=== PATIENT | female | born 1940 | race Caucasian/White ===

== ENCOUNTER 2017-04-11 14:57 | Inpatient (IN) ==
--- NOTE | 2017-04-11 15:38 | EKG Report ---
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
[2017-04-11 16:02] LABS: Basophils % 0.3 % (0.0-0.8); Eosinophils # 0.2 10*3/uL (0.0-0.87); Eosinophils % 2.3 % (0.00-10.9); Hematocrit 33.7 VOL% (35.7-47.0); Hemoglobin 11.2 GM/DL (12.0-16.0); Immature Granulocytes % 0.7 %; Immature Granulocytes Absolute 0.05 #; Lymphocytes # 1.8 10*3/uL (1.4-4.0); Lymphocytes % 25.4 % (21.3-54.2); Mean Corpuscular HGB Conc 33.2 GM/DL (32-36); Mean Corpuscular Hemoglobin 29 PG (27-34); Mean Corpuscular Volume 87.8 FL (87-102); Mean Platelet Volume 10.1 FL (9.6-12.0); Monocytes # 0.7 10*3/uL (0.11-0.8); Neutrophils # 4.3 10*3/uL (1.4-7.4); Neutrophils % 61.3 % (38.7-73.9); Platelet Count 264 T/CUMM (130-400); Red Blood Count 3.84 MC/CUMM (3.8-5.5); Red Cell Distribution Width 15.7 % (9.3-17.3)
[2017-04-11 16:09] LABS: Apearance,Urine CLEAR (Clear); Bilirubin,Urine Negative (Negative); Blood, Urine Negative (Negative); Glucose,Urine (UA) Negative (Negative); Ketones,Urine Negative (Negative); Mucus,Urine Occasional /LPF (Occasional); Nitrite,Urine Negative (Negative); Protein,Urine 100 MG/DL; RBC,Urine 2 /HPF (0-4); Squamous Epithelial Cell,Urine Occasional /HPF (0-10); Urine Color Yellow (Yellow); Urine Urobilinogen < 2.0 EU/DL (0.2-1.0); WBC,Urine 5 /HPF (0-6)
[2017-04-11 16:28] LABS: Alanine Aminotransferase 19 U/L (13-56); Albumin 3.3 G/DL (3.4-5.0); Alkaline Phosphatase 60 U/L (45-117); Aspartate Amino Transferase 24 U/L (0-37); Bilirubin,Total < 0.39 MG/DL (0.2-1.0); Blood Urea Nitrogen 31 MG/DL (7-18); Calcium 8.6 MG/DL (8.5-10.1); Glucose 74 MG/DL (74-106); Magnesium 2.1 MG/DL (1.8-2.4); Potassium 3.8 MMOL/L (3.5-5.1); Sodium 143 MMOL/L (136-145); Total Protein 6.7 G/DL (6.4-8.3)
[2017-04-11 16:36] LABS: Troponin I Only < 0.015 NG/ML (0.00-0.045)
[2017-04-11 17:01] LABS: ABG Base Excess -12.3 MMOL/L (-2.5-2.5); ABG HCO3 14.9 MMOL/L (20-26); ABG Oxygen Saturation 96.8 % (95-100); ABG PH 7.267 (7.35-7.45); ABG PO2 94.7 MM HG (80-95); ABG TCO2 12.5 MMOL/L (23-27)
--- NOTE | 2017-04-11 17:03 | XRay Report ---
Portable chest Date: 04/11/2017 Clinical history: CHF Comparison: 03/14/2017 Technique: Portable AP sitting chest Findings: The heart remains minimally enlarged with calcification in the wall of the thoracic aorta. Chronic scarring in the lungs with minimally progressive diffuse parenchymal findings at the lung bases. Prior anterior cervical fusion with degenerative changes. Impression: Minimally progressive atelectasis/edema at the lung bases. Otherwise the chest is stable in appearance. PROCEDURE INTERPRETED AT [facility] DEPARTMENT OF RADIOLOGY Final Report Signed by: Dr. Luisa Abebe
--- NOTE | 2017-04-11 17:12 | Emergency Department Note ---
Niki Donis Rolonda, am scribing for, and in the presence of, Heladio Jacob MD 16:42. Nidia Donis Charles R, MD, personally performed the services described in this documentation, ascribed by Taylor Prince in my presence, and it is both accurate and complete 712 . Arrival - Arrival Chief Complaint: Non-Specific Stated Complaint: sent by Dr. Feliz's office/high K/needs EKG ED Nursing Triage Note: pt ambulatory to triage with c/o having elevated potassium. pt went to the doctor yesterday and had lab work done and was called back today telling her that her potassium was 7.0. Mode of Arrival: Ambulatory Limitations: No Limitations Source: Patient, Old Records Reviewed, RN Notes Reviewed Time Seen by Provider: 04/11/17 16:15 - History of Present Illness HPI Narrative: Pt is a 76 y/o female who presents to the ED for further evaluation of elevated potassium with an onset of x1 day. Pt has a PMHx of CHF, Kidney infection, and Kidney stones. She states that she was hospitalized for heart cath 03/16/2017-. Pt states that she went to the doctor yesterday in which lab work was done resulting in low potassium. Pt states that she "has no energy". Pt confirms associated sxs of blurred vision and vertigo but denies chest pain and SOB. No other complaint/pain in ED. Onset (ago): day(s) Consistency: constant Severity: mild Severity scale (1-10): 3 Allergies/Adverse Reactions: Allergies Allergy/AdvReac Type Severity Reaction Status Date / Time methotrexate Allergy ANAPHYLAXIS Verified 04/11/17 15:04 Penicillins Allergy UNRESPONSIV Verified 04/11/17 15:04 E Home Medications: Home Medications Medication Instructions Recorded Confirmed Type Diltiazem HCl [Cardizem LA] 360 mg PO DAILY 03/12/17 03/12/17 History Estradiol [Estradiol Tab] 1 mg PO DAILY 03/12/17 03/12/17 History Exenatide Microspheres [Bydureon 2 mg SQ ONCE 03/12/17 03/12/17 History Pen] Omeprazole 40 mg PO DAILY 03/12/17 03/12/17 History Rosuvastatin Calcium 20 mg PO DAILY 03/12/17 03/12/17 History Sitagliptin Phos/Metformin HCl 1 tablet PO DAILY 03/12/17 03/12/17 History [Janumet 50-1,000 mg Tablet] Aspirin EC Tab 81 mg PO DAILY tablet 03/16/17 Rx Ciprofloxacin Tab [Cipro Tab] 500 mg PO BID #6 tablet 03/16/17 Rx Metoprolol Succinate Xl [Toprol Xl] 100 mg PO DAILY #30 03/16/17 Rx Review of System - Review of System 12 point system: reviewed and no additional remarkable complaints except as stated - Review of System Constitutional: Present: weakness. Absent: chills, fever Eyes: Present: vision change. Absent: discharge Head/Ears/Nose/Throat: Absent: earache Respiratory: Absent: cough Cardiovascular: Absent: chest pain Gastrointestinal: Absent: abdominal pain, nausea, vomiting Genitourinary female: Absent: dysuria Musculoskeletal: Absent: arm pain, back pain Skin: Absent: rash Neurological: Present: vertigo. Absent: headache Psychiatric: Absent: anxiety Endocrine: Absent: cold intolerance Hematological/Lymphatic: Absent: easy bleeding Allergic/Immunologic: Absent: facial swelling Medical,Surgical,& Family Hx - Medical History Cardio: History of: CAD, Hypertension No history of: Aneurysm, Cardiac Dysrhythmia, PVD Neurology: No history of: Seizures Endocrine: History of: Diabetes Mellitus (NIDDM) Respiratory: No history of: Obstructive Sleep Apnea, Pneumonia Gastrointestinal: History of: GI Problems (IVS) Other: No history of: Anaphylaxis, Cancer - Family History Family History: Reports;: Family Cancer, Family Heart Disease, Family Hypertension - Social History Smoking Status: Never smoker Frequency of Alcohol Use: None Type of Drug Use: None Exam Vital Signs: Vital Signs Temperature 98.9 F 04/11/17 15:20 Pulse Rate 66 04/11/17 15:20 Respiratory Rate 18 04/11/17 15:20 Blood Pressure 210/73 04/11/17 15:20 O2 Sat by Pulse Oximetry 99 04/11/17 15:00 - General General appearance: alert, in no apparent distress - Head Head exam: Present: atraumatic, normocephalic - Eye Eye exam: Present: PERRL, EOMI - ENT ENT exam: Present: mucous membranes dry. Absent: mucous membranes moist - Neck Neck exam: Present: full ROM. Absent: tenderness - Chest Chest inspection: Present: symmetric chest wall rise. Absent: tenderness - Respiratory Respiratory exam: Present: normal lung sounds bilaterally. Absent: wheezes - Cardiovascular Cardiovascular exam: Present: regular rate, normal rhythm, normal heart sounds. Absent: bradycardia - Abdominal Exam Abdominal exam: Present: soft, normal bowel sounds. Absent: tenderness - Extremities Exam Extremities exam: Present: full ROM. Absent: tenderness - Back Exam Back exam: Present: full ROM. Absent: tenderness - Neurological Exam Neurological exam: Present: alert, oriented X3, CN II-XII intact - Psychiatric Psychiatric exam: Present: normal affect, normal mood - Skin Skin exam: Present: warm, dry, intact, normal color. Absent: rash Course - Consultations Consultation #1: Hospitalist will admit patient Time: 17:26 Results - Labs CBC & BMP: 04/11/17 15:52 04/11/17 15:52 Lab Results: I have reviewed the patients labs Labs: Laboratory Tests 04/11/17 15:52 Total Creatine Kinase 42 CK-MB (CK-2) 2.0 Troponin I < 0.015 - Diagnostic Findings Procedure: Chest x-ray: report reviewed by me (Minimally progressive atelectasis /edema at the lung bases. Otherwise the chest is stable in appearence.) Disposition Clinical Impression: Diabetes, UTI (urinary tract infection), Fatigue, Metabolic acidosis, Generalized weakness, Renal insufficiency, Transient confusion Case discussed with: patient, patient's family Disposition: Still a Patient Condition: Stable Time of Disposition: 17:26
[2017-04-11] MEDS ORDERED: LEVOFLOXACIN INJ 250 MG in PREMIX 1 EACH IV STA (17:24)
--- NOTE | 2017-04-11 17:57 | Hospitalist History & Physical ---
Assessment and Plan (1) Metabolic acidosis Status: Acute Assessment and plan: Consult nephrology for eval. Urine potassium, sodium, and chloride. BMP in am. ABG in am. Current Visit: Yes (2) Generalized weakness Status: Acute Current Visit: Yes (3) Renal insufficiency Status: Acute Assessment and plan: Consult nephrology for eval in am. Creatinine 2.2 Bun 31. Current Visit: Yes (4) UTI (urinary tract infection) Status: Acute Assessment and plan: Treat with Levaquin IV. Current Visit: Yes (5) Diabetes Status: Chronic Assessment and plan: Accuchecks achs. SSI. Hgb A1c in am. Current Visit: Yes (6) CAD (coronary artery disease) Status: Chronic Current Visit: No Qualifiers: Coronary Disease-Associated Artery/Lesion type: [place] artery [place] vs. transplanted heart: [place] heart (7) CHF (congestive heart failure) Status: Chronic Current Visit: No History of Present Illness Chief complaint: abnormal lab and weakness History of present illness: Ms. Haddad is a 76 year old white female with a history of hypertension, CAD CHF , diabetes, and hernia repair that presented to the ED for further evaluation of abnormal lab values. Pt. was seen by Dr. Feliz in clinic yesterday as a follow up to recent hospitalization. Pt. was hospitalized for recurrent CHF. Labs were drawn at that appointment and pt was alerted today that she needed to report to the ED for evaluation. She was told she had a potassium of 7. Pt. also reports "feeling drained" and being consistently short of breath. Pt. denies any other complaints in the ED at this time. On evaluation, pt was noted to have a bicarb of 14, bun/creatinine 31/2.20 ph of 7.267,CO2 of 30, O2 94.7, HCO3 14.9, base excess -12.3. Pt. will be admitted to the hospitalist program for further eval and treatment. Pt's case has been discussed with Dr. Sheth. Home Medications Medication Instructions Recorded Confirmed Type Diltiazem HCl [Cardizem LA] 360 mg PO QAM 03/12/17 04/11/17 History Estradiol [Estradiol Tab] 1 mg PO QAM 03/12/17 04/11/17 History Exenatide Microspheres [Bydureon 2 mg SUBCUT SA 03/12/17 04/11/17 History Pen] Rosuvastatin Calcium 20 mg PO QAM 03/12/17 04/11/17 History Sitagliptin Phos/Metformin HCl 1 tablet PO BID 03/12/17 04/11/17 History [Janumet 50-1,000 mg Tablet] Escitalopram [Lexapro] 10 mg PO QAM 04/11/17 04/11/17 History Fenofibrate [Tricor] 145 mg PO QAM 04/11/17 04/11/17 History Metoprolol Succinate Xl [Toprol Xl] 50 mg PO QAM 04/11/17 04/11/17 History Olmesartan/Hydrochlorothiazide 1 tablet PO QAM 04/11/17 04/11/17 History [Benicar Hct 40-25 mg Tablet] Pantoprazole Sodium 40 mg PO QAM 04/11/17 04/11/17 History Allergies Allergy/AdvReac Type Severity Reaction Status Date / Time methotrexate Allergy ANAPHYLAXIS Verified 04/11/17 15:04 Penicillins Allergy UNRESPONSIV Verified 04/11/17 15:04 E Medical,Surgical,& Family Hx - Medical History Cardio: History of: CAD, Hypertension No history of: Aneurysm, Cardiac Dysrhythmia, PVD Neurology: No history of: Seizures Endocrine: History of: Diabetes Mellitus (NIDDM) Respiratory: No history of: Obstructive Sleep Apnea, Pneumonia Gastrointestinal: History of: GI Problems (IVS) Other: No history of: Anaphylaxis, Cancer - Family History Family History: Reports;: Family Cancer, Family Heart Disease, Family Hypertension - Social History Smoking Status: Never smoker Frequency of Alcohol Use: None Type of Drug Use: None Marital Status: Lives With:: Spouse Functional capacity: independent ambulation - Constitutional Constitutional: Present: weakness. Absent: chills, fever(s) - EENT Eyes: Present: requires corrective lense Ears: Present: decreased hearing - Cardiovascular Cardiovascular: Present: dyspnea on exertion. Absent: chest pain at rest, edema - Respiratory Respiratory: Absent: cough - Gastrointestinal Gastrointestinal: Present: diarrhea. Absent: abdominal pain, nausea, vomiting - Genitourinary Genitourinary: Absent: difficulty urinating - Neurological Neurological: Absent: confusion, dizziness - Hematologic/Lymphatic Hematologic/Lymphatic: Absent: easy bleeding Exam - Constitutional Vitals: Period Temp Pulse Resp BP Sys/Santoro Pulse Ox Last 24 Hr 98.9 F-98.9 F 66-66 18-18 210-210/73-73 99 General appearance: normal weight, no acute distress - Head Head exam: Present: normal inspection, normocephalic - Eye Eye exam: Present: EOMI. Absent: scleral icterus Pupils: Present: ANGELA - Respiratory Respiratory exam: Present: clear to auscultation bilaterally. Absent: wheezes - Cardiovascular Cardiovascular exam: Present: regular rate and rhythm - GI/Abdominal GI/Abdominal exam: Present: normal bowel sounds, soft. Absent: tenderness - Extremities Exam Extremities exam: Present: normal capillary refill, full ROM. Absent: edema - Neurological Exam Neurological exam: Present: alert, oriented X3 - Psychiatric Psychiatric exam: Present: normal affect, normal mood - Skin Skin exam: Present: normal color, warm, dry Results - Labs CBC & BMP: 04/11/17 15:52 04/11/17 15:52 Lab Results: I have reviewed the past 24 hour labs
[2017-04-11] MEDS ORDERED: ONDANSETRON 4 MG/2 ML VIAL IV PRN (20:21)
[2017-04-11] MEDS ORDERED: GLUCAGON 1 MG VIAL IM PRN (20:21)
[2017-04-11] MEDS ORDERED: DEXTROSE 50% 25 GM/50 ML SYRINGE IV PRN (20:21)
[2017-04-11] MEDS ORDERED: ACETAMINOPHEN 325 MG TABLET PO PRN (20:21)
[2017-04-11] MEDS ORDERED: SODIUM BICARB INJ 50 MEQ in SODIUM CHLORIDE 0.45% 1,000 ML IV SCH (21:00)
[2017-04-11] MEDS: INSULIN REGULAR 100 UNIT/ML SUBCUT SCH (21:19)
[2017-04-11] MEDS ORDERED: SODIUM CHLORIDE 0.45% IV SCH (22:00)
[2017-04-11] MEDS ORDERED: SODIUM ACETATE 50 MEQ in SODIUM CHLORIDE 0.45% 975 ML IV SCH (22:00)
[2017-04-11] MEDS ORDERED: SODIUM ACETATE IV SCH (22:00)
[2017-04-12 03:46] LABS: ABG Base Excess -10.9 MMOL/L (-2.5-2.5); ABG HCO3 15.8 MMOL/L (20-26); ABG Oxygen Saturation 97.4 % (95-100); ABG PCO2 31.8 MM HG (35-48); ABG PH 7.279 (7.35-7.45); ABG TCO2 13.7 MMOL/L (23-27)
[2017-04-12 07:30] LABS: Basophils % 0.3 % (0.0-0.8); Eosinophils # 0.2 10*3/uL (0.0-0.87); Eosinophils % 3.4 % (0.00-10.9); Hematocrit 33.1 VOL% (35.7-47.0); Hemoglobin 10.9 GM/DL (12.0-16.0); Immature Granulocytes % 0.4 %; Immature Granulocytes Absolute 0.03 #; Lymphocytes # 2.2 10*3/uL (1.4-4.0); Mean Corpuscular HGB Conc 32.9 GM/DL (32-36); Mean Corpuscular Hemoglobin 29 PG (27-34); Mean Corpuscular Volume 86.9 FL (87-102); Mean Platelet Volume 12.1 FL (9.6-12.0); Monocytes # 0.7 10*3/uL (0.11-0.8); Monocytes % 9.6 % (1.7-12.7); Neutrophils # 3.9 10*3/uL (1.4-7.4); Neutrophils % 55.3 % (38.7-73.9); Platelet Count 205 T/CUMM (130-400); Red Blood Count 3.81 MC/CUMM (3.8-5.5); Red Cell Distribution Width 15.6 % (9.3-17.3); White Blood Count 7.1 T/CUMM (4-12)
[2017-04-12 07:56] LABS: Hypochromasia 1+; Ovalocytes Slight; Platelet Estimate Adequate
[2017-04-12] MEDS: INSULIN REGULAR 100 UNIT/ML SUBCUT SCH ×4 (08:00→21:52)
[2017-04-12 08:07] LABS: Magnesium 2.1 MG/DL (1.8-2.4); Osmolality,Calculated 288.1 MOS/KG (273-304); Potassium 3.8 MMOL/L (3.5-5.1); Risk Ratio 3.3; Thyroid Stimulating Hormone 1.61 uIU/ml (0.358-3.74)
[2017-04-12] MEDS ORDERED: PANTOPRAZOLE 40 MG TABLET PO SCH (09:00)
[2017-04-12] MEDS ORDERED: hydroCHLOROthiazide 25 MG TABLET PO SCH (09:00)
[2017-04-12] MEDS ORDERED: OLMESARTAN 20 MG TABLET PO SCH (09:00)
[2017-04-12] MEDS ORDERED: LEVOFLOXACIN INJ 250 MG in PREMIX 1 EACH IV SCH ×2 (09:00→19:00)
[2017-04-12] MEDS: PANTOPRAZOLE 40 MG TABLET PO SCH (09:54)
[2017-04-12] MEDS: ESTRADIOL 1 MG TABLET PO SCH (09:54)
[2017-04-12] MEDS: ESCITALOPRAM 10 MG TABLET PO SCH (09:54)
[2017-04-12] MEDS: FENOFIBRATE 145 MG TABLET PO SCH (09:54)
[2017-04-12] MEDS: ROSUVASTATIN 20 MG TABLET PO SCH (09:55)
[2017-04-12] MEDS: METOPROLOL SUCCINATE XL 50 MG TABLET PO SCH (09:55)
[2017-04-12] MEDS: DILTIAZEM CD 180 MG CAPSULE PO SCH (09:55)
--- NOTE | 2017-04-12 10:16 | Hospitalist Progress Note ---
<Arelis Garcia - Last Filed: 04/12/17 10:11> Assessment and Plan (1) Metabolic acidosis Status: Acute Assessment and plan: Consult nephrology for eval. Urine potassium, sodium, and chloride. BMP in am. ABG in am. 04/12 Awaiting nephrology consult. Bicarb improved. Will continue to monitor. Continue daily labs. Current Visit: Yes (2) Generalized weakness Status: Acute Current Visit: Yes (3) Renal insufficiency Status: Acute Assessment and plan: Consult nephrology for eval in am. Creatinine 2.2 Bun 31. 04/12 Creatinine 1.9 Bun 29. Continue daily labs. Current Visit: Yes (4) UTI (urinary tract infection) Status: Acute Assessment and plan: Treat with Levaquin IV. Current Visit: Yes (5) Diabetes Status: Chronic Assessment and plan: Accuchecks achs. SSI. Hgb A1c in am. Current Visit: Yes (6) CAD (coronary artery disease) Status: Chronic Current Visit: No Qualifiers: Coronary Disease-Associated Artery/Lesion type: [place] artery [place] vs. transplanted heart: [place] heart (7) CHF (congestive heart failure) Status: Chronic Current Visit: No Hospitalist: Subjective Interval history: Pt. seen and examined. Pt. states she is doing better this morning. Pt. does complain of some flank pain but no other issues at this time. Pt's bicarb improved to 16 today- fluids currently infusing. Nephrology has been consulted; still awaiting their recommendations. We will continue to monitor patient. Exam - Constitutional Vitals: Period Temp Pulse Resp BP Sys/Santoro Pulse Ox Last 24 Hr 97.0 F-98.9 F 58-66 16-20 140-210/65-79 96-100 General appearance: normal weight, no acute distress - Head Head exam: Present: normal inspection, normocephalic - Eye Eye exam: Present: EOMI. Absent: scleral icterus Pupils: Present: ANGELA. Absent: fixed - Respiratory Respiratory exam: Present: clear to auscultation bilaterally. Absent: wheezes - Cardiovascular Cardiovascular exam: Present: regular rate and rhythm - GI/Abdominal GI/Abdominal exam: Present: normal bowel sounds, soft. Absent: tenderness - Extremities Exam Extremities exam: Present: normal capillary refill, full ROM. Absent: edema - Neurological Exam Neurological exam: Present: alert, oriented X3 - Psychiatric Psychiatric exam: Present: normal affect, normal mood - Skin Skin exam: Present: normal color, warm, dry Results - Labs CBC & BMP: 04/12/17 05:52 04/12/17 05:52 Lab Results: I have reviewed the past 24 hour labs <Nae Burnett - Last Filed: 04/12/17 15:55> Hospitalist: Subjective Interval history: Patient seen and examined independently of STROKE COORDINATOR Garcia, agree with assessment and plan as documented. Patient reports nausea and diarrhea after eating for almost three years. She has been worked up for this several times at more than one place. Nephrology assisting. Exam - Constitutional Vitals: Period Temp Pulse Resp BP Sys/Santoro Pulse Ox Last 24 Hr 97.0 F-97.5 F 58-63 16-20 140-157/64-79 96-100 Results - Labs CBC & BMP: 04/12/17 05:52 04/12/17 05:52
--- NOTE | 2017-04-12 13:07 | Physician Query Form ---
CLICK EDIT DOCUMENT TO SELECT QUERY ANSWER --> OK --> SIGN Catina Gibbons RN [employer] W) [phone] (f) [phone] [email or web address] PROVIDERS: Make your selection(s) from the choices in EACH section by typing an "x" and enter comments in the comment section. Please use your independent medical judgment in providing your response. This request does not imply that any particular answer is desired or expected. CLINICAL INDICATORS: (Providers should not edit this section) Based on documentation of "Acute Renal Insufficiency" Creatinine form 2.20 to 1.90. GFR from 21 to 25. Treated with 1/2 NS infusion. Clarify which of the following most accurately represents the patient's renal status: ( ) Acute kidney injury (non-traumatic) ( ) Acute renal failure ( ) Acute renal failure with underlying Chronic Kidney Disease (CKD) - please provide stage below ( ) Acute renal failure with pathological renal lesion ( ) Acute renal failure with necrosis ( ) tubular ( ) medullary ( ) cortical ( ) CKD - please provide stage below ( ) End Stage Renal Disease ( ) Acute interstitial nephritis ( ) Hepatorenal syndrome ( ) Other, please specify: ( ) Clinically unable to determine Chronic Kidney Disease Stages Source: National Kidney Disease Foundation ( ) Stage I (eGFR > or = 90) ( ) Stage II (eGFR 60 - 89) ( ) Stage III (eGFR 30 - 59) ( ) Stage IV (eGFR 15 - 29) ( ) Stage V (eGFR < 15 or dialysis) COMMENTS: PLEASE ALSO DOCUMENT RESPONSE IN PROGRESS NOTES AND/OR DISCHARGE SUMMARY Use of terms such as suspected, likely, or probable (associated with a specific diagnosis that is being evaluated, monitored, or treated as if it exists) are acceptable and can be restated in the discharge summary if not ruled out. MTDD
--- NOTE | 2017-04-12 13:31 | Nephrology Consult Note ---
History of Present Illness Chief complaint: ARF, met acidosis History of present illness: Ms. Haddad is a 76 year old female admitted with mild acute renal failure and a normal anion gap metabolic acidosis. Her creatinine was 2.2 on admission and on March 16 was 1.4. Creatinine today after IV hydration is 1.9 and her serum bicarb is risen from 14 on admission to 16 today. She underwent cardiac catheterization last month when she presented with weakness was found to have patent coronary arteries with a patent stent previously placed in the coronary artery. Left ventricular ejection fraction was normal. She had some mild acute renal failure during that admission with a creatinine that giovanna to approximately 2.4 but at the time of discharge creatinine was down to 1.4. Her history is significant in that she has 10-12 bowel movements per day and has had for approximately 3 years she said this began after she had had what sounds like surgery for a hiatal hernia or paraesophageal hernia. She relates the diarrhea mostly to occurring after she eats anything. She estimates that on the day of admission she had had 10-12 bowel movements. She has not been taking olmesartan since her last admission when she was taken off of it. On exam she is in no distress she is talkative but informative. Neck without jugular venous distention heart without rub or gallop lungs clear the abdomen soft nontender extremities without edema. Chest x-ray is unremarkable Impression mild acute renal failure I think likely due to volume depletion #2 normal anion gap metabolic acidosis due to chronic diarrhea Plan I would continue IV hydration and sodium acetate administration for her metabolic acidosis. We will also add oral sodium bicarbonate which she can take at home. I think she should come off of an ARB or KULWINDER inhibitor due to her tendency to dehydration. She does describe symptoms compatible with orthostatic hypotension. We will also stop her diuretic for now since she admits to drinking a lot in order to keep up with her fluid losses with her diarrhea. Home Medications Medication Instructions Recorded Confirmed Type Diltiazem HCl [Cardizem LA] 360 mg PO QAM 03/12/17 04/11/17 History Estradiol [Estradiol Tab] 1 mg PO QAM 03/12/17 04/11/17 History Exenatide Microspheres [Bydureon 2 mg SUBCUT SA 03/12/17 04/11/17 History Pen] Rosuvastatin Calcium 20 mg PO QAM 03/12/17 04/11/17 History Sitagliptin Phos/Metformin HCl 1 tablet PO BID 03/12/17 04/11/17 History [Janumet 50-1,000 mg Tablet] Escitalopram [Lexapro] 10 mg PO QAM 04/11/17 04/11/17 History Fenofibrate [Tricor] 145 mg PO QAM 04/11/17 04/11/17 History Metoprolol Succinate Xl [Toprol Xl] 50 mg PO QAM 04/11/17 04/11/17 History Olmesartan/Hydrochlorothiazide 1 tablet PO QAM 04/11/17 04/11/17 History [Benicar Hct 40-25 mg Tablet] Pantoprazole Sodium 40 mg PO QAM 04/11/17 04/11/17 History Allergies Allergy/AdvReac Type Severity Reaction Status Date / Time methotrexate Allergy ANAPHYLAXIS Verified 04/11/17 15:04 Penicillins Allergy UNRESPONSIV Verified 04/11/17 15:04 E Medical,Surgical,& Family Hx - Medical History Cardio: History of: CAD, Hypertension No history of: Aneurysm, Cardiac Dysrhythmia, PVD Neurology: History of: Migraine No history of: Seizures Endocrine: History of: Diabetes Mellitus (NIDDM) Respiratory: No history of: Obstructive Sleep Apnea, Pneumonia Genitourinary: History of: Kidney Stones Gastrointestinal: History of: GI Problems (IVS) Hematology: History of: Anemia Other: No history of: Anaphylaxis, Cancer - Surgical History Reproductive Surgeries: Surgical HX of;: Hysterectomy - Family History Family History: Reports;: Family Cancer, Family Heart Disease, Family Hypertension - Social History Smoking Status: Never smoker Frequency of Alcohol Use: None Type of Drug Use: None Review of Systems 12 point system: reviewed and no additional remarkable complaints except as stated Exam - Vital Signs Vital signs: Period Temp Pulse Resp BP Sys/Santoro Pulse Ox Last 24 Hr 97.0 F-98.9 F 58-66 16-20 140-210/64-79 96-100 - General Appearance General appearance: well-developed, well-nourished, appears started age EENT: ATNC Neck: no JVD, no thyromegaly, no carotid bruit, supple Respiratory: no kyphosis, no scoliosis Cardiology: no murmurs, no rub, no gallops, no edema, regular rate, regular rhythm, normal S1, normal S2 Gastrointestinal: normoactive bowel sounds Integumentary: no rash, warm and dry Neurologic: no focal deficit, no asterixis, alert and oriented x3, reflexes 2+ and symmetric, gait normal, strength 5/5 Musculoskeletal: no deformities, no erythema, no cyanosis, no clubbing Psychiatric: mood/affect appropriate, cooperative Results - Labs CBC & BMP: 04/12/17 05:52 04/12/17 05:52 Assessment and Plan - Time spent with patient Time spent with patient: Greater than 30 minutes (1) Metabolic acidosis Status: Acute Assessment and plan: Likely due to diarrhea Current Visit: Yes (2) Renal insufficiency Status: Acute Assessment and plan: Likely related to volume depletion. Shouldn't be any residual from last month's heart cath Current Visit: Yes (3) Diabetes Status: Chronic Current Visit: Yes Specialty Discharge - Follow Up or Referrals - Speciality Discharge Instructions Nephrology Instructions: Continue iv with na acetate. We'll begin oral bicarb and stop Olmesartin/HCTZ
[2017-04-12] MEDS: SODIUM BICARBONATE 650 MG TABLET PO SCH ×2 (15:44→20:29)
[2017-04-13 06:49] LABS: Basophils % 0.4 % (0.0-0.8); Eosinophils # 0.3 10*3/uL (0.0-0.87); Eosinophils % 3.9 % (0.00-10.9); Hematocrit 30.5 VOL% (35.7-47.0); Hemoglobin 10.2 GM/DL (12.0-16.0); Immature Granulocytes % 0.7 %; Immature Granulocytes Absolute 0.05 #; Lymphocytes # 1.8 10*3/uL (1.4-4.0); Lymphocytes % 23.4 % (21.3-54.2); Mean Corpuscular HGB Conc 33.4 GM/DL (32-36); Mean Corpuscular Hemoglobin 29 PG (27-34); Mean Corpuscular Volume 86.4 FL (87-102); Mean Platelet Volume 10.5 FL (9.6-12.0); Monocytes # 0.8 10*3/uL (0.11-0.8); Monocytes % 10.5 % (1.7-12.7); Neutrophils # 4.7 10*3/uL (1.4-7.4); Neutrophils % 61.1 % (38.7-73.9); Platelet Count 255 T/CUMM (130-400); Red Blood Count 3.53 MC/CUMM (3.8-5.5); Red Cell Distribution Width 15.5 % (9.3-17.3); White Blood Count 7.6 T/CUMM (4-12)
[2017-04-13 07:25] LABS: Calcium 9.2 MG/DL (8.5-10.1); Osmolality,Calculated 292.8 MOS/KG (273-304)
[2017-04-13] MEDS ORDERED: sitaGLIPtin 25 MG TABLET PO SCH (09:00)
--- NOTE | 2017-04-13 09:06 | Nephrology Progress Note ---
Nephrology - PN: Subj Interval history: Ms. Haddad is seen in follow-up of her metabolic acidosis and azotemia. She is better with a stable creatinine of 1.9 and a corrected acidosis with bicarb of 21. Urine electrolytes with a high urine chloride suggests an at further evidence that her normal anion gap metabolic acidosis is due to her diarrhea. Her chest is clear she is in no distress and feels some better. I think it is fine for her to go home and I do think sodium bicarb at home is reasonable and with her obvious tendency toward volume depletion due to diarrhea I would avoid KULWINDER, ARB, and diuretic therapy. She will continue follow-up with Dr. Feliz Exam (PN)-Nephrology - Vital Signs Vital signs: Period Temp Pulse Resp BP Sys/Santoro Pulse Ox Last 24 Hr 97.2 F-98.5 F 51-63 16-20 124-155/51-79 92-97 - Lab 04/13/17 06:20 04/13/17 06:20 Most recent lab results ABG pH 7.279 (7.35-7.45) L 04/12/17 03:39 ABG pCO2 31.8 MM HG (35-48) L 04/12/17 03:39 ABG pO2 101.0 MM HG (80-95) H 04/12/17 03:39 ABG HCO3 15.8 MMOL/L (20-26) L 04/12/17 03:39 ABG O2 Saturation 97.4 % (95-100) 04/12/17 03:39 Calcium 9.2 MG/DL (8.5-10.1) 04/13/17 06:20 Magnesium 2.1 MG/DL (1.8-2.4) 04/12/17 05:52 Assessment and Plan (1) Metabolic acidosis Status: Acute Assessment and plan: Likely due to diarrhea Current Visit: Yes (2) Renal insufficiency Status: Acute Assessment and plan: Likely related to volume depletion. Shouldn't be any residual from last month's heart cath Current Visit: Yes (3) Diabetes Status: Chronic Current Visit: Yes
[2017-04-13] MEDS: ESCITALOPRAM 10 MG TABLET PO SCH (09:20)
[2017-04-13] MEDS: ROSUVASTATIN 20 MG TABLET PO SCH (09:20)
[2017-04-13] MEDS: FENOFIBRATE 145 MG TABLET PO SCH (09:20)
[2017-04-13] MEDS: ESTRADIOL 1 MG TABLET PO SCH (09:20)
[2017-04-13] MEDS: DILTIAZEM CD 180 MG CAPSULE PO SCH (09:21)
[2017-04-13] MEDS: PANTOPRAZOLE 40 MG TABLET PO SCH (09:22)
[2017-04-13] MEDS: INSULIN REGULAR 100 UNIT/ML SUBCUT SCH ×2 (09:24→18:15)
[2017-04-13] MEDS: METOPROLOL SUCCINATE XL 50 MG TABLET PO SCH (09:31)
--- NOTE | 2017-04-13 13:38 | Discharge Summary ---
Hospital Course - Hospital Course Hospital Course: Ms. Haddad is a 76 year old white female with a history of hypertension, CAD CHF , diabetes, and hernia repair that presented to the ED for further evaluation of abnormal lab values. Patient was seen by Dr. Feliz in clinic the day previously as a follow up to recent hospitalization. Labs were drawn at that appointment and patient was alerted that she needed to report to the ED for evaluation. She was told she had a potassium of 7. Pt. also reports "feeling drained" and being consistently short of breath. On evaluation, pt was noted to have a bicarb of 14, bun/creatinine 31/2.20 with a normal potassium. She was admitted to the hospitalist service for mild acute renal failure and normal anion gap metabolic acidosis. Nephrology was consulted. She was gently hydrated with IV fluids and started on oral sodium bicarbonate. It was felt that this was due to her history of chronic diarrhea. Her bicarbonate levels have improved. She has now reached maximal benefit of inpatient stay and will be discharged to home. - Time spent with patient Time with patient DS: Greater than 30 minutes (40) Diagnosis - Discharge Diagnosis (1) Generalized weakness Status: Resolved (2) Renal insufficiency Status: Chronic (3) Metabolic acidosis Status: Resolved Discharge Plan - Discharge Data Disposition: Disch To Home/Self Care Condition at Discharge: Stable Discharge Diet: advance to your usual diet Activity: increase activity as tolerated Hygiene: no restrictions Weight Bearing at Discharge: weight bear as tolerated Driving: no restrictions Contact your physician if you experience:: fever over 101 - Discharge Medications New Sodium Bicarb Tab 1,300 mg PO BID #120 tablet Continue Exenatide Microspheres [Bydureon Pen] 2 mg SUBCUT SA Rosuvastatin Calcium 20 mg PO QAM Estradiol [Estradiol Tab] 1 mg PO QAM Sitagliptin Phos/Metformin HCl [Janumet 50-1,000 mg Tablet] 1 tablet PO BID Fenofibrate [Tricor] 145 mg PO QAM Pantoprazole Sodium 40 mg PO QAM Diltiazem HCl [Cardizem LA] 360 mg PO QAM Escitalopram [Lexapro] 10 mg PO QAM Metoprolol Succinate Xl [Toprol Xl] 50 mg PO QAM Discontinued Olmesartan/Hydrochlorothiazide [Benicar Hct 40-25 mg Tablet] 1 tablet PO QAM - Follow Up or Referral - Forms/Instructions Exam - Constitutional Vitals: Period Temp Pulse Resp BP Sys/Santoro Pulse Ox Last 24 Hr 97.2 F-98.5 F 51-90 16-20 124-151/51-82 92-97 General appearance: normal weight - Head Head exam: Present: normocephalic, atraumatic - Eye Eye exam: Present: EOMI Pupils: Present: ANGELA - ENT ENT exam: Present: normal exam - Neck Neck exam: Present: normal inspection - Respiratory Respiratory exam: Present: clear to auscultation bilaterally. Absent: rhonchi, wheezes - Cardiovascular Cardiovascular exam: Present: regular rate and rhythm - GI/Abdominal GI/Abdominal exam: Present: normal bowel sounds, soft. Absent: tenderness, rebound - Extremities Exam Extremities exam: Present: normal inspection - Back Exam Back exam: Present: normal inspection - Neurological Exam Neurological exam: Present: alert, oriented X3 - Psychiatric Psychiatric exam: Present: normal affect, normal mood - Skin Skin exam: Present: warm, intact Discharge Results Procedures and tests throughout hospitalization: Pending Orders 04/11/17 17:39 Blood Culture Stat Labs on day of discharge: Labs from last 24 hours 04/13/17 04/13/17 04/13/17 12:38 07:53 06:20 WBC RBC Hgb Hct MCV MCH MCHC RDW Plt Count MPV Neut % (Auto) Lymph % (Auto) [place] % (Auto) Eos % (Auto) Baso % (Auto) Neut # (Auto) Lymph # (Auto) [place] # (Auto) Eos # (Auto) Baso # (Auto) Immature Gran % Nucleated RBC % Immature Gran # Nucleated RBCs # Immature Plt Fraction Sodium 144 Potassium 4.0 Chloride 114 H Carbon Dioxide 21 Anion Gap 13.0 BUN 30 H Creatinine 1.90 H GFR Calculation 25 BUN/Creatinine Ratio 15.00 Glucose 119 H POC Glucose 212 H 164 H Calculated Osmolality 292.8 Calcium 9.2 04/13/17 04/12/17 04/12/17 06:20 21:25 16:33 WBC 7.6 RBC 3.53 L Hgb 10.2 L Hct 30.5 L MCV 86.4 L MCH 29 MCHC 33.4 RDW 15.5 Plt Count 255 D MPV 10.5 Neut % (Auto) 61.1 Lymph % (Auto) 23.4 [place] % (Auto) 10.5 Eos % (Auto) 3.9 Baso % (Auto) 0.4 Neut # (Auto) 4.7 Lymph # (Auto) 1.8 [place] # (Auto) 0.8 Eos # (Auto) 0.3 Baso # (Auto) 0.0 Immature Gran % 0.7 Nucleated RBC % 0.0 Immature Gran # 0.05 Nucleated RBCs # 0.00 Immature Plt Fraction 0.0 Sodium Potassium Chloride Carbon Dioxide Anion Gap BUN Creatinine GFR Calculation BUN/Creatinine Ratio Glucose POC Glucose 246 H 243 H Calculated Osmolality Calcium Preliminary micro results at discharge 04/11/17 17:39 Blood Culture - Preliminary Blood No growth at 1 day 04/11/17 17:39 Blood Culture - Preliminary Blood No growth at 1 day DS: Provider Date of admission: 04/11/17 17:30 Primary care physician: . No PCP Attending physician on admission: Sammy Sheth MD Consults: 04/11/17 18:58 Consult to Dietitian [CONS] Routine Reason for Dietitian: Other 04/11/17 20:21 Consult to Physician [CONS] Routine Comment: Non-anion gap metabolic acidosis Consulting Provider: Rex Nassar Consult to Specialist Group: Nephrology When should Consulting Provider be notified: In am Discharging clinician: Nae Burnett MD
[2017-04-13 16:03] VITALS: BP 128/62
[2017-04-13] MEDS ORDERED: SODIUM BICARBONATE 650 MG TABLET PO SCH (21:00)
== END 2017-04-13 15:50 | disposition home or self-care (01) | DRG 683 ==
LOC: N.ED 14:57 → N.EDINP 17:30 → SUATTDRO 17:30 → N.2E 18:34
PROVIDERS: ADMIT Internal Medicine; ATTEND Internal Medicine

== ENCOUNTER 2017-11-01 15:54 | Inpatient (IN) ==
[2017-11-01] MEDS ORDERED: PANTOPRAZOLE 40 MG VIAL IV STA (16:18)
[2017-11-01] MEDS ORDERED: ASPIRIN 325 MG TABLET PO STA (16:18)
[2017-11-01] MEDS ORDERED: ONDANSETRON 4 MG/2 ML VIAL IV STA (16:18)
[2017-11-01] MEDS ORDERED: ONDANSETRON 4 MG/2 ML VIAL ONE (16:27)
[2017-11-01] MEDS ORDERED: ASPIRIN 325 MG TABLET ONE (16:27)
[2017-11-01] MEDS ORDERED: PANTOPRAZOLE 40 MG VIAL IV ONE (16:27)
[2017-11-01 16:35] LABS: Basophils % 0.3 % (0.0-0.8); Eosinophils # 0.2 10*3/uL (0.0-0.87); Eosinophils % 2.1 % (0.00-10.9); Hematocrit 25.4 VOL% (35.7-47.0); Hemoglobin 7.9 GM/DL (12.0-16.0); Immature Granulocytes % 1.2 %; Immature Granulocytes Absolute 0.13 #; Lymphocytes # 1.8 10*3/uL (1.4-4.0); Lymphocytes % 16.8 % (21.3-54.2); Mean Corpuscular HGB Conc 31.1 GM/DL (32-36); Mean Corpuscular Hemoglobin 30 PG (27-34); Mean Corpuscular Volume 97.7 FL (87-102); Mean Platelet Volume 10.7 FL (9.6-12.0); Monocytes # 0.7 10*3/uL (0.11-0.8); Monocytes % 6.6 % (1.7-12.7); Neutrophils # 7.8 10*3/uL (1.4-7.4); Platelet Count 316 T/CUMM (130-400); Red Cell Distribution Width 14.8 % (9.3-17.3); White Blood Count 10.7 T/CUMM (4-12)
[2017-11-01 16:46] LABS: PT Patient Result 10.8 SECS; Partial Thromboplastin Time 24.2 SECS (0-40)
[2017-11-01 16:55] LABS: Alanine Aminotransferase 17 U/L (13-56); Albumin 2.8 G/DL (3.4-5.0); Alkaline Phosphatase 72 U/L (45-117); Aspartate Amino Transferase 21 U/L (0-37); Bilirubin,Total < 0.39 MG/DL (0.2-1.0); Blood Urea Nitrogen 32 MG/DL (7-18); Calcium 7.8 MG/DL (8.5-10.1); Glucose 397 MG/DL (74-106); Osmolality,Calculated 298.7 MOS/KG (273-304); Potassium 4.3 MMOL/L (3.5-5.1); Sodium 138 MMOL/L (136-145); Total Protein 5.6 G/DL (6.4-8.3)
[2017-11-01] MEDS ORDERED: SODIUM CHLORIDE 0.9% 1,000 ML IV STA (17:06)
[2017-11-01 17:14] LABS: Troponin I Only 0.031 NG/ML (0.00-0.045)
[2017-11-01] MEDS ORDERED: ATROPINE 1 MG/10 ML SYRINGE IV STA (18:38)
[2017-11-01] MEDS ORDERED: DEXTROSE 50% 25 GM/50 ML VIAL IV PRN (18:39)
[2017-11-01] MEDS ORDERED: GLUCAGON 1 MG VIAL IM PRN (18:39)
[2017-11-01] MEDS ORDERED: ONDANSETRON 4 MG/2 ML VIAL IV PRN (18:39)
[2017-11-01] MEDS ORDERED: SODIUM CHLORIDE 0.9% 1,000 ML IV PRN (18:41)
[2017-11-01] MEDS ORDERED: FUROSEMIDE 20 MG/2 ML VIAL IV ONE (18:42)
[2017-11-01] MEDS ORDERED: ATROPINE 0.4 MG/1 ML VIAL ONE (18:44)
[2017-11-01] MEDS ORDERED: ALPRAZolam 0.5 MG TABLET PO PRN (18:46)
[2017-11-01] MEDS ORDERED: SODIUM CHLORIDE 0.9% 1,000 ML IV SCH (19:00)
[2017-11-01] MEDS ORDERED: CYANOCOBALAMIN 1000 MCG/1 ML VIAL IM ONE (19:08)
[2017-11-01] MEDS ORDERED: ATROPINE 1 MG/10 ML SYRINGE IV PRN (19:30)
[2017-11-01 19:31] LABS: Troponin I Only 0.029 NG/ML (0.00-0.045)
[2017-11-01] MEDS: INSULIN REGULAR 100 UNIT/ML SUBCUT SCH (23:36)
[2017-11-02] MEDS ORDERED: FUROSEMIDE 40 MG/4 ML VIAL ONE (03:26)
[2017-11-02 05:09] LABS: Basophils % 0.3 % (0.0-0.8); Eosinophils # 0.1 10*3/uL (0.0-0.87); Eosinophils % 0.7 % (0.00-10.9); Hematocrit 31.1 VOL% (35.7-47.0); Immature Granulocytes Absolute 0.09 #; Lymphocytes # 1.7 10*3/uL (1.4-4.0); Lymphocytes % 19.7 % (21.3-54.2); Mean Corpuscular HGB Conc 31.5 GM/DL (32-36); Mean Corpuscular Hemoglobin 30 PG (27-34); Mean Platelet Volume 10.8 FL (9.6-12.0); Monocytes # 0.6 10*3/uL (0.11-0.8); Monocytes % 7.3 % (1.7-12.7); Neutrophils # 6.3 10*3/uL (1.4-7.4); Platelet Count 316 T/CUMM (130-400); Red Blood Count 3.31 MC/CUMM (3.8-5.5); Red Cell Distribution Width 14.6 % (9.3-17.3); White Blood Count 8.8 T/CUMM (4-12)
[2017-11-02 05:14] LABS: Hemoglobin 9.8 GM/DL (12.0-16.0)
[2017-11-02] MEDS: INSULIN REGULAR 100 UNIT/ML SUBCUT SCH ×3 (05:37→18:32)
[2017-11-02 05:51] LABS: Bilirubin,Total 0.6 MG/DL (0.2-1.0); Calcium 8.1 MG/DL (8.5-10.1)
[2017-11-02 05:52] LABS: Osmolality,Calculated 289.1 MOS/KG (273-304); Potassium 4.5 MMOL/L (3.5-5.1)
[2017-11-02] MEDS ORDERED: ACETAMINOPHEN 325 MG TABLET PO PRN (07:34)
[2017-11-02] MEDS: MORPHINE 2 MG/1 ML SYRINGE IV PRN ×2 (07:47→12:25)
[2017-11-02] MEDS ORDERED: amLODIPine 5 MG TABLET PO SCH (09:00)
[2017-11-02] MEDS ORDERED: CYANOCOBALAMIN 1000 MCG/1 ML VIAL IM ONE (09:00)
[2017-11-02] MEDS ORDERED: GLUCAGON 1 MG VIAL IM PRN (09:15)
[2017-11-02] MEDS ORDERED: DEXTROSE 50% 25 GM/50 ML VIAL IV PRN (09:15)
[2017-11-02] MEDS: INSULIN LISPRO 100 UNIT/ML SUBCUT SCH ×3 (12:38→21:29)
[2017-11-02] MEDS: hydrALAZINE 25 MG TABLET PO SCH ×3 (13:15→21:27)
[2017-11-02] MEDS: CYANOCOBALAMIN 500 MCG TABLET PO SCH (14:09)
[2017-11-02] MEDS: FUROSEMIDE 20 MG TABLET PO SCH (18:49)
[2017-11-02] MEDS: SODIUM BICARBONATE 650 MG TABLET PO SCH (21:27)
[2017-11-03] MEDS: INSULIN REGULAR 100 UNIT/ML SUBCUT SCH ×3 (02:01→12:11)
[2017-11-03 02:51] LABS: Basophils % 0.3 % (0.0-0.8); Eosinophils # 0.2 10*3/uL (0.0-0.87); Eosinophils % 2.6 % (0.00-10.9); Hematocrit 29.6 VOL% (35.7-47.0); Hemoglobin 9.7 GM/DL (12.0-16.0); Immature Granulocytes % 0.7 %; Immature Granulocytes Absolute 0.05 #; Lymphocytes # 1.4 10*3/uL (1.4-4.0); Lymphocytes % 18.9 % (21.3-54.2); Mean Corpuscular HGB Conc 32.8 GM/DL (32-36); Mean Corpuscular Hemoglobin 30 PG (27-34); Mean Corpuscular Volume 92.2 FL (87-102); Mean Platelet Volume 10.4 FL (9.6-12.0); Monocytes # 0.5 10*3/uL (0.11-0.8); Neutrophils # 5.1 10*3/uL (1.4-7.4); Neutrophils % 70.5 % (38.7-73.9); Platelet Count 315 T/CUMM (130-400); Red Blood Count 3.21 MC/CUMM (3.8-5.5); Red Cell Distribution Width 14.5 % (9.3-17.3); White Blood Count 7.2 T/CUMM (4-12)
[2017-11-03 04:27] LABS: Calcium 8.6 MG/DL (8.5-10.1); Osmolality,Calculated 285.5 MOS/KG (273-304); Potassium 3.4 MMOL/L (3.5-5.1)
[2017-11-03] MEDS ORDERED: POTASSIUM CHLORIDE 20 MEQ TABLET PO ONE (07:46)
[2017-11-03] MEDS ORDERED: POTASSIUM CHLORIDE RIDER 10 MEQ in PREMIX 1 EACH IV SCH (08:00)
[2017-11-03] MEDS: FUROSEMIDE 20 MG TABLET PO SCH (09:00)
[2017-11-03] MEDS: CYANOCOBALAMIN 500 MCG TABLET PO SCH (09:00)
[2017-11-03] MEDS: hydrALAZINE 25 MG TABLET PO SCH ×2 (09:01→14:46)
[2017-11-03] MEDS: INSULIN LISPRO 100 UNIT/ML SUBCUT SCH ×2 (09:02→12:10)
[2017-11-03] MEDS: SODIUM BICARBONATE 650 MG TABLET PO SCH (09:02)
[2017-11-03] MEDS: POTASSIUM CHLORIDE RIDER 10 MEQ in PREMIX 1 EACH IV SCH ×4 (10:18→13:59)
[2017-11-03 11:41] VITALS: BP 143/67
== END 2017-11-03 15:21 | disposition home or self-care (01) | DRG 286 ==
LOC: N.ED 15:54 → SUPCPDRO 18:36 → N.EDINP 18:47 → N.ICU 18:55 → N.TELEN 11-02 14:50 → N.ICU 11-02 14:51 → N.TELEN 11-02 15:28
PROVIDERS: ADMIT Internal Medicine; ATTEND Internal Medicine

== ENCOUNTER 2019-02-13 20:41 | Inpatient (IN) ==
[2019-02-13] MEDS ORDERED: FUROSEMIDE 100 MG/10 ML VIAL IV STA (21:18)
[2019-02-13] MEDS ORDERED: ALBUTEROL/IPRATROPIUM 3 ML NEB RESP TX STA (21:18)
[2019-02-13] MEDS ORDERED: methylPREDNISolone SOD SUC 125 MG/2 ML VIAL IV STA (21:18)
[2019-02-13] MEDS ORDERED: ONDANSETRON 4 MG/2 ML VIAL IV STA (21:18)
[2019-02-13 22:07] LABS: Basophils % 0.4 % (0.0-0.8); Eosinophils # 0.2 10*3/uL (0.0-0.87); Eosinophils % 2.5 % (0.00-10.9); Hematocrit 23.2 VOL% (35.7-47.0); Immature Granulocytes % 0.4 %; Immature Granulocytes Absolute 0.03 #; Lymphocytes # 1.5 10*3/uL (1.4-4.0); Lymphocytes % 19.4 % (21.3-54.2); Mean Corpuscular HGB Conc 30.2 GM/DL (32-36); Mean Corpuscular Volume 92.8 FL (87-102); Mean Platelet Volume 10.1 FL (9.6-12.0); Monocytes % 7.4 % (1.7-12.7); Neutrophils % 69.9 % (38.7-73.9); Platelet Count 247 T/CUMM (130-400); Red Cell Distribution Width 13.9 % (9.3-17.3); White Blood Count 7.5 T/CUMM (4-12)
[2019-02-13 22:24] LABS: INR 0.9; PT Patient Result 9.8 SECS; Partial Thromboplastin Time 25.9 SECS (0-40)
[2019-02-13 22:46] LABS: Albumin 3.1 G/DL (3.4-5.0); Bilirubin,Total 0.4 MG/DL (0.2-1.0); Calcium 8.4 MG/DL (8.5-10.1); Osmolality,Calculated 296.3 MOS/KG (273-304); Total Protein 6.3 G/DL (6.4-8.3)
[2019-02-14] MEDS ORDERED: DOCUSATE SODIUM 100 MG CAPSULE PO PRN (02:05)
[2019-02-14] MEDS ORDERED: GLUCAGON 1 MG VIAL IM PRN (02:05)
[2019-02-14] MEDS ORDERED: FUROSEMIDE 20 MG/2 ML VIAL IV PRN (02:05)
[2019-02-14] MEDS ORDERED: DEXTROSE 50% 25 GM/50 ML VIAL IV PRN (02:05)
[2019-02-14] MEDS ORDERED: ONDANSETRON 4 MG/2 ML VIAL IV PRN (02:05)
[2019-02-14] MEDS ORDERED: SODIUM CHLORIDE 0.9% 1,000 ML IV PRN (02:05)
[2019-02-14] MEDS: INSULIN LISPRO 100 UNIT/ML SUBCUT SCH ×4 (03:20→22:04)
[2019-02-14] MEDS ORDERED: hydrALAZINE 20 MG/1 ML VIAL IV ONE (03:52)
[2019-02-14 04:56] LABS: Apearance,Urine CLEAR (Clear); Bacteria,Urine Many /HPF (Few); Bilirubin,Urine Negative (Negative); Blood, Urine Negative (Negative); Glucose,Urine (UA) Negative (Negative); Ketones,Urine Negative (Negative); Mucus,Urine Occasional /LPF (Occasional); Nitrite,Urine Negative (Negative); Protein,Urine 100 MG/DL; RBC,Urine 1 /HPF (0-4); Squamous Epithelial Cell,Urine Occasional /HPF (0-10); Urine Color Straw (Yellow); Urine Specific Gravity 1.006 (1.001-1.035); Urine Urobilinogen < 2.0 EU/DL (0.2-1.0); WBC,Urine 5 /HPF (0-6)
[2019-02-14] MEDS ORDERED: DEXTROSE 10% 250 ML IV PRN (06:47)
[2019-02-14 08:31] LABS: Basophils % 0.1 % (0.0-0.8); Hematocrit 26.7 VOL% (35.7-47.0); Hemoglobin 8.3 GM/DL (12.0-16.0); Immature Granulocytes % 0.8 %; Immature Granulocytes Absolute 0.06 #; Lymphocytes # 0.6 10*3/uL (1.4-4.0); Lymphocytes % 7.9 % (21.3-54.2); Mean Corpuscular HGB Conc 31.1 GM/DL (32-36); Mean Corpuscular Volume 91.4 FL (87-102); Mean Platelet Volume 10.1 FL (9.6-12.0); Monocytes % 1.2 % (1.7-12.7); Platelet Count 267 T/CUMM (130-400); Red Blood Count 2.92 MC/CUMM (3.8-5.5); Red Cell Distribution Width 13.8 % (9.3-17.3); White Blood Count 7.8 T/CUMM (4-12)
[2019-02-14] MEDS: ACETAMINOPHEN 325 MG TABLET PO PRN ×3 (08:49→23:00)
[2019-02-14 08:53] LABS: % Iron Saturation 10.2 % (18-50); Calcium 9.1 MG/DL (8.5-10.1); Ferritin 21.9 ng/ml (8-252); Osmolality,Calculated 297.4 MOS/KG (273-304)
[2019-02-14 08:58] LABS: Hemoglobin A1 (Alkaline) 97.9 % (96.5-98.5); Hemoglobin A2 (Alkaline) 2.1 % (1.5-3.5)
[2019-02-14 09:22] LABS: Folate 23.9 NG/ML (5.4-24.0); Vitamin B12 356 PG/ML (211-911)
[2019-02-14 09:34] LABS: Sedimentation Rate-Westergren 100 MM/HR (0-30)
[2019-02-14] MEDS ORDERED: TRULICITY SUBCUT SCH (11:00)
[2019-02-14] MEDS: ESCITALOPRAM 10 MG TABLET PO SCH (12:32)
[2019-02-14] MEDS: PANTOPRAZOLE 40 MG TABLET PO SCH (12:33)
[2019-02-14] MEDS: hydrALAZINE 25 MG TABLET PO SCH ×2 (15:41→20:47)
[2019-02-14] MEDS: SODIUM BICARB INJ 100 MEQ in DEXTROSE 5% NACL 0.22% 1,000 ML IV SCH (15:41)
[2019-02-14] MEDS: diphenhydrAMINE CAP 25 MG CAPSULE PO PRN (15:51)
[2019-02-14] MEDS: ROSUVASTATIN 20 MG TABLET PO SCH (16:44)
[2019-02-14 19:42] LABS: Hematocrit 25.3 VOL% (35.7-47.0)
[2019-02-15 04:58] LABS: Basophils % 0.4 % (0.0-0.8); Eosinophils # 0.1 10*3/uL (0.0-0.87); Eosinophils % 1.3 % (0.00-10.9); Hematocrit 25.6 VOL% (35.7-47.0); Hemoglobin 8.1 GM/DL (12.0-16.0); Immature Granulocytes % 0.6 %; Immature Granulocytes Absolute 0.05 #; Lymphocytes # 1.9 10*3/uL (1.4-4.0); Lymphocytes % 22.2 % (21.3-54.2); Mean Corpuscular HGB Conc 31.6 GM/DL (32-36); Mean Corpuscular Volume 91.1 FL (87-102); Mean Platelet Volume 10.8 FL (9.6-12.0); Monocytes % 7.1 % (1.7-12.7); Neutrophils % 68.4 % (38.7-73.9); Platelet Count 219 T/CUMM (130-400); Red Blood Count 2.81 MC/CUMM (3.8-5.5); White Blood Count 8.4 T/CUMM (4-12)
[2019-02-15] MEDS: SODIUM BICARB INJ 100 MEQ in DEXTROSE 5% NACL 0.22% 1,000 ML IV SCH ×2 (05:00→20:46)
[2019-02-15 05:20] LABS: Calcium 8.2 MG/DL (8.5-10.1); Osmolality,Calculated 300.3 MOS/KG (273-304)
[2019-02-15] MEDS: INSULIN LISPRO 100 UNIT/ML SUBCUT SCH ×4 (08:40→23:49)
[2019-02-15] MEDS: hydrALAZINE 25 MG TABLET PO SCH ×3 (09:38→20:47)
[2019-02-15] MEDS: CHOLECALCIFEROL 1,000 UNIT TABLET PO SCH (09:38)
[2019-02-15] MEDS: ESCITALOPRAM 10 MG TABLET PO SCH (09:39)
[2019-02-15] MEDS: ROSUVASTATIN 20 MG TABLET PO SCH (09:39)
[2019-02-15] MEDS: PANTOPRAZOLE 40 MG TABLET PO SCH (09:39)
[2019-02-15] MEDS: diphenhydrAMINE CAP 25 MG CAPSULE PO PRN (10:48)
[2019-02-15] MEDS: LEVOFLOXACIN INJ 250 MG in PREMIX 1 EACH IV SCH (10:48)
[2019-02-15 10:54] LABS: % Iron Saturation 9.2 % (18-50); Ferritin 23.7 ng/ml (8-252)
[2019-02-15] MEDS: ACETAMINOPHEN 325 MG TABLET PO PRN ×2 (13:33→21:14)
[2019-02-15] MEDS: IRON SUCROSE 200 MG in SODIUM CHLORIDE 0.9% 100 ML IV SCH (15:08)
[2019-02-16 05:08] LABS: Basophils % 0.3 % (0.0-0.8); Eosinophils # 0.3 10*3/uL (0.0-0.87); Eosinophils % 4.2 % (0.00-10.9); Hematocrit 26.6 VOL% (35.7-47.0); Hemoglobin 8.4 GM/DL (12.0-16.0); Immature Granulocytes % 0.6 %; Immature Granulocytes Absolute 0.04 #; Lymphocytes # 0.7 10*3/uL (1.4-4.0); Lymphocytes % 11.4 % (21.3-54.2); Mean Corpuscular HGB Conc 31.6 GM/DL (32-36); Mean Corpuscular Volume 91.1 FL (87-102); Mean Platelet Volume 10.6 FL (9.6-12.0); Neutrophils % 76.5 % (38.7-73.9); Platelet Count 223 T/CUMM (130-400); Red Blood Count 2.92 MC/CUMM (3.8-5.5); Red Cell Distribution Width 13.9 % (9.3-17.3); White Blood Count 6.4 T/CUMM (4-12)
[2019-02-16 05:25] LABS: Calcium 8.4 MG/DL (8.5-10.1); Osmolality,Calculated 296.3 MOS/KG (273-304)
[2019-02-16 05:29] LABS: Albumin 2.8 G/DL (3.4-5.0); Bilirubin,Direct 0.13 MG/DL (0.0-0.20); Bilirubin,Indirect 0.6 MG/DL (0.0-1.0); Bilirubin,Total 0.7 MG/DL (0.2-1.0); Total Protein 5.7 G/DL (6.4-8.3)
[2019-02-16] MEDS: ESCITALOPRAM 10 MG TABLET PO SCH (09:00)
[2019-02-16] MEDS: diphenhydrAMINE CAP 25 MG CAPSULE PO PRN ×2 (09:00→22:37)
[2019-02-16] MEDS: CHOLECALCIFEROL 1,000 UNIT TABLET PO SCH (09:00)
[2019-02-16] MEDS: PANTOPRAZOLE 40 MG TABLET PO SCH (09:01)
[2019-02-16] MEDS: hydrALAZINE 25 MG TABLET PO SCH ×4 (09:01→20:33)
[2019-02-16] MEDS: IRON SUCROSE 200 MG in SODIUM CHLORIDE 0.9% 100 ML IV SCH (09:04)
[2019-02-16] MEDS: INSULIN LISPRO 100 UNIT/ML SUBCUT SCH ×4 (09:04→20:44)
[2019-02-16] MEDS: ROSUVASTATIN 20 MG TABLET PO SCH (09:07)
[2019-02-16] MEDS: SODIUM BICARB INJ 100 MEQ in DEXTROSE 5% NACL 0.22% 1,000 ML IV SCH (12:51)
[2019-02-16] MEDS: ACETAMINOPHEN 325 MG TABLET PO PRN (16:03)
[2019-02-17] MEDS: SODIUM BICARB INJ 100 MEQ in DEXTROSE 5% NACL 0.22% 1,000 ML IV SCH (02:53)
[2019-02-17 05:06] LABS: Basophils % 0.4 % (0.0-0.8); Eosinophils # 0.3 10*3/uL (0.0-0.87); Hematocrit 27.9 VOL% (35.7-47.0); Hemoglobin 8.6 GM/DL (12.0-16.0); Immature Granulocytes % 0.6 %; Immature Granulocytes Absolute 0.03 #; Lymphocytes # 1.3 10*3/uL (1.4-4.0); Lymphocytes % 26.9 % (21.3-54.2); Mean Corpuscular HGB Conc 30.8 GM/DL (32-36); Mean Corpuscular Volume 92.7 FL (87-102); Mean Platelet Volume 9.9 FL (9.6-12.0); Monocytes % 12.6 % (1.7-12.7); Neutrophils % 54.5 % (38.7-73.9); Platelet Count 214 T/CUMM (130-400); Red Blood Count 3.01 MC/CUMM (3.8-5.5); Red Cell Distribution Width 13.9 % (9.3-17.3)
[2019-02-17 05:29] LABS: Calcium 8.5 MG/DL (8.5-10.1); Osmolality,Calculated 292.1 MOS/KG (273-304)
[2019-02-17] MEDS: INSULIN LISPRO 100 UNIT/ML SUBCUT SCH ×2 (07:37→12:07)
[2019-02-17] MEDS: PANTOPRAZOLE 40 MG TABLET PO SCH (08:02)
[2019-02-17] MEDS: ESCITALOPRAM 10 MG TABLET PO SCH (08:02)
[2019-02-17] MEDS: hydrALAZINE 25 MG TABLET PO SCH (08:02)
[2019-02-17] MEDS: IRON SUCROSE 200 MG in SODIUM CHLORIDE 0.9% 100 ML IV SCH (08:02)
[2019-02-17] MEDS: CHOLECALCIFEROL 1,000 UNIT TABLET PO SCH (08:02)
[2019-02-17] MEDS: ROSUVASTATIN 20 MG TABLET PO SCH (08:02)
[2019-02-17 08:41] VITALS: BP 199/81
[2019-02-17] MEDS: LEVOFLOXACIN INJ 250 MG in PREMIX 1 EACH IV SCH (10:20)
[2019-02-17] MEDS: diphenhydrAMINE CAP 25 MG CAPSULE PO PRN (10:24)
== END 2019-02-17 12:16 | disposition home health service (06) | DRG 291 ==
LOC: N.ED 20:41 → N.EDINP 20:41 → N.2E 02-14 01:10
PROVIDERS: ADMIT Internal Medicine; ATTEND Internal Medicine

== ENCOUNTER 2021-04-20 18:35 | Inpatient (IN) ==
[2021-04-20] MEDS ORDERED: ONDANSETRON 4 MG/2 ML VIAL IV STA (19:27)
[2021-04-20] MEDS ORDERED: HYDROmorphone 2 MG/1 ML VIAL IV STA ×2 (19:27→20:16)
[2021-04-20] MEDS ORDERED: SODIUM CHLORIDE 0.9% 500 ML IV STA (19:27)
[2021-04-20 20:01] LABS: Basophils % 0.3 % (0.0-0.8); Eosinophils # 0.2 10*3/uL (0.0-0.87); Eosinophils % 1.7 % (0.00-10.9); Hematocrit 26.4 VOL% (35.7-47.0); Hemoglobin 8.3 GM/DL (12.0-16.0); Immature Granulocytes % 0.9 %; Immature Granulocytes Absolute 0.08 #; Lymphocytes # 0.7 10*3/uL (1.4-4.0); Lymphocytes % 8.3 % (21.3-54.2); Mean Corpuscular HGB Conc 31.4 GM/DL (32-36); Mean Corpuscular Volume 102.3 FL (87-102); Mean Platelet Volume 9.6 FL (9.6-12.0); Monocytes % 7.6 % (1.7-12.7); Neutrophils % 81.2 % (38.7-73.9); Platelet Count 292 T/CUMM (130-400); Red Blood Count 2.58 MC/CUMM (3.8-5.5); Red Cell Distribution Width 14.3 % (9.3-17.3); White Blood Count 8.8 T/CUMM (4-12)
[2021-04-20 20:15] LABS: Alanine Aminotransferase 12 U/L (13-56); Albumin 2.8 G/DL (3.4-5.0); Alkaline Phosphatase 141 U/L (45-117); Amylase 46 U/L (25-115); Aspartate Amino Transferase 11 U/L (0-37); Bilirubin,Total < 0.39 MG/DL (0.20-1.00); Blood Urea Nitrogen 50 MG/DL (7-18); Calcium 7.6 MG/DL (8.5-10.1); Carbon Dioxide 12 MMOL/L (21-32); Estimated Glom Filtration Rate 8 ML/MIN; Glucose 243 MG/DL (74-106); Osmolality,Calculated 299.4 MOS/KG (273-304); Potassium 3.8 MMOL/L (3.5-5.1); Sodium 140 MMOL/L (136-145); Total Protein 5.9 G/DL (6.4-8.2)
[2021-04-20] MEDS ORDERED: PROMETHAZINE 25 MG/1 ML VIAL IM STA (20:16)
[2021-04-20] MEDS ORDERED: LEVOFLOXACIN INJ 250 MG/50 ML PREMIX IV STA (21:10)
[2021-04-20] MEDS ORDERED: hydrALAZINE 20 MG/1 ML VIAL ONE (21:47)
[2021-04-20] MEDS ORDERED: hydrALAZINE 20 MG/1 ML VIAL IV STA (21:57)
[2021-04-20] MEDS ORDERED: LABETALOL 100 MG/20 ML VIAL IV ONE (22:57)
[2021-04-20] MEDS ORDERED: LABETALOL 20 MG/4 ML SYRINGE IV STA (23:03)
[2021-04-20 23:23] LABS: Bacteria,Urine Many /HPF (Few); Bilirubin,Urine Negative (Negative); Blood, Urine Small mg/dL (Negative); Glucose,Urine (UA) 50 mg/dL (Negative); Ketones,Urine Negative (Negative); Nitrite,Urine Positive (Negative); Protein,Urine >=500 MG/DL; Squamous Epithelial Cell,Urine Occasional /HPF (0-10); Urine Appearance CLOUDY (Clear); Urine Color Yellow (Yellow); Urine Specific Gravity 1.009 (1.001-1.035); Urine Urobilinogen < 2.0 EU/DL (0.2-1.0)
[2021-04-20] MEDS ORDERED: DEXTROSE 50% 25 GM/50 ML VIAL IV PRN (23:38)
[2021-04-20] MEDS ORDERED: DOCUSATE SODIUM 100 MG CAPSULE PO PRN (23:38)
[2021-04-20] MEDS ORDERED: GLUCAGON 1 MG VIAL IM PRN (23:38)
[2021-04-20] MEDS ORDERED: SODIUM CHLORIDE 0.9% 1,000 ML IV SCH (23:45)
[2021-04-20] MEDS ORDERED: LEVOFLOXACIN INJ 500 MG/100 ML PREMIX IV ONE (23:50)
[2021-04-21] MEDS: SODIUM BICARBONATE 650 MG TABLET PO SCH ×3 (00:26→20:10)
[2021-04-21] MEDS ORDERED: LEVOFLOXACIN INJ 750 MG/150 ML PREMIX IV ONE (00:30)
[2021-04-21] MEDS ORDERED: LEVOFLOXACIN INJ 500 MG/100 ML PREMIX IV ONE (00:30)
[2021-04-21] MEDS: SODIUM BICARB INJ 100 MEQ in STERILE WATER INJ 900 ML IV SCH (01:38)
[2021-04-21 05:24] LABS: Basophils % 0.1 % (0.0-0.8); Hematocrit 24.5 VOL% (35.7-47.0); Hemoglobin 8.1 GM/DL (12.0-16.0); Immature Granulocytes % 1.1 %; Immature Granulocytes Absolute 0.14 #; Lymphocytes # 0.4 10*3/uL (1.4-4.0); Lymphocytes % 2.7 % (21.3-54.2); Mean Corpuscular HGB Conc 33.1 GM/DL (32-36); Mean Corpuscular Volume 101.2 FL (87-102); Mean Platelet Volume 9.5 FL (9.6-12.0); Monocytes % 7.3 % (1.7-12.7); Neutrophils % 88.8 % (38.7-73.9); Platelet Count 254 T/CUMM (130-400); Red Blood Count 2.42 MC/CUMM (3.8-5.5); Red Cell Distribution Width 14.3 % (9.3-17.3); White Blood Count 12.9 T/CUMM (4-12)
[2021-04-21 05:52] LABS: Calcium 7.9 MG/DL (8.5-10.1); Osmolality,Calculated 295.4 MOS/KG (273-304); Potassium 3.7 MMOL/L (3.5-5.1)
[2021-04-21 06:06] LABS: Band Neutrophils 4 % (0-10); Platelet Estimate Adequate; Segmented Neutrophils 89 % (50-85); Total Cells Counted 100
[2021-04-21 06:07] LABS: Hypochromasia 1+; Microcytosis 1+
[2021-04-21] MEDS ORDERED: GENTAMICIN INJ 80 MG/50 ML PREMIX IV ONE (06:21)
[2021-04-21] MEDS: HYDROmorphone 2 MG/1 ML VIAL IV PRN ×2 (06:31→11:49)
[2021-04-21] MEDS: INSULIN LISPRO 100 UNIT/ML SUBCUT SCH ×4 (08:13→20:14)
[2021-04-21] MEDS ORDERED: SODIUM CHLORIDE 0.9% 250 ML IV SCH (08:30)
[2021-04-21] MEDS ORDERED: LIDOCAINE 2% 5 ML VIAL ONE (08:37)
[2021-04-21] MEDS ORDERED: propofoL 200 MG/20 ML VIAL IV ONE (08:37)
[2021-04-21] MEDS ORDERED: CHOLECALCIFEROL 1,000 UNIT TABLET PO SCH (09:00)
[2021-04-21] MEDS ORDERED: ETOMIDATE 40 MG/20 ML VIAL IV ONE (09:24)
[2021-04-21] MEDS: PANTOPRAZOLE 40 MG TABLET PO SCH (11:43)
[2021-04-21] MEDS: ERGOCALCIFEROL 50,000 UNIT CAPSULE PO SCH (11:43)
[2021-04-21] MEDS: ESCITALOPRAM 10 MG TABLET PO SCH (11:43)
[2021-04-21 13:17] LABS: Bacteria,Urine Occasional /HPF (Few); Bilirubin,Urine Negative (Negative); Blood, Urine Small mg/dL (Negative); Glucose,Urine (UA) 50 mg/dL (Negative); Ketones,Urine Negative (Negative); Nitrite,Urine Negative (Negative); Protein,Urine >=500 MG/DL; RBC,Urine 5 /HPF (0-4); Urine Appearance CLOUDY (Clear); Urine Color Yellow (Yellow); Urine Specific Gravity 1.011 (1.001-1.035); Urine Urobilinogen < 2.0 EU/DL (0.2-1.0)
[2021-04-21] MEDS ORDERED: diphenhydrAMINE CAP 25 MG CAPSULE PO ONE (13:30)
[2021-04-21] MEDS ORDERED: diphenhydrAMINE 50 MG/1 ML VIAL IV ONE (15:18)
[2021-04-21] MEDS: MORPHINE 2 MG/1 ML SYRINGE IV PRN ×2 (18:44→22:42)
[2021-04-21] MEDS: ACETAMINOPHEN 325 MG TABLET PO PRN (20:10)
[2021-04-22] MEDS: SODIUM BICARB INJ 100 MEQ in STERILE WATER INJ 900 ML IV SCH (01:02)
[2021-04-22] MEDS: MORPHINE 2 MG/1 ML SYRINGE IV PRN ×3 (05:17→22:01)
[2021-04-22 06:24] LABS: Basophils % 0.2 % (0.0-0.8); Eosinophils # 0.1 10*3/uL (0.0-0.87); Eosinophils % 0.7 % (0.00-10.9); Hematocrit 24.1 VOL% (35.7-47.0); Hemoglobin 7.7 GM/DL (12.0-16.0); Immature Granulocytes % 0.8 %; Lymphocytes # 0.9 10*3/uL (1.4-4.0); Lymphocytes % 7.2 % (21.3-54.2); Mean Corpuscular Volume 101.3 FL (87-102); Mean Platelet Volume 9.6 FL (9.6-12.0); Neutrophils % 85.1 % (38.7-73.9); Platelet Count 242 T/CUMM (130-400); Red Blood Count 2.38 MC/CUMM (3.8-5.5); Red Cell Distribution Width 14.2 % (9.3-17.3); White Blood Count 12.4 T/CUMM (4-12)
[2021-04-22 06:46] LABS: Eosinophils 1 % (0-10); Lymphocytes 5 % (20-55); Platelet Estimate Adequate; Segmented Neutrophils 90 % (50-85); Total Cells Counted 100
[2021-04-22 06:47] LABS: Hypochromasia 1+; Microcytosis 1+
[2021-04-22 06:51] LABS: Calcium 8.1 MG/DL (8.5-10.1); Osmolality,Calculated 290.7 MOS/KG (273-304); Potassium 4.1 MMOL/L (3.5-5.1)
[2021-04-22] MEDS: INSULIN LISPRO 100 UNIT/ML SUBCUT SCH ×4 (09:09→20:07)
[2021-04-22] MEDS: ESCITALOPRAM 10 MG TABLET PO SCH (09:10)
[2021-04-22] MEDS: PANTOPRAZOLE 40 MG TABLET PO SCH (09:10)
[2021-04-22] MEDS: SODIUM BICARBONATE 650 MG TABLET PO SCH ×2 (09:10→20:14)
[2021-04-22] MEDS: ACETAMINOPHEN 325 MG TABLET PO PRN ×2 (09:10→20:14)
[2021-04-22] MEDS ORDERED: AZTREONAM 2,000 MG in SODIUM CHLORIDE 0.9% 100 ML IV SCH (11:00)
[2021-04-22] MEDS ORDERED: SODIUM CHLORIDE 0.9% 1,000 ML IV SCH (11:30)
[2021-04-22 11:31] LABS: % Iron Saturation 8.4 % (18-50); Ferritin 277.9 ng/mL (8-252)
[2021-04-22 11:47] LABS: Folate 10.16 NG/ML (5.38-24.0)
[2021-04-22] MEDS: ONDANSETRON 4 MG/2 ML VIAL IV PRN ×2 (12:30→22:01)
[2021-04-22] MEDS ORDERED: FERRIC GLUCONATE COMPLEX 125 MG in SODIUM CHLORIDE 0.9% 100 ML IV ONE (15:00)
[2021-04-22] MEDS ORDERED: FUROSEMIDE 40 MG/4 ML VIAL IV ONE (17:47)
[2021-04-23] MEDS ORDERED: LEVOFLOXACIN INJ 500 MG/100 ML PREMIX IV SCH (00:30)
[2021-04-23] MEDS: MORPHINE 2 MG/1 ML SYRINGE IV PRN ×2 (03:35→23:26)
[2021-04-23] MEDS: ONDANSETRON 4 MG/2 ML VIAL IV PRN ×2 (03:36→23:26)
[2021-04-23 05:28] LABS: Basophils % 0.2 % (0.0-0.8); Eosinophils # 0.1 10*3/uL (0.0-0.87); Eosinophils % 0.9 % (0.00-10.9); Hematocrit 24.8 VOL% (35.7-47.0); Hemoglobin 8.1 GM/DL (12.0-16.0); Immature Granulocytes % 0.9 %; Immature Granulocytes Absolute 0.13 #; Lymphocytes # 1.1 10*3/uL (1.4-4.0); Lymphocytes % 7.5 % (21.3-54.2); Mean Corpuscular HGB Conc 32.7 GM/DL (32-36); Mean Platelet Volume 9.7 FL (9.6-12.0); Monocytes % 5.5 % (1.7-12.7); Platelet Count 263 T/CUMM (130-400); Red Blood Count 2.48 MC/CUMM (3.8-5.5); Red Cell Distribution Width 13.5 % (9.3-17.3); White Blood Count 14.9 T/CUMM (4-12)
[2021-04-23 05:44] LABS: Calcium 8.4 MG/DL (8.5-10.1); Osmolality,Calculated 289.8 MOS/KG (273-304)
[2021-04-23 06:51] LABS: Band Neutrophils 1 % (0-10); Eosinophils 1 % (0-10); Hypochromasia Slight; Lymphocytes 9 % (20-55); Platelet Estimate Normal; Segmented Neutrophils 85 % (50-85); Total Cells Counted 100
[2021-04-23] MEDS: INSULIN LISPRO 100 UNIT/ML SUBCUT SCH ×4 (08:53→21:08)
[2021-04-23] MEDS: SODIUM BICARBONATE 650 MG TABLET PO SCH ×2 (08:57→21:06)
[2021-04-23] MEDS: PANTOPRAZOLE 40 MG TABLET PO SCH (08:57)
[2021-04-23] MEDS: ESCITALOPRAM 10 MG TABLET PO SCH (08:57)
[2021-04-23] MEDS: LEVOFLOXACIN INJ 500 MG/100 ML PREMIX IV SCH (08:58)
[2021-04-23] MEDS: FERRIC GLUCONATE COMPLEX 125 MG in SODIUM CHLORIDE 0.9% 100 ML IV SCH (10:00)
[2021-04-23] MEDS: ACETAMINOPHEN 325 MG TABLET PO PRN (23:56)
[2021-04-23] MEDS: diphenhydrAMINE CAP 25 MG CAPSULE PO PRN (23:57)
[2021-04-24 05:19] LABS: Basophils % 0.2 % (0.0-0.8); Eosinophils # 0.2 10*3/uL (0.0-0.87); Eosinophils % 1.6 % (0.00-10.9); Hematocrit 24.5 VOL% (35.7-47.0); Hemoglobin 7.6 GM/DL (12.0-16.0); Immature Granulocytes Absolute 0.11 #; Lymphocytes # 1.1 10*3/uL (1.4-4.0); Lymphocytes % 10.6 % (21.3-54.2); Mean Corpuscular Volume 102.1 FL (87-102); Mean Platelet Volume 9.7 FL (9.6-12.0); Monocytes % 6.7 % (1.7-12.7); Neutrophils % 79.9 % (38.7-73.9); Platelet Count 264 T/CUMM (130-400); Red Cell Distribution Width 13.3 % (9.3-17.3); White Blood Count 10.7 T/CUMM (4-12)
[2021-04-24 05:35] LABS: Calcium 7.9 MG/DL (8.5-10.1); Potassium 3.6 MMOL/L (3.5-5.1)
[2021-04-24] MEDS: diphenhydrAMINE CAP 25 MG CAPSULE PO PRN ×3 (06:26→20:15)
[2021-04-24] MEDS: ONDANSETRON 4 MG/2 ML VIAL IV PRN (06:27)
[2021-04-24 07:05] LABS: Anisocytosis 2+; Band Neutrophils 10 % (0-10); Eosinophils 4 % (0-10); Lymphocytes 8 % (20-55); Macrocytosis 1+; Myelocytes 1 %; Platelet Estimate Normal; Segmented Neutrophils 67 % (50-85); Total Cells Counted 100
[2021-04-24] MEDS: INSULIN LISPRO 100 UNIT/ML SUBCUT SCH ×4 (09:09→20:17)
[2021-04-24] MEDS: SODIUM BICARBONATE 650 MG TABLET PO SCH ×2 (09:10→20:15)
[2021-04-24] MEDS: ESCITALOPRAM 10 MG TABLET PO SCH (09:11)
[2021-04-24] MEDS: PANTOPRAZOLE 40 MG TABLET PO SCH (09:11)
[2021-04-24] MEDS: FERRIC GLUCONATE COMPLEX 125 MG in SODIUM CHLORIDE 0.9% 100 ML IV SCH (09:11)
[2021-04-24] MEDS: POLYETHYLENE GLYCOL POWDER 17 GM PACK PO SCH (13:32)
[2021-04-24] MEDS: DOCUSATE SODIUM 100 MG CAPSULE PO SCH (20:15)
[2021-04-24 20:41] LABS: Creatinine Clearance Urine 9.29 ML/MIN (70-115)
[2021-04-25 06:38] LABS: Osmolality,Calculated 291.8 MOS/KG (273-304); Potassium 3.8 MMOL/L (3.5-5.1)
[2021-04-25] MEDS ORDERED: MAGNESIUM HYDROXIDE SUSP 30 ML UDCUP PO PRN (08:21)
[2021-04-25] MEDS: POLYETHYLENE GLYCOL POWDER 17 GM PACK PO SCH (08:35)
[2021-04-25] MEDS: ESCITALOPRAM 10 MG TABLET PO SCH (08:36)
[2021-04-25] MEDS: FERRIC GLUCONATE COMPLEX 125 MG in SODIUM CHLORIDE 0.9% 100 ML IV SCH (08:36)
[2021-04-25] MEDS: SODIUM BICARBONATE 650 MG TABLET PO SCH ×2 (08:36→21:05)
[2021-04-25] MEDS: PANTOPRAZOLE 40 MG TABLET PO SCH (08:36)
[2021-04-25] MEDS: DOCUSATE SODIUM 100 MG CAPSULE PO SCH ×2 (08:37→21:05)
[2021-04-25] MEDS ORDERED: LACTULOSE 20 GM/30 ML UDCUP PO ONE (09:00)
[2021-04-25] MEDS: INSULIN LISPRO 100 UNIT/ML SUBCUT SCH ×5 (09:13→23:43)
[2021-04-25] MEDS: MORPHINE 2 MG/1 ML SYRINGE IV PRN ×2 (09:46→22:24)
[2021-04-25] MEDS: LEVOFLOXACIN INJ 500 MG/100 ML PREMIX IV SCH (09:46)
[2021-04-26 06:21] LABS: Basophils % 0.2 % (0.0-0.8); Eosinophils # 0.3 10*3/uL (0.0-0.87); Eosinophils % 3.5 % (0.00-10.9); Hematocrit 23.8 VOL% (35.7-47.0); Hemoglobin 7.5 GM/DL (12.0-16.0); Immature Granulocytes % 3.8 %; Immature Granulocytes Absolute 0.32 #; Lymphocytes # 1.1 10*3/uL (1.4-4.0); Lymphocytes % 12.9 % (21.3-54.2); Mean Corpuscular HGB Conc 31.5 GM/DL (32-36); Mean Corpuscular Volume 100.8 FL (87-102); Mean Platelet Volume 9.5 FL (9.6-12.0); Neutrophils % 71.6 % (38.7-73.9); Platelet Count 266 T/CUMM (130-400); Red Blood Count 2.36 MC/CUMM (3.8-5.5); Red Cell Distribution Width 13.3 % (9.3-17.3); White Blood Count 8.5 T/CUMM (4-12)
[2021-04-26 06:43] LABS: Calcium 7.8 MG/DL (8.5-10.1); Osmolality,Calculated 292.7 MOS/KG (273-304); Potassium 3.7 MMOL/L (3.5-5.1)
[2021-04-26 06:45] LABS: Eosinophils 3 % (0-10); Hypochromasia 1+; Lymphocytes 10 % (20-55); Microcytosis 1+; Platelet Estimate Adequate; Segmented Neutrophils 76 % (50-85); Total Cells Counted 100
[2021-04-26] MEDS: INSULIN LISPRO 100 UNIT/ML SUBCUT SCH ×4 (07:51→21:39)
[2021-04-26] MEDS: ESCITALOPRAM 10 MG TABLET PO SCH (08:39)
[2021-04-26] MEDS: POLYETHYLENE GLYCOL POWDER 17 GM PACK PO SCH (08:39)
[2021-04-26] MEDS: PANTOPRAZOLE 40 MG TABLET PO SCH (08:39)
[2021-04-26] MEDS: SODIUM BICARBONATE 650 MG TABLET PO SCH ×2 (08:39→21:39)
[2021-04-26] MEDS: DOCUSATE SODIUM 100 MG CAPSULE PO SCH ×2 (08:39→21:39)
[2021-04-26] MEDS ORDERED: NON-FORMULARY MEDICATION (Dulaglutide [Trulicity] 1.5 MG) SUBCUT SCH (09:00)
[2021-04-26] MEDS: FERRIC GLUCONATE COMPLEX 125 MG in SODIUM CHLORIDE 0.9% 100 ML IV SCH (10:11)
[2021-04-26] MEDS: MORPHINE 2 MG/1 ML SYRINGE IV PRN (21:37)
[2021-04-27 06:00] LABS: Basophils % 0.3 % (0.0-0.8); Eosinophils # 0.2 10*3/uL (0.0-0.87); Eosinophils % 1.9 % (0.00-10.9); Hematocrit 24.8 VOL% (35.7-47.0); Hemoglobin 7.8 GM/DL (12.0-16.0); Immature Granulocytes Absolute 0.38 #; Lymphocytes # 1.3 10*3/uL (1.4-4.0); Mean Corpuscular HGB Conc 31.5 GM/DL (32-36); Mean Corpuscular Volume 101.6 FL (87-102); Mean Platelet Volume 9.6 FL (9.6-12.0); Monocytes % 5.8 % (1.7-12.7); Platelet Count 281 T/CUMM (130-400); Red Blood Count 2.44 MC/CUMM (3.8-5.5); Red Cell Distribution Width 13.2 % (9.3-17.3); White Blood Count 12.5 T/CUMM (4-12)
[2021-04-27 06:24] LABS: Calcium 8.5 MG/DL (8.5-10.1); Potassium 4.8 MMOL/L (3.5-5.1)
[2021-04-27] MEDS: INSULIN LISPRO 100 UNIT/ML SUBCUT SCH ×4 (07:43→21:00)
[2021-04-27] MEDS: POLYETHYLENE GLYCOL POWDER 17 GM PACK PO SCH (08:11)
[2021-04-27] MEDS: DOCUSATE SODIUM 100 MG CAPSULE PO SCH ×2 (08:12→20:59)
[2021-04-27] MEDS: PANTOPRAZOLE 40 MG TABLET PO SCH (08:12)
[2021-04-27] MEDS: ESCITALOPRAM 10 MG TABLET PO SCH (08:12)
[2021-04-27] MEDS: SODIUM BICARBONATE 650 MG TABLET PO SCH ×2 (08:12→20:59)
[2021-04-27] MEDS: LEVOFLOXACIN 500 MG TABLET PO SCH (08:15)
[2021-04-27] MEDS ORDERED: CHOLECALCIFEROL 1,000 UNIT TABLET PO SCH (09:00)
[2021-04-27] MEDS: FERRIC GLUCONATE COMPLEX 125 MG in SODIUM CHLORIDE 0.9% 100 ML IV SCH (09:48)
[2021-04-28 06:31] LABS: Basophils % 0.3 % (0.0-0.8); Eosinophils # 0.2 10*3/uL (0.0-0.87); Eosinophils % 1.6 % (0.00-10.9); Hematocrit 25.5 VOL% (35.7-47.0); Hemoglobin 7.9 GM/DL (12.0-16.0); Immature Granulocytes Absolute 0.57 #; Lymphocytes # 1.3 10*3/uL (1.4-4.0); Lymphocytes % 8.9 % (21.3-54.2); Mean Corpuscular Volume 101.2 FL (87-102); Mean Platelet Volume 9.4 FL (9.6-12.0); Monocytes % 4.9 % (1.7-12.7); Neutrophils % 80.3 % (38.7-73.9); Platelet Count 298 T/CUMM (130-400); Red Blood Count 2.52 MC/CUMM (3.8-5.5); Red Cell Distribution Width 13.1 % (9.3-17.3); White Blood Count 14.4 T/CUMM (4-12)
[2021-04-28 06:56] LABS: Band Neutrophils 3 % (0-10); Eosinophils 2 % (0-10); Lymphocytes 11 % (20-55); Metamyelocytes 1 %; Platelet Estimate Normal; Segmented Neutrophils 80 % (50-85); Total Cells Counted 100
[2021-04-28 06:57] LABS: Anisocytosis 2+; Macrocytosis 1+
[2021-04-28 07:05] LABS: Calcium 8.4 MG/DL (8.5-10.1); Osmolality,Calculated 293.4 MOS/KG (273-304); Potassium 3.9 MMOL/L (3.5-5.1)
[2021-04-28] MEDS: INSULIN LISPRO 100 UNIT/ML SUBCUT SCH ×4 (07:05→20:17)
[2021-04-28] MEDS: POLYETHYLENE GLYCOL POWDER 17 GM PACK PO SCH (08:49)
[2021-04-28] MEDS: SODIUM BICARBONATE 650 MG TABLET PO SCH ×2 (08:49→20:17)
[2021-04-28] MEDS: ESCITALOPRAM 10 MG TABLET PO SCH (08:49)
[2021-04-28] MEDS: DOCUSATE SODIUM 100 MG CAPSULE PO SCH ×2 (08:49→20:17)
[2021-04-28] MEDS: PANTOPRAZOLE 40 MG TABLET PO SCH (08:49)
[2021-04-28] MEDS: ERGOCALCIFEROL 50,000 UNIT CAPSULE PO SCH (08:49)
[2021-04-28] MEDS ORDERED: DIAZEPAM 5 MG TABLET PO ONE (09:15)
[2021-04-28] MEDS: FERRIC GLUCONATE COMPLEX 125 MG in SODIUM CHLORIDE 0.9% 100 ML IV SCH (11:08)
[2021-04-28] MEDS: ISOSORBIDE MONONITRATE 30 MG TABLET PO SCH (14:23)
[2021-04-28] MEDS ORDERED: ZALEPLON 5 MG CAPSULE PO ONE (22:15)
[2021-04-29 05:17] LABS: Basophils # 0.1 10*3/uL (0.0-0.2); Basophils % 0.5 % (0.0-0.8); Eosinophils # 0.5 10*3/uL (0.0-0.87); Eosinophils % 3.1 % (0.00-10.9); Hematocrit 28.5 VOL% (35.7-47.0); Immature Granulocytes % 4.5 %; Immature Granulocytes Absolute 0.65 #; Lymphocytes # 2.3 10*3/uL (1.4-4.0); Lymphocytes % 16.2 % (21.3-54.2); Mean Corpuscular HGB Conc 31.6 GM/DL (32-36); Mean Corpuscular Volume 101.4 FL (87-102); Mean Platelet Volume 9.2 FL (9.6-12.0); Monocytes % 5.1 % (1.7-12.7); Neutrophils % 70.6 % (38.7-73.9); Platelet Count 410 T/CUMM (130-400); Red Blood Count 2.81 MC/CUMM (3.8-5.5); Red Cell Distribution Width 13.3 % (9.3-17.3); White Blood Count 14.3 T/CUMM (4-12)
[2021-04-29 05:43] LABS: Band Neutrophils 1 % (0-10); Eosinophils 3 % (0-10); Hypochromasia 1+; Lymphocytes 15 % (20-55); Microcytosis 1+; Ovalocytes Slight; Platelet Estimate Adequate; Segmented Neutrophils 77 % (50-85); Total Cells Counted 100
[2021-04-29 05:50] LABS: Calcium 8.6 MG/DL (8.5-10.1); Osmolality,Calculated 292.5 MOS/KG (273-304)
[2021-04-29] MEDS: INSULIN LISPRO 100 UNIT/ML SUBCUT SCH ×4 (08:23→20:56)
[2021-04-29] MEDS: DOCUSATE SODIUM 100 MG CAPSULE PO SCH ×2 (08:24→20:59)
[2021-04-29] MEDS: SODIUM BICARBONATE 650 MG TABLET PO SCH ×2 (08:24→20:59)
[2021-04-29] MEDS: LEVOFLOXACIN 500 MG TABLET PO SCH (08:24)
[2021-04-29] MEDS: ISOSORBIDE MONONITRATE 30 MG TABLET PO SCH (08:25)
[2021-04-29] MEDS: FERRIC GLUCONATE COMPLEX 125 MG in SODIUM CHLORIDE 0.9% 100 ML IV SCH (08:25)
[2021-04-29] MEDS: POLYETHYLENE GLYCOL POWDER 17 GM PACK PO SCH (08:25)
[2021-04-29] MEDS: PANTOPRAZOLE 40 MG TABLET PO SCH (08:25)
[2021-04-29] MEDS: ESCITALOPRAM 10 MG TABLET PO SCH (08:25)
[2021-04-29] MEDS ORDERED: LIDOCAINE 2% 5 ML VIAL ONE (11:10)
[2021-04-29] MEDS ORDERED: ONDANSETRON 4 MG/2 ML VIAL ONE (11:10)
[2021-04-29] MEDS ORDERED: propofoL 200 MG/20 ML VIAL IV ONE (11:10)
[2021-04-29] MEDS ORDERED: fentaNYL 100 MCG/2 ML VIAL ONE (11:10)
[2021-04-29] MEDS ORDERED: SEVOFLURANE 1 UNIT/15 MINUTE INH ONE ×4 (11:10→12:33)
[2021-04-29] MEDS ORDERED: LACTATED RINGERS 1,000 ML IV SCH (11:30)
[2021-04-29] MEDS ORDERED: ONDANSETRON 4 MG/2 ML VIAL IV PRN (12:55)
[2021-04-29] MEDS ORDERED: HYDROmorphone 2 MG/1 ML VIAL ONE (12:56)
[2021-04-29] MEDS: HYDROmorphone 2 MG/1 ML VIAL IV PRN ×2 (12:59→13:04)
[2021-04-29] MEDS ORDERED: LORazepam 2 MG/1 ML VIAL IV ONE (13:12)
[2021-04-29] MEDS ORDERED: LORazepam 2 MG/1 ML VIAL ONE (13:14)
[2021-04-29] MEDS ORDERED: MAGNESIUM SULF RIDER 2 GM/50 ML PREMIX IV PRN (14:15)
[2021-04-29] MEDS ORDERED: MAGNESIUM SULF RIDER 4 GM/100 ML PREMIX IV PRN (14:15)
[2021-04-30 05:32] LABS: Basophils % 0.3 % (0.0-0.8); Eosinophils # 0.1 10*3/uL (0.0-0.87); Eosinophils % 0.9 % (0.00-10.9); Hematocrit 23.6 VOL% (35.7-47.0); Hemoglobin 7.2 GM/DL (12.0-16.0); Immature Granulocytes Absolute 0.39 #; Lymphocytes # 1.2 10*3/uL (1.4-4.0); Lymphocytes % 8.8 % (21.3-54.2); Mean Corpuscular HGB Conc 30.5 GM/DL (32-36); Mean Corpuscular Volume 102.2 FL (87-102); Mean Platelet Volume 9.4 FL (9.6-12.0); Monocytes % 5.4 % (1.7-12.7); Neutrophils % 81.6 % (38.7-73.9); Platelet Count 317 T/CUMM (130-400); Red Blood Count 2.31 MC/CUMM (3.8-5.5); Red Cell Distribution Width 13.4 % (9.3-17.3); White Blood Count 13.1 T/CUMM (4-12)
[2021-04-30 05:48] LABS: Calcium 8.1 MG/DL (8.5-10.1); Osmolality,Calculated 285.8 MOS/KG (273-304)
[2021-04-30 05:59] LABS: Band Neutrophils 1 % (0-10); Lymphocytes 7 % (20-55); Segmented Neutrophils 89 % (50-85); Total Cells Counted 100
[2021-04-30 06:00] LABS: Hypochromasia 1+; Platelet Estimate Normal
[2021-04-30] MEDS: INSULIN LISPRO 100 UNIT/ML SUBCUT SCH ×4 (09:40→22:30)
[2021-04-30] MEDS: DOCUSATE SODIUM 100 MG CAPSULE PO SCH ×2 (10:27→20:36)
[2021-04-30] MEDS: PANTOPRAZOLE 40 MG TABLET PO SCH (10:27)
[2021-04-30] MEDS: ISOSORBIDE MONONITRATE 30 MG TABLET PO SCH (10:27)
[2021-04-30] MEDS: SODIUM BICARBONATE 650 MG TABLET PO SCH ×2 (10:27→20:36)
[2021-04-30] MEDS: ESCITALOPRAM 10 MG TABLET PO SCH (10:27)
[2021-04-30] MEDS: POLYETHYLENE GLYCOL POWDER 17 GM PACK PO SCH (10:28)
[2021-04-30] MEDS: FERRIC GLUCONATE COMPLEX 125 MG in SODIUM CHLORIDE 0.9% 100 ML IV SCH (10:28)
[2021-04-30] MEDS ORDERED: SODIUM CHLORIDE 0.9% 500 ML IV SCH (14:30)
[2021-04-30] MEDS: MORPHINE 2 MG/1 ML SYRINGE IV PRN ×2 (14:52→20:37)
[2021-04-30] MEDS: diphenhydrAMINE CAP 25 MG CAPSULE PO PRN (18:30)
[2021-04-30] MEDS: ACETAMINOPHEN 325 MG TABLET PO PRN (18:33)
[2021-05-01] MEDS: MORPHINE 2 MG/1 ML SYRINGE IV PRN ×2 (00:33→15:46)
[2021-05-01 05:38] LABS: Basophils % 0.3 % (0.0-0.8); Eosinophils # 0.3 10*3/uL (0.0-0.87); Eosinophils % 3.2 % (0.00-10.9); Hematocrit 22.5 VOL% (35.7-47.0); Hemoglobin 7.1 GM/DL (12.0-16.0); Immature Granulocytes % 4.7 %; Immature Granulocytes Absolute 0.46 #; Lymphocytes # 1.2 10*3/uL (1.4-4.0); Mean Corpuscular HGB Conc 31.6 GM/DL (32-36); Mean Corpuscular Volume 104.2 FL (87-102); Mean Platelet Volume 9.3 FL (9.6-12.0); Neutrophils % 72.8 % (38.7-73.9); Platelet Count 291 T/CUMM (130-400); Red Blood Count 2.16 MC/CUMM (3.8-5.5); Red Cell Distribution Width 13.2 % (9.3-17.3); White Blood Count 9.8 T/CUMM (4-12)
[2021-05-01 06:10] LABS: Calcium 8.1 MG/DL (8.5-10.1); Osmolality,Calculated 291.4 MOS/KG (273-304); Potassium 3.6 MMOL/L (3.5-5.1)
[2021-05-01] MEDS: INSULIN LISPRO 100 UNIT/ML SUBCUT SCH ×4 (08:16→22:51)
[2021-05-01] MEDS: DOCUSATE SODIUM 100 MG CAPSULE PO SCH ×2 (09:49→21:37)
[2021-05-01] MEDS: SODIUM BICARBONATE 650 MG TABLET PO SCH ×2 (09:50→21:37)
[2021-05-01] MEDS: ESCITALOPRAM 10 MG TABLET PO SCH (09:50)
[2021-05-01] MEDS: PANTOPRAZOLE 40 MG TABLET PO SCH (09:50)
[2021-05-01] MEDS: ISOSORBIDE MONONITRATE 30 MG TABLET PO SCH (09:50)
[2021-05-01] MEDS: LEVOFLOXACIN 500 MG TABLET PO SCH (09:50)
[2021-05-01] MEDS: FERRIC GLUCONATE COMPLEX 125 MG in SODIUM CHLORIDE 0.9% 100 ML IV SCH (09:50)
[2021-05-01] MEDS: POLYETHYLENE GLYCOL POWDER 17 GM PACK PO SCH (10:04)
[2021-05-01] MEDS ORDERED: SODIUM CHLORIDE 0.9% 1,000 ML IV PRN ×3 (13:05→13:12)
[2021-05-01] MEDS ORDERED: FUROSEMIDE 20 MG/2 ML VIAL IV ONE (13:13)
[2021-05-01 16:27] LABS: Bilirubin,Urine Negative (Negative); Blood, Urine Large mg/dL (Negative); Glucose,Urine (UA) 50 mg/dL (Negative); Ketones,Urine Negative (Negative); Nitrite,Urine Negative (Negative); Protein,Urine 100 MG/DL; RBC,Urine 3288 /HPF (0-4); Urine Appearance Slightly Hazy (Clear); Urine Color Red (Yellow); Urine Specific Gravity 1.011 (1.001-1.035); Urine Urobilinogen < 2.0 EU/DL (0.2-1.0)
[2021-05-01 16:44] LABS: Protein/Creatinine Ratio,Urine 7.8 RATIO
[2021-05-01 20:00] LABS: Hematocrit 31.4 VOL% (35.7-47.0)
[2021-05-01 20:02] LABS: Hemoglobin 9.7 GM/DL (12.0-16.0)
[2021-05-01] MEDS: diphenhydrAMINE CAP 25 MG CAPSULE PO PRN (21:41)
[2021-05-02] MEDS: MORPHINE 2 MG/1 ML SYRINGE IV PRN (03:41)
[2021-05-02 04:13] LABS: Basophils # 0.1 10*3/uL (0.0-0.2); Basophils % 0.5 % (0.0-0.8); Eosinophils # 0.3 10*3/uL (0.0-0.87); Eosinophils % 2.5 % (0.00-10.9); Hematocrit 28.8 VOL% (35.7-47.0); Hemoglobin 9.1 GM/DL (12.0-16.0); Immature Granulocytes % 4.4 %; Immature Granulocytes Absolute 0.54 #; Lymphocytes # 1.3 10*3/uL (1.4-4.0); Lymphocytes % 10.6 % (21.3-54.2); Mean Corpuscular HGB Conc 31.6 GM/DL (32-36); Mean Corpuscular Volume 100.3 FL (87-102); Mean Platelet Volume 9.2 FL (9.6-12.0); Monocytes % 6.7 % (1.7-12.7); Neutrophils % 75.3 % (38.7-73.9); Platelet Count 295 T/CUMM (130-400); Red Blood Count 2.87 MC/CUMM (3.8-5.5); Red Cell Distribution Width 16.2 % (9.3-17.3); White Blood Count 12.2 T/CUMM (4-12)
[2021-05-02 04:40] LABS: Band Neutrophils 1 % (0-10); Eosinophils 3 % (0-10); Hypochromasia 1+; Lymphocytes 9 % (20-55); Microcytosis 1+; Ovalocytes Slight; Platelet Estimate Normal; Segmented Neutrophils 77 % (50-85); Total Cells Counted 100
[2021-05-02 04:43] LABS: Calcium 7.8 MG/DL (8.5-10.1); Osmolality,Calculated 290.5 MOS/KG (273-304)
[2021-05-02 07:47] VITALS: BP 163/53
[2021-05-02] MEDS: INSULIN LISPRO 100 UNIT/ML SUBCUT SCH ×3 (10:07→15:48)
[2021-05-02] MEDS: FERRIC GLUCONATE COMPLEX 125 MG in SODIUM CHLORIDE 0.9% 100 ML IV SCH (10:12)
[2021-05-02] MEDS: POLYETHYLENE GLYCOL POWDER 17 GM PACK PO SCH (10:13)
[2021-05-02] MEDS: ISOSORBIDE MONONITRATE 30 MG TABLET PO SCH (10:14)
[2021-05-02] MEDS: PANTOPRAZOLE 40 MG TABLET PO SCH (10:14)
[2021-05-02] MEDS: DOCUSATE SODIUM 100 MG CAPSULE PO SCH (10:14)
[2021-05-02] MEDS: SODIUM BICARBONATE 650 MG TABLET PO SCH (10:14)
[2021-05-02] MEDS: ESCITALOPRAM 10 MG TABLET PO SCH (10:15)
[2021-05-04 23:26] LABS: Stone Analysis Interpretation SEE COMMENTS; Stone Source Kidney
== END 2021-05-02 15:55 | disposition home health service (06) | DRG 660 ==
LOC: N.EDINP 18:35 → N.ED 18:35 → SUATTDRO 21:51 → OBSVTOIN 21:51 → N.5E 23:42
PROVIDERS: ADMIT Internal Medicine; ATTEND Internal Medicine

== ENCOUNTER 2021-06-28 07:40 | Inpatient (IN) ==
[2021-06-28] MEDS ORDERED: FUROSEMIDE 100 MG/10 ML VIAL IV STA (08:28)
[2021-06-28] MEDS ORDERED: NITROGLYCERIN 2% OINT 1 INCH/GM PACK TOP STA (08:28)
[2021-06-28] MEDS ORDERED: MORPHINE 10 MG/1 ML VIAL IV STA (08:29)
[2021-06-28] MEDS ORDERED: ONDANSETRON 4 MG/2 ML VIAL IV STA (08:29)
[2021-06-28 08:43] LABS: Basophils % 0.3 % (0.0-0.8); Eosinophils # 0.1 10*3/uL (0.0-0.87); Eosinophils % 0.9 % (0.00-10.9); Hematocrit 28.3 VOL% (35.7-47.0); Hemoglobin 8.9 GM/DL (12.0-16.0); Immature Granulocytes % 0.4 %; Immature Granulocytes Absolute 0.04 #; Lymphocytes # 0.9 10*3/uL (1.4-4.0); Lymphocytes % 10.3 % (21.3-54.2); Mean Corpuscular HGB Conc 31.4 GM/DL (32-36); Mean Corpuscular Volume 100.4 FL (87-102); Mean Platelet Volume 10.3 FL (9.6-12.0); Monocytes % 6.1 % (1.7-12.7); Platelet Count 197 T/CUMM (130-400); Red Blood Count 2.82 MC/CUMM (3.8-5.5); Red Cell Distribution Width 14.4 % (9.3-17.3)
[2021-06-28] MEDS ORDERED: MORPHINE 2 MG/1 ML SYRINGE ONE ×2 (08:46→08:53)
[2021-06-28 09:07] LABS: Alanine Aminotransferase 12 U/L (13-56); Albumin 2.8 G/DL (3.4-5.0); Alkaline Phosphatase 108 U/L (45-117); Aspartate Amino Transferase 19 U/L (0-37); Bilirubin,Total < 0.39 MG/DL (0.20-1.00); Blood Urea Nitrogen 53 MG/DL (7-18); Calcium 6.4 MG/DL (8.5-10.1); Carbon Dioxide 31 MMOL/L (21-32); Estimated Glom Filtration Rate 9 ML/MIN; Glucose 140 MG/DL (74-106); Osmolality,Calculated 290.7 MOS/KG (273-304); Potassium 3.2 MMOL/L (3.5-5.1); Sodium 138 MMOL/L (136-145); Total Protein 5.8 G/DL (6.4-8.2)
[2021-06-28] MEDS ORDERED: CALCIUM GLUCONATE 2,000 MG in SODIUM CHLORIDE 0.9% 100 ML IV ONE (10:31)
[2021-06-28] MEDS ORDERED: GLUCAGON 1 MG VIAL IM PRN ×2 (10:32)
[2021-06-28] MEDS ORDERED: DEXTROSE 50% 25 GM/50 ML VIAL IV PRN ×2 (10:32)
[2021-06-28] MEDS ORDERED: POTASSIUM CHLORIDE 20 MEQ TABLET PO ONE (10:53)
[2021-06-28 11:32] LABS: Risk Ratio 3.19; Thyroid Stimulating Hormone 2.98 uIU/ml (0.358-3.74); VLDL Cholesterol 29.8 MG/DL
[2021-06-28] MEDS: HEPARIN 5,000 UNIT/1 ML VIAL SUBCUT SCH ×2 (11:47→21:50)
[2021-06-28] MEDS ORDERED: MAGNESIUM SULF RIDER 4 GM/100 ML PREMIX IV PRN (12:25)
[2021-06-28] MEDS ORDERED: MAGNESIUM SULF RIDER 2 GM/50 ML PREMIX IV PRN (12:25)
[2021-06-28] MEDS: INSULIN LISPRO 100 UNIT/ML SUBCUT SCH ×3 (13:21→21:58)
[2021-06-28] MEDS ORDERED: FUROSEMIDE 40 MG/4 ML VIAL IV STA (13:23)
[2021-06-28] MEDS: hydrALAZINE 25 MG TABLET PO SCH ×2 (21:33→21:52)
[2021-06-28] MEDS: DOCUSATE SODIUM 100 MG CAPSULE PO SCH (21:52)
[2021-06-28] MEDS: POTASSIUM CHLORIDE 20 MEQ TABLET PO SCH (21:52)
[2021-06-28] MEDS: FUROSEMIDE 40 MG/4 ML VIAL IV SCH (21:58)
[2021-06-29] MEDS: diphenhydrAMINE CAP 25 MG CAPSULE PO PRN (04:45)
[2021-06-29 06:28] LABS: Basophils % 0.3 % (0.0-0.8); Eosinophils # 0.1 10*3/uL (0.0-0.87); Eosinophils % 1.2 % (0.00-10.9); Hematocrit 22.8 VOL% (35.7-47.0); Immature Granulocytes % 0.4 %; Immature Granulocytes Absolute 0.03 #; Lymphocytes # 1.1 10*3/uL (1.4-4.0); Lymphocytes % 16.1 % (21.3-54.2); Mean Corpuscular HGB Conc 30.7 GM/DL (32-36); Mean Corpuscular Volume 101.3 FL (87-102); Mean Platelet Volume 10.4 FL (9.6-12.0); Monocytes % 9.3 % (1.7-12.7); Neutrophils % 72.7 % (38.7-73.9); Platelet Count 204 T/CUMM (130-400); Red Blood Count 2.25 MC/CUMM (3.8-5.5); Red Cell Distribution Width 13.7 % (9.3-17.3); White Blood Count 6.8 T/CUMM (4-12)
[2021-06-29 06:55] LABS: Calcium 7.6 MG/DL (8.5-10.1); Potassium 4.5 MMOL/L (3.5-5.1)
[2021-06-29 08:50] LABS: Folate 8.54 NG/ML (5.38-24.0)
[2021-06-29] MEDS: ASPIRIN CHEW 81 MG TABLET PO SCH (09:07)
[2021-06-29] MEDS: DOCUSATE SODIUM 100 MG CAPSULE PO SCH ×2 (09:07→21:48)
[2021-06-29] MEDS: CHOLECALCIFEROL 1,000 UNIT TABLET PO SCH (09:10)
[2021-06-29] MEDS: ESCITALOPRAM 10 MG TABLET PO SCH (09:10)
[2021-06-29] MEDS: POTASSIUM CHLORIDE 20 MEQ TABLET PO SCH ×2 (09:10→21:48)
[2021-06-29] MEDS: hydrALAZINE 25 MG TABLET PO SCH ×3 (09:11→21:48)
[2021-06-29] MEDS: PANTOPRAZOLE 40 MG TABLET PO SCH (09:11)
[2021-06-29] MEDS: FUROSEMIDE 40 MG/4 ML VIAL IV SCH ×2 (09:11→16:07)
[2021-06-29 09:26] LABS: Basophils % 0.4 % (0.0-0.8); Eosinophils # 0.1 10*3/uL (0.0-0.87); Eosinophils % 1.6 % (0.00-10.9); Hematocrit 23.1 VOL% (35.7-47.0); Immature Granulocytes % 0.4 %; Immature Granulocytes Absolute 0.03 #; Lymphocytes # 1.3 10*3/uL (1.4-4.0); Lymphocytes % 17.9 % (21.3-54.2); Mean Corpuscular HGB Conc 30.3 GM/DL (32-36); Mean Corpuscular Volume 101.8 FL (87-102); Monocytes % 7.9 % (1.7-12.7); Neutrophils % 71.8 % (38.7-73.9); Platelet Count 213 T/CUMM (130-400); Red Blood Count 2.27 MC/CUMM (3.8-5.5); Red Cell Distribution Width 13.8 % (9.3-17.3)
[2021-06-29] MEDS: INSULIN LISPRO 100 UNIT/ML SUBCUT SCH ×4 (09:26→21:49)
[2021-06-29] MEDS ORDERED: SODIUM CHLORIDE 0.9% 1,000 ML IV PRN (09:28)
[2021-06-29 10:19] LABS: % Iron Saturation 11.8 % (18-50); Ferritin 468.3 ng/mL (8-252)
[2021-06-29] MEDS: LORATADINE 10 MG TABLET PO SCH (11:09)
[2021-06-29 17:20] LABS: Hematocrit 25.5 VOL% (35.7-47.0); Hemoglobin 8.1 GM/DL (12.0-16.0)
[2021-06-29] MEDS: FERROUS SULFATE 325 MG TABLET PO SCH (21:48)
[2021-06-30 05:13] LABS: Basophils % 0.3 % (0.0-0.8); Eosinophils # 0.2 10*3/uL (0.0-0.87); Eosinophils % 2.2 % (0.00-10.9); Hematocrit 26.4 VOL% (35.7-47.0); Hemoglobin 8.3 GM/DL (12.0-16.0); Immature Granulocytes % 0.6 %; Immature Granulocytes Absolute 0.04 #; Lymphocytes # 0.9 10*3/uL (1.4-4.0); Lymphocytes % 13.9 % (21.3-54.2); Mean Corpuscular HGB Conc 31.4 GM/DL (32-36); Mean Corpuscular Volume 96.4 FL (87-102); Monocytes % 7.3 % (1.7-12.7); Neutrophils % 75.7 % (38.7-73.9); Platelet Count 205 T/CUMM (130-400); Red Blood Count 2.74 MC/CUMM (3.8-5.5); Red Cell Distribution Width 15.8 % (9.3-17.3); White Blood Count 6.7 T/CUMM (4-12)
[2021-06-30 05:42] LABS: Calcium 7.8 MG/DL (8.5-10.1); Potassium 4.2 MMOL/L (3.5-5.1)
[2021-06-30] MEDS: FUROSEMIDE 40 MG/4 ML VIAL IV SCH ×2 (08:56→16:44)
[2021-06-30] MEDS: POTASSIUM CHLORIDE 20 MEQ TABLET PO SCH ×2 (08:56→20:05)
[2021-06-30] MEDS: ASPIRIN CHEW 81 MG TABLET PO SCH (08:56)
[2021-06-30] MEDS: CHOLECALCIFEROL 1,000 UNIT TABLET PO SCH (08:56)
[2021-06-30] MEDS: hydrALAZINE 25 MG TABLET PO SCH (08:57)
[2021-06-30] MEDS: PANTOPRAZOLE 40 MG TABLET PO SCH (08:57)
[2021-06-30] MEDS: MULTIVITAMIN (CENTRUM) TABLET PO SCH (08:57)
[2021-06-30] MEDS: FERROUS SULFATE 325 MG TABLET PO SCH ×2 (08:57→20:05)
[2021-06-30] MEDS: DOCUSATE SODIUM 100 MG CAPSULE PO SCH ×2 (08:57→20:05)
[2021-06-30] MEDS: ESCITALOPRAM 10 MG TABLET PO SCH (08:57)
[2021-06-30] MEDS: LORATADINE 10 MG TABLET PO SCH (08:57)
[2021-06-30] MEDS: INSULIN LISPRO 100 UNIT/ML SUBCUT SCH ×4 (10:42→20:26)
[2021-06-30] MEDS ORDERED: SODIUM CHLORIDE 0.9% 1,000 ML IV PRN (11:00)
[2021-06-30] MEDS ORDERED: GLUCAGON 1 MG VIAL IM PRN (11:31)
[2021-06-30] MEDS ORDERED: DEXTROSE 50% 25 GM/50 ML VIAL IV PRN (11:31)
[2021-06-30] MEDS: hydrALAZINE 20 MG/1 ML VIAL IV PRN (12:38)
[2021-06-30] MEDS: ACETAMINOPHEN 325 MG TABLET PO PRN ×2 (18:38→22:27)
[2021-06-30] MEDS: diphenhydrAMINE CAP 25 MG CAPSULE PO PRN (20:05)
[2021-07-01 05:14] LABS: Basophils % 0.4 % (0.0-0.8); Eosinophils # 0.3 10*3/uL (0.0-0.87); Eosinophils % 3.8 % (0.00-10.9); Immature Granulocytes % 0.4 %; Immature Granulocytes Absolute 0.03 #; Lymphocytes # 1.6 10*3/uL (1.4-4.0); Lymphocytes % 22.8 % (21.3-54.2); Mean Corpuscular HGB Conc 32.6 GM/DL (32-36); Mean Corpuscular Volume 94.6 FL (87-102); Neutrophils % 62.6 % (38.7-73.9); Platelet Count 219 T/CUMM (130-400); White Blood Count 6.8 T/CUMM (4-12)
[2021-07-01 05:25] LABS: Hemoglobin 11.4 GM/DL (12.0-16.0)
[2021-07-01 05:38] LABS: Calcium 8.3 MG/DL (8.5-10.1); Osmolality,Calculated 290.8 MOS/KG (273-304); Potassium 4.6 MMOL/L (3.5-5.1)
[2021-07-01] MEDS: INSULIN LISPRO 100 UNIT/ML SUBCUT SCH ×4 (07:30→21:03)
[2021-07-01] MEDS: LORATADINE 10 MG TABLET PO SCH (08:59)
[2021-07-01] MEDS: diphenhydrAMINE CAP 25 MG CAPSULE PO PRN (08:59)
[2021-07-01] MEDS: FERROUS SULFATE 325 MG TABLET PO SCH ×2 (09:00→21:02)
[2021-07-01] MEDS: DOCUSATE SODIUM 100 MG CAPSULE PO SCH ×2 (09:00→21:02)
[2021-07-01] MEDS: ESCITALOPRAM 10 MG TABLET PO SCH (09:00)
[2021-07-01] MEDS: ASPIRIN CHEW 81 MG TABLET PO SCH (09:00)
[2021-07-01] MEDS: CHOLECALCIFEROL 1,000 UNIT TABLET PO SCH (09:00)
[2021-07-01] MEDS: POTASSIUM CHLORIDE 20 MEQ TABLET PO SCH ×2 (09:00→21:03)
[2021-07-01] MEDS: MULTIVITAMIN (CENTRUM) TABLET PO SCH (09:02)
[2021-07-01] MEDS: FUROSEMIDE 40 MG/4 ML VIAL IV SCH (09:02)
[2021-07-01] MEDS: PANTOPRAZOLE 40 MG TABLET PO SCH (09:02)
[2021-07-01] MEDS ORDERED: SODIUM CHLORIDE 0.9% 1,000 ML IV SCH (12:30)
[2021-07-01] MEDS: HEPARIN 5,000 UNIT/1 ML VIAL SUBCUT SCH ×2 (12:30→23:16)
[2021-07-02] MEDS: hydrALAZINE 20 MG/1 ML VIAL IV PRN (05:18)
[2021-07-02] MEDS: INSULIN LISPRO 100 UNIT/ML SUBCUT SCH ×4 (08:30→21:11)
[2021-07-02 08:47] LABS: Basophils % 0.3 % (0.0-0.8); Eosinophils # 0.2 10*3/uL (0.0-0.87); Eosinophils % 3.4 % (0.00-10.9); Hematocrit 40.2 VOL% (35.7-47.0); Hemoglobin 12.4 GM/DL (12.0-16.0); Immature Granulocytes % 0.3 %; Immature Granulocytes Absolute 0.02 #; Lymphocytes # 1.4 10*3/uL (1.4-4.0); Lymphocytes % 20.4 % (21.3-54.2); Mean Corpuscular HGB Conc 30.8 GM/DL (32-36); Mean Corpuscular Volume 99.3 FL (87-102); Mean Platelet Volume 9.9 FL (9.6-12.0); Monocytes % 6.8 % (1.7-12.7); Neutrophils % 68.8 % (38.7-73.9); Platelet Count 284 T/CUMM (130-400); Red Blood Count 4.05 MC/CUMM (3.8-5.5); Red Cell Distribution Width 14.8 % (9.3-17.3); White Blood Count 7.1 T/CUMM (4-12)
[2021-07-02] MEDS: LORATADINE 10 MG TABLET PO SCH (08:54)
[2021-07-02] MEDS: diphenhydrAMINE CAP 25 MG CAPSULE PO PRN ×3 (08:55→22:18)
[2021-07-02] MEDS: PANTOPRAZOLE 40 MG TABLET PO SCH (08:55)
[2021-07-02] MEDS: CHOLECALCIFEROL 1,000 UNIT TABLET PO SCH (08:55)
[2021-07-02] MEDS: POTASSIUM CHLORIDE 20 MEQ TABLET PO SCH ×2 (08:56→21:10)
[2021-07-02] MEDS: FERROUS SULFATE 325 MG TABLET PO SCH ×2 (08:56→21:10)
[2021-07-02] MEDS: MULTIVITAMIN (CENTRUM) TABLET PO SCH (08:56)
[2021-07-02] MEDS: ESCITALOPRAM 10 MG TABLET PO SCH (08:56)
[2021-07-02] MEDS: ASPIRIN CHEW 81 MG TABLET PO SCH (08:57)
[2021-07-02] MEDS: DOCUSATE SODIUM 100 MG CAPSULE PO SCH ×2 (08:59→21:10)
[2021-07-02 09:24] LABS: Calcium 8.6 MG/DL (8.5-10.1); Potassium 5.1 MMOL/L (3.5-5.1)
[2021-07-02] MEDS: ONDANSETRON 4 MG/2 ML VIAL IV PRN (10:01)
[2021-07-02] MEDS: HEPARIN 5,000 UNIT/1 ML VIAL SUBCUT SCH ×2 (12:15→22:18)
[2021-07-03 06:33] LABS: Basophils % 0.3 % (0.0-0.8); Eosinophils # 0.3 10*3/uL (0.0-0.87); Eosinophils % 4.2 % (0.00-10.9); Hematocrit 33.9 VOL% (35.7-47.0); Hemoglobin 10.8 GM/DL (12.0-16.0); Immature Granulocytes % 0.5 %; Immature Granulocytes Absolute 0.03 #; Lymphocytes # 1.5 10*3/uL (1.4-4.0); Lymphocytes % 25.7 % (21.3-54.2); Mean Corpuscular HGB Conc 31.9 GM/DL (32-36); Mean Corpuscular Volume 99.1 FL (87-102); Mean Platelet Volume 10.2 FL (9.6-12.0); Monocytes % 10.6 % (1.7-12.7); Neutrophils % 58.7 % (38.7-73.9); Platelet Count 251 T/CUMM (130-400); Red Blood Count 3.42 MC/CUMM (3.8-5.5); Red Cell Distribution Width 14.7 % (9.3-17.3)
[2021-07-03 07:06] LABS: Calcium 8.5 MG/DL (8.5-10.1); Osmolality,Calculated 296.5 MOS/KG (273-304); Potassium 5.5 MMOL/L (3.5-5.1)
[2021-07-03] MEDS: FERROUS SULFATE 325 MG TABLET PO SCH ×2 (08:12→20:37)
[2021-07-03] MEDS: LORATADINE 10 MG TABLET PO SCH (08:14)
[2021-07-03] MEDS: POTASSIUM CHLORIDE 20 MEQ TABLET PO SCH ×2 (08:15→20:42)
[2021-07-03] MEDS: PANTOPRAZOLE 40 MG TABLET PO SCH (08:15)
[2021-07-03] MEDS: ASPIRIN CHEW 81 MG TABLET PO SCH (08:15)
[2021-07-03] MEDS: ESCITALOPRAM 10 MG TABLET PO SCH (08:15)
[2021-07-03] MEDS: CHOLECALCIFEROL 1,000 UNIT TABLET PO SCH (08:15)
[2021-07-03] MEDS: MULTIVITAMIN (CENTRUM) TABLET PO SCH (08:16)
[2021-07-03] MEDS: DOCUSATE SODIUM 100 MG CAPSULE PO SCH ×2 (08:19→20:37)
[2021-07-03] MEDS ORDERED: SODIUM POLYSTYRENE SULFATE 15 GM/60 ML BOTTLE PO ONE (08:34)
[2021-07-03] MEDS: INSULIN LISPRO 100 UNIT/ML SUBCUT SCH ×4 (08:58→20:42)
[2021-07-03] MEDS: diphenhydrAMINE CAP 25 MG CAPSULE PO PRN (09:18)
[2021-07-03] MEDS: ONDANSETRON 4 MG/2 ML VIAL IV PRN (09:18)
[2021-07-03] MEDS: SODIUM ZIRCONIUM CYCLOSILICATE 10 GM PACK PO SCH ×3 (11:44→21:38)
[2021-07-03] MEDS: SODIUM CHLORIDE 0.9% 1,000 ML IV SCH ×2 (11:46→23:30)
[2021-07-03] MEDS: HEPARIN 5,000 UNIT/1 ML VIAL SUBCUT SCH ×2 (11:46→23:54)
[2021-07-03] MEDS: diphenhydrAMINE CAP 50 MG CAPSULE PO PRN (15:36)
[2021-07-04] MEDS: SODIUM CHLORIDE 0.9% 1,000 ML IV SCH ×3 (01:14→14:20)
[2021-07-04] MEDS: hydrALAZINE 20 MG/1 ML VIAL IV PRN (03:49)
[2021-07-04] MEDS: diphenhydrAMINE CAP 50 MG CAPSULE PO PRN ×2 (03:52→15:34)
[2021-07-04 05:33] LABS: Basophils % 0.2 % (0.0-0.8); Eosinophils # 0.3 10*3/uL (0.0-0.87); Eosinophils % 4.7 % (0.00-10.9); Hematocrit 31.9 VOL% (35.7-47.0); Hemoglobin 9.7 GM/DL (12.0-16.0); Immature Granulocytes % 0.5 %; Immature Granulocytes Absolute 0.03 #; Lymphocytes # 1.4 10*3/uL (1.4-4.0); Lymphocytes % 24.6 % (21.3-54.2); Mean Corpuscular HGB Conc 30.4 GM/DL (32-36); Mean Corpuscular Volume 99.4 FL (87-102); Mean Platelet Volume 9.9 FL (9.6-12.0); Monocytes % 9.4 % (1.7-12.7); Neutrophils % 60.6 % (38.7-73.9); Platelet Count 236 T/CUMM (130-400); Red Blood Count 3.21 MC/CUMM (3.8-5.5); Red Cell Distribution Width 14.5 % (9.3-17.3); White Blood Count 5.5 T/CUMM (4-12)
[2021-07-04 05:56] LABS: Albumin 2.4 G/DL (3.4-5.0); Bilirubin,Total 0.5 MG/DL (0.20-1.00); Calcium 7.9 MG/DL (8.5-10.1); Osmolality,Calculated 295.5 MOS/KG (273-304); Potassium 4.4 MMOL/L (3.5-5.1); Total Protein 5.7 G/DL (6.4-8.2); Uric Acid 8.3 MG/DL (2.6-6.0)
[2021-07-04 09:17] LABS: Bilirubin,Urine Negative (Negative); Blood, Urine Negative (Negative); Glucose,Urine (UA) Negative (Negative); Ketones,Urine Negative (Negative); Nitrite,Urine Negative (Negative); Protein,Urine 100 MG/DL; RBC,Urine 3 /HPF (0-4); Squamous Epithelial Cell,Urine Occasional /HPF (0-10); Urine Appearance CLEAR (Clear); Urine Color Straw (Yellow); Urine Specific Gravity 1.008 (1.001-1.035); Urine Urobilinogen < 2.0 EU/DL (0.2-1.0)
[2021-07-04] MEDS: INSULIN LISPRO 100 UNIT/ML SUBCUT SCH ×4 (10:43→22:42)
[2021-07-04] MEDS: ASPIRIN CHEW 81 MG TABLET PO SCH (10:44)
[2021-07-04] MEDS: MULTIVITAMIN (CENTRUM) TABLET PO SCH (10:44)
[2021-07-04] MEDS: CHOLECALCIFEROL 1,000 UNIT TABLET PO SCH (10:44)
[2021-07-04] MEDS: ESCITALOPRAM 10 MG TABLET PO SCH (10:44)
[2021-07-04] MEDS: PANTOPRAZOLE 40 MG TABLET PO SCH (10:45)
[2021-07-04] MEDS: DOCUSATE SODIUM 100 MG CAPSULE PO SCH ×2 (10:45→21:05)
[2021-07-04] MEDS: FERROUS SULFATE 325 MG TABLET PO SCH ×2 (10:46→21:05)
[2021-07-04] MEDS: POTASSIUM CHLORIDE 20 MEQ TABLET PO SCH (10:46)
[2021-07-04] MEDS: HEPARIN 5,000 UNIT/1 ML VIAL SUBCUT SCH ×2 (10:47→22:41)
[2021-07-04] MEDS: LORATADINE 10 MG TABLET PO SCH (11:48)
[2021-07-04] MEDS: ACETAMINOPHEN 325 MG TABLET PO PRN (15:34)
[2021-07-04] MEDS: SEVELAMER CARBONATE 800 MG TABLET PO SCH ×2 (16:26→16:27)
[2021-07-05] MEDS: SODIUM CHLORIDE 0.9% 1,000 ML IV SCH ×2 (04:02→15:29)
[2021-07-05] MEDS: diphenhydrAMINE CAP 50 MG CAPSULE PO PRN ×2 (04:04→18:22)
[2021-07-05 05:57] LABS: Basophils % 0.4 % (0.0-0.8); Eosinophils # 0.2 10*3/uL (0.0-0.87); Eosinophils % 4.2 % (0.00-10.9); Hematocrit 31.8 VOL% (35.7-47.0); Hemoglobin 9.9 GM/DL (12.0-16.0); Immature Granulocytes % 0.8 %; Immature Granulocytes Absolute 0.04 #; Lymphocytes # 1.3 10*3/uL (1.4-4.0); Lymphocytes % 25.8 % (21.3-54.2); Mean Corpuscular HGB Conc 31.1 GM/DL (32-36); Mean Corpuscular Volume 99.4 FL (87-102); Mean Platelet Volume 9.6 FL (9.6-12.0); Monocytes % 9.4 % (1.7-12.7); Neutrophils % 59.4 % (38.7-73.9); Platelet Count 249 T/CUMM (130-400); Red Cell Distribution Width 14.4 % (9.3-17.3); White Blood Count 5.2 T/CUMM (4-12)
[2021-07-05 06:09] LABS: Calcium 8.1 MG/DL (8.5-10.1); Osmolality,Calculated 292.5 MOS/KG (273-304); Potassium 5.2 MMOL/L (3.5-5.1)
[2021-07-05] MEDS: hydrALAZINE 20 MG/1 ML VIAL IV PRN (06:33)
[2021-07-05] MEDS ORDERED: hydrALAZINE 25 MG TABLET PO SCH (08:52)
[2021-07-05] MEDS: ASPIRIN CHEW 81 MG TABLET PO SCH (09:25)
[2021-07-05] MEDS: CHOLECALCIFEROL 1,000 UNIT TABLET PO SCH (09:25)
[2021-07-05] MEDS: DOCUSATE SODIUM 100 MG CAPSULE PO SCH ×2 (09:25→22:08)
[2021-07-05] MEDS: PANTOPRAZOLE 40 MG TABLET PO SCH (09:25)
[2021-07-05] MEDS: MULTIVITAMIN (CENTRUM) TABLET PO SCH (09:25)
[2021-07-05] MEDS: ESCITALOPRAM 10 MG TABLET PO SCH (09:26)
[2021-07-05] MEDS: LORATADINE 10 MG TABLET PO SCH (09:26)
[2021-07-05] MEDS: SEVELAMER CARBONATE 800 MG TABLET PO SCH ×3 (09:26→17:08)
[2021-07-05] MEDS: FERROUS SULFATE 325 MG TABLET PO SCH ×2 (09:26→22:08)
[2021-07-05] MEDS: INSULIN LISPRO 100 UNIT/ML SUBCUT SCH ×4 (09:27→21:50)
[2021-07-05] MEDS: HEPARIN 5,000 UNIT/1 ML VIAL SUBCUT SCH ×2 (12:13→22:08)
[2021-07-06 03:46] LABS: ABG Base Excess -9.1 MMOL/L (-2.5-2.5); ABG HCO3 12.9 MMOL/L (20-26); ABG PH 7.413 (7.35-7.45); ABG PO2 145.5 MM HG (80-95); ABG TCO2 13.6 MMOL/L (23-27)
[2021-07-06 03:50] LABS: ABG PCO2 20.7 MM HG (35-48)
[2021-07-06] MEDS: SODIUM CHLORIDE 0.9% 1,000 ML IV SCH (04:30)
[2021-07-06 05:15] LABS: Basophils % 0.4 % (0.0-0.8); Eosinophils # 0.2 10*3/uL (0.0-0.87); Eosinophils % 3.9 % (0.00-10.9); Hematocrit 33.1 VOL% (35.7-47.0); Hemoglobin 10.3 GM/DL (12.0-16.0); Immature Granulocytes % 0.9 %; Immature Granulocytes Absolute 0.05 #; Lymphocytes # 1.3 10*3/uL (1.4-4.0); Lymphocytes % 21.9 % (21.3-54.2); Mean Corpuscular HGB Conc 31.1 GM/DL (32-36); Mean Platelet Volume 9.7 FL (9.6-12.0); Monocytes % 7.5 % (1.7-12.7); Neutrophils % 65.4 % (38.7-73.9); Platelet Count 258 T/CUMM (130-400); Red Blood Count 3.31 MC/CUMM (3.8-5.5); Red Cell Distribution Width 14.5 % (9.3-17.3); White Blood Count 5.7 T/CUMM (4-12)
[2021-07-06 05:44] LABS: Calcium 8.5 MG/DL (8.5-10.1); Osmolality,Calculated 292.5 MOS/KG (273-304); Potassium 5.2 MMOL/L (3.5-5.1)
[2021-07-06] MEDS: hydrALAZINE 20 MG/1 ML VIAL IV PRN (06:24)
[2021-07-06] MEDS: INSULIN LISPRO 100 UNIT/ML SUBCUT SCH ×4 (08:30→21:23)
[2021-07-06] MEDS ORDERED: POTASSIUM CHLORIDE RIDER 10 MEQ/100 ML PREMIX IV PRN (08:57)
[2021-07-06] MEDS ORDERED: MAGNESIUM SULF RIDER 2 GM/50 ML PREMIX IV PRN (08:57)
[2021-07-06] MEDS: PANTOPRAZOLE 40 MG TABLET PO SCH (09:49)
[2021-07-06] MEDS: FERROUS SULFATE 325 MG TABLET PO SCH ×2 (09:49→21:22)
[2021-07-06] MEDS: ESCITALOPRAM 10 MG TABLET PO SCH (09:49)
[2021-07-06] MEDS: ASPIRIN CHEW 81 MG TABLET PO SCH (09:49)
[2021-07-06] MEDS: MULTIVITAMIN (CENTRUM) TABLET PO SCH (09:49)
[2021-07-06] MEDS: LORATADINE 10 MG TABLET PO SCH (09:49)
[2021-07-06] MEDS: SEVELAMER CARBONATE 800 MG TABLET PO SCH ×3 (09:53→16:55)
[2021-07-06] MEDS: DOCUSATE SODIUM 100 MG CAPSULE PO SCH ×2 (09:55→21:22)
[2021-07-06] MEDS: HEPARIN 5,000 UNIT/1 ML VIAL SUBCUT SCH ×2 (11:30→23:55)
[2021-07-06] MEDS: hydrALAZINE 25 MG TABLET PO SCH ×3 (12:49→21:22)
[2021-07-06] MEDS: SODIUM BICARB INJ 150 MEQ in STERILE WATER INJ 1,000 ML IV SCH (16:56)
[2021-07-06] MEDS: calcitrioL 0.25 MCG CAPSULE PO SCH (17:23)
[2021-07-06] MEDS: diphenhydrAMINE CAP 50 MG CAPSULE PO PRN (21:22)
[2021-07-07] MEDS: SODIUM BICARB INJ 150 MEQ in STERILE WATER INJ 1,000 ML IV SCH ×2 (00:23→15:21)
[2021-07-07] MEDS: hydrALAZINE 20 MG/1 ML VIAL IV PRN (04:54)
[2021-07-07 05:17] LABS: Basophils % 0.5 % (0.0-0.8); Eosinophils # 0.2 10*3/uL (0.0-0.87); Eosinophils % 3.6 % (0.00-10.9); Hematocrit 31.4 VOL% (35.7-47.0); Hemoglobin 9.8 GM/DL (12.0-16.0); Immature Granulocytes % 0.8 %; Immature Granulocytes Absolute 0.05 #; Lymphocytes # 1.4 10*3/uL (1.4-4.0); Lymphocytes % 22.8 % (21.3-54.2); Mean Corpuscular HGB Conc 31.2 GM/DL (32-36); Mean Corpuscular Volume 97.8 FL (87-102); Mean Platelet Volume 9.3 FL (9.6-12.0); Monocytes % 7.6 % (1.7-12.7); Neutrophils % 64.7 % (38.7-73.9); Platelet Count 281 T/CUMM (130-400); Red Blood Count 3.21 MC/CUMM (3.8-5.5); Red Cell Distribution Width 14.4 % (9.3-17.3); White Blood Count 6.2 T/CUMM (4-12)
[2021-07-07 05:34] LABS: Calcium 8.6 MG/DL (8.5-10.1); Osmolality,Calculated 292.4 MOS/KG (273-304); Potassium 5.3 MMOL/L (3.5-5.1)
[2021-07-07] MEDS ORDERED: LABETALOL 20 MG/4 ML SYRINGE IV ONE (05:38)
[2021-07-07] MEDS ORDERED: DIAZEPAM 5 MG TABLET PO ONE (07:00)
[2021-07-07] MEDS ORDERED: diphenhydrAMINE CAP 25 MG CAPSULE PO ONE (07:00)
[2021-07-07] MEDS: INSULIN LISPRO 100 UNIT/ML SUBCUT SCH ×4 (07:58→21:01)
[2021-07-07] MEDS: PANTOPRAZOLE 40 MG TABLET PO SCH (08:45)
[2021-07-07] MEDS: hydrALAZINE 25 MG TABLET PO SCH ×4 (08:46→21:01)
[2021-07-07] MEDS: ASPIRIN CHEW 81 MG TABLET PO SCH (08:46)
[2021-07-07] MEDS: SEVELAMER CARBONATE 800 MG TABLET PO SCH ×3 (09:18→16:12)
[2021-07-07] MEDS: DOCUSATE SODIUM 100 MG CAPSULE PO SCH ×2 (09:21→21:00)
[2021-07-07] MEDS: LORATADINE 10 MG TABLET PO SCH (09:21)
[2021-07-07] MEDS: MULTIVITAMIN (CENTRUM) TABLET PO SCH (09:21)
[2021-07-07] MEDS: FERROUS SULFATE 325 MG TABLET PO SCH ×2 (09:21→21:00)
[2021-07-07] MEDS: calcitrioL 0.25 MCG CAPSULE PO SCH (09:22)
[2021-07-07] MEDS: ESCITALOPRAM 10 MG TABLET PO SCH (09:22)
[2021-07-07] MEDS ORDERED: LIDOCAINE 1%/EPI INJ 20 ML VIAL ONE (10:53)
[2021-07-07] MEDS ORDERED: HEPARIN/NACL 0.9% 2 UNITS/ML 1,000 UNIT/500 ML BAG IV ONE (10:53)
[2021-07-07] MEDS ORDERED: fentaNYL 100 MCG/2 ML VIAL ONE (11:03)
[2021-07-07] MEDS ORDERED: MIDAZOLAM 2 MG/2 ML VIAL ONE (11:03)
[2021-07-07] MEDS: HEPARIN 5,000 UNIT/1 ML VIAL SUBCUT SCH ×2 (11:05→23:42)
[2021-07-07] MEDS ORDERED: hydrALAZINE 20 MG/1 ML VIAL ONE (11:30)
[2021-07-07] MEDS ORDERED: cloNIDine 0.1 MG TABLET ONE (11:40)
[2021-07-07] MEDS ORDERED: DEXTROSE 5% NACL 0.45% 1,000 ML IV SCH (12:30)
[2021-07-07] MEDS: carvediloL 6.25 MG TABLET PO SCH (16:12)
[2021-07-07] MEDS: diphenhydrAMINE CAP 50 MG CAPSULE PO PRN (23:44)
[2021-07-08] MEDS: SODIUM BICARB INJ 150 MEQ in STERILE WATER INJ 1,000 ML IV SCH ×2 (02:41→17:32)
[2021-07-08 05:37] LABS: Basophils % 0.5 % (0.0-0.8); Eosinophils # 0.3 10*3/uL (0.0-0.87); Eosinophils % 5.5 % (0.00-10.9); Hematocrit 29.5 VOL% (35.7-47.0); Hemoglobin 9.3 GM/DL (12.0-16.0); Immature Granulocytes % 0.5 %; Immature Granulocytes Absolute 0.03 #; Lymphocytes # 1.6 10*3/uL (1.4-4.0); Lymphocytes % 27.8 % (21.3-54.2); Mean Corpuscular HGB Conc 31.5 GM/DL (32-36); Mean Corpuscular Volume 98.3 FL (87-102); Mean Platelet Volume 9.5 FL (9.6-12.0); Monocytes % 9.5 % (1.7-12.7); Neutrophils % 56.2 % (38.7-73.9); Platelet Count 282 T/CUMM (130-400); Red Cell Distribution Width 14.4 % (9.3-17.3); White Blood Count 5.7 T/CUMM (4-12)
[2021-07-08 05:48] LABS: Calcium 8.2 MG/DL (8.5-10.1); Osmolality,Calculated 291.7 MOS/KG (273-304); Potassium 5.2 MMOL/L (3.5-5.1)
[2021-07-08] MEDS: INSULIN LISPRO 100 UNIT/ML SUBCUT SCH ×4 (08:10→21:25)
[2021-07-08] MEDS: PANTOPRAZOLE 40 MG TABLET PO SCH (08:56)
[2021-07-08] MEDS: FERROUS SULFATE 325 MG TABLET PO SCH ×2 (08:56→21:19)
[2021-07-08] MEDS: DOCUSATE SODIUM 100 MG CAPSULE PO SCH ×2 (08:56→21:19)
[2021-07-08] MEDS: carvediloL 6.25 MG TABLET PO SCH ×2 (08:56→16:51)
[2021-07-08] MEDS: ASPIRIN CHEW 81 MG TABLET PO SCH (08:57)
[2021-07-08] MEDS: ESCITALOPRAM 10 MG TABLET PO SCH (08:58)
[2021-07-08] MEDS: calcitrioL 0.25 MCG CAPSULE PO SCH (08:58)
[2021-07-08] MEDS: cloNIDine 0.1 MG TABLET PO SCH ×3 (08:58→21:19)
[2021-07-08] MEDS: LORATADINE 10 MG TABLET PO SCH (08:58)
[2021-07-08] MEDS: MULTIVITAMIN (CENTRUM) TABLET PO SCH (08:59)
[2021-07-08] MEDS: SEVELAMER CARBONATE 800 MG TABLET PO SCH ×3 (08:59→16:52)
[2021-07-08] MEDS: diphenhydrAMINE CAP 50 MG CAPSULE PO PRN (10:33)
[2021-07-08] MEDS: HEPARIN 5,000 UNIT/1 ML VIAL SUBCUT SCH (10:34)
[2021-07-08] MEDS: hydrALAZINE 20 MG/1 ML VIAL IV PRN (12:09)
[2021-07-08] MEDS: POLYETHYLENE GLYCOL POWDER 17 GM PACK PO SCH (15:27)
[2021-07-09] MEDS: HEPARIN 5,000 UNIT/1 ML VIAL SUBCUT SCH ×2 (00:01→11:50)
[2021-07-09 05:50] LABS: Basophils % 0.4 % (0.0-0.8); Eosinophils # 0.3 10*3/uL (0.0-0.87); Eosinophils % 5.5 % (0.00-10.9); Hematocrit 28.8 VOL% (35.7-47.0); Hemoglobin 9.4 GM/DL (12.0-16.0); Immature Granulocytes % 0.7 %; Immature Granulocytes Absolute 0.04 #; Lymphocytes # 1.6 10*3/uL (1.4-4.0); Lymphocytes % 28.4 % (21.3-54.2); Mean Corpuscular HGB Conc 32.6 GM/DL (32-36); Mean Platelet Volume 9.4 FL (9.6-12.0); Monocytes % 9.1 % (1.7-12.7); Neutrophils % 55.9 % (38.7-73.9); Platelet Count 290 T/CUMM (130-400); Red Blood Count 2.97 MC/CUMM (3.8-5.5); Red Cell Distribution Width 14.4 % (9.3-17.3); White Blood Count 5.5 T/CUMM (4-12)
[2021-07-09 06:14] LABS: Calcium 8.3 MG/DL (8.5-10.1); Osmolality,Calculated 288.8 MOS/KG (273-304); Potassium 5.5 MMOL/L (3.5-5.1)
[2021-07-09] MEDS: INSULIN LISPRO 100 UNIT/ML SUBCUT SCH ×2 (08:28→11:58)
[2021-07-09] MEDS ORDERED: SODIUM POLYSTYRENE SULFATE 15 GM/60 ML BOTTLE PO ONE (08:50)
[2021-07-09] MEDS ORDERED: ROSUVASTATIN 20 MG TABLET PO SCH (09:00)
[2021-07-09] MEDS: ONDANSETRON 4 MG/2 ML VIAL IV PRN (09:35)
[2021-07-09] MEDS: LORATADINE 10 MG TABLET PO SCH (09:36)
[2021-07-09] MEDS: SEVELAMER CARBONATE 800 MG TABLET PO SCH ×2 (09:36→11:50)
[2021-07-09] MEDS: MULTIVITAMIN (CENTRUM) TABLET PO SCH (09:36)
[2021-07-09] MEDS: cloNIDine 0.1 MG TABLET PO SCH (09:36)
[2021-07-09] MEDS: ESCITALOPRAM 10 MG TABLET PO SCH (09:37)
[2021-07-09] MEDS: PANTOPRAZOLE 40 MG TABLET PO SCH (09:37)
[2021-07-09] MEDS: POLYETHYLENE GLYCOL POWDER 17 GM PACK PO SCH (09:37)
[2021-07-09] MEDS: FERROUS SULFATE 325 MG TABLET PO SCH (09:37)
[2021-07-09] MEDS: DOCUSATE SODIUM 100 MG CAPSULE PO SCH (09:37)
[2021-07-09] MEDS: ASPIRIN CHEW 81 MG TABLET PO SCH (09:37)
[2021-07-09] MEDS: calcitrioL 0.25 MCG CAPSULE PO SCH (09:37)
[2021-07-09] MEDS: carvediloL 6.25 MG TABLET PO SCH (09:37)
[2021-07-09] MEDS: hydrALAZINE 20 MG/1 ML VIAL IV PRN (11:52)
[2021-07-09 11:57] VITALS: BP 188/82
== END 2021-07-09 15:10 | disposition home health service (06) | DRG 286 ==
LOC: EDUNIT# → EDBD → N.ED 07:40 → N.EDINP 10:24 → SUATTDRO 10:24 → N.TELEN 22:14
PROVIDERS: ADMIT Internal Medicine; ATTEND Internal Medicine

== ENCOUNTER 2021-07-20 07:15 | Observation (INO) ==
[2021-07-20] MEDS ORDERED: FUROSEMIDE 40 MG/4 ML VIAL IV STA (07:57)
[2021-07-20 08:19] LABS: Albumin 2.9 G/DL (3.4-5.0); Bilirubin,Total 0.5 MG/DL (0.20-1.00); Calcium 8.6 MG/DL (8.5-10.1); Osmolality,Calculated 302.3 MOS/KG (273-304); Potassium 4.9 MMOL/L (3.5-5.1); Total Protein 6.6 G/DL (6.4-8.2)
[2021-07-20 08:22] LABS: Basophils # 0.1 10*3/uL (0.0-0.2); Basophils % 0.6 % (0.0-0.8); Eosinophils # 0.2 10*3/uL (0.0-0.87); Eosinophils % 2.1 % (0.00-10.9); Hemoglobin 8.8 GM/DL (12.0-16.0); Immature Granulocytes % 0.6 %; Immature Granulocytes Absolute 0.07 #; Lymphocytes # 1.7 10*3/uL (1.4-4.0); Mean Corpuscular HGB Conc 32.6 GM/DL (32-36); Mean Corpuscular Volume 96.1 FL (87-102); Mean Platelet Volume 10.2 FL (9.6-12.0); Monocytes % 5.5 % (1.7-12.7); Neutrophils % 75.2 % (38.7-73.9); Platelet Count 313 T/CUMM (130-400); Red Blood Count 2.81 MC/CUMM (3.8-5.5); Red Cell Distribution Width 14.5 % (9.3-17.3); White Blood Count 10.8 T/CUMM (4-12)
[2021-07-20] MEDS ORDERED: NITROGLYCERIN 2% OINT 1 INCH/GM PACK TOP STA (08:27)
[2021-07-20 08:28] LABS: ABG Base Excess -9.9 MMOL/L (-2.5-2.5); ABG HCO3 16.4 MMOL/L (20-26); ABG Oxygen Saturation 99.4 % (95-100); ABG PCO2 35.6 MM HG (35-48); ABG PH 7.267 (7.35-7.45); ABG TCO2 15.3 MMOL/L (23-27); Allen Test Positive
[2021-07-20 10:37] LABS: Bilirubin,Urine Negative (Negative); Blood, Urine Negative (Negative); Glucose,Urine (UA) Negative (Negative); Ketones,Urine Negative (Negative); Nitrite,Urine Negative (Negative); Protein,Urine 100 MG/DL; RBC,Urine 8 /HPF (0-4); Squamous Epithelial Cell,Urine Occasional /HPF (0-10); Urine Appearance CLEAR (Clear); Urine Color Straw (Yellow); Urine Specific Gravity 1.008 (1.001-1.035); Urine Urobilinogen < 2.0 EU/DL (0.2-1.0)
[2021-07-20] MEDS ORDERED: GLUCAGON 1 MG VIAL IM PRN (10:37)
[2021-07-20] MEDS ORDERED: ACETAMINOPHEN 325 MG TABLET PO PRN (10:39)
[2021-07-20] MEDS ORDERED: hydrALAZINE 20 MG/1 ML VIAL IV PRN (10:39)
[2021-07-20] MEDS ORDERED: ONDANSETRON 4 MG/2 ML VIAL IV PRN (10:39)
[2021-07-20] MEDS ORDERED: ALBUTEROL/IPRATROPIUM 3 ML NEB RESP TX PRN (10:39)
[2021-07-20] MEDS ORDERED: DEXTROSE 50% 25 GM/50 ML SYRINGE IV PRN (11:08)
[2021-07-20 11:16] LABS: Barbiturates Screen,Urine Negative (Negative); Benzodiazepines Screen,Urine Negative (Negative); Cannabinoid Screen,Urine Negative (Negative); Opiate Screen,Urine Negative (Negative); Phencyclidine Screen,Urine Negative (Negative)
[2021-07-20] MEDS ORDERED: FUROSEMIDE 40 MG/4 ML VIAL IV ONE (11:30)
[2021-07-20] MEDS: INSULIN LISPRO 100 UNIT/ML SUBCUT SCH ×3 (13:56→20:52)
[2021-07-20] MEDS: SEVELAMER CARBONATE 800 MG TABLET PO SCH ×2 (13:57→16:34)
[2021-07-20] MEDS: HEPARIN 5,000 UNIT/1 ML VIAL SUBCUT SCH ×2 (13:57→23:29)
[2021-07-20] MEDS: cloNIDine 0.1 MG TABLET PO SCH ×2 (14:14→20:51)
[2021-07-20 15:06] LABS: ABG Base Excess -7.8 MMOL/L (-2.5-2.5); ABG Oxygen Saturation 94.6 % (95-100); ABG PCO2 27.6 MM HG (35-48); ABG PH 7.383 (7.35-7.45); ABG PO2 70.9 MM HG (80-95); ABG TCO2 15.5 MMOL/L (23-27); Allen Test Positive
[2021-07-20] MEDS: carvediloL 6.25 MG TABLET PO SCH (16:34)
[2021-07-20] MEDS: SODIUM BICARBONATE 650 MG TABLET PO SCH (20:51)
[2021-07-20] MEDS: FERROUS SULFATE 325 MG TABLET PO SCH (20:52)
[2021-07-21 05:13] LABS: Basophils % 0.4 % (0.0-0.8); Eosinophils # 0.1 10*3/uL (0.0-0.87); Eosinophils % 1.9 % (0.00-10.9); Hemoglobin 7.3 GM/DL (12.0-16.0); Immature Granulocytes % 0.4 %; Immature Granulocytes Absolute 0.03 #; Lymphocytes # 1.6 10*3/uL (1.4-4.0); Lymphocytes % 22.4 % (21.3-54.2); Mean Corpuscular HGB Conc 33.2 GM/DL (32-36); Mean Corpuscular Volume 96.1 FL (87-102); Mean Platelet Volume 10.2 FL (9.6-12.0); Monocytes % 7.7 % (1.7-12.7); Neutrophils % 67.2 % (38.7-73.9); Platelet Count 237 T/CUMM (130-400); Red Blood Count 2.29 MC/CUMM (3.8-5.5); Red Cell Distribution Width 14.6 % (9.3-17.3)
[2021-07-21 05:38] LABS: Calcium 8.3 MG/DL (8.5-10.1); Osmolality,Calculated 302.3 MOS/KG (273-304); Potassium 4.3 MMOL/L (3.5-5.1)
[2021-07-21] MEDS: INSULIN LISPRO 100 UNIT/ML SUBCUT SCH ×2 (08:16→11:13)
[2021-07-21 08:38] LABS: Basophils % 0.1 % (0.0-0.8); Eosinophils # 0.1 10*3/uL (0.0-0.87); Eosinophils % 1.9 % (0.00-10.9); Hematocrit 22.3 VOL% (35.7-47.0); Hemoglobin 7.4 GM/DL (12.0-16.0); Immature Granulocytes % 0.6 %; Immature Granulocytes Absolute 0.04 #; Lymphocytes # 1.4 10*3/uL (1.4-4.0); Lymphocytes % 19.7 % (21.3-54.2); Mean Corpuscular HGB Conc 33.2 GM/DL (32-36); Mean Corpuscular Volume 95.3 FL (87-102); Mean Platelet Volume 9.9 FL (9.6-12.0); Monocytes % 8.3 % (1.7-12.7); Neutrophils % 69.4 % (38.7-73.9); Platelet Count 216 T/CUMM (130-400); Red Blood Count 2.34 MC/CUMM (3.8-5.5); Red Cell Distribution Width 14.7 % (9.3-17.3)
[2021-07-21] MEDS ORDERED: ESCITALOPRAM 10 MG TABLET PO SCH (09:00)
[2021-07-21] MEDS ORDERED: FUROSEMIDE 100 MG/10 ML VIAL IV SCH (09:00)
[2021-07-21] MEDS ORDERED: PANTOPRAZOLE 40 MG TABLET PO SCH (09:00)
[2021-07-21] MEDS ORDERED: POLYETHYLENE GLYCOL POWDER 17 GM PACK PO SCH (09:00)
[2021-07-21] MEDS ORDERED: calcitrioL 0.25 MCG CAPSULE PO SCH (09:00)
[2021-07-21] MEDS ORDERED: ASPIRIN CHEW 81 MG TABLET PO SCH (09:00)
[2021-07-21] MEDS: cloNIDine 0.1 MG TABLET PO SCH ×2 (09:42→15:09)
[2021-07-21] MEDS: SEVELAMER CARBONATE 800 MG TABLET PO SCH ×2 (09:42→12:39)
[2021-07-21] MEDS: FERROUS SULFATE 325 MG TABLET PO SCH (09:42)
[2021-07-21] MEDS: carvediloL 6.25 MG TABLET PO SCH (09:42)
[2021-07-21] MEDS: SODIUM BICARBONATE 650 MG TABLET PO SCH (09:42)
[2021-07-21] MEDS ORDERED: SODIUM CHLORIDE 0.9% 1,000 ML IV PRN (09:45)
[2021-07-21] MEDS: HEPARIN 5,000 UNIT/1 ML VIAL SUBCUT SCH (13:28)
[2021-07-21 15:49] VITALS: BP 153/64
[2021-07-21] MEDS ORDERED: ROSUVASTATIN 20 MG TABLET PO SCH (21:00)
== END 2021-07-21 15:52 | disposition home or self-care (01) ==
LOC: N.EDINP 07:15 → N.ED 07:15 → N.EDINP 13:44 → N.TELEN 13:47
PROVIDERS: ADMIT Internal Medicine; ATTEND Internal Medicine

== ENCOUNTER 2021-08-24 05:31 | Inpatient (IN) ==
[2021-08-24] MEDS ORDERED: ALBUTEROL/IPRATROPIUM 3 ML NEB RESP TX STA (06:00)
[2021-08-24] MEDS ORDERED: NITROGLYCERIN 2% OINT 1 INCH/GM PACK TOP STA (06:08)
[2021-08-24] MEDS ORDERED: MORPHINE 2 MG/1 ML SYRINGE IV STA (06:08)
[2021-08-24] MEDS ORDERED: FUROSEMIDE 100 MG/10 ML VIAL IV STA (06:08)
[2021-08-24] MEDS ORDERED: ONDANSETRON 4 MG/2 ML VIAL IV STA (06:08)
[2021-08-24 06:40] LABS: ABG Base Excess -10.2 MMOL/L (-2.5-2.5); ABG HCO3 16.1 MMOL/L (20-26); ABG Oxygen Saturation 89.9 % (95-100); ABG PCO2 34.7 MM HG (35-48); ABG PO2 68.3 MM HG (80-95); ABG TCO2 15.2 MMOL/L (23-27); Allen Test Positive
[2021-08-24 06:44] LABS: Basophils % 0.3 % (0.0-0.8); Eosinophils # 0.3 10*3/uL (0.0-0.87); Eosinophils % 2.1 % (0.00-10.9); Hematocrit 19.4 VOL% (35.7-47.0); Immature Granulocytes Absolute 0.15 #; Lymphocytes # 1.7 10*3/uL (1.4-4.0); Lymphocytes % 10.8 % (21.3-54.2); Mean Platelet Volume 9.7 FL (9.6-12.0); Monocytes % 4.7 % (1.7-12.7); Neutrophils % 81.1 % (38.7-73.9); Platelet Count 382 T/CUMM (130-400); Red Cell Distribution Width 15.4 % (9.3-17.3); White Blood Count 15.4 T/CUMM (4-12)
[2021-08-24 06:46] LABS: Hemoglobin 6.2 GM/DL (12.0-16.0)
[2021-08-24] MEDS ORDERED: SODIUM CHLORIDE 0.9% 1,000 ML IV PRN ×2 (06:47→10:07)
[2021-08-24 06:55] LABS: PT Patient Result 10.8 SECS (10.5-12.0); Partial Thromboplastin Time 28.4 SECS (23.8-32.1)
[2021-08-24 07:08] LABS: Bilirubin,Total 0.4 MG/DL (0.20-1.00); Calcium 7.6 MG/DL (8.5-10.1); Osmolality,Calculated 302.8 MOS/KG (273-304); Potassium 4.6 MMOL/L (3.5-5.1); Total Protein 6.5 G/DL (6.4-8.2)
[2021-08-24 07:22] LABS: % Iron Saturation 25.9 % (18-50); Ferritin 482.6 ng/mL (8-252)
[2021-08-24] MEDS ORDERED: MORPHINE 10 MG/1 ML VIAL IV STA (07:30)
[2021-08-24 07:31] LABS: Folate 6.75 NG/ML (5.38-24.0)
[2021-08-24] MEDS ORDERED: cloNIDine 0.1 MG TABLET PO STA (08:14)
[2021-08-24] MEDS ORDERED: ACETAMINOPHEN 325 MG TABLET PO ONE (09:55)
[2021-08-24] MEDS ORDERED: GLUCAGON 1 MG VIAL IM PRN (09:59)
[2021-08-24] MEDS ORDERED: DEXTROSE 50% 25 GM/50 ML SYRINGE IV PRN (09:59)
[2021-08-24] MEDS ORDERED: BISACODYL 5 MG TABLET PO PRN (10:00)
[2021-08-24] MEDS ORDERED: hydrALAZINE 20 MG/1 ML VIAL IV PRN (10:00)
[2021-08-24] MEDS ORDERED: MORPHINE 2 MG/1 ML SYRINGE IV PRN (10:00)
[2021-08-24] MEDS: HEPARIN 5,000 UNIT/1 ML VIAL SUBCUT SCH ×2 (11:54→21:05)
[2021-08-24] MEDS: ONDANSETRON 4 MG/2 ML VIAL IV PRN ×2 (11:59→21:05)
[2021-08-24 12:35] LABS: Bacteria,Urine Occasional /HPF (Few); Bilirubin,Urine Negative (Negative); Blood, Urine Negative (Negative); Glucose,Urine (UA) 50 mg/dL (Negative); Ketones,Urine Negative (Negative); Nitrite,Urine Negative (Negative); Protein,Urine 100 MG/DL; RBC,Urine <1 /HPF (0-4); Squamous Epithelial Cell,Urine Occasional /HPF (0-10); Urine Appearance CLEAR (Clear); Urine Color Straw (Yellow); Urine Specific Gravity 1.008 (1.001-1.035); Urine Urobilinogen < 2.0 EU/DL (<2.0)
[2021-08-24] MEDS ORDERED: cloNIDine 0.1 MG TABLET PO SCH (15:00)
[2021-08-24] MEDS: SEVELAMER CARBONATE 800 MG TABLET PO SCH ×2 (16:45→17:00)
[2021-08-24] MEDS: carvediloL 6.25 MG TABLET PO SCH (17:00)
[2021-08-24] MEDS ORDERED: SODIUM BICARBONATE 650 MG TABLET PO SCH (21:00)
[2021-08-24] MEDS: ACETAMINOPHEN 325 MG TABLET PO PRN (21:04)
[2021-08-24] MEDS: FERROUS SULFATE 325 MG TABLET PO SCH (21:05)
[2021-08-24] MEDS: SODIUM BICARBONATE 650 MG TABLET PO SCH (21:05)
[2021-08-24] MEDS: cloNIDine 0.1 MG TABLET PO SCH (21:05)
[2021-08-24] MEDS: ROSUVASTATIN 20 MG TABLET PO SCH (21:05)
[2021-08-25 04:28] LABS: Basophils % 0.3 % (0.0-0.8); Eosinophils # 0.2 10*3/uL (0.0-0.87); Eosinophils % 2.5 % (0.00-10.9); Hematocrit 27.4 VOL% (35.7-47.0); Immature Granulocytes % 0.3 %; Immature Granulocytes Absolute 0.02 #; Lymphocytes # 1.5 10*3/uL (1.4-4.0); Lymphocytes % 25.2 % (21.3-54.2); Mean Corpuscular HGB Conc 32.1 GM/DL (32-36); Mean Corpuscular Volume 93.8 FL (87-102); Mean Platelet Volume 9.8 FL (9.6-12.0); Monocytes % 7.8 % (1.7-12.7); Neutrophils % 63.9 % (38.7-73.9)
[2021-08-25 04:34] LABS: Hemoglobin 8.8 GM/DL (12.0-16.0); Platelet Count 228 T/CUMM (130-400); Red Blood Count 2.92 MC/CUMM (3.8-5.5)
[2021-08-25 05:01] LABS: Osmolality,Calculated 301.5 MOS/KG (273-304); Potassium 4.5 MMOL/L (3.5-5.1)
[2021-08-25] MEDS ORDERED: FUROSEMIDE 40 MG/4 ML VIAL IV ONE (08:43)
[2021-08-25] MEDS: SEVELAMER CARBONATE 800 MG TABLET PO SCH ×3 (08:45→17:42)
[2021-08-25] MEDS: carvediloL 6.25 MG TABLET PO SCH ×2 (08:45→17:42)
[2021-08-25] MEDS: POLYETHYLENE GLYCOL POWDER 17 GM PACK PO SCH (08:46)
[2021-08-25] MEDS: cloNIDine 0.1 MG TABLET PO SCH ×2 (08:46→21:13)
[2021-08-25] MEDS: FERROUS SULFATE 325 MG TABLET PO SCH ×2 (08:46→21:13)
[2021-08-25] MEDS: ASPIRIN CHEW 81 MG TABLET PO SCH (08:46)
[2021-08-25] MEDS: ESCITALOPRAM 10 MG TABLET PO SCH (08:46)
[2021-08-25] MEDS: SODIUM BICARBONATE 650 MG TABLET PO SCH ×2 (08:47→21:13)
[2021-08-25] MEDS: calcitrioL 0.25 MCG CAPSULE PO SCH (08:47)
[2021-08-25] MEDS: PANTOPRAZOLE 40 MG TABLET PO SCH (08:47)
[2021-08-25] MEDS ORDERED: FUROSEMIDE 20 MG TABLET PO SCH (09:00)
[2021-08-25] MEDS ORDERED: NIFEDIPINE 60 MG PO SCH (09:00)
[2021-08-25] MEDS ORDERED: FUROSEMIDE 80 MG TABLET PO SCH (09:00)
[2021-08-25] MEDS: HEPARIN 5,000 UNIT/1 ML VIAL SUBCUT SCH ×2 (09:16→21:13)
[2021-08-25] MEDS: ACETAMINOPHEN 325 MG TABLET PO PRN (13:19)
[2021-08-25] MEDS: ONDANSETRON 4 MG/2 ML VIAL IV PRN (17:44)
[2021-08-25] MEDS: ROSUVASTATIN 20 MG TABLET PO SCH (21:13)
[2021-08-26 05:28] LABS: Calcium 8.2 MG/DL (8.5-10.1); Osmolality,Calculated 300.7 MOS/KG (273-304); Potassium 4.6 MMOL/L (3.5-5.1)
[2021-08-26] MEDS: PANTOPRAZOLE 40 MG TABLET PO SCH (08:51)
[2021-08-26] MEDS: SODIUM BICARBONATE 650 MG TABLET PO SCH ×2 (08:51→20:10)
[2021-08-26] MEDS: cloNIDine 0.1 MG TABLET PO SCH ×2 (08:52→20:10)
[2021-08-26] MEDS: FUROSEMIDE 80 MG TABLET PO SCH (08:52)
[2021-08-26] MEDS: carvediloL 6.25 MG TABLET PO SCH ×2 (08:52→16:06)
[2021-08-26] MEDS: FERROUS SULFATE 325 MG TABLET PO SCH ×2 (08:52→20:10)
[2021-08-26] MEDS: calcitrioL 0.25 MCG CAPSULE PO SCH (08:52)
[2021-08-26] MEDS: ESCITALOPRAM 10 MG TABLET PO SCH (08:52)
[2021-08-26] MEDS: ASPIRIN CHEW 81 MG TABLET PO SCH (08:53)
[2021-08-26] MEDS: POLYETHYLENE GLYCOL POWDER 17 GM PACK PO SCH (08:53)
[2021-08-26] MEDS: HEPARIN 5,000 UNIT/1 ML VIAL SUBCUT SCH ×2 (09:58→21:38)
[2021-08-26] MEDS: SEVELAMER CARBONATE 800 MG TABLET PO SCH ×3 (10:00→16:06)
[2021-08-26 10:03] LABS: Basophils % 0.2 % (0.0-0.8); Eosinophils # 0.2 10*3/uL (0.0-0.87); Eosinophils % 3.2 % (0.00-10.9); Hematocrit 25.6 VOL% (35.7-47.0); Hemoglobin 8.2 GM/DL (12.0-16.0); Immature Granulocytes % 0.2 %; Immature Granulocytes Absolute 0.01 #; Lymphocytes # 1.2 10*3/uL (1.4-4.0); Lymphocytes % 20.7 % (21.3-54.2); Mean Corpuscular Volume 92.1 FL (87-102); Mean Platelet Volume 9.1 FL (9.6-12.0); Monocytes % 9.8 % (1.7-12.7); Neutrophils % 65.9 % (38.7-73.9); Platelet Count 211 T/CUMM (130-400); Red Blood Count 2.78 MC/CUMM (3.8-5.5); Red Cell Distribution Width 15.4 % (9.3-17.3)
[2021-08-26] MEDS ORDERED: traZODone 50 MG TABLET PO PRN (10:42)
[2021-08-26] MEDS: ONDANSETRON 4 MG/2 ML VIAL IV PRN ×2 (12:18→17:52)
[2021-08-26] MEDS ORDERED: SALIVA SUBSTITUTE SPRAY 60 ML CAN SWISH/SWAL PRN (12:32)
[2021-08-26] MEDS: ROSUVASTATIN 20 MG TABLET PO SCH (20:10)
[2021-08-27] MEDS: ONDANSETRON 4 MG/2 ML VIAL IV PRN ×2 (04:45→14:24)
[2021-08-27 04:57] LABS: Basophils % 0.2 % (0.0-0.8); Eosinophils # 0.1 10*3/uL (0.0-0.87); Eosinophils % 2.2 % (0.00-10.9); Hematocrit 28.1 VOL% (35.7-47.0); Immature Granulocytes % 0.4 %; Immature Granulocytes Absolute 0.02 #; Lymphocytes # 1.3 10*3/uL (1.4-4.0); Lymphocytes % 23.4 % (21.3-54.2); Mean Corpuscular Volume 93.4 FL (87-102); Mean Platelet Volume 9.8 FL (9.6-12.0); Neutrophils % 63.8 % (38.7-73.9); Platelet Count 219 T/CUMM (130-400); Red Blood Count 3.01 MC/CUMM (3.8-5.5); Red Cell Distribution Width 15.1 % (9.3-17.3); White Blood Count 5.4 T/CUMM (4-12)
[2021-08-27 05:32] LABS: Calcium 8.5 MG/DL (8.5-10.1); Osmolality,Calculated 296.1 MOS/KG (273-304); Potassium 4.7 MMOL/L (3.5-5.1)
[2021-08-27] MEDS: SODIUM BICARBONATE 650 MG TABLET PO SCH ×2 (09:05→21:35)
[2021-08-27] MEDS: PANTOPRAZOLE 40 MG TABLET PO SCH (09:05)
[2021-08-27] MEDS: ESCITALOPRAM 10 MG TABLET PO SCH (09:06)
[2021-08-27] MEDS: FERROUS SULFATE 325 MG TABLET PO SCH ×2 (09:06→21:35)
[2021-08-27] MEDS: FUROSEMIDE 80 MG TABLET PO SCH (09:06)
[2021-08-27] MEDS: cloNIDine 0.1 MG TABLET PO SCH ×2 (09:06→21:35)
[2021-08-27] MEDS: ASPIRIN CHEW 81 MG TABLET PO SCH (09:06)
[2021-08-27] MEDS: POLYETHYLENE GLYCOL POWDER 17 GM PACK PO SCH (09:06)
[2021-08-27] MEDS: carvediloL 6.25 MG TABLET PO SCH ×2 (09:53→16:57)
[2021-08-27] MEDS: SEVELAMER CARBONATE 800 MG TABLET PO SCH ×3 (09:53→16:57)
[2021-08-27] MEDS: calcitrioL 0.25 MCG CAPSULE PO SCH (09:53)
[2021-08-27] MEDS: HEPARIN 5,000 UNIT/1 ML VIAL SUBCUT SCH ×2 (11:20→21:35)
[2021-08-27] MEDS: ROSUVASTATIN 20 MG TABLET PO SCH (21:35)
[2021-08-27] MEDS: ACETAMINOPHEN 325 MG TABLET PO PRN (23:51)
[2021-08-28 05:20] LABS: Basophils % 0.2 % (0.0-0.8); Eosinophils # 0.2 10*3/uL (0.0-0.87); Eosinophils % 3.3 % (0.00-10.9); Hematocrit 27.2 VOL% (35.7-47.0); Hemoglobin 8.7 GM/DL (12.0-16.0); Immature Granulocytes % 0.4 %; Immature Granulocytes Absolute 0.02 #; Lymphocytes # 1.2 10*3/uL (1.4-4.0); Lymphocytes % 22.8 % (21.3-54.2); Mean Corpuscular Volume 93.2 FL (87-102); Mean Platelet Volume 9.9 FL (9.6-12.0); Monocytes % 10.6 % (1.7-12.7); Neutrophils % 62.7 % (38.7-73.9); Platelet Count 219 T/CUMM (130-400); Red Blood Count 2.92 MC/CUMM (3.8-5.5); White Blood Count 5.1 T/CUMM (4-12)
[2021-08-28 05:41] LABS: Calcium 8.3 MG/DL (8.5-10.1); Osmolality,Calculated 302.7 MOS/KG (273-304); Potassium 5.2 MMOL/L (3.5-5.1)
[2021-08-28] MEDS ORDERED: SODIUM POLYSTYRENE SULFATE 15 GM/60 ML BOTTLE PO STA (08:07)
[2021-08-28] MEDS: SODIUM BICARBONATE 650 MG TABLET PO SCH ×2 (08:17→20:45)
[2021-08-28] MEDS: cloNIDine 0.1 MG TABLET PO SCH ×2 (08:17→20:45)
[2021-08-28] MEDS: ASPIRIN CHEW 81 MG TABLET PO SCH (08:17)
[2021-08-28] MEDS: ESCITALOPRAM 10 MG TABLET PO SCH (08:17)
[2021-08-28] MEDS: PANTOPRAZOLE 40 MG TABLET PO SCH (08:17)
[2021-08-28] MEDS: SEVELAMER CARBONATE 800 MG TABLET PO SCH ×3 (08:18→16:59)
[2021-08-28] MEDS: carvediloL 6.25 MG TABLET PO SCH ×2 (08:18→17:00)
[2021-08-28] MEDS: FUROSEMIDE 80 MG TABLET PO SCH (08:18)
[2021-08-28] MEDS: FERROUS SULFATE 325 MG TABLET PO SCH ×2 (08:18→20:45)
[2021-08-28] MEDS: POLYETHYLENE GLYCOL POWDER 17 GM PACK PO SCH (08:18)
[2021-08-28] MEDS: calcitrioL 0.25 MCG CAPSULE PO SCH (08:28)
[2021-08-28] MEDS ORDERED: NITROGLYCERIN SL 0.4 MG TABLET SL PRN (09:42)
[2021-08-28] MEDS: HEPARIN 5,000 UNIT/1 ML VIAL SUBCUT SCH ×2 (10:09→21:33)
[2021-08-28] MEDS: ONDANSETRON 4 MG/2 ML VIAL IV PRN ×2 (11:30→22:48)
[2021-08-28] MEDS: ROSUVASTATIN 20 MG TABLET PO SCH (20:45)
[2021-08-29 05:28] LABS: Basophils % 0.2 % (0.0-0.8); Eosinophils # 0.3 10*3/uL (0.0-0.87); Eosinophils % 5.6 % (0.00-10.9); Hematocrit 27.9 VOL% (35.7-47.0); Hemoglobin 8.9 GM/DL (12.0-16.0); Immature Granulocytes % 0.6 %; Immature Granulocytes Absolute 0.03 #; Lymphocytes # 1.2 10*3/uL (1.4-4.0); Lymphocytes % 25.8 % (21.3-54.2); Mean Corpuscular HGB Conc 31.9 GM/DL (32-36); Mean Platelet Volume 10.8 FL (9.6-12.0); Monocytes % 9.2 % (1.7-12.7); Neutrophils % 58.6 % (38.7-73.9); Platelet Count 199 T/CUMM (130-400); Red Cell Distribution Width 14.9 % (9.3-17.3); White Blood Count 4.7 T/CUMM (4-12)
[2021-08-29 06:02] LABS: Calcium 8.6 MG/DL (8.5-10.1); Osmolality,Calculated 295.1 MOS/KG (273-304); Potassium 5.2 MMOL/L (3.5-5.1)
[2021-08-29] MEDS: cloNIDine 0.1 MG TABLET PO SCH (09:04)
[2021-08-29] MEDS: SEVELAMER CARBONATE 800 MG TABLET PO SCH ×2 (09:04→12:34)
[2021-08-29] MEDS: PANTOPRAZOLE 40 MG TABLET PO SCH (09:04)
[2021-08-29] MEDS: calcitrioL 0.25 MCG CAPSULE PO SCH (09:04)
[2021-08-29] MEDS: SODIUM BICARBONATE 650 MG TABLET PO SCH (09:04)
[2021-08-29] MEDS: FERROUS SULFATE 325 MG TABLET PO SCH (09:04)
[2021-08-29] MEDS: FUROSEMIDE 80 MG TABLET PO SCH (09:05)
[2021-08-29] MEDS: carvediloL 6.25 MG TABLET PO SCH (09:05)
[2021-08-29] MEDS: ASPIRIN CHEW 81 MG TABLET PO SCH (09:13)
[2021-08-29 09:17] VITALS: BP 146/51
[2021-08-29] MEDS: HEPARIN 5,000 UNIT/1 ML VIAL SUBCUT SCH (11:10)
[2021-08-29] MEDS: ESCITALOPRAM 10 MG TABLET PO SCH (11:15)
[2021-08-29] MEDS: POLYETHYLENE GLYCOL POWDER 17 GM PACK PO SCH (11:15)
== END 2021-08-29 13:07 | disposition home health service (06) | DRG 291 ==
LOC: N.ED 05:31 → N.EDINP 09:59 → SUATTDRO 09:59 → N.TELEN 13:17
PROVIDERS: ADMIT Internal Medicine; ATTEND Hospitalist

== ENCOUNTER 2021-09-19 09:38 | Inpatient (IN) ==
[2021-09-19] MEDS ORDERED: CLINDAMYCIN INJ 900 MG/50 ML PREMIX IV ONE (13:08)
[2021-09-19] MEDS ORDERED: DEXTROSE 10% 250 ML BAG IV PRN (13:14)
[2021-09-19] MEDS ORDERED: GLUCAGON 1 MG VIAL IM PRN (13:14)
[2021-09-19] MEDS ORDERED: EPOETIN ALFA-EPBX 2,000 UNIT/ML VIAL IV PRN (13:33)
[2021-09-19 14:19] LABS: % Iron Saturation 19.4 % (18-50); Ferritin 1350.1 ng/mL (8-252)
[2021-09-19 15:21] LABS: Hepatitis B Surface Ag Quant < 0.10 Index; Hepatitis B Surface Ag Result Non-Reactive (NonReactive); Hepatitis C Virus Ab Quant < 0.02 Index; Hepatitis C Virus Ab Result Non-Reactive (NonReactive)
[2021-09-19] MEDS: amLODIPine 5 MG TABLET PO SCH (15:53)
[2021-09-19] MEDS: carvediloL 6.25 MG TABLET PO SCH (17:11)
[2021-09-19] MEDS: INSULIN LISPRO 100 UNIT/ML SUBCUT SCH (18:23)
[2021-09-19] MEDS: ONDANSETRON 4 MG/2 ML VIAL IV PRN (20:19)
[2021-09-19] MEDS: cloNIDine 0.1 MG TABLET PO SCH (20:20)
[2021-09-19] MEDS: DOCUSATE SODIUM 100 MG CAPSULE PO SCH (20:20)
[2021-09-20] MEDS: INSULIN LISPRO 100 UNIT/ML SUBCUT SCH ×4 (00:46→19:29)
[2021-09-20] MEDS: ACETAMINOPHEN 325 MG TABLET PO PRN ×2 (01:31→06:08)
[2021-09-20 05:09] LABS: Basophils % 0.2 % (0.0-0.8); Eosinophils # 0.1 10*3/uL (0.0-0.87); Eosinophils % 3.1 % (0.00-10.9); Hematocrit 20.4 VOL% (35.7-47.0); Hemoglobin 6.7 GM/DL (12.0-16.0); Immature Granulocytes % 0.4 %; Immature Granulocytes Absolute 0.02 #; Lymphocytes # 1.2 10*3/uL (1.4-4.0); Lymphocytes % 26.2 % (21.3-54.2); Mean Corpuscular HGB Conc 32.8 GM/DL (32-36); Mean Corpuscular Volume 93.6 FL (87-102); Mean Platelet Volume 10.3 FL (9.6-12.0); Monocytes % 8.2 % (1.7-12.7); Neutrophils % 61.9 % (38.7-73.9); Platelet Count 137 T/CUMM (130-400); Red Blood Count 2.18 MC/CUMM (3.8-5.5); Red Cell Distribution Width 14.5 % (9.3-17.3); White Blood Count 4.5 T/CUMM (4-12)
[2021-09-20 05:33] LABS: Calcium 7.6 MG/DL (8.5-10.1); Osmolality,Calculated 297.5 MOS/KG (273-304); Potassium 3.9 MMOL/L (3.5-5.1)
[2021-09-20] MEDS: cloNIDine 0.1 MG TABLET PO SCH ×2 (08:12→22:14)
[2021-09-20] MEDS: DOCUSATE SODIUM 100 MG CAPSULE PO SCH ×2 (08:12→22:14)
[2021-09-20] MEDS: carvediloL 6.25 MG TABLET PO SCH ×2 (08:12→18:55)
[2021-09-20] MEDS: PANTOPRAZOLE 40 MG TABLET PO SCH (08:12)
[2021-09-20] MEDS: amLODIPine 5 MG TABLET PO SCH (08:12)
[2021-09-20] MEDS: ROSUVASTATIN 20 MG TABLET PO SCH (08:12)
[2021-09-20] MEDS: ESCITALOPRAM 10 MG TABLET PO SCH (08:12)
[2021-09-20] MEDS ORDERED: ZALEPLON 5 MG CAPSULE PO PRN (08:42)
[2021-09-20] MEDS ORDERED: SODIUM CHLORIDE 0.9% 1,000 ML IV PRN (09:56)
[2021-09-20] MEDS ORDERED: SODIUM CHLORIDE 0.9% 250 ML IV SCH (11:30)
[2021-09-20] MEDS ORDERED: LIDOCAINE 1%/EPI INJ 20 ML VIAL ONE (12:38)
[2021-09-20] MEDS ORDERED: BUPIVACAINE 0.5% 50 ML VIAL ONE (12:38)
[2021-09-20] MEDS ORDERED: HEPARIN 5,000 UNIT/1 ML VIAL ONE (12:38)
[2021-09-20] MEDS ORDERED: propofoL 200 MG/20 ML VIAL IV ONE (12:48)
[2021-09-20] MEDS ORDERED: LIDOCAINE 2% 5 ML VIAL ONE (12:48)
[2021-09-20] MEDS ORDERED: fentaNYL 100 MCG/2 ML VIAL ONE (12:49)
[2021-09-20] MEDS ORDERED: MIDAZOLAM 2 MG/2 ML VIAL ONE (12:49)
[2021-09-20] MEDS ORDERED: ONDANSETRON 4 MG/2 ML VIAL IV PRN (14:05)
[2021-09-20] MEDS ORDERED: HEPARIN 10,000 UNIT/10 ML VIAL IV SCH (16:30)
[2021-09-20] MEDS ORDERED: LIDOCAINE 1% 20 ML VIAL MISC INJ ONE (17:25)
[2021-09-20 19:03] LABS: Hemoglobin 9.2 GM/DL (12.0-16.0)
[2021-09-20 20:38] VITALS: BP 132/60
[2021-09-20 21:03] LABS: Hematocrit 24.1 VOL% (35.7-47.0); Hemoglobin 7.9 GM/DL (12.0-16.0)
[2021-09-21] MEDS: INSULIN LISPRO 100 UNIT/ML SUBCUT SCH ×5 (00:22→20:59)
[2021-09-21 01:52] LABS: Hematocrit 25.3 VOL% (35.7-47.0); Hemoglobin 8.1 GM/DL (12.0-16.0)
[2021-09-21] MEDS ORDERED: cloNIDine 0.1 MG TABLET PO ONE (03:42)
[2021-09-21 07:59] LABS: Hematocrit 22.7 VOL% (35.7-47.0); Hemoglobin 7.2 GM/DL (12.0-16.0)
[2021-09-21] MEDS: carvediloL 6.25 MG TABLET PO SCH ×2 (08:06→16:43)
[2021-09-21] MEDS: DOCUSATE SODIUM 100 MG CAPSULE PO SCH ×2 (08:13→20:56)
[2021-09-21] MEDS: ESCITALOPRAM 10 MG TABLET PO SCH (08:15)
[2021-09-21] MEDS: amLODIPine 5 MG TABLET PO SCH (08:15)
[2021-09-21] MEDS: ROSUVASTATIN 20 MG TABLET PO SCH (08:15)
[2021-09-21] MEDS: cloNIDine 0.1 MG TABLET PO SCH ×2 (08:15→20:58)
[2021-09-21] MEDS: PANTOPRAZOLE 40 MG TABLET PO SCH (08:15)
[2021-09-21] MEDS ORDERED: SODIUM CHLORIDE 0.9% 1,000 ML IV PRN (08:40)
[2021-09-21] MEDS ORDERED: diphenhydrAMINE CAP 25 MG CAPSULE PO PRN (08:40)
[2021-09-21] MEDS: ACETAMINOPHEN 325 MG TABLET PO PRN (10:13)
[2021-09-21] MEDS ORDERED: HYDROmorphone 2 MG/1 ML VIAL IV ONE (11:57)
[2021-09-21 13:13] LABS: Hematocrit 30.7 VOL% (35.7-47.0)
[2021-09-21 13:14] LABS: Hemoglobin 10.4 GM/DL (12.0-16.0)
[2021-09-21] MEDS: hydrALAZINE 20 MG/1 ML VIAL IV PRN ×3 (16:38→21:23)
[2021-09-21] MEDS: ONDANSETRON 4 MG/2 ML VIAL IV PRN (18:15)
[2021-09-21] MEDS ORDERED: ONDANSETRON 4 MG/2 ML VIAL IV ONE (20:34)
[2021-09-22] MEDS: ONDANSETRON 4 MG/2 ML VIAL IV PRN ×2 (02:20→08:52)
[2021-09-22] MEDS: hydrALAZINE 20 MG/1 ML VIAL IV PRN ×2 (02:21→06:22)
[2021-09-22 04:47] LABS: Basophils % 0.3 % (0.0-0.8); Eosinophils # 0.1 10*3/uL (0.0-0.87); Eosinophils % 1.7 % (0.00-10.9); Hematocrit 35.8 VOL% (35.7-47.0); Hemoglobin 11.6 GM/DL (12.0-16.0); Immature Granulocytes % 0.3 %; Immature Granulocytes Absolute 0.02 #; Lymphocytes # 0.9 10*3/uL (1.4-4.0); Lymphocytes % 13.8 % (21.3-54.2); Mean Corpuscular HGB Conc 32.4 GM/DL (32-36); Mean Corpuscular Volume 89.9 FL (87-102); Mean Platelet Volume 9.3 FL (9.6-12.0); Monocytes % 7.1 % (1.7-12.7); Neutrophils % 76.8 % (38.7-73.9); Platelet Count 165 T/CUMM (130-400); Red Blood Count 3.98 MC/CUMM (3.8-5.5); Red Cell Distribution Width 16.3 % (9.3-17.3); White Blood Count 6.6 T/CUMM (4-12)
[2021-09-22 05:03] LABS: Calcium 8.2 MG/DL (8.5-10.1); Osmolality,Calculated 276.8 MOS/KG (273-304); Potassium 4.4 MMOL/L (3.5-5.1)
[2021-09-22] MEDS: INSULIN LISPRO 100 UNIT/ML SUBCUT SCH ×2 (08:36→11:47)
[2021-09-22] MEDS: DOCUSATE SODIUM 100 MG CAPSULE PO SCH ×2 (08:38→20:48)
[2021-09-22] MEDS: cloNIDine 0.1 MG TABLET PO SCH ×2 (08:42→20:48)
[2021-09-22] MEDS: amLODIPine 5 MG TABLET PO SCH (08:43)
[2021-09-22] MEDS: ESCITALOPRAM 10 MG TABLET PO SCH (08:43)
[2021-09-22] MEDS: PANTOPRAZOLE 40 MG TABLET PO SCH (08:43)
[2021-09-22] MEDS: carvediloL 6.25 MG TABLET PO SCH ×2 (08:43→17:10)
[2021-09-22] MEDS: ROSUVASTATIN 20 MG TABLET PO SCH (08:43)
[2021-09-22 13:44] LABS: Basophils % 0.3 % (0.0-0.8); Eosinophils # 0.1 10*3/uL (0.0-0.87); Eosinophils % 1.6 % (0.00-10.9); Hematocrit 35.5 VOL% (35.7-47.0); Hemoglobin 11.8 GM/DL (12.0-16.0); Immature Granulocytes % 0.4 %; Immature Granulocytes Absolute 0.03 #; Lymphocytes # 1.2 10*3/uL (1.4-4.0); Lymphocytes % 15.7 % (21.3-54.2); Mean Corpuscular HGB Conc 33.2 GM/DL (32-36); Mean Corpuscular Volume 88.8 FL (87-102); Mean Platelet Volume 9.3 FL (9.6-12.0); Monocytes % 6.2 % (1.7-12.7); Neutrophils % 75.8 % (38.7-73.9); Platelet Count 175 T/CUMM (130-400); Red Cell Distribution Width 16.4 % (9.3-17.3); White Blood Count 7.9 T/CUMM (4-12)
[2021-09-23] MEDS ORDERED: ASPIRIN CHEW 81 MG TABLET PO ONE ×2 (01:13→01:14)
[2021-09-23] MEDS ORDERED: NITROGLYCERIN SL 0.4 MG TABLET SL PRN (01:13)
[2021-09-23] MEDS ORDERED: NITROGLYCERIN SL 0.4 MG TABLET SL ONE (01:14)
[2021-09-23] MEDS ORDERED: MORPHINE 2 MG/1 ML SYRINGE IV ONE (01:15)
[2021-09-23] MEDS ORDERED: MORPHINE 2 MG/1 ML SYRINGE ONE (01:21)
[2021-09-23 01:24] LABS: Basophils % 0.3 % (0.0-0.8); Eosinophils # 0.2 10*3/uL (0.0-0.87); Eosinophils % 2.4 % (0.00-10.9); Hematocrit 31.3 VOL% (35.7-47.0); Hemoglobin 10.5 GM/DL (12.0-16.0); Immature Granulocytes % 0.2 %; Immature Granulocytes Absolute 0.01 #; Lymphocytes # 1.6 10*3/uL (1.4-4.0); Lymphocytes % 24.4 % (21.3-54.2); Mean Corpuscular HGB Conc 33.5 GM/DL (32-36); Mean Corpuscular Volume 89.2 FL (87-102); Mean Platelet Volume 9.3 FL (9.6-12.0); Monocytes % 7.7 % (1.7-12.7); Platelet Count 172 T/CUMM (130-400); Red Blood Count 3.51 MC/CUMM (3.8-5.5); Red Cell Distribution Width 16.6 % (9.3-17.3); White Blood Count 6.4 T/CUMM (4-12)
[2021-09-23 01:57] LABS: Calcium 8.1 MG/DL (8.5-10.1); Osmolality,Calculated 277.7 MOS/KG (273-304); Potassium 4.3 MMOL/L (3.5-5.1)
[2021-09-23] MEDS: carvediloL 6.25 MG TABLET PO SCH (09:25)
[2021-09-23] MEDS: cloNIDine 0.1 MG TABLET PO SCH (09:25)
[2021-09-23] MEDS: DOCUSATE SODIUM 100 MG CAPSULE PO SCH ×2 (09:40→20:13)
[2021-09-23] MEDS: ESCITALOPRAM 10 MG TABLET PO SCH (09:41)
[2021-09-23] MEDS: PANTOPRAZOLE 40 MG TABLET PO SCH (09:41)
[2021-09-23] MEDS: amLODIPine 5 MG TABLET PO SCH (09:41)
[2021-09-23] MEDS: ROSUVASTATIN 20 MG TABLET PO SCH (09:41)
[2021-09-23] MEDS ORDERED: EPOETIN ALFA-EPBX 10,000 UNIT/ML VIAL IV PRN (13:40)
[2021-09-23] MEDS: ONDANSETRON 4 MG/2 ML VIAL IV PRN ×2 (16:27→22:51)
[2021-09-23] MEDS: carvediloL 3.125 MG TABLET PO SCH (17:17)
[2021-09-23] MEDS: hydrALAZINE 20 MG/1 ML VIAL IV PRN (20:15)
[2021-09-24] MEDS: ONDANSETRON 4 MG/2 ML VIAL IV PRN ×2 (02:37→10:27)
[2021-09-24 05:11] LABS: Basophils % 0.3 % (0.0-0.8); Eosinophils # 0.3 10*3/uL (0.0-0.87); Eosinophils % 3.6 % (0.00-10.9); Hematocrit 31.7 VOL% (35.7-47.0); Hemoglobin 10.3 GM/DL (12.0-16.0); Immature Granulocytes % 0.4 %; Immature Granulocytes Absolute 0.03 #; Lymphocytes # 1.3 10*3/uL (1.4-4.0); Lymphocytes % 17.1 % (21.3-54.2); Mean Corpuscular HGB Conc 32.5 GM/DL (32-36); Mean Corpuscular Volume 90.3 FL (87-102); Monocytes % 7.1 % (1.7-12.7); Neutrophils % 71.5 % (38.7-73.9); Platelet Count 167 T/CUMM (130-400); Red Blood Count 3.51 MC/CUMM (3.8-5.5); Red Cell Distribution Width 16.5 % (9.3-17.3); White Blood Count 7.8 T/CUMM (4-12)
[2021-09-24] MEDS: hydrALAZINE 20 MG/1 ML VIAL IV PRN (05:16)
[2021-09-24] MEDS: ESCITALOPRAM 10 MG TABLET PO SCH (08:50)
[2021-09-24] MEDS: amLODIPine 5 MG TABLET PO SCH (08:50)
[2021-09-24] MEDS: PANTOPRAZOLE 40 MG TABLET PO SCH (08:50)
[2021-09-24] MEDS: DOCUSATE SODIUM 100 MG CAPSULE PO SCH ×2 (08:50→21:10)
[2021-09-24] MEDS: ASPIRIN EC 81 MG TABLET PO SCH (08:50)
[2021-09-24] MEDS: ROSUVASTATIN 20 MG TABLET PO SCH (08:50)
[2021-09-24] MEDS: carvediloL 3.125 MG TABLET PO SCH ×2 (08:50→16:53)
[2021-09-24] MEDS: FERROUS SULFATE 325 MG TABLET PO SCH (21:10)
[2021-09-24] MEDS: SODIUM BICARBONATE 650 MG TABLET PO SCH (21:10)
[2021-09-25] MEDS: ASPIRIN EC 81 MG TABLET PO SCH (08:41)
[2021-09-25] MEDS: carvediloL 3.125 MG TABLET PO SCH ×2 (08:41→16:58)
[2021-09-25] MEDS: SEVELAMER CARBONATE 800 MG TABLET PO SCH ×3 (08:41→16:58)
[2021-09-25] MEDS: DOCUSATE SODIUM 100 MG CAPSULE PO SCH ×2 (08:41→21:30)
[2021-09-25] MEDS: amLODIPine 5 MG TABLET PO SCH (08:42)
[2021-09-25] MEDS: PANTOPRAZOLE 40 MG TABLET PO SCH (08:42)
[2021-09-25] MEDS: ESCITALOPRAM 10 MG TABLET PO SCH (08:42)
[2021-09-25] MEDS: FERROUS SULFATE 325 MG TABLET PO SCH ×2 (08:42→21:30)
[2021-09-25] MEDS: ROSUVASTATIN 20 MG TABLET PO SCH (08:42)
[2021-09-25] MEDS: SODIUM BICARBONATE 650 MG TABLET PO SCH ×2 (08:42→21:30)
[2021-09-25] MEDS: ONDANSETRON 4 MG/2 ML VIAL IV PRN (09:56)
[2021-09-25 11:28] LABS: Basophils % 0.4 % (0.0-0.8); Eosinophils # 0.3 10*3/uL (0.0-0.87); Hematocrit 33.9 VOL% (35.7-47.0); Immature Granulocytes % 0.4 %; Immature Granulocytes Absolute 0.03 #; Lymphocytes # 1.7 10*3/uL (1.4-4.0); Lymphocytes % 20.2 % (21.3-54.2); Mean Corpuscular HGB Conc 32.4 GM/DL (32-36); Mean Corpuscular Volume 90.6 FL (87-102); Mean Platelet Volume 9.7 FL (9.6-12.0); Monocytes % 8.9 % (1.7-12.7); Neutrophils % 66.1 % (38.7-73.9); Platelet Count 210 T/CUMM (130-400); Red Blood Count 3.74 MC/CUMM (3.8-5.5); Red Cell Distribution Width 16.5 % (9.3-17.3); White Blood Count 8.2 T/CUMM (4-12)
[2021-09-26] MEDS: ONDANSETRON 4 MG/2 ML VIAL IV PRN (09:38)
[2021-09-26] MEDS: ASPIRIN EC 81 MG TABLET PO SCH (09:39)
[2021-09-26] MEDS: ESCITALOPRAM 10 MG TABLET PO SCH (09:39)
[2021-09-26] MEDS: SEVELAMER CARBONATE 800 MG TABLET PO SCH ×2 (09:39→12:35)
[2021-09-26] MEDS: DOCUSATE SODIUM 100 MG CAPSULE PO SCH (09:39)
[2021-09-26] MEDS: PANTOPRAZOLE 40 MG TABLET PO SCH (09:39)
[2021-09-26] MEDS: FERROUS SULFATE 325 MG TABLET PO SCH (09:39)
[2021-09-26] MEDS: amLODIPine 5 MG TABLET PO SCH (09:39)
[2021-09-26] MEDS: SODIUM BICARBONATE 650 MG TABLET PO SCH (09:39)
[2021-09-26] MEDS: ROSUVASTATIN 20 MG TABLET PO SCH (09:39)
[2021-09-26] MEDS: carvediloL 3.125 MG TABLET PO SCH (09:40)
[2021-09-26] MEDS: ACETAMINOPHEN 325 MG TABLET PO PRN (10:57)
== END 2021-09-26 15:14 | disposition home or self-care (01) | DRG 291 ==
LOC: N.3E 11:11 → SUATTDRO 11:11 → N.CVR 09-20 19:00 → N.ICU 09-20 20:30
PROVIDERS: ADMIT Internal Medicine; ATTEND Internal Medicine

== ENCOUNTER 2021-10-10 05:16 | Inpatient (IN) ==
[2021-10-10] MEDS ORDERED: hydrALAZINE 20 MG/1 ML VIAL IV STA (05:41)
[2021-10-10 06:15] LABS: Basophils % 0.2 % (0.0-0.8); Eosinophils # 0.3 10*3/uL (0.0-0.87); Eosinophils % 2.4 % (0.00-10.9); Hematocrit 27.7 VOL% (35.7-47.0); Hemoglobin 9.2 GM/DL (12.0-16.0); Immature Granulocytes % 0.8 %; Lymphocytes # 1.6 10*3/uL (1.4-4.0); Lymphocytes % 13.3 % (21.3-54.2); Mean Corpuscular HGB Conc 33.2 GM/DL (32-36); Mean Corpuscular Volume 91.4 FL (87-102); Mean Platelet Volume 9.7 FL (9.6-12.0); Monocytes % 5.4 % (1.7-12.7); Neutrophils % 77.9 % (38.7-73.9); Platelet Count 190 T/CUMM (130-400); Red Blood Count 3.03 MC/CUMM (3.8-5.5); Red Cell Distribution Width 15.5 % (9.3-17.3); White Blood Count 12.1 T/CUMM (4-12)
[2021-10-10 06:36] LABS: Alanine Aminotransferase 74 U/L (13-56); Albumin 3.2 G/DL (3.4-5.0); Alkaline Phosphatase 216 U/L (45-117); Aspartate Amino Transferase 46 U/L (0-37); Blood Urea Nitrogen 36 MG/DL (7-18); Calcium 8.7 MG/DL (8.5-10.1); Carbon Dioxide 29 MMOL/L (21-32); Estimated Glom Filtration Rate 10 ML/MIN; Glucose 201 MG/DL (74-106); Osmolality,Calculated 286.8 MOS/KG (273-304); Potassium 3.2 MMOL/L (3.5-5.1); Sodium 137 MMOL/L (136-145); Total Protein 6.5 G/DL (6.4-8.2)
[2021-10-10 06:37] LABS: ABG Base Excess 4.8 MMOL/L (-2.5-2.5); ABG HCO3 28.6 MMOL/L (20-26); ABG Oxygen Saturation 98.3 % (95-100); ABG PCO2 39.3 MM HG (35-48); ABG PO2 206.4 MM HG (80-95); ABG TCO2 29.8 MMOL/L (23-27)
[2021-10-10 06:38] LABS: Eosinophils 7 % (0-10); Hypochromia 1+; Lymphocytes 10 % (20-55); Microcytosis 1+; Platelet Estimate Adequate; Segmented Neutrophils 79 % (50-85); Total Cells Counted 100
[2021-10-10] MEDS ORDERED: EPOETIN ALFA-EPBX 4,000 UNIT/ML VIAL IV PRN (09:22)
[2021-10-10] MEDS ORDERED: HEPARIN 10,000 UNIT/10 ML VIAL IV PRN (10:17)
[2021-10-10] MEDS ORDERED: hydrALAZINE 20 MG/1 ML VIAL IV PRN (12:53)
[2021-10-10] MEDS: ASPIRIN CHEW 81 MG TABLET PO SCH (14:25)
[2021-10-10] MEDS: FUROSEMIDE 40 MG/4 ML VIAL IV SCH ×2 (14:25→23:10)
[2021-10-10] MEDS: ROSUVASTATIN 20 MG TABLET PO SCH (14:25)
[2021-10-10] MEDS ORDERED: MORPHINE 2 MG/1 ML SYRINGE IV STA (14:45)
[2021-10-10] MEDS ORDERED: GLUCAGON 1 MG VIAL IM PRN (14:53)
[2021-10-10] MEDS ORDERED: DOCUSATE SODIUM 100 MG CAPSULE PO PRN (14:53)
[2021-10-10] MEDS ORDERED: DEXTROSE 10% 250 ML BAG IV PRN (14:53)
[2021-10-10] MEDS ORDERED: CALCIUM CARBONATE CHEW 500 MG TABLET PO PRN (14:53)
[2021-10-10] MEDS ORDERED: ONDANSETRON 4 MG/2 ML VIAL IV PRN (14:53)
[2021-10-10] MEDS ORDERED: INSULIN LISPRO 100 UNIT/ML SUBCUT SCH (16:30)
[2021-10-10] MEDS: PANTOPRAZOLE 40 MG TABLET PO SCH (18:04)
[2021-10-10] MEDS: carvediloL 3.125 MG TABLET PO SCH (18:04)
[2021-10-10] MEDS: INSULIN LISPRO 100 UNIT/ML SUBCUT SCH ×2 (18:43→23:11)
[2021-10-10] MEDS: SEVELAMER CARBONATE 800 MG TABLET PO SCH (20:20)
[2021-10-10] MEDS: HEPARIN 5,000 UNIT/1 ML VIAL SUBCUT SCH (23:10)
[2021-10-10] MEDS: SODIUM BICARBONATE 650 MG TABLET PO SCH (23:11)
[2021-10-11 05:24] LABS: Basophils % 0.3 % (0.0-0.8); Eosinophils # 0.1 10*3/uL (0.0-0.87); Eosinophils % 1.9 % (0.00-10.9); Hematocrit 24.2 VOL% (35.7-47.0); Hemoglobin 7.9 GM/DL (12.0-16.0); Immature Granulocytes % 0.3 %; Immature Granulocytes Absolute 0.02 #; Lymphocytes # 1.7 10*3/uL (1.4-4.0); Lymphocytes % 27.3 % (21.3-54.2); Mean Corpuscular HGB Conc 32.6 GM/DL (32-36); Mean Corpuscular Volume 92.7 FL (87-102); Mean Platelet Volume 9.7 FL (9.6-12.0); Monocytes % 10.4 % (1.7-12.7); Neutrophils % 59.8 % (38.7-73.9); Platelet Count 160 T/CUMM (130-400); Red Blood Count 2.61 MC/CUMM (3.8-5.5); Red Cell Distribution Width 15.8 % (9.3-17.3); White Blood Count 6.2 T/CUMM (4-12)
[2021-10-11 05:56] LABS: Albumin 2.5 G/DL (3.4-5.0); Bilirubin,Total 2.2 MG/DL (0.20-1.00); Calcium 8.2 MG/DL (8.5-10.1); Calcium 8.5 MG/DL (8.5-10.1); Osmolality,Calculated 279.7 MOS/KG (273-304); Osmolality,Calculated 285.3 MOS/KG (273-304); Potassium 3.1 MMOL/L (3.5-5.1); Potassium 3.2 MMOL/L (3.5-5.1); Total Protein 5.6 G/DL (6.4-8.2)
[2021-10-11 06:43] LABS: Bilirubin,Urine Negative (Negative); Blood, Urine Negative (Negative); Glucose,Urine (UA) Negative (Negative); Ketones,Urine Negative (Negative); Mucus,Urine Occasional /LPF (Occasional); Nitrite,Urine Negative (Negative); Protein,Urine >=500 MG/DL; RBC,Urine <1 /HPF (0-4); Squamous Epithelial Cell,Urine Many /HPF (0-10); Urine Appearance Slightly Hazy (Clear); Urine Color Yellow (Yellow); Urine Specific Gravity 1.011 (1.001-1.035); Urine Urobilinogen < 2.0 EU/DL (<2.0)
[2021-10-11] MEDS: INSULIN LISPRO 100 UNIT/ML SUBCUT SCH ×4 (07:54→21:29)
[2021-10-11] MEDS: SODIUM BICARBONATE 650 MG TABLET PO SCH ×2 (09:14→21:28)
[2021-10-11] MEDS: FUROSEMIDE 40 MG/4 ML VIAL IV SCH ×2 (09:14→21:29)
[2021-10-11] MEDS: ASPIRIN CHEW 81 MG TABLET PO SCH (09:14)
[2021-10-11] MEDS: PANTOPRAZOLE 40 MG TABLET PO SCH (09:14)
[2021-10-11] MEDS: carvediloL 3.125 MG TABLET PO SCH (09:14)
[2021-10-11] MEDS: calcitrioL 0.25 MCG CAPSULE PO SCH (09:14)
[2021-10-11] MEDS: ESCITALOPRAM 10 MG TABLET PO SCH (09:14)
[2021-10-11] MEDS: ROSUVASTATIN 20 MG TABLET PO SCH (09:14)
[2021-10-11] MEDS: SEVELAMER CARBONATE 800 MG TABLET PO SCH ×3 (09:14→17:40)
[2021-10-11] MEDS: HEPARIN 5,000 UNIT/1 ML VIAL SUBCUT SCH ×2 (09:14→21:28)
[2021-10-11] MEDS: NITROGLYCERIN 2% OINT 1 INCH/GM PACK TOP SCH ×3 (10:10→17:40)
[2021-10-11] MEDS: hydrALAZINE 20 MG/1 ML VIAL IV PRN ×2 (14:55→21:39)
[2021-10-11] MEDS ORDERED: POTASSIUM CHLORIDE 20 MEQ TABLET PO ONE (15:00)
[2021-10-11] MEDS: carvediloL 6.25 MG TABLET PO SCH (17:40)
[2021-10-11] MEDS: FERROUS SULFATE 325 MG TABLET PO SCH (21:28)
[2021-10-11] MEDS: ZALEPLON 5 MG CAPSULE PO PRN (23:48)
[2021-10-12] MEDS: NITROGLYCERIN 2% OINT 1 INCH/GM PACK TOP SCH ×2 (06:51)
[2021-10-12 09:07] LABS: Basophils % 0.3 % (0.0-0.8); Eosinophils # 0.1 10*3/uL (0.0-0.87); Eosinophils % 1.5 % (0.00-10.9); Hematocrit 23.5 VOL% (35.7-47.0); Hemoglobin 7.7 GM/DL (12.0-16.0); Immature Granulocytes % 0.5 %; Immature Granulocytes Absolute 0.04 #; Lymphocytes # 1.1 10*3/uL (1.4-4.0); Lymphocytes % 13.7 % (21.3-54.2); Mean Corpuscular HGB Conc 32.8 GM/DL (32-36); Mean Corpuscular Volume 91.8 FL (87-102); Mean Platelet Volume 10.1 FL (9.6-12.0); Monocytes % 10.4 % (1.7-12.7); Neutrophils % 73.6 % (38.7-73.9); Platelet Count 183 T/CUMM (130-400); Red Blood Count 2.56 MC/CUMM (3.8-5.5); Red Cell Distribution Width 16.2 % (9.3-17.3); White Blood Count 7.8 T/CUMM (4-12)
[2021-10-12] MEDS: INSULIN LISPRO 100 UNIT/ML SUBCUT SCH ×4 (09:08→22:09)
[2021-10-12 09:19] LABS: Calcium 8.6 MG/DL (8.5-10.1); Potassium 3.6 MMOL/L (3.5-5.1)
[2021-10-12] MEDS: HEPARIN 5,000 UNIT/1 ML VIAL SUBCUT SCH ×2 (11:20→22:14)
[2021-10-12] MEDS: FERROUS SULFATE 325 MG TABLET PO SCH ×2 (11:21→22:14)
[2021-10-12] MEDS: SODIUM BICARBONATE 650 MG TABLET PO SCH ×2 (11:21→22:13)
[2021-10-12] MEDS: ASPIRIN CHEW 81 MG TABLET PO SCH (11:21)
[2021-10-12] MEDS: ESCITALOPRAM 10 MG TABLET PO SCH (11:21)
[2021-10-12] MEDS: PANTOPRAZOLE 40 MG TABLET PO SCH (11:21)
[2021-10-12] MEDS: calcitrioL 0.25 MCG CAPSULE PO SCH (11:21)
[2021-10-12] MEDS: SEVELAMER CARBONATE 800 MG TABLET PO SCH ×3 (11:21→17:30)
[2021-10-12] MEDS: FUROSEMIDE 40 MG/4 ML VIAL IV SCH ×2 (11:31→17:29)
[2021-10-12] MEDS: carvediloL 6.25 MG TABLET PO SCH (11:32)
[2021-10-12] MEDS: carvediloL 3.125 MG TABLET PO SCH (17:29)
[2021-10-12] MEDS ORDERED: NITROGLYCERIN 2% OINT 1 INCH/GM PACK TOP SCH (21:00)
[2021-10-12] MEDS ORDERED: diphenhydrAMINE 50 MG/1 ML VIAL IV PRN (21:34)
[2021-10-12] MEDS: ZALEPLON 5 MG CAPSULE PO PRN (22:13)
[2021-10-13 07:52] LABS: Basophils % 0.1 % (0.0-0.8); Eosinophils # 0.2 10*3/uL (0.0-0.87); Eosinophils % 2.5 % (0.00-10.9); Hematocrit 23.4 VOL% (35.7-47.0); Hemoglobin 7.7 GM/DL (12.0-16.0); Immature Granulocytes % 0.7 %; Immature Granulocytes Absolute 0.05 #; Lymphocytes # 0.9 10*3/uL (1.4-4.0); Lymphocytes % 13.6 % (21.3-54.2); Mean Corpuscular HGB Conc 32.9 GM/DL (32-36); Mean Corpuscular Volume 92.9 FL (87-102); Mean Platelet Volume 9.4 FL (9.6-12.0); Monocytes % 10.4 % (1.7-12.7); Neutrophils % 72.7 % (38.7-73.9); Platelet Count 171 T/CUMM (130-400); Red Blood Count 2.52 MC/CUMM (3.8-5.5); Red Cell Distribution Width 16.5 % (9.3-17.3); White Blood Count 6.8 T/CUMM (4-12)
[2021-10-13 08:09] LABS: Osmolality,Calculated 274.8 MOS/KG (273-304); Potassium 3.9 MMOL/L (3.5-5.1)
[2021-10-13] MEDS: HEPARIN 5,000 UNIT/1 ML VIAL SUBCUT SCH ×2 (09:12→22:42)
[2021-10-13] MEDS: FERROUS SULFATE 325 MG TABLET PO SCH ×2 (09:13→22:53)
[2021-10-13] MEDS: PANTOPRAZOLE 40 MG TABLET PO SCH (09:13)
[2021-10-13] MEDS: SODIUM BICARBONATE 650 MG TABLET PO SCH ×2 (09:13→22:52)
[2021-10-13] MEDS: FUROSEMIDE 40 MG/4 ML VIAL IV SCH ×2 (09:13→16:23)
[2021-10-13] MEDS: carvediloL 3.125 MG TABLET PO SCH ×2 (09:14→16:23)
[2021-10-13] MEDS: ESCITALOPRAM 10 MG TABLET PO SCH (09:14)
[2021-10-13] MEDS: ASPIRIN CHEW 81 MG TABLET PO SCH (09:14)
[2021-10-13] MEDS: calcitrioL 0.25 MCG CAPSULE PO SCH (09:14)
[2021-10-13] MEDS: SEVELAMER CARBONATE 800 MG TABLET PO SCH ×3 (09:15→16:58)
[2021-10-13] MEDS: INSULIN LISPRO 100 UNIT/ML SUBCUT SCH ×4 (10:12→22:53)
[2021-10-13] MEDS: hydrALAZINE 20 MG/1 ML VIAL IV PRN ×2 (16:58→23:17)
[2021-10-14 06:13] LABS: Basophils % 0.1 % (0.0-0.8); Hematocrit 26.5 VOL% (35.7-47.0); Hemoglobin 8.7 GM/DL (12.0-16.0); Immature Granulocytes % 0.9 %; Immature Granulocytes Absolute 0.08 #; Lymphocytes # 0.6 10*3/uL (1.4-4.0); Mean Corpuscular HGB Conc 32.8 GM/DL (32-36); Mean Platelet Volume 9.4 FL (9.6-12.0); Monocytes % 7.6 % (1.7-12.7); Neutrophils % 84.4 % (38.7-73.9); Platelet Count 199 T/CUMM (130-400); Red Blood Count 2.85 MC/CUMM (3.8-5.5); Red Cell Distribution Width 16.8 % (9.3-17.3); White Blood Count 8.7 T/CUMM (4-12)
[2021-10-14 06:32] LABS: Calcium 8.7 MG/DL (8.5-10.1); Osmolality,Calculated 278.1 MOS/KG (273-304); Potassium 4.1 MMOL/L (3.5-5.1)
[2021-10-14] MEDS ORDERED: cloNIDine 0.1 MG TABLET PO PRN (07:24)
[2021-10-14] MEDS: PANTOPRAZOLE 40 MG TABLET PO SCH (13:22)
[2021-10-14] MEDS: FERROUS SULFATE 325 MG TABLET PO SCH ×2 (13:22→22:00)
[2021-10-14] MEDS: calcitrioL 0.25 MCG CAPSULE PO SCH (13:23)
[2021-10-14] MEDS: SODIUM BICARBONATE 650 MG TABLET PO SCH ×2 (13:23→22:01)
[2021-10-14] MEDS: SEVELAMER CARBONATE 800 MG TABLET PO SCH ×3 (13:23→17:10)
[2021-10-14] MEDS: carvediloL 3.125 MG TABLET PO SCH ×2 (13:23→17:08)
[2021-10-14] MEDS: ESCITALOPRAM 10 MG TABLET PO SCH (13:23)
[2021-10-14] MEDS: FUROSEMIDE 40 MG/4 ML VIAL IV SCH ×2 (13:27→17:08)
[2021-10-14] MEDS: ASPIRIN CHEW 81 MG TABLET PO SCH (15:18)
[2021-10-14] MEDS: INSULIN LISPRO 100 UNIT/ML SUBCUT SCH ×3 (15:18→22:01)
[2021-10-14] MEDS: cloNIDine 0.1 MG TABLET PO SCH ×2 (15:18→22:01)
[2021-10-14] MEDS: HEPARIN 5,000 UNIT/1 ML VIAL SUBCUT SCH ×2 (15:19→21:56)
[2021-10-15 05:49] LABS: Basophils % 0.3 % (0.0-0.8); Eosinophils # 0.1 10*3/uL (0.0-0.87); Eosinophils % 0.9 % (0.00-10.9); Hematocrit 24.5 VOL% (35.7-47.0); Hemoglobin 7.8 GM/DL (12.0-16.0); Immature Granulocytes % 0.8 %; Immature Granulocytes Absolute 0.05 #; Lymphocytes # 1.2 10*3/uL (1.4-4.0); Lymphocytes % 18.6 % (21.3-54.2); Mean Corpuscular HGB Conc 31.8 GM/DL (32-36); Mean Corpuscular Volume 96.1 FL (87-102); Mean Platelet Volume 9.6 FL (9.6-12.0); Monocytes % 14.8 % (1.7-12.7); Neutrophils % 64.6 % (38.7-73.9); Platelet Count 180 T/CUMM (130-400); Red Blood Count 2.55 MC/CUMM (3.8-5.5); Red Cell Distribution Width 17.3 % (9.3-17.3); White Blood Count 6.4 T/CUMM (4-12)
[2021-10-15 06:05] LABS: Albumin 2.2 G/DL (3.4-5.0); Bilirubin,Total 0.7 MG/DL (0.20-1.00); Calcium 8.8 MG/DL (8.5-10.1); Potassium 3.7 MMOL/L (3.5-5.1); Total Protein 5.7 G/DL (6.4-8.2)
[2021-10-15] MEDS: hydrALAZINE 20 MG/1 ML VIAL IV PRN (06:15)
[2021-10-15 06:19] LABS: Band Neutrophils 1 % (0-10); Hypochromia 1+; Lymphocytes 25 % (20-55); Segmented Neutrophils 63 % (50-85); Total Cells Counted 100
[2021-10-15 06:20] LABS: Anisocytosis 1+; Microcytosis 1+; Platelet Estimate Adequate
[2021-10-15] MEDS: SODIUM BICARBONATE 650 MG TABLET PO SCH (10:30)
[2021-10-15] MEDS: ESCITALOPRAM 10 MG TABLET PO SCH (10:31)
[2021-10-15] MEDS: SEVELAMER CARBONATE 800 MG TABLET PO SCH ×3 (10:31→16:58)
[2021-10-15] MEDS: calcitrioL 0.25 MCG CAPSULE PO SCH (10:31)
[2021-10-15] MEDS: FERROUS SULFATE 325 MG TABLET PO SCH (10:31)
[2021-10-15] MEDS: ASPIRIN CHEW 81 MG TABLET PO SCH (10:31)
[2021-10-15] MEDS: carvediloL 3.125 MG TABLET PO SCH ×2 (10:31→16:53)
[2021-10-15] MEDS: FUROSEMIDE 40 MG/4 ML VIAL IV SCH ×2 (10:32→16:53)
[2021-10-15] MEDS: PANTOPRAZOLE 40 MG TABLET PO SCH (10:33)
[2021-10-15] MEDS: HEPARIN 5,000 UNIT/1 ML VIAL SUBCUT SCH (10:33)
[2021-10-15] MEDS: cloNIDine 0.1 MG TABLET PO SCH (10:36)
[2021-10-15] MEDS ORDERED: POLYETHYLENE GLYCOL POWDER 17 GM PACK PO SCH (12:00)
[2021-10-15] MEDS: INSULIN LISPRO 100 UNIT/ML SUBCUT SCH ×2 (12:26→16:54)
[2021-10-15 18:29] VITALS: BP 128/50
== END 2021-10-15 19:01 | disposition hospice, home (50) | DRG 306 ==
LOC: N.ED 05:16 → N.EDINP 17:39 → SUATTDRO 17:39 → N.5E 21:04
PROVIDERS: ADMIT Internal Medicine; ATTEND Emergency Medicine

== ENCOUNTER 2021-11-21 03:49 | Observation (INO) ==
[2021-11-21] MEDS ORDERED: ONDANSETRON 4 MG/2 ML VIAL IV STA (04:08)
[2021-11-21] MEDS ORDERED: FUROSEMIDE 100 MG/10 ML VIAL IV STA (04:08)
[2021-11-21] MEDS ORDERED: MORPHINE 2 MG/1 ML SYRINGE IV STA (04:08)
[2021-11-21] MEDS ORDERED: ALBUTEROL/IPRATROPIUM 3 ML NEB RESP TX STA (04:09)
[2021-11-21 04:21] LABS: Basophils % 0.2 % (0.0-0.8); Eosinophils # 0.1 10*3/uL (0.0-0.87); Eosinophils % 1.5 % (0.00-10.9); Hematocrit 20.7 VOL% (35.7-47.0); Hemoglobin 6.9 GM/DL (12.0-16.0); Immature Granulocytes % 0.4 %; Immature Granulocytes Absolute 0.04 #; Lymphocytes # 1.2 10*3/uL (1.4-4.0); Lymphocytes % 12.4 % (21.3-54.2); Mean Corpuscular HGB Conc 33.3 GM/DL (32-36); Mean Corpuscular Volume 97.2 FL (87-102); Mean Platelet Volume 9.6 FL (9.6-12.0); Monocytes % 8.5 % (1.7-12.7); Platelet Count 177 T/CUMM (130-400); Red Blood Count 2.13 MC/CUMM (3.8-5.5); Red Cell Distribution Width 15.4 % (9.3-17.3); White Blood Count 9.6 T/CUMM (4-12)
[2021-11-21 04:31] LABS: INR 0.9; PT Patient Result 10.5 SECS (10.5-12.0)
[2021-11-21 05:03] LABS: Albumin 3.1 G/DL (3.4-5.0); Bilirubin,Total 0.9 MG/DL (0.20-1.00); Calcium 8.7 MG/DL (8.5-10.1); Osmolality,Calculated 294.7 MOS/KG (273-304); Potassium 3.3 MMOL/L (3.5-5.1); Total Protein 6.2 G/DL (6.4-8.2)
[2021-11-21] MEDS ORDERED: ACETAMINOPHEN 325 MG TABLET PO PRN (05:53)
[2021-11-21] MEDS ORDERED: ONDANSETRON 4 MG/2 ML VIAL IV PRN (05:53)
[2021-11-21] MEDS ORDERED: GLUCAGON 1 MG VIAL IM PRN (05:53)
[2021-11-21] MEDS ORDERED: DEXTROSE 10% 250 ML BAG IV PRN (06:04)
[2021-11-21] MEDS ORDERED: NITROGLYCERIN SL 0.4 MG TABLET SL PRN (06:13)
[2021-11-21] MEDS ORDERED: MORPHINE 2 MG/1 ML SYRINGE IV PRN (06:13)
[2021-11-21] MEDS ORDERED: SODIUM CHLORIDE 0.9% 1,000 ML IV PRN (06:31)
[2021-11-21] MEDS: HEPARIN 5,000 UNIT/1 ML VIAL SUBCUT SCH ×2 (06:47→17:52)
[2021-11-21 07:03] LABS: Arterial Base Excess iSTAT 4 MMOL/L (-2.5-2.5); Arterial Bicarbonate iSTAT 27.3 MMOL/L (20-26); Arterial O2 Saturation iSTAT 99 % (95-100); Arterial PCO2 iSTAT 31 MM HG (35-48); Arterial PO2 iSTAT 107 MM HG (80-95); Arterial Total CO2 iSTAT 28 MMO/L (23-27); Arterial pH iSTAT 7.548 (7.35-7.45)
[2021-11-21] MEDS ORDERED: HEPARIN 10,000 UNIT/10 ML VIAL IV ONE (12:00)
[2021-11-21] MEDS: INSULIN REGULAR 100 UNIT/ML SUBCUT SCH ×4 (13:55→21:28)
[2021-11-21] MEDS: PANTOPRAZOLE 40 MG TABLET PO SCH (17:20)
[2021-11-21 20:40] LABS: Hematocrit 24.2 VOL% (35.7-47.0); Hemoglobin 8.1 GM/DL (12.0-16.0)
[2021-11-21] MEDS ORDERED: carvediloL 3.125 MG TABLET PO SCH (21:00)
[2021-11-21] MEDS ORDERED: ROSUVASTATIN 20 MG TABLET PO SCH (21:00)
[2021-11-22 05:13] LABS: Basophils % 0.4 % (0.0-0.8); Eosinophils # 0.3 10*3/uL (0.0-0.87); Hematocrit 27.1 VOL% (35.7-47.0); Hemoglobin 8.7 GM/DL (12.0-16.0); Immature Granulocytes % 0.2 %; Immature Granulocytes Absolute 0.01 #; Lymphocytes # 1.5 10*3/uL (1.4-4.0); Lymphocytes % 28.3 % (21.3-54.2); Mean Corpuscular HGB Conc 32.1 GM/DL (32-36); Mean Corpuscular Volume 96.1 FL (87-102); Mean Platelet Volume 9.7 FL (9.6-12.0); Monocytes % 11.4 % (1.7-12.7); Neutrophils % 54.7 % (38.7-73.9); Platelet Count 161 T/CUMM (130-400); Red Blood Count 2.82 MC/CUMM (3.8-5.5); Red Cell Distribution Width 15.9 % (9.3-17.3); White Blood Count 5.2 T/CUMM (4-12)
[2021-11-22 05:36] LABS: Calcium 8.4 MG/DL (8.5-10.1); Osmolality,Calculated 281.7 MOS/KG (273-304); Potassium 3.7 MMOL/L (3.5-5.1)
[2021-11-22] MEDS: HEPARIN 5,000 UNIT/1 ML VIAL SUBCUT SCH (05:54)
[2021-11-22 05:56] LABS: Albumin 2.4 G/DL (3.4-5.0); Bilirubin,Total 1.2 MG/DL (0.20-1.00); Calcium 8.5 MG/DL (8.5-10.1); Osmolality,Calculated 284.5 MOS/KG (273-304); Potassium 3.7 MMOL/L (3.5-5.1)
[2021-11-22] MEDS: INSULIN REGULAR 100 UNIT/ML SUBCUT SCH ×3 (08:23→18:17)
[2021-11-22] MEDS ORDERED: VALSARTAN 80 MG TABLET PO SCH (09:00)
[2021-11-22] MEDS ORDERED: carvediloL 3.125 MG TABLET PO SCH (09:00)
[2021-11-22] MEDS: PANTOPRAZOLE 40 MG TABLET PO SCH (09:17)
[2021-11-22 18:25] VITALS: BP 176/58
== END 2021-11-22 17:38 | disposition home or self-care (01) ==
LOC: SUATTDRO → N.EDINP 03:49 → N.ED 03:49 → N.EDINP 09:56 → N.TELES 12:23
PROVIDERS: ADMIT Internal Medicine; ATTEND Internal Medicine

== ENCOUNTER 2021-12-07 06:54 | Observation (INO) ==
[2021-12-07] MEDS ORDERED: ALBUTEROL 2.5 MG/3 ML NEB RESP TX STA (07:36)
[2021-12-07 07:44] LABS: Basophils # 0.1 10*3/uL (0.0-0.2); Basophils % 0.6 % (0.0-0.8); Eosinophils # 0.1 10*3/uL (0.0-0.87); Eosinophils % 1.2 % (0.00-10.9); Hematocrit 24.2 VOL% (35.7-47.0); Hemoglobin 7.6 GM/DL (12.0-16.0); Immature Granulocytes % 0.3 %; Immature Granulocytes Absolute 0.03 #; Lymphocytes # 1.1 10*3/uL (1.4-4.0); Mean Corpuscular HGB Conc 31.4 GM/DL (32-36); Mean Corpuscular Volume 103.4 FL (87-102); Mean Platelet Volume 9.3 FL (9.6-12.0); Monocytes # 0.6 10*3/uL (0.11-0.8); Monocytes % 7.1 % (1.7-12.7); Neutrophils % 78.8 % (38.7-73.9); Platelet Count 237 T/CUMM (130-400); Red Blood Count 2.34 MC/CUMM (3.8-5.5); Red Cell Distribution Width 16.5 % (9.3-17.3)
[2021-12-07 08:07] LABS: Arterial Base Excess iSTAT 5 MMOL/L (-2.5-2.5); Arterial Bicarbonate iSTAT 28.5 MMOL/L (20-26); Arterial O2 Saturation iSTAT 93 % (95-100); Arterial PCO2 iSTAT 35 MM HG (35-48); Arterial PO2 iSTAT 61 MM HG (80-95); Arterial Total CO2 iSTAT 30 MMO/L (23-27); Arterial pH iSTAT 7.515 (7.35-7.45)
[2021-12-07 08:12] LABS: Albumin 3.3 G/DL (3.4-5.0); Calcium 8.4 MG/DL (8.5-10.1); Osmolality,Calculated 287.3 MOS/KG (273-304); Potassium 3.5 MMOL/L (3.5-5.1); Total Protein 6.5 G/DL (6.4-8.2)
[2021-12-07] MEDS ORDERED: SODIUM CHLORIDE 0.9% 1,000 ML IV PRN (08:45)
[2021-12-07] MEDS ORDERED: HEPARIN 10,000 UNIT/10 ML VIAL IV PRN (09:37)
[2021-12-07] MEDS ORDERED: ACETAMINOPHEN 325 MG TABLET PO PRN (14:13)
[2021-12-07] MEDS ORDERED: ALBUTEROL/IPRATROPIUM 3 ML NEB RESP TX PRN (14:13)
[2021-12-07] MEDS ORDERED: GLUCAGON 1 MG VIAL IM PRN (14:13)
[2021-12-07] MEDS ORDERED: DEXTROSE 10% 25 GM/250 ML BAG IV PRN (14:13)
[2021-12-07] MEDS ORDERED: ONDANSETRON 4 MG/2 ML VIAL IV PRN (14:13)
[2021-12-07] MEDS ORDERED: hydrALAZINE 20 MG/1 ML VIAL IV PRN (14:13)
[2021-12-07] MEDS: HEPARIN 5,000 UNIT/1 ML VIAL SUBCUT SCH (16:11)
[2021-12-07] MEDS: SEVELAMER CARBONATE 800 MG TABLET PO SCH (16:12)
[2021-12-07] MEDS: carvediloL 3.125 MG TABLET PO SCH (16:12)
[2021-12-07 18:46] LABS: Hematocrit 24.6 VOL% (35.7-47.0); Hemoglobin 8.2 GM/DL (12.0-16.0)
[2021-12-07] MEDS: FERROUS SULFATE 325 MG TABLET PO SCH (20:17)
[2021-12-07] MEDS ORDERED: CALCIUM CARBONATE PO SCH (21:00)
[2021-12-07] MEDS ORDERED: SIMETHICONE PO SCH (21:00)
[2021-12-08] MEDS: HEPARIN 5,000 UNIT/1 ML VIAL SUBCUT SCH ×2 (01:55→14:13)
[2021-12-08] MEDS ORDERED: PANTOPRAZOLE 40 MG TABLET PO ONE (04:07)
[2021-12-08 05:58] LABS: Basophils % 0.4 % (0.0-0.8); Eosinophils # 0.1 10*3/uL (0.0-0.87); Eosinophils % 1.9 % (0.00-10.9); Hematocrit 27.1 VOL% (35.7-47.0); Hemoglobin 8.7 GM/DL (12.0-16.0); Immature Granulocytes % 0.3 %; Immature Granulocytes Absolute 0.02 #; Lymphocytes # 1.3 10*3/uL (1.4-4.0); Mean Corpuscular HGB Conc 32.1 GM/DL (32-36); Mean Corpuscular Volume 98.9 FL (87-102); Mean Platelet Volume 9.5 FL (9.6-12.0); Monocytes # 0.6 10*3/uL (0.11-0.8); Monocytes % 8.7 % (1.7-12.7); Neutrophils % 70.7 % (38.7-73.9); Platelet Count 208 T/CUMM (130-400); Red Blood Count 2.74 MC/CUMM (3.8-5.5); Red Cell Distribution Width 16.1 % (9.3-17.3); White Blood Count 7.2 T/CUMM (4-12)
[2021-12-08 06:17] LABS: Calcium 9.1 MG/DL (8.5-10.1); Osmolality,Calculated 280.4 MOS/KG (273-304); Potassium 3.8 MMOL/L (3.5-5.1)
[2021-12-08] MEDS ORDERED: PANTOPRAZOLE 40 MG TABLET PO SCH ×2 (06:30→09:00)
[2021-12-08] MEDS: carvediloL 3.125 MG TABLET PO SCH ×2 (08:20→16:05)
[2021-12-08] MEDS: SEVELAMER CARBONATE 800 MG TABLET PO SCH ×3 (08:20→16:05)
[2021-12-08] MEDS: FERROUS SULFATE 325 MG TABLET PO SCH (08:21)
[2021-12-08] MEDS ORDERED: ASPIRIN CHEW 81 MG TABLET PO SCH (09:00)
[2021-12-08] MEDS ORDERED: ROSUVASTATIN 20 MG TABLET PO SCH (09:00)
[2021-12-08] MEDS ORDERED: ESCITALOPRAM 10 MG TABLET PO SCH (09:00)
[2021-12-08] MEDS ORDERED: LOSARTAN 50 MG TABLET PO SCH (09:00)
[2021-12-08] MEDS ORDERED: calcitrioL 0.25 MCG CAPSULE PO SCH (09:00)
[2021-12-08] MEDS ORDERED: FUROSEMIDE 80 MG TABLET PO SCH (09:00)
[2021-12-08 16:14] VITALS: BP 105/47
== END 2021-12-08 17:34 | disposition home health service (06) ==
LOC: N.ED 06:54 → N.EDINP 06:54 → N.5E 08:50
PROVIDERS: ADMIT Internal Medicine; ATTEND Internal Medicine

== ENCOUNTER 2021-12-10 22:53 | Observation (INO) ==
[2021-12-10] MEDS ORDERED: FUROSEMIDE 20 MG/2 ML VIAL IV STA (23:53)
[2021-12-10] MEDS ORDERED: FUROSEMIDE 40 MG/4 ML VIAL IV STA (23:54)
[2021-12-10 23:58] LABS: Basophils % 0.5 % (0.0-0.8); Eosinophils # 0.2 10*3/uL (0.0-0.87); Eosinophils % 2.7 % (0.00-10.9); Hemoglobin 9.2 GM/DL (12.0-16.0); Immature Granulocytes % 0.8 %; Immature Granulocytes Absolute 0.06 #; Lymphocytes # 1.3 10*3/uL (1.4-4.0); Lymphocytes % 16.2 % (21.3-54.2); Mean Corpuscular HGB Conc 32.9 GM/DL (32-36); Mean Corpuscular Volume 99.3 FL (87-102); Mean Platelet Volume 9.8 FL (9.6-12.0); Monocytes # 0.5 10*3/uL (0.11-0.8); Monocytes % 6.2 % (1.7-12.7); Neutrophils % 73.6 % (38.7-73.9); Platelet Count 252 T/CUMM (130-400); Red Blood Count 2.82 MC/CUMM (3.8-5.5); Red Cell Distribution Width 16.6 % (9.3-17.3); White Blood Count 7.9 T/CUMM (4-12)
[2021-12-11 00:17] LABS: Albumin 3.7 G/DL (3.4-5.0); Calcium 9.1 MG/DL (8.5-10.1); Osmolality,Calculated 295.4 MOS/KG (273-304); Potassium 3.6 MMOL/L (3.5-5.1); Total Protein 7.1 G/DL (6.4-8.2)
[2021-12-11] MEDS ORDERED: ACETAMINOPHEN 325 MG TABLET PO PRN (02:22)
[2021-12-11] MEDS ORDERED: DEXTROSE 10% 250 ML BAG IV PRN (02:22)
[2021-12-11] MEDS ORDERED: GLUCAGON 1 MG VIAL IM PRN (02:22)
[2021-12-11] MEDS ORDERED: DEXTROSE 50% 25 GM/50 ML VIAL IV PRN (02:22)
[2021-12-11] MEDS ORDERED: hydrALAZINE 20 MG/1 ML VIAL IV PRN (02:22)
[2021-12-11] MEDS ORDERED: ONDANSETRON 4 MG/2 ML VIAL IV PRN (02:22)
[2021-12-11 04:26] LABS: Basophils % 0.5 % (0.0-0.8); Eosinophils % 0.7 % (0.00-10.9); Hematocrit 21.8 VOL% (35.7-47.0); Immature Granulocytes % 0.5 %; Immature Granulocytes Absolute 0.03 #; Lymphocytes # 0.9 10*3/uL (1.4-4.0); Lymphocytes % 15.7 % (21.3-54.2); Mean Corpuscular HGB Conc 32.6 GM/DL (32-36); Mean Corpuscular Volume 100.5 FL (87-102); Mean Platelet Volume 9.8 FL (9.6-12.0); Monocytes # 0.5 10*3/uL (0.11-0.8); Monocytes % 7.9 % (1.7-12.7); Neutrophils % 74.7 % (38.7-73.9); Red Cell Distribution Width 16.6 % (9.3-17.3)
[2021-12-11 04:34] LABS: Hemoglobin 7.1 GM/DL (12.0-16.0); Platelet Count 181 T/CUMM (130-400); Red Blood Count 2.17 MC/CUMM (3.8-5.5)
[2021-12-11 04:46] LABS: Albumin 2.9 G/DL (3.4-5.0); Bilirubin,Total 0.8 MG/DL (0.20-1.00); Calcium 8.6 MG/DL (8.5-10.1); Osmolality,Calculated 293.3 MOS/KG (273-304); Potassium 3.8 MMOL/L (3.5-5.1); Total Protein 5.9 G/DL (6.4-8.2)
[2021-12-11 05:40] LABS: Basophils % 0.4 % (0.0-0.8); Eosinophils % 0.7 % (0.00-10.9); Hematocrit 22.6 VOL% (35.7-47.0); Hemoglobin 7.3 GM/DL (12.0-16.0); Immature Granulocytes % 0.5 %; Immature Granulocytes Absolute 0.03 #; Lymphocytes # 1.1 10*3/uL (1.4-4.0); Lymphocytes % 19.3 % (21.3-54.2); Mean Corpuscular HGB Conc 32.3 GM/DL (32-36); Mean Corpuscular Volume 101.3 FL (87-102); Mean Platelet Volume 9.8 FL (9.6-12.0); Monocytes # 0.4 10*3/uL (0.11-0.8); Monocytes % 7.8 % (1.7-12.7); Neutrophils % 71.3 % (38.7-73.9); Platelet Count 181 T/CUMM (130-400); Red Blood Count 2.23 MC/CUMM (3.8-5.5); Red Cell Distribution Width 16.7 % (9.3-17.3); White Blood Count 5.6 T/CUMM (4-12)
[2021-12-11] MEDS ORDERED: FUROSEMIDE 40 MG/4 ML VIAL IV ONE (06:00)
[2021-12-11] MEDS: INSULIN LISPRO 100 UNIT/ML SUBCUT SCH ×4 (07:40→22:01)
[2021-12-11] MEDS: carvediloL 3.125 MG TABLET PO SCH ×2 (09:30→16:24)
[2021-12-11] MEDS: HEPARIN 5,000 UNIT/1 ML VIAL SUBCUT SCH ×2 (09:30→22:01)
[2021-12-11] MEDS: cloNIDine 0.1 MG TABLET PO SCH ×3 (09:30→22:01)
[2021-12-11] MEDS: PANTOPRAZOLE 40 MG TABLET PO SCH (09:30)
[2021-12-11] MEDS: FERROUS SULFATE 325 MG TABLET PO SCH ×2 (09:30→22:01)
[2021-12-11] MEDS: ALBUTEROL/IPRATROPIUM 3 ML NEB RESP TX PRN (21:54)
[2021-12-11] MEDS: ROSUVASTATIN 20 MG TABLET PO SCH (22:01)
[2021-12-12 04:05] LABS: Basophils % 0.4 % (0.0-0.8); Eosinophils # 0.1 10*3/uL (0.0-0.87); Eosinophils % 1.5 % (0.00-10.9); Immature Granulocytes % 0.8 %; Immature Granulocytes Absolute 0.04 #; Lymphocytes # 1.2 10*3/uL (1.4-4.0); Lymphocytes % 22.3 % (21.3-54.2); Mean Corpuscular HGB Conc 32.5 GM/DL (32-36); Mean Platelet Volume 9.8 FL (9.6-12.0); Monocytes # 0.4 10*3/uL (0.11-0.8); Monocytes % 8.5 % (1.7-12.7); Neutrophils % 66.5 % (38.7-73.9); Platelet Count 166 T/CUMM (130-400); Red Blood Count 1.98 MC/CUMM (3.8-5.5); Red Cell Distribution Width 17.1 % (9.3-17.3); White Blood Count 5.2 T/CUMM (4-12)
[2021-12-12 04:08] LABS: Hemoglobin 6.5 GM/DL (12.0-16.0)
[2021-12-12 04:29] LABS: Osmolality,Calculated 299.3 MOS/KG (273-304); Potassium 4.2 MMOL/L (3.5-5.1)
[2021-12-12] MEDS: INSULIN LISPRO 100 UNIT/ML SUBCUT SCH ×4 (08:18→21:02)
[2021-12-12] MEDS: HEPARIN 5,000 UNIT/1 ML VIAL SUBCUT SCH ×2 (09:46→21:07)
[2021-12-12] MEDS: MULTIVITAMIN (BEROCCA) TABLET PO SCH (09:47)
[2021-12-12] MEDS: FERROUS SULFATE 325 MG TABLET PO SCH ×2 (09:47→21:02)
[2021-12-12] MEDS: PANTOPRAZOLE 40 MG TABLET PO SCH (09:47)
[2021-12-12] MEDS: ALBUTEROL/IPRATROPIUM 3 ML NEB RESP TX PRN (10:36)
[2021-12-12] MEDS ORDERED: HEPARIN 10,000 UNIT/10 ML VIAL IV SCH (11:45)
[2021-12-12] MEDS ORDERED: SODIUM CHLORIDE 0.9% 1,000 ML IV PRN (11:53)
[2021-12-12] MEDS: cloNIDine 0.1 MG TABLET PO SCH ×3 (15:54→21:02)
[2021-12-12] MEDS: carvediloL 3.125 MG TABLET PO SCH ×2 (15:54→16:58)
[2021-12-12] MEDS: SEVELAMER CARBONATE 800 MG TABLET PO SCH (17:35)
[2021-12-12] MEDS ORDERED: SIMETHICONE PO SCH (21:00)
[2021-12-12] MEDS ORDERED: CALCIUM CARBONATE PO SCH (21:00)
[2021-12-12] MEDS: ROSUVASTATIN 20 MG TABLET PO SCH (21:02)
[2021-12-13 05:29] LABS: Basophils % 0.6 % (0.0-0.8); Eosinophils # 0.1 10*3/uL (0.0-0.87); Eosinophils % 2.5 % (0.00-10.9); Hematocrit 28.2 VOL% (35.7-47.0); Hemoglobin 9.2 GM/DL (12.0-16.0); Immature Granulocytes % 0.4 %; Immature Granulocytes Absolute 0.02 #; Lymphocytes # 1.3 10*3/uL (1.4-4.0); Lymphocytes % 24.3 % (21.3-54.2); Mean Corpuscular HGB Conc 32.6 GM/DL (32-36); Mean Corpuscular Volume 97.2 FL (87-102); Mean Platelet Volume 9.9 FL (9.6-12.0); Monocytes # 0.5 10*3/uL (0.11-0.8); Monocytes % 10.2 % (1.7-12.7); Platelet Count 167 T/CUMM (130-400); Red Cell Distribution Width 18.6 % (9.3-17.3); White Blood Count 5.3 T/CUMM (4-12)
[2021-12-13 05:55] LABS: Calcium 8.7 MG/DL (8.5-10.1); Osmolality,Calculated 284.5 MOS/KG (273-304); Potassium 3.7 MMOL/L (3.5-5.1)
[2021-12-13] MEDS: INSULIN LISPRO 100 UNIT/ML SUBCUT SCH ×2 (08:25→11:30)
[2021-12-13] MEDS: PANTOPRAZOLE 40 MG TABLET PO SCH (08:33)
[2021-12-13] MEDS: HEPARIN 5,000 UNIT/1 ML VIAL SUBCUT SCH (08:33)
[2021-12-13] MEDS: SEVELAMER CARBONATE 800 MG TABLET PO SCH ×2 (08:33→13:15)
[2021-12-13] MEDS: FERROUS SULFATE 325 MG TABLET PO SCH (08:33)
[2021-12-13] MEDS: MULTIVITAMIN (BEROCCA) TABLET PO SCH (08:33)
[2021-12-13] MEDS ORDERED: ESCITALOPRAM 10 MG TABLET PO SCH (09:00)
[2021-12-13] MEDS ORDERED: calcitrioL 0.25 MCG CAPSULE PO SCH (09:00)
[2021-12-13 10:00] VITALS: BP 177/69
[2021-12-13] MEDS: cloNIDine 0.1 MG TABLET PO SCH ×2 (13:15→14:07)
[2021-12-13] MEDS: carvediloL 3.125 MG TABLET PO SCH (14:07)
[2021-12-13] MEDS ORDERED: carvediloL 3.125 MG TABLET PO SCH (17:00)
== END 2021-12-13 15:58 | disposition home health service (06) ==
LOC: N.EDINP 22:53 → N.ED 22:53 → SUATTDRO 12-11 02:22 → N.EDINP 12-11 14:15 → N.TELEN 12-11 14:53
PROVIDERS: ADMIT Family Medicine; ATTEND Internal Medicine

== ENCOUNTER 2021-12-17 21:09 | Inpatient (IN) ==
[2021-12-17 21:57] LABS: Basophils % 0.4 % (0.0-0.8); Eosinophils # 0.1 10*3/uL (0.0-0.87); Eosinophils % 1.5 % (0.00-10.9); Immature Granulocytes % 0.6 %; Immature Granulocytes Absolute 0.05 #; Lymphocytes # 1.1 10*3/uL (1.4-4.0); Lymphocytes % 13.8 % (21.3-54.2); Mean Corpuscular HGB Conc 32.3 GM/DL (32-36); Mean Corpuscular Volume 98.4 FL (87-102); Mean Platelet Volume 9.6 FL (9.6-12.0); Monocytes # 0.6 10*3/uL (0.11-0.8); Monocytes % 6.9 % (1.7-12.7); Neutrophils % 76.8 % (38.7-73.9); Platelet Count 179 T/CUMM (130-400); Red Blood Count 3.15 MC/CUMM (3.8-5.5); Red Cell Distribution Width 18.1 % (9.3-17.3); White Blood Count 8.1 T/CUMM (4-12)
[2021-12-17 22:07] LABS: PT Patient Result 10.9 SECS (10.5-12.0)
[2021-12-17] MEDS ORDERED: ONDANSETRON 4 MG/2 ML VIAL IV ONE (22:20)
[2021-12-17] MEDS ORDERED: ASPIRIN 325 MG TABLET PO STA (22:20)
[2021-12-17] MEDS ORDERED: MORPHINE 2 MG/1 ML SYRINGE IV STA (22:20)
[2021-12-17 22:28] LABS: Albumin 3.5 G/DL (3.4-5.0); Bilirubin,Total 1.2 MG/DL (0.20-1.00); Calcium 8.4 MG/DL (8.5-10.1); Osmolality,Calculated 290.3 MOS/KG (273-304); Potassium 3.5 MMOL/L (3.5-5.1); Total Protein 6.4 G/DL (6.4-8.2)
[2021-12-17] MEDS ORDERED: NITROGLYCERIN 2% OINT 1 INCH/GM PACK TOP STA (23:17)
[2021-12-17] MEDS ORDERED: diphenhydrAMINE CAP 25 MG CAPSULE PO PRN (23:38)
[2021-12-17] MEDS ORDERED: hydrALAZINE 20 MG/1 ML VIAL IV PRN (23:38)
[2021-12-17] MEDS ORDERED: guaiFENesin/DM ER 600-30 MG TABLET PO PRN (23:38)
[2021-12-17] MEDS ORDERED: MORPHINE 2 MG/1 ML SYRINGE IV PRN (23:38)
[2021-12-17] MEDS ORDERED: DEXTROSE 50% 25 GM/50 ML VIAL IV PRN (23:38)
[2021-12-17] MEDS ORDERED: GLUCAGON 1 MG VIAL IM PRN ×2 (23:38)
[2021-12-17] MEDS ORDERED: NICOTINE 21 MG/24 HR PATCH TRANSDERM PRN (23:38)
[2021-12-17] MEDS ORDERED: DEXTROSE 10% 250 ML BAG IV PRN (23:45)
[2021-12-17 23:46] LABS: Arterial Base Excess iSTAT 5 MMOL/L (-2.5-2.5); Arterial O2 Saturation iSTAT 96 % (95-100); Arterial PCO2 iSTAT 40 MM HG (35-48); Arterial PO2 iSTAT 78 MM HG (80-95); Arterial Total CO2 iSTAT 30 MMO/L (23-27); Arterial pH iSTAT 7.464 (7.35-7.45)
[2021-12-17] MEDS ORDERED: ALBUTEROL/IPRATROPIUM 3 ML NEB RESP TX ONE (23:55)
[2021-12-18] MEDS ORDERED: HYDROmorphone 1 MG/1 ML SYRINGE IV STA
[2021-12-18] MEDS: ALBUTEROL/IPRATROPIUM 3 ML NEB RESP TX SCH ×4 (00:37→19:28)
[2021-12-18 05:31] LABS: Basophils % 0.3 % (0.0-0.8); Eosinophils # 0.1 10*3/uL (0.0-0.87); Eosinophils % 0.9 % (0.00-10.9); Hematocrit 25.9 VOL% (35.7-47.0); Hemoglobin 8.4 GM/DL (12.0-16.0); Immature Granulocytes % 0.5 %; Immature Granulocytes Absolute 0.03 #; Lymphocytes # 1.4 10*3/uL (1.4-4.0); Mean Corpuscular HGB Conc 32.4 GM/DL (32-36); Mean Corpuscular Volume 99.2 FL (87-102); Mean Platelet Volume 9.6 FL (9.6-12.0); Monocytes # 0.5 10*3/uL (0.11-0.8); Monocytes % 8.2 % (1.7-12.7); Neutrophils % 69.1 % (38.7-73.9); Platelet Count 156 T/CUMM (130-400); Red Blood Count 2.61 MC/CUMM (3.8-5.5); Red Cell Distribution Width 18.2 % (9.3-17.3); White Blood Count 6.5 T/CUMM (4-12)
[2021-12-18 05:41] LABS: Calcium 8.6 MG/DL (8.5-10.1); Osmolality,Calculated 289.3 MOS/KG (273-304); Potassium 3.5 MMOL/L (3.5-5.1)
[2021-12-18] MEDS: INSULIN LISPRO 100 UNIT/ML SUBCUT SCH ×4 (08:59→20:35)
[2021-12-18] MEDS: ESCITALOPRAM 10 MG TABLET PO SCH (09:29)
[2021-12-18] MEDS: cloNIDine 0.1 MG TABLET PO SCH ×3 (09:29→20:35)
[2021-12-18] MEDS: LOSARTAN 50 MG TABLET PO SCH (09:29)
[2021-12-18] MEDS: PANTOPRAZOLE 40 MG TABLET PO SCH (09:29)
[2021-12-18] MEDS: ROSUVASTATIN 20 MG TABLET PO SCH (09:29)
[2021-12-18] MEDS: carvediloL 6.25 MG TABLET PO SCH ×2 (09:29→16:49)
[2021-12-18] MEDS: calcitrioL 0.25 MCG CAPSULE PO SCH (09:29)
[2021-12-18] MEDS: FERROUS SULFATE 325 MG TABLET PO SCH ×2 (09:29→20:36)
[2021-12-18] MEDS: FUROSEMIDE 40 MG/4 ML VIAL IV SCH ×2 (12:12→15:55)
[2021-12-18] MEDS ORDERED: ALBUTEROL 1.25 MG/3 ML NEB RESP TX PRN (13:35)
[2021-12-18] MEDS: SEVELAMER CARBONATE 800 MG TABLET PO SCH ×2 (14:06→16:49)
[2021-12-19] MEDS: ALBUTEROL/IPRATROPIUM 3 ML NEB RESP TX SCH ×4 (00:24→19:48)
[2021-12-19 05:03] LABS: Basophils % 0.5 % (0.0-0.8); Eosinophils # 0.2 10*3/uL (0.0-0.87); Eosinophils % 3.4 % (0.00-10.9); Hematocrit 24.2 VOL% (35.7-47.0); Hemoglobin 7.6 GM/DL (12.0-16.0); Immature Granulocytes % 0.3 %; Immature Granulocytes Absolute 0.02 #; Lymphocytes # 1.4 10*3/uL (1.4-4.0); Lymphocytes % 21.7 % (21.3-54.2); Mean Corpuscular HGB Conc 31.4 GM/DL (32-36); Mean Platelet Volume 10.2 FL (9.6-12.0); Monocytes # 0.7 10*3/uL (0.11-0.8); Monocytes % 10.6 % (1.7-12.7); Neutrophils % 63.5 % (38.7-73.9); Platelet Count 139 T/CUMM (130-400); Red Blood Count 2.42 MC/CUMM (3.8-5.5); White Blood Count 6.4 T/CUMM (4-12)
[2021-12-19 05:40] LABS: Calcium 8.5 MG/DL (8.5-10.1); Osmolality,Calculated 290.5 MOS/KG (273-304); Potassium 3.8 MMOL/L (3.5-5.1)
[2021-12-19] MEDS: INSULIN LISPRO 100 UNIT/ML SUBCUT SCH ×4 (10:02→22:43)
[2021-12-19] MEDS: ROSUVASTATIN 20 MG TABLET PO SCH (10:14)
[2021-12-19] MEDS: LOSARTAN 50 MG TABLET PO SCH (10:14)
[2021-12-19] MEDS: ASPIRIN EC 81 MG TABLET PO SCH (10:14)
[2021-12-19] MEDS: FERROUS SULFATE 325 MG TABLET PO SCH ×2 (10:14→20:42)
[2021-12-19] MEDS: cloNIDine 0.1 MG TABLET PO SCH ×3 (10:14→20:42)
[2021-12-19] MEDS: carvediloL 6.25 MG TABLET PO SCH ×2 (10:14→17:37)
[2021-12-19] MEDS: SEVELAMER CARBONATE 800 MG TABLET PO SCH ×3 (10:15→16:57)
[2021-12-19] MEDS: ESCITALOPRAM 10 MG TABLET PO SCH (10:15)
[2021-12-19] MEDS ORDERED: HEPARIN 10,000 UNIT/10 ML VIAL IV PRN (14:33)
[2021-12-19] MEDS: FUROSEMIDE 40 MG/4 ML VIAL IV SCH ×2 (16:50→16:55)
[2021-12-19] MEDS: PANTOPRAZOLE 40 MG TABLET PO SCH (16:54)
[2021-12-19] MEDS: calcitrioL 0.25 MCG CAPSULE PO SCH (16:54)
[2021-12-20] MEDS: ONDANSETRON 4 MG/2 ML VIAL IV PRN ×2 (03:07→20:37)
[2021-12-20 05:23] LABS: Basophils % 0.3 % (0.0-0.8); Eosinophils # 0.2 10*3/uL (0.0-0.87); Eosinophils % 2.7 % (0.00-10.9); Hematocrit 27.2 VOL% (35.7-47.0); Hemoglobin 8.5 GM/DL (12.0-16.0); Immature Granulocytes % 0.3 %; Immature Granulocytes Absolute 0.02 #; Lymphocytes # 1.2 10*3/uL (1.4-4.0); Lymphocytes % 16.8 % (21.3-54.2); Mean Corpuscular HGB Conc 31.3 GM/DL (32-36); Mean Platelet Volume 9.9 FL (9.6-12.0); Monocytes # 0.8 10*3/uL (0.11-0.8); Monocytes % 10.7 % (1.7-12.7); Neutrophils % 69.2 % (38.7-73.9); Platelet Count 163 T/CUMM (130-400); Red Blood Count 2.72 MC/CUMM (3.8-5.5)
[2021-12-20 05:55] LABS: Calcium 8.6 MG/DL (8.5-10.1); Osmolality,Calculated 279.8 MOS/KG (273-304); Potassium 3.9 MMOL/L (3.5-5.1)
[2021-12-20] MEDS: ALBUTEROL/IPRATROPIUM 3 ML NEB RESP TX SCH ×6 (07:31→19:27)
[2021-12-20] MEDS: INSULIN LISPRO 100 UNIT/ML SUBCUT SCH ×4 (08:42→21:53)
[2021-12-20] MEDS: carvediloL 6.25 MG TABLET PO SCH ×2 (13:58→17:28)
[2021-12-20] MEDS: ASPIRIN EC 81 MG TABLET PO SCH (13:59)
[2021-12-20] MEDS: SEVELAMER CARBONATE 800 MG TABLET PO SCH ×2 (13:59→17:28)
[2021-12-20] MEDS: cloNIDine 0.1 MG TABLET PO SCH ×3 (13:59→20:38)
[2021-12-20] MEDS: LOSARTAN 50 MG TABLET PO SCH (14:00)
[2021-12-20] MEDS: FERROUS SULFATE 325 MG TABLET PO SCH ×2 (14:00→20:38)
[2021-12-20] MEDS: ROSUVASTATIN 20 MG TABLET PO SCH (14:00)
[2021-12-20] MEDS: PANTOPRAZOLE 40 MG TABLET PO SCH (14:00)
[2021-12-20] MEDS: ESCITALOPRAM 10 MG TABLET PO SCH (14:00)
[2021-12-20] MEDS: calcitrioL 0.25 MCG CAPSULE PO SCH (14:01)
[2021-12-20] MEDS: FUROSEMIDE 40 MG/4 ML VIAL IV SCH (14:06)
[2021-12-20] MEDS: ACETAMINOPHEN 325 MG TABLET PO PRN (17:45)
[2021-12-21] MEDS: ALBUTEROL/IPRATROPIUM 3 ML NEB RESP TX SCH ×4 (00:25→19:51)
[2021-12-21 05:41] LABS: Basophils % 0.2 % (0.0-0.8); Eosinophils # 0.2 10*3/uL (0.0-0.87); Eosinophils % 3.3 % (0.00-10.9); Hemoglobin 8.3 GM/DL (12.0-16.0); Immature Granulocytes % 0.3 %; Immature Granulocytes Absolute 0.02 #; Lymphocytes # 1.1 10*3/uL (1.4-4.0); Lymphocytes % 17.4 % (21.3-54.2); Mean Corpuscular HGB Conc 31.9 GM/DL (32-36); Mean Corpuscular Volume 101.6 FL (87-102); Monocytes # 0.6 10*3/uL (0.11-0.8); Monocytes % 10.1 % (1.7-12.7); Neutrophils % 68.7 % (38.7-73.9); Platelet Count 148 T/CUMM (130-400); Red Blood Count 2.56 MC/CUMM (3.8-5.5); Red Cell Distribution Width 17.8 % (9.3-17.3); White Blood Count 6.1 T/CUMM (4-12)
[2021-12-21 05:48] LABS: Calcium 8.6 MG/DL (8.5-10.1); Osmolality,Calculated 277.7 MOS/KG (273-304); Potassium 4.1 MMOL/L (3.5-5.1)
[2021-12-21 06:02] LABS: Platelet Estimate Adequate
[2021-12-21] MEDS: ACETAMINOPHEN 325 MG TABLET PO PRN (06:38)
[2021-12-21] MEDS: SEVELAMER CARBONATE 800 MG TABLET PO SCH ×3 (08:00→17:53)
[2021-12-21] MEDS: cloNIDine 0.1 MG TABLET PO SCH ×4 (08:00→20:38)
[2021-12-21] MEDS: INSULIN LISPRO 100 UNIT/ML SUBCUT SCH ×4 (08:15→20:02)
[2021-12-21 11:36] LABS: QuantiFERON-Tb Gold Pl Negative (Negative); TB2 Ag Minus Result 0.11 IU/mL
[2021-12-21] MEDS: carvediloL 6.25 MG TABLET PO SCH ×2 (12:53→17:53)
[2021-12-21] MEDS: calcitrioL 0.25 MCG CAPSULE PO SCH (12:53)
[2021-12-21] MEDS: ROSUVASTATIN 20 MG TABLET PO SCH (12:53)
[2021-12-21] MEDS: ESCITALOPRAM 10 MG TABLET PO SCH (12:53)
[2021-12-21] MEDS: FERROUS SULFATE 325 MG TABLET PO SCH ×2 (12:54→20:38)
[2021-12-21] MEDS: LOSARTAN 50 MG TABLET PO SCH (12:54)
[2021-12-21] MEDS: PANTOPRAZOLE 40 MG TABLET PO SCH (12:54)
[2021-12-21] MEDS: PHENOL 1.4% THROAT SPRAY 177 ML BOTTLE PO PRN (17:53)
[2021-12-22] MEDS: ALBUTEROL/IPRATROPIUM 3 ML NEB RESP TX SCH ×4 (00:09→19:05)
[2021-12-22 05:43] LABS: Basophils % 0.5 % (0.0-0.8); Eosinophils # 0.2 10*3/uL (0.0-0.87); Hematocrit 25.1 VOL% (35.7-47.0); Hemoglobin 8.1 GM/DL (12.0-16.0); Immature Granulocytes % 0.2 %; Immature Granulocytes Absolute 0.01 #; Lymphocytes % 18.3 % (21.3-54.2); Mean Corpuscular HGB Conc 32.3 GM/DL (32-36); Mean Corpuscular Volume 101.2 FL (87-102); Mean Platelet Volume 10.1 FL (9.6-12.0); Monocytes # 0.6 10*3/uL (0.11-0.8); Monocytes % 9.8 % (1.7-12.7); Neutrophils % 68.2 % (38.7-73.9); Platelet Count 153 T/CUMM (130-400); Red Blood Count 2.48 MC/CUMM (3.8-5.5); Red Cell Distribution Width 17.5 % (9.3-17.3); White Blood Count 5.6 T/CUMM (4-12)
[2021-12-22 05:57] LABS: PT Patient Result 10.7 SECS (10.5-12.0); Partial Thromboplastin Time 28.2 SECS (23.8-32.1)
[2021-12-22 06:01] LABS: Calcium 8.6 MG/DL (8.5-10.1); Osmolality,Calculated 280.5 MOS/KG (273-304); Potassium 3.7 MMOL/L (3.5-5.1)
[2021-12-22] MEDS ORDERED: MIDAZOLAM 2 MG/2 ML VIAL ONE (06:44)
[2021-12-22] MEDS ORDERED: BENZONATATE 100 MG CAPSULE PO ONE (07:30)
[2021-12-22] MEDS ORDERED: diphenhydrAMINE 50 MG/1 ML VIAL IM ONE (07:30)
[2021-12-22] MEDS ORDERED: MEPERIDINE 50 MG/1 ML VIAL IM ONE (07:30)
[2021-12-22] MEDS ORDERED: LIDOCAINE 2% VISCOUS 100 ML BOTTLE SWISH/SPIT ONE (08:00)
[2021-12-22] MEDS ORDERED: LIDOCAINE 2% 20 ML VIAL RESP TX ONE (08:00)
[2021-12-22] MEDS ORDERED: LIDOCAINE 1% 20 ML VIAL MISC INJ ONE (08:00)
[2021-12-22] MEDS: cloNIDine 0.1 MG TABLET PO SCH ×3 (08:26→20:58)
[2021-12-22] MEDS: carvediloL 6.25 MG TABLET PO SCH ×3 (08:26→18:32)
[2021-12-22] MEDS: INSULIN LISPRO 100 UNIT/ML SUBCUT SCH ×4 (08:42→21:47)
[2021-12-22] MEDS ORDERED: LIDOCAINE 2% VISCOUS 100 ML BOTTLE SWISH/SWAL PRN (12:16)
[2021-12-22] MEDS: PANTOPRAZOLE 40 MG TABLET PO SCH (14:34)
[2021-12-22] MEDS: FERROUS SULFATE 325 MG TABLET PO SCH ×2 (14:35→20:58)
[2021-12-22] MEDS: ESCITALOPRAM 10 MG TABLET PO SCH (14:35)
[2021-12-22] MEDS: ROSUVASTATIN 20 MG TABLET PO SCH (14:35)
[2021-12-22] MEDS: LOSARTAN 50 MG TABLET PO SCH (14:36)
[2021-12-22] MEDS: PHENOL 1.4% THROAT SPRAY 177 ML BOTTLE PO PRN (14:37)
[2021-12-22] MEDS: SEVELAMER CARBONATE 800 MG TABLET PO SCH ×3 (15:42→18:32)
[2021-12-22] MEDS: calcitrioL 0.25 MCG CAPSULE PO SCH (15:46)
[2021-12-23] MEDS: ALBUTEROL/IPRATROPIUM 3 ML NEB RESP TX SCH ×4 (00:07→19:00)
[2021-12-23] MEDS: ACETAMINOPHEN 325 MG TABLET PO PRN (00:30)
[2021-12-23 05:15] LABS: Basophils % 0.4 % (0.0-0.8); Eosinophils # 0.2 10*3/uL (0.0-0.87); Eosinophils % 3.5 % (0.00-10.9); Hematocrit 25.7 VOL% (35.7-47.0); Hemoglobin 8.3 GM/DL (12.0-16.0); Immature Granulocytes % 0.2 %; Immature Granulocytes Absolute 0.01 #; Lymphocytes # 1.1 10*3/uL (1.4-4.0); Lymphocytes % 21.4 % (21.3-54.2); Mean Corpuscular HGB Conc 32.3 GM/DL (32-36); Mean Corpuscular Volume 100.8 FL (87-102); Mean Platelet Volume 9.6 FL (9.6-12.0); Monocytes # 0.6 10*3/uL (0.11-0.8); Monocytes % 11.2 % (1.7-12.7); Neutrophils % 63.3 % (38.7-73.9); Platelet Count 149 T/CUMM (130-400); Red Blood Count 2.55 MC/CUMM (3.8-5.5); Red Cell Distribution Width 17.2 % (9.3-17.3); White Blood Count 5.2 T/CUMM (4-12)
[2021-12-23 05:34] LABS: Osmolality,Calculated 277.8 MOS/KG (273-304); Potassium 3.4 MMOL/L (3.5-5.1)
[2021-12-23] MEDS: INSULIN LISPRO 100 UNIT/ML SUBCUT SCH ×4 (09:28→21:54)
[2021-12-23] MEDS: calcitrioL 0.25 MCG CAPSULE PO SCH (11:06)
[2021-12-23] MEDS: ROSUVASTATIN 20 MG TABLET PO SCH (11:06)
[2021-12-23] MEDS: cloNIDine 0.1 MG TABLET PO SCH ×3 (11:06→21:53)
[2021-12-23] MEDS: LOSARTAN 50 MG TABLET PO SCH (11:06)
[2021-12-23] MEDS: SEVELAMER CARBONATE 800 MG TABLET PO SCH ×3 (11:06→16:51)
[2021-12-23] MEDS: FERROUS SULFATE 325 MG TABLET PO SCH ×2 (11:06→21:53)
[2021-12-23] MEDS: PANTOPRAZOLE 40 MG TABLET PO SCH (11:06)
[2021-12-23] MEDS: ESCITALOPRAM 10 MG TABLET PO SCH (11:06)
[2021-12-23] MEDS: carvediloL 6.25 MG TABLET PO SCH ×2 (11:06→16:51)
[2021-12-23] MEDS: ONDANSETRON 4 MG/2 ML VIAL IV PRN (22:11)
[2021-12-24] MEDS: ALBUTEROL/IPRATROPIUM 3 ML NEB RESP TX SCH ×3 (00:19→13:28)
[2021-12-24 04:41] LABS: Basophils % 0.5 % (0.0-0.8); Eosinophils # 0.2 10*3/uL (0.0-0.87); Eosinophils % 3.5 % (0.00-10.9); Hematocrit 26.1 VOL% (35.7-47.0); Hemoglobin 8.5 GM/DL (12.0-16.0); Immature Granulocytes % 0.4 %; Immature Granulocytes Absolute 0.02 #; Lymphocytes # 1.3 10*3/uL (1.4-4.0); Lymphocytes % 22.4 % (21.3-54.2); Mean Corpuscular HGB Conc 32.6 GM/DL (32-36); Mean Platelet Volume 9.9 FL (9.6-12.0); Monocytes # 0.7 10*3/uL (0.11-0.8); Monocytes % 11.6 % (1.7-12.7); Neutrophils % 61.6 % (38.7-73.9); Platelet Count 171 T/CUMM (130-400); Red Blood Count 2.61 MC/CUMM (3.8-5.5); Red Cell Distribution Width 17.1 % (9.3-17.3); White Blood Count 5.7 T/CUMM (4-12)
[2021-12-24 04:52] LABS: Calcium 9.3 MG/DL (8.5-10.1); Osmolality,Calculated 277.8 MOS/KG (273-304); Potassium 3.7 MMOL/L (3.5-5.1)
[2021-12-24] MEDS: INSULIN LISPRO 100 UNIT/ML SUBCUT SCH ×2 (08:34→14:22)
[2021-12-24] MEDS: carvediloL 6.25 MG TABLET PO SCH (09:36)
[2021-12-24] MEDS: cloNIDine 0.1 MG TABLET PO SCH (09:36)
[2021-12-24] MEDS: ROSUVASTATIN 20 MG TABLET PO SCH (09:36)
[2021-12-24] MEDS: calcitrioL 0.25 MCG CAPSULE PO SCH (09:36)
[2021-12-24] MEDS: PANTOPRAZOLE 40 MG TABLET PO SCH (09:36)
[2021-12-24] MEDS: SEVELAMER CARBONATE 800 MG TABLET PO SCH ×2 (09:36→13:51)
[2021-12-24] MEDS: ESCITALOPRAM 10 MG TABLET PO SCH (09:36)
[2021-12-24] MEDS: FERROUS SULFATE 325 MG TABLET PO SCH (09:36)
[2021-12-24] MEDS: LOSARTAN 50 MG TABLET PO SCH (09:36)
[2021-12-24 12:30] VITALS: BP 153/53
[2021-12-25 14:16] LABS: M. Tuberculosis PCR Result Negative (Negative)
[2021-12-26 19:48] LABS: Folate 7.57 NG/ML (5.38-24.0)
== END 2021-12-24 14:17 | disposition home health service (06) | DRG 981 ==
LOC: N.ED 21:09 → SUATTDRO 23:38 → N.EDINP 23:38 → N.TELEN 12-18 02:11
PROVIDERS: ADMIT Internal Medicine; ATTEND Internal Medicine

== ENCOUNTER 2022-01-09 02:55 | Inpatient (IN) ==
[2022-01-09] MEDS ORDERED: NITROGLYCERIN 2% OINT 1 INCH/GM PACK TOP STA (03:15)
[2022-01-09] MEDS ORDERED: methylPREDNISolone SOD SUC 125 MG/2 ML VIAL IV STA (03:15)
[2022-01-09] MEDS ORDERED: ONDANSETRON 4 MG/2 ML VIAL IV STA (03:15)
[2022-01-09] MEDS ORDERED: MORPHINE 2 MG/1 ML SYRINGE IV STA (03:15)
[2022-01-09] MEDS ORDERED: FUROSEMIDE 100 MG/10 ML VIAL IV STA (03:15)
[2022-01-09] MEDS ORDERED: hydrALAZINE 20 MG/1 ML VIAL IV STA (03:15)
[2022-01-09] MEDS ORDERED: ALBUTEROL NEB SOLN 5 MG/ML 20 ML/BOTTLE CONT NEB SCH (03:30)
[2022-01-09 03:45] LABS: Basophils % 0.4 % (0.0-0.8); Eosinophils # 0.1 10*3/uL (0.0-0.87); Eosinophils % 0.4 % (0.00-10.9); Hematocrit 23.8 VOL% (35.7-47.0); Hemoglobin 7.8 GM/DL (12.0-16.0); Immature Granulocytes % 0.6 %; Immature Granulocytes Absolute 0.07 #; Lymphocytes % 9.1 % (21.3-54.2); Mean Corpuscular HGB Conc 32.8 GM/DL (32-36); Mean Corpuscular Volume 101.7 FL (87-102); Mean Platelet Volume 9.2 FL (9.6-12.0); Monocytes # 0.7 10*3/uL (0.11-0.8); Neutrophils % 83.5 % (38.7-73.9); Platelet Count 211 T/CUMM (130-400); Red Blood Count 2.34 MC/CUMM (3.8-5.5); Red Cell Distribution Width 17.5 % (9.3-17.3); White Blood Count 11.2 T/CUMM (4-12)
[2022-01-09 03:45] LABS: Arterial Base Excess iSTAT 3 MMOL/L (-2.5-2.5); Arterial Bicarbonate iSTAT 27.1 MMOL/L (20-26); Arterial O2 Saturation iSTAT 99 % (95-100); Arterial PCO2 iSTAT 39 MM HG (35-48); Arterial PO2 iSTAT 123 MM HG (80-95); Arterial Total CO2 iSTAT 28 MMO/L (23-27); Arterial pH iSTAT 7.452 (7.35-7.45)
[2022-01-09 03:56] LABS: INR 0.9; PT Patient Result 10.4 SECS (10.5-12.0)
[2022-01-09 04:18] LABS: Albumin 3.2 G/DL (3.4-5.0); Bilirubin,Total 1.3 MG/DL (0.20-1.00); Calcium 8.2 MG/DL (8.5-10.1); Osmolality,Calculated 302.4 MOS/KG (273-304); Potassium 3.2 MMOL/L (3.5-5.1)
[2022-01-09] MEDS ORDERED: GLUCAGON 1 MG VIAL IM PRN ×2 (05:03→19:00)
[2022-01-09] MEDS ORDERED: DEXTROSE 10% 250 ML BAG IV PRN ×2 (05:03→19:05)
[2022-01-09] MEDS ORDERED: hydrALAZINE 20 MG/1 ML VIAL IV PRN (05:03)
[2022-01-09] MEDS ORDERED: ONDANSETRON 4 MG/2 ML VIAL IV PRN (05:03)
[2022-01-09] MEDS ORDERED: HYDROmorphone 1 MG/1 ML SYRINGE IV STA (06:00)
[2022-01-09] MEDS: INSULIN LISPRO 100 UNIT/ML SUBCUT SCH ×4 (09:20→20:59)
[2022-01-09] MEDS: PANTOPRAZOLE 40 MG TABLET PO SCH (09:20)
[2022-01-09] MEDS ORDERED: HEPARIN 10,000 UNIT/10 ML VIAL IV SCH (13:45)
[2022-01-09] MEDS ORDERED: POLYETHYLENE GLYCOL POWDER 17 GM PACK PO PRN (14:44)
[2022-01-09] MEDS: SEVELAMER CARBONATE 800 MG TABLET PO SCH (16:07)
[2022-01-09] MEDS ORDERED: EPOETIN ALFA-EPBX 10,000 UNIT/ML VIAL IV SCH (19:30)
[2022-01-09] MEDS: SODIUM BICARBONATE 650 MG TABLET PO SCH (20:58)
[2022-01-09] MEDS: carvediloL 6.25 MG TABLET PO SCH (20:58)
[2022-01-09] MEDS: FERROUS SULFATE 325 MG TABLET PO SCH (20:59)
[2022-01-10 05:07] LABS: Basophils % 0.2 % (0.0-0.8); Eosinophils % 0.2 % (0.00-10.9); Hematocrit 24.3 VOL% (35.7-47.0); Hemoglobin 7.6 GM/DL (12.0-16.0); Immature Granulocytes % 0.5 %; Immature Granulocytes Absolute 0.05 #; Lymphocytes # 1.8 10*3/uL (1.4-4.0); Mean Corpuscular HGB Conc 31.3 GM/DL (32-36); Mean Corpuscular Volume 106.1 FL (87-102); Mean Platelet Volume 9.4 FL (9.6-12.0); Monocytes % 9.3 % (1.7-12.7); Neutrophils % 72.8 % (38.7-73.9); Platelet Count 227 T/CUMM (130-400); Red Blood Count 2.29 MC/CUMM (3.8-5.5); Red Cell Distribution Width 18.3 % (9.3-17.3); White Blood Count 10.5 T/CUMM (4-12)
[2022-01-10 05:23] LABS: Calcium 8.6 MG/DL (8.5-10.1); Osmolality,Calculated 284.7 MOS/KG (273-304); Potassium 3.5 MMOL/L (3.5-5.1)
[2022-01-10] MEDS: INSULIN LISPRO 100 UNIT/ML SUBCUT SCH ×4 (07:37→21:10)
[2022-01-10] MEDS: SEVELAMER CARBONATE 800 MG TABLET PO SCH ×3 (08:01→16:23)
[2022-01-10] MEDS: SODIUM BICARBONATE 650 MG TABLET PO SCH ×2 (08:01→21:11)
[2022-01-10] MEDS: MULTIVITAMIN (BEROCCA) TABLET PO SCH (08:01)
[2022-01-10] MEDS: MONTELUKAST 10 MG TABLET PO SCH (08:02)
[2022-01-10] MEDS: ESCITALOPRAM 10 MG TABLET PO SCH (08:02)
[2022-01-10] MEDS: ROSUVASTATIN 20 MG TABLET PO SCH (08:02)
[2022-01-10] MEDS: LOSARTAN 50 MG TABLET PO SCH (08:03)
[2022-01-10] MEDS: PANTOPRAZOLE 40 MG TABLET PO SCH (08:03)
[2022-01-10] MEDS: carvediloL 6.25 MG TABLET PO SCH ×2 (08:03→21:09)
[2022-01-10] MEDS: FERROUS SULFATE 325 MG TABLET PO SCH ×2 (08:03→21:12)
[2022-01-10] MEDS: calcitrioL 0.25 MCG CAPSULE PO SCH (08:03)
[2022-01-10] MEDS: FUROSEMIDE 80 MG TABLET PO SCH (08:04)
[2022-01-10] MEDS ORDERED: CHOLECALCIFEROL 1,000 UNIT TABLET PO SCH (09:00)
[2022-01-10] MEDS ORDERED: SODIUM ZIRCONIUM CYCLOSILICATE 10 GM PACK PO SCH (09:00)
[2022-01-10 12:37] LABS: % Iron Saturation 46.3 % (18-50)
[2022-01-10] MEDS: MORPHINE 2 MG/1 ML SYRINGE IV PRN ×2 (15:45→22:33)
[2022-01-10] MEDS: ACETAMINOPHEN 325 MG TABLET PO PRN (21:12)
[2022-01-11 05:28] LABS: Basophils % 0.3 % (0.0-0.8); Eosinophils # 0.2 10*3/uL (0.0-0.87); Eosinophils % 3.1 % (0.00-10.9); Hematocrit 22.8 VOL% (35.7-47.0); Hemoglobin 7.1 GM/DL (12.0-16.0); Immature Granulocytes % 0.7 %; Immature Granulocytes Absolute 0.04 #; Lymphocytes # 1.6 10*3/uL (1.4-4.0); Mean Corpuscular HGB Conc 31.1 GM/DL (32-36); Mean Platelet Volume 8.9 FL (9.6-12.0); Monocytes # 0.5 10*3/uL (0.11-0.8); Monocytes % 9.2 % (1.7-12.7); Neutrophils % 58.7 % (38.7-73.9); Platelet Count 184 T/CUMM (130-400); Red Blood Count 2.15 MC/CUMM (3.8-5.5); White Blood Count 5.8 T/CUMM (4-12)
[2022-01-11 05:43] LABS: Calcium 8.1 MG/DL (8.5-10.1); INR 0.9; Osmolality,Calculated 287.3 MOS/KG (273-304); Partial Thromboplastin Time 26.2 SECS (23.8-32.1); Potassium 3.6 MMOL/L (3.5-5.1)
[2022-01-11] MEDS ORDERED: MIDAZOLAM 2 MG/2 ML VIAL ONE (06:45)
[2022-01-11] MEDS ORDERED: BENZONATATE 100 MG CAPSULE PO ONE (08:00)
[2022-01-11] MEDS ORDERED: diphenhydrAMINE 50 MG/1 ML VIAL IM ONE (08:00)
[2022-01-11] MEDS ORDERED: MEPERIDINE 50 MG/1 ML VIAL IM ONE (08:00)
[2022-01-11] MEDS ORDERED: LIDOCAINE 2% 20 ML VIAL RESP TX ONE (08:30)
[2022-01-11] MEDS ORDERED: LIDOCAINE 1% 20 ML VIAL MISC INJ ONE (08:30)
[2022-01-11] MEDS ORDERED: LIDOCAINE 2% VISCOUS 100 ML BOTTLE SWISH/SPIT ONE (08:30)
[2022-01-11] MEDS ORDERED: DEXTROSE 50% 25 GM/50 ML VIAL IV PRN ×2 (09:27→11:14)
[2022-01-11] MEDS: INSULIN LISPRO 100 UNIT/ML SUBCUT SCH ×3 (10:58→22:34)
[2022-01-11] MEDS: SEVELAMER CARBONATE 800 MG TABLET PO SCH ×3 (10:58→17:06)
[2022-01-11] MEDS: LEVOFLOXACIN 250 MG TABLET PO SCH (11:04)
[2022-01-11] MEDS: MULTIVITAMIN (BEROCCA) TABLET PO SCH (11:05)
[2022-01-11] MEDS: SODIUM BICARBONATE 650 MG TABLET PO SCH ×2 (11:05→22:23)
[2022-01-11] MEDS: calcitrioL 0.25 MCG CAPSULE PO SCH (11:05)
[2022-01-11] MEDS: ROSUVASTATIN 20 MG TABLET PO SCH (11:05)
[2022-01-11] MEDS: LOSARTAN 50 MG TABLET PO SCH (11:06)
[2022-01-11] MEDS: FUROSEMIDE 80 MG TABLET PO SCH (11:06)
[2022-01-11] MEDS: FERROUS SULFATE 325 MG TABLET PO SCH ×2 (11:06→22:24)
[2022-01-11] MEDS: MONTELUKAST 10 MG TABLET PO SCH (11:06)
[2022-01-11] MEDS: PANTOPRAZOLE 40 MG TABLET PO SCH (11:06)
[2022-01-11] MEDS: ESCITALOPRAM 10 MG TABLET PO SCH (11:06)
[2022-01-11] MEDS: carvediloL 6.25 MG TABLET PO SCH ×2 (11:07→22:24)
[2022-01-11] MEDS ORDERED: GLUCAGON 1 MG VIAL IM PRN (11:14)
[2022-01-11] MEDS: ACETAMINOPHEN 325 MG TABLET PO PRN (18:13)
[2022-01-11] MEDS: MORPHINE 2 MG/1 ML SYRINGE IV PRN (22:28)
[2022-01-12 06:12] LABS: Basophils % 0.3 % (0.0-0.8); Eosinophils # 0.2 10*3/uL (0.0-0.87); Eosinophils % 3.9 % (0.00-10.9); Hematocrit 24.3 VOL% (35.7-47.0); Hemoglobin 7.8 GM/DL (12.0-16.0); Immature Granulocytes % 0.5 %; Immature Granulocytes Absolute 0.03 #; Lymphocytes # 1.2 10*3/uL (1.4-4.0); Mean Corpuscular HGB Conc 32.1 GM/DL (32-36); Mean Corpuscular Volume 105.2 FL (87-102); Mean Platelet Volume 9.1 FL (9.6-12.0); Monocytes # 0.5 10*3/uL (0.11-0.8); Monocytes % 7.7 % (1.7-12.7); Neutrophils % 67.6 % (38.7-73.9); Platelet Count 217 T/CUMM (130-400); Red Blood Count 2.31 MC/CUMM (3.8-5.5); Red Cell Distribution Width 17.6 % (9.3-17.3); White Blood Count 5.8 T/CUMM (4-12)
[2022-01-12 06:32] LABS: Calcium 8.9 MG/DL (8.5-10.1); Osmolality,Calculated 283.4 MOS/KG (273-304); Potassium 3.7 MMOL/L (3.5-5.1)
[2022-01-12] MEDS ORDERED: SODIUM CHLORIDE 0.9% 1,000 ML IV SCH (08:00)
[2022-01-12] MEDS ORDERED: propofoL 200 MG/20 ML VIAL IV ONE (12:39)
[2022-01-12] MEDS ORDERED: LIDOCAINE 2% 5 ML VIAL ONE (12:39)
[2022-01-12] MEDS ORDERED: ETOMIDATE 20 MG/10 ML VIAL IV ONE (12:39)
[2022-01-12] MEDS: SEVELAMER CARBONATE 800 MG TABLET PO SCH ×3 (15:02→16:37)
[2022-01-12] MEDS: INSULIN LISPRO 100 UNIT/ML SUBCUT SCH ×3 (15:02→22:44)
[2022-01-12] MEDS: MULTIVITAMIN (BEROCCA) TABLET PO SCH (15:03)
[2022-01-12] MEDS: SODIUM BICARBONATE 650 MG TABLET PO SCH ×2 (15:03→22:48)
[2022-01-12] MEDS: LOSARTAN 50 MG TABLET PO SCH (15:03)
[2022-01-12] MEDS: ESCITALOPRAM 10 MG TABLET PO SCH (15:04)
[2022-01-12] MEDS: LEVOFLOXACIN 250 MG TABLET PO SCH (15:04)
[2022-01-12] MEDS: ROSUVASTATIN 20 MG TABLET PO SCH (15:04)
[2022-01-12] MEDS: FUROSEMIDE 80 MG TABLET PO SCH (15:05)
[2022-01-12] MEDS: PANTOPRAZOLE 40 MG TABLET PO SCH (15:05)
[2022-01-12] MEDS: MONTELUKAST 10 MG TABLET PO SCH (15:05)
[2022-01-12] MEDS: FERROUS SULFATE 325 MG TABLET PO SCH ×2 (15:05→22:48)
[2022-01-12] MEDS: calcitrioL 0.25 MCG CAPSULE PO SCH (15:05)
[2022-01-12] MEDS: ACETAMINOPHEN 325 MG TABLET PO PRN (16:38)
[2022-01-12] MEDS: carvediloL 12.5 MG TABLET PO SCH (16:38)
[2022-01-13] MEDS: INSULIN LISPRO 100 UNIT/ML SUBCUT SCH ×2 (07:47→12:51)
[2022-01-13 08:02] VITALS: BP 174/50
[2022-01-13] MEDS: FUROSEMIDE 80 MG TABLET PO SCH (08:33)
[2022-01-13] MEDS: carvediloL 12.5 MG TABLET PO SCH (08:34)
[2022-01-13] MEDS: SODIUM BICARBONATE 650 MG TABLET PO SCH (08:34)
[2022-01-13] MEDS: MULTIVITAMIN (BEROCCA) TABLET PO SCH (08:34)
[2022-01-13] MEDS: LOSARTAN 50 MG TABLET PO SCH (08:35)
[2022-01-13] MEDS: FERROUS SULFATE 325 MG TABLET PO SCH (08:35)
[2022-01-13] MEDS: SEVELAMER CARBONATE 800 MG TABLET PO SCH ×2 (08:35→12:51)
[2022-01-13] MEDS: ROSUVASTATIN 20 MG TABLET PO SCH (08:36)
[2022-01-13] MEDS: LEVOFLOXACIN 250 MG TABLET PO SCH (08:36)
[2022-01-13] MEDS: MONTELUKAST 10 MG TABLET PO SCH (08:36)
[2022-01-13] MEDS: calcitrioL 0.25 MCG CAPSULE PO SCH (08:36)
[2022-01-13] MEDS: PANTOPRAZOLE 40 MG TABLET PO SCH (08:37)
[2022-01-13] MEDS: ESCITALOPRAM 10 MG TABLET PO SCH (08:37)
[2022-01-13 12:29] LABS: M. Tuberculosis PCR Result Negative (Negative)
== END 2022-01-13 13:32 | disposition home health service (06) | DRG 291 ==
LOC: N.ED 02:55 → N.EDINP 05:03 → SUATTDRO 05:03 → N.5E 13:08
PROVIDERS: ADMIT Internal Medicine; ATTEND Internal Medicine

== ENCOUNTER 2022-01-22 18:03 | Inpatient (IN) ==
[2022-01-22 18:51] LABS: Basophils % 0.4 % (0.0-0.8); Eosinophils # 0.1 10*3/uL (0.0-0.87); Hematocrit 29.3 VOL% (35.7-47.0); Hemoglobin 9.5 GM/DL (12.0-16.0); Immature Granulocytes % 0.5 %; Immature Granulocytes Absolute 0.05 #; Lymphocytes # 1.3 10*3/uL (1.4-4.0); Lymphocytes % 14.4 % (21.3-54.2); Mean Corpuscular HGB Conc 32.4 GM/DL (32-36); Mean Corpuscular Volume 103.2 FL (87-102); Mean Platelet Volume 9.1 FL (9.6-12.0); Monocytes # 0.5 10*3/uL (0.11-0.8); Monocytes % 5.2 % (1.7-12.7); Neutrophils % 78.5 % (38.7-73.9); Platelet Count 181 T/CUMM (130-400); Red Blood Count 2.84 MC/CUMM (3.8-5.5); Red Cell Distribution Width 15.9 % (9.3-17.3); White Blood Count 9.2 T/CUMM (4-12)
[2022-01-22] MEDS ORDERED: FUROSEMIDE 40 MG/4 ML VIAL IV STA (19:04)
[2022-01-22 19:10] LABS: Blood Urea Nitrogen 39 MG/DL (7-18); Calcium 8.8 MG/DL (8.5-10.1); Carbon Dioxide 27 MMOL/L (21-32); Chloride 103 MMOL/L (98-107); Glucose 194 MG/DL (74-106); Osmolality,Calculated 294.3 MOS/KG (273-304); Potassium 3.4 MMOL/L (3.5-5.1); Sodium 141 MMOL/L (136-145)
[2022-01-22 19:17] LABS: INR 0.9; PT Patient Result 10.3 SECS (10.5-12.0); Partial Thromboplastin Time 25.5 SECS (23.8-32.1)
[2022-01-22] MEDS ORDERED: AZITHROMYCIN INJ 500 MG in SODIUM CHLORIDE 0.9% 250 ML IV STA (19:35)
[2022-01-22] MEDS ORDERED: DEXAMETHASONE 4 MG/1 ML VIAL IV STA (19:35)
[2022-01-22] MEDS ORDERED: cefTRIAXone 1,000 MG in SODIUM CHLORIDE 0.9% 100 ML IV STA (19:35)
[2022-01-22] MEDS ORDERED: DEXTROSE 10% 250 ML BAG IV PRN (19:58)
[2022-01-22] MEDS ORDERED: GLUCAGON 1 MG VIAL IM PRN (19:58)
[2022-01-22] MEDS ORDERED: ONDANSETRON 4 MG/2 ML VIAL IV PRN (19:58)
[2022-01-22] MEDS ORDERED: ACETAMINOPHEN 325 MG TABLET PO PRN (19:58)
[2022-01-22] MEDS ORDERED: DOCUSATE SODIUM 100 MG CAPSULE PO PRN (19:58)
[2022-01-22] MEDS ORDERED: FUROSEMIDE 40 MG/4 ML VIAL IV SCH (21:00)
[2022-01-22] MEDS ORDERED: ALBUTEROL/IPRATROPIUM 3 ML NEB RESP TX ONE (21:07)
[2022-01-22] MEDS: hydrALAZINE 25 MG TABLET PO SCH (21:39)
[2022-01-22] MEDS ORDERED: NITROGLYCERIN SL 0.4 MG TABLET SL ONE (21:59)
[2022-01-22] MEDS ORDERED: MORPHINE 2 MG/1 ML SYRINGE ONE (22:00)
[2022-01-22] MEDS: NITROGLYCERIN SL 0.4 MG TABLET SL PRN ×2 (22:00→22:05)
[2022-01-22] MEDS ORDERED: FUROSEMIDE 40 MG/4 ML VIAL IV ONE ×2 (22:06→22:10)
[2022-01-22] MEDS ORDERED: MORPHINE 2 MG/1 ML SYRINGE IV ONE (22:11)
[2022-01-22 22:46] LABS: ABG Base Excess 1.5 MMOL/L (-2.5-2.5); ABG HCO3 25.8 MMOL/L (20-26); ABG Oxygen Saturation 98.3 % (95-100); ABG PCO2 38.1 MM HG (35-48); ABG PH 7.437 (7.35-7.45); ABG TCO2 24.3 MMOL/L (23-27)
[2022-01-23] MEDS: ALBUTEROL/IPRATROPIUM 3 ML NEB RESP TX SCH ×4 (00:30→19:05)
[2022-01-23] MEDS: hydrALAZINE 20 MG/1 ML VIAL IV PRN (01:51)
[2022-01-23 04:44] LABS: Basophils % 0.1 % (0.0-0.8); Hematocrit 22.4 VOL% (35.7-47.0); Immature Granulocytes % 0.5 %; Immature Granulocytes Absolute 0.05 #; Lymphocytes % 9.6 % (21.3-54.2); Mean Corpuscular HGB Conc 31.7 GM/DL (32-36); Mean Corpuscular Volume 104.2 FL (87-102); Mean Platelet Volume 9.2 FL (9.6-12.0); Monocytes # 0.3 10*3/uL (0.11-0.8); Monocytes % 2.9 % (1.7-12.7); Neutrophils % 86.9 % (38.7-73.9); Platelet Count 166 T/CUMM (130-400); Red Cell Distribution Width 15.9 % (9.3-17.3); White Blood Count 9.9 T/CUMM (4-12)
[2022-01-23 04:45] LABS: Hemoglobin 7.1 GM/DL (12.0-16.0); Red Blood Count 2.15 MC/CUMM (3.8-5.5)
[2022-01-23 04:54] LABS: Calcium 8.9 MG/DL (8.5-10.1); Osmolality,Calculated 296.3 MOS/KG (273-304); Potassium 3.3 MMOL/L (3.5-5.1)
[2022-01-23] MEDS ORDERED: POTASSIUM CHLORIDE 20 MEQ TABLET PO ONE (09:00)
[2022-01-23] MEDS ORDERED: cefTRIAXone 1,000 MG in SODIUM CHLORIDE 0.9% 100 ML IV SCH (09:00)
[2022-01-23] MEDS: hydrALAZINE 25 MG TABLET PO SCH ×2 (09:20→21:21)
[2022-01-23] MEDS: FUROSEMIDE 40 MG/4 ML VIAL IV SCH ×2 (09:20→21:21)
[2022-01-23] MEDS: carvediloL 12.5 MG TABLET PO SCH ×2 (09:20→18:45)
[2022-01-23] MEDS: PANTOPRAZOLE 40 MG TABLET PO SCH (09:20)
[2022-01-23] MEDS: LEVOFLOXACIN 250 MG TABLET PO SCH (13:05)
[2022-01-23] MEDS ORDERED: HEPARIN 10,000 UNIT/10 ML VIAL IV SCH (15:30)
[2022-01-23] MEDS ORDERED: AZITHROMYCIN INJ 500 MG in SODIUM CHLORIDE 0.9% 250 ML IV SCH (18:00)
[2022-01-24] MEDS: ALBUTEROL/IPRATROPIUM 3 ML NEB RESP TX SCH ×4 (00:05→19:03)
[2022-01-24 05:21] LABS: Basophils % 0.4 % (0.0-0.8); Eosinophils # 0.1 10*3/uL (0.0-0.87); Eosinophils % 1.5 % (0.00-10.9); Hematocrit 20.3 VOL% (35.7-47.0); Immature Granulocytes % 0.5 %; Immature Granulocytes Absolute 0.04 #; Lymphocytes # 1.7 10*3/uL (1.4-4.0); Mean Corpuscular HGB Conc 31.5 GM/DL (32-36); Mean Corpuscular Volume 105.7 FL (87-102); Mean Platelet Volume 9.5 FL (9.6-12.0); Monocytes # 0.5 10*3/uL (0.11-0.8); Monocytes % 6.3 % (1.7-12.7); Neutrophils % 68.3 % (38.7-73.9); Platelet Count 181 T/CUMM (130-400); Red Blood Count 1.92 MC/CUMM (3.8-5.5); Red Cell Distribution Width 16.5 % (9.3-17.3); White Blood Count 7.3 T/CUMM (4-12)
[2022-01-24 05:24] LABS: Hemoglobin 6.4 GM/DL (12.0-16.0)
[2022-01-24 05:35] LABS: Calcium 8.7 MG/DL (8.5-10.1); Osmolality,Calculated 284.5 MOS/KG (273-304); Potassium 3.6 MMOL/L (3.5-5.1)
[2022-01-24] MEDS ORDERED: SODIUM CHLORIDE 0.9% 1,000 ML IV PRN ×2 (05:42→08:40)
[2022-01-24] MEDS: carvediloL 12.5 MG TABLET PO SCH ×2 (08:28→16:28)
[2022-01-24] MEDS: SEVELAMER CARBONATE 800 MG TABLET PO SCH ×3 (08:28→16:28)
[2022-01-24] MEDS: FUROSEMIDE 40 MG/4 ML VIAL IV SCH ×2 (08:28→20:20)
[2022-01-24] MEDS: ROSUVASTATIN 20 MG TABLET PO SCH (08:28)
[2022-01-24] MEDS: hydrALAZINE 25 MG TABLET PO SCH ×2 (08:28→20:20)
[2022-01-24] MEDS: FERROUS SULFATE 325 MG TABLET PO SCH ×2 (08:28→20:19)
[2022-01-24] MEDS: PANTOPRAZOLE 40 MG TABLET PO SCH (08:29)
[2022-01-24] MEDS: MONTELUKAST 10 MG TABLET PO SCH (08:29)
[2022-01-24] MEDS ORDERED: EPOETIN ALFA-EPBX 4,000 UNIT/ML VIAL IV PRN (08:52)
[2022-01-24] MEDS: LEVOFLOXACIN 250 MG TABLET PO SCH (14:53)
[2022-01-24] MEDS: POLYETHYLENE GLYCOL POWDER 17 GM PACK PO SCH (21:41)
[2022-01-24] MEDS: TEMAZEPAM 7.5 MG CAPSULE PO PRN (23:49)
[2022-01-25 04:31] LABS: Basophils % 0.5 % (0.0-0.8); Eosinophils # 0.2 10*3/uL (0.0-0.87); Eosinophils % 2.4 % (0.00-10.9); Hematocrit 32.9 VOL% (35.7-47.0); Hemoglobin 10.5 GM/DL (12.0-16.0); Immature Granulocytes % 0.7 %; Immature Granulocytes Absolute 0.05 #; Lymphocytes # 1.7 10*3/uL (1.4-4.0); Lymphocytes % 22.7 % (21.3-54.2); Mean Corpuscular HGB Conc 31.9 GM/DL (32-36); Mean Platelet Volume 9.1 FL (9.6-12.0); Monocytes # 0.6 10*3/uL (0.11-0.8); Monocytes % 8.4 % (1.7-12.7); Neutrophils % 65.3 % (38.7-73.9); Platelet Count 191 T/CUMM (130-400); Red Blood Count 3.29 MC/CUMM (3.8-5.5); White Blood Count 7.5 T/CUMM (4-12)
[2022-01-25 04:49] LABS: Calcium 8.8 MG/DL (8.5-10.1); Osmolality,Calculated 284.5 MOS/KG (273-304); Potassium 3.1 MMOL/L (3.5-5.1)
[2022-01-25] MEDS: ALBUTEROL/IPRATROPIUM 3 ML NEB RESP TX SCH ×4 (07:06→20:04)
[2022-01-25] MEDS ORDERED: POTASSIUM CHLORIDE 20 MEQ TABLET PO ONE (07:07)
[2022-01-25] MEDS: hydrALAZINE 20 MG/1 ML VIAL IV PRN (12:11)
[2022-01-25] MEDS: carvediloL 12.5 MG TABLET PO SCH ×2 (15:34→17:07)
[2022-01-25] MEDS: SEVELAMER CARBONATE 800 MG TABLET PO SCH ×3 (15:35→17:08)
[2022-01-25] MEDS: hydrALAZINE 25 MG TABLET PO SCH ×2 (15:35→20:31)
[2022-01-25] MEDS: FUROSEMIDE 80 MG TABLET PO SCH ×2 (15:35→17:07)
[2022-01-25] MEDS: FERROUS SULFATE 325 MG TABLET PO SCH ×2 (15:35→20:31)
[2022-01-25] MEDS: ROSUVASTATIN 20 MG TABLET PO SCH (15:35)
[2022-01-25] MEDS: POLYETHYLENE GLYCOL POWDER 17 GM PACK PO SCH ×2 (15:35→20:31)
[2022-01-25] MEDS: PANTOPRAZOLE 40 MG TABLET PO SCH (15:36)
[2022-01-25] MEDS: MONTELUKAST 10 MG TABLET PO SCH (15:36)
[2022-01-25] MEDS: LEVOFLOXACIN 250 MG TABLET PO SCH (15:36)
[2022-01-25] MEDS: MORPHINE 2 MG/1 ML SYRINGE IV PRN (22:27)
[2022-01-26 03:37] LABS: Basophils % 0.5 % (0.0-0.8); Eosinophils # 0.3 10*3/uL (0.0-0.87); Eosinophils % 4.3 % (0.00-10.9); Hematocrit 29.5 VOL% (35.7-47.0); Hemoglobin 9.4 GM/DL (12.0-16.0); Immature Granulocytes % 0.7 %; Immature Granulocytes Absolute 0.04 #; Lymphocytes # 1.5 10*3/uL (1.4-4.0); Lymphocytes % 24.7 % (21.3-54.2); Mean Corpuscular HGB Conc 31.9 GM/DL (32-36); Mean Corpuscular Volume 100.3 FL (87-102); Mean Platelet Volume 9.2 FL (9.6-12.0); Monocytes # 0.5 10*3/uL (0.11-0.8); Monocytes % 8.9 % (1.7-12.7); Neutrophils % 60.9 % (38.7-73.9); Platelet Count 178 T/CUMM (130-400); Red Blood Count 2.94 MC/CUMM (3.8-5.5); Red Cell Distribution Width 17.9 % (9.3-17.3); White Blood Count 6.1 T/CUMM (4-12)
[2022-01-26 03:55] LABS: Calcium 8.8 MG/DL (8.5-10.1); Osmolality,Calculated 283.5 MOS/KG (273-304); Potassium 4.2 MMOL/L (3.5-5.1)
[2022-01-26] MEDS: ALBUTEROL/IPRATROPIUM 3 ML NEB RESP TX SCH ×4 (07:54→19:40)
[2022-01-26] MEDS ORDERED: FUROSEMIDE 40 MG/4 ML VIAL IV SCH (08:00)
[2022-01-26] MEDS: MORPHINE 2 MG/1 ML SYRINGE IV PRN ×3 (09:26→21:02)
[2022-01-26] MEDS: FUROSEMIDE 40 MG/4 ML VIAL IV SCH ×2 (09:32→17:28)
[2022-01-26] MEDS: carvediloL 12.5 MG TABLET PO SCH ×2 (10:01→17:14)
[2022-01-26] MEDS: SEVELAMER CARBONATE 800 MG TABLET PO SCH ×3 (10:01→17:14)
[2022-01-26] MEDS: hydrALAZINE 25 MG TABLET PO SCH ×2 (10:02→21:01)
[2022-01-26] MEDS: MONTELUKAST 10 MG TABLET PO SCH (10:03)
[2022-01-26] MEDS: POLYETHYLENE GLYCOL POWDER 17 GM PACK PO SCH ×2 (10:03→22:34)
[2022-01-26] MEDS: FERROUS SULFATE 325 MG TABLET PO SCH ×2 (10:03→21:02)
[2022-01-26] MEDS: ROSUVASTATIN 20 MG TABLET PO SCH (10:03)
[2022-01-26] MEDS: PANTOPRAZOLE 40 MG VIAL IV SCH (10:11)
[2022-01-26] MEDS: SODIUM CHLORIDE 0.9% 1,000 ML IV SCH (11:00)
[2022-01-26] MEDS ORDERED: LIDOCAINE 100 MG/5 ML SYRINGE ONE (11:32)
[2022-01-26] MEDS ORDERED: ETOMIDATE 20 MG/10 ML VIAL IV ONE (11:32)
[2022-01-26 12:05] VITALS: BP 152/44
[2022-01-26] MEDS ORDERED: MORPHINE 2 MG/1 ML SYRINGE IV ONE (16:02)
[2022-01-26] MEDS: TEMAZEPAM 7.5 MG CAPSULE PO PRN (22:31)
[2022-01-27] MEDS: ALBUTEROL/IPRATROPIUM 3 ML NEB RESP TX SCH ×4 (00:05→14:17)
[2022-01-27] MEDS: MORPHINE 2 MG/1 ML SYRINGE IV PRN ×2 (00:22→10:56)
[2022-01-27 06:33] LABS: Basophils % 0.2 % (0.0-0.8); Eosinophils # 0.2 10*3/uL (0.0-0.87); Eosinophils % 4.6 % (0.00-10.9); Hematocrit 33.2 VOL% (35.7-47.0); Hemoglobin 10.7 GM/DL (12.0-16.0); Immature Granulocytes % 0.2 %; Immature Granulocytes Absolute 0.01 #; Lymphocytes # 1.2 10*3/uL (1.4-4.0); Lymphocytes % 26.5 % (21.3-54.2); Mean Corpuscular HGB Conc 32.2 GM/DL (32-36); Mean Corpuscular Volume 101.5 FL (87-102); Monocytes # 0.4 10*3/uL (0.11-0.8); Monocytes % 9.1 % (1.7-12.7); Neutrophils % 59.4 % (38.7-73.9); Platelet Count 184 T/CUMM (130-400); Red Blood Count 3.27 MC/CUMM (3.8-5.5); Red Cell Distribution Width 17.8 % (9.3-17.3); White Blood Count 4.4 T/CUMM (4-12)
[2022-01-27 06:50] LABS: Calcium 8.8 MG/DL (8.5-10.1)
[2022-01-27] MEDS: carvediloL 12.5 MG TABLET PO SCH ×2 (09:00→16:35)
[2022-01-27] MEDS: SEVELAMER CARBONATE 800 MG TABLET PO SCH ×3 (09:00→16:35)
[2022-01-27] MEDS: ROSUVASTATIN 20 MG TABLET PO SCH (09:30)
[2022-01-27] MEDS: MONTELUKAST 10 MG TABLET PO SCH (09:30)
[2022-01-27] MEDS: FERROUS SULFATE 325 MG TABLET PO SCH (09:30)
[2022-01-27] MEDS: FUROSEMIDE 40 MG TABLET PO SCH ×2 (09:30→16:35)
[2022-01-27] MEDS: POLYETHYLENE GLYCOL POWDER 17 GM PACK PO SCH (09:45)
[2022-01-27] MEDS: hydrALAZINE 25 MG TABLET PO SCH (09:45)
[2022-01-27] MEDS: PANTOPRAZOLE 40 MG VIAL IV SCH (11:35)
[2022-01-27] MEDS: FUROSEMIDE 40 MG/4 ML VIAL IV SCH (12:30)
[2022-01-27] MEDS ORDERED: LIDOCAINE 5% PATCH TRANSDERM SCH (14:01)
[2022-01-27] MEDS: NITROGLYCERIN SL 0.4 MG TABLET SL PRN (14:33)
[2022-01-27] MEDS: SODIUM CHLORIDE 0.9% 1,000 ML IV SCH (14:34)
[2022-01-27] MEDS ORDERED: traMADol 50 MG TABLET PO ONE (15:04)
[2022-01-27] MEDS ORDERED: FUROSEMIDE 40 MG TABLET PO SCH (16:00)
== END 2022-01-27 18:25 | disposition home or self-care (01) | DRG 291 ==
LOC: N.ED 18:03 → SUATTDRO 19:55 → N.CC 19:55
PROVIDERS: ADMIT Internal Medicine; ATTEND Hospitalist

== ENCOUNTER 2022-02-20 23:52 | Inpatient (IN) ==
[2022-02-21] MEDS ORDERED: MORPHINE 2 MG/1 ML SYRINGE IV STA (00:19)
[2022-02-21] MEDS ORDERED: ONDANSETRON 4 MG/2 ML VIAL IV STA (00:19)
[2022-02-21] MEDS ORDERED: NITROGLYCERIN 2% OINT 1 INCH/GM PACK TOP STA (00:19)
[2022-02-21] MEDS ORDERED: FUROSEMIDE 100 MG/10 ML VIAL IV STA (00:19)
[2022-02-21] MEDS ORDERED: methylPREDNISolone SOD SUC 125 MG/2 ML VIAL IV STA (00:19)
[2022-02-21] MEDS ORDERED: ALBUTEROL NEB SOLN 5 MG/ML 20 ML/BOTTLE CONT NEB SCH (00:30)
[2022-02-21 00:46] LABS: Basophils % 0.4 % (0.0-0.8); Eosinophils # 0.1 10*3/uL (0.0-0.87); Eosinophils % 1.8 % (0.00-10.9); Hematocrit 27.7 VOL% (35.7-47.0); Hemoglobin 8.8 GM/DL (12.0-16.0); Immature Granulocytes % 0.4 %; Immature Granulocytes Absolute 0.03 #; Lymphocytes # 1.2 10*3/uL (1.4-4.0); Mean Corpuscular HGB Conc 31.8 GM/DL (32-36); Mean Corpuscular Volume 109.5 FL (87-102); Mean Platelet Volume 9.3 FL (9.6-12.0); Monocytes # 0.5 10*3/uL (0.11-0.8); Monocytes % 6.4 % (1.7-12.7); Platelet Count 236 T/CUMM (130-400); Red Blood Count 2.53 MC/CUMM (3.8-5.5); Red Cell Distribution Width 19.2 % (9.3-17.3); White Blood Count 7.2 T/CUMM (4-12)
[2022-02-21 00:47] LABS: Arterial Base Excess iSTAT 7 MMOL/L (-2.5-2.5); Arterial Bicarbonate iSTAT 32.2 MMOL/L (20-26); Arterial O2 Saturation iSTAT 100 % (95-100); Arterial PCO2 iSTAT 46 MM HG (35-48); Arterial PO2 iSTAT 227 MM HG (80-95); Arterial Total CO2 iSTAT 34 MMO/L (23-27); Arterial pH iSTAT 7.455 (7.35-7.45)
[2022-02-21 00:58] LABS: Albumin 3.6 G/DL (3.4-5.0); Bilirubin,Total 1.7 MG/DL (0.20-1.00); Osmolality,Calculated 294.4 MOS/KG (273-304); Potassium 2.6 MMOL/L (3.5-5.1); Total Protein 6.5 G/DL (6.4-8.2)
[2022-02-21] MEDS ORDERED: POTASSIUM CHLORIDE 20 MEQ TABLET PO STA (01:19)
[2022-02-21 01:52] LABS: INR 0.9; PT Patient Result 10.2 SECS (10.5-12.0)
[2022-02-21] MEDS ORDERED: DEXTROSE 50% 25 GM/50 ML VIAL IV PRN (02:33)
[2022-02-21] MEDS ORDERED: GLUCAGON 1 MG VIAL IM PRN ×2 (02:33)
[2022-02-21] MEDS ORDERED: ACETAMINOPHEN 325 MG TABLET PO PRN (02:33)
[2022-02-21] MEDS ORDERED: MORPHINE 2 MG/1 ML SYRINGE IV PRN (02:33)
[2022-02-21] MEDS ORDERED: ONDANSETRON 4 MG/2 ML VIAL IV PRN (02:33)
[2022-02-21] MEDS ORDERED: DEXTROSE 10% 250 ML BAG IV PRN (03:31)
[2022-02-21] MEDS ORDERED: ALBUTEROL/IPRATROPIUM 3 ML NEB RESP TX PRN (03:47)
[2022-02-21] MEDS: HEPARIN 5,000 UNIT/1 ML VIAL SUBCUT SCH ×2 (04:44→15:47)
[2022-02-21 07:16] LABS: Hematocrit 24.6 VOL% (35.7-47.0); Hemoglobin 7.9 GM/DL (12.0-16.0); Immature Granulocytes % 0.5 %; Immature Granulocytes Absolute 0.02 #; Lymphocytes # 0.5 10*3/uL (1.4-4.0); Mean Corpuscular HGB Conc 32.1 GM/DL (32-36); Mean Corpuscular Volume 110.3 FL (87-102); Mean Platelet Volume 9.3 FL (9.6-12.0); Monocytes # 0.1 10*3/uL (0.11-0.8); Monocytes % 2.3 % (1.7-12.7); Neutrophils % 86.2 % (38.7-73.9); Platelet Count 194 T/CUMM (130-400); Red Blood Count 2.23 MC/CUMM (3.8-5.5); Red Cell Distribution Width 18.9 % (9.3-17.3); White Blood Count 4.3 T/CUMM (4-12)
[2022-02-21 07:36] LABS: Albumin 3.2 G/DL (3.4-5.0); Bilirubin,Total 1.4 MG/DL (0.20-1.00); Calcium 8.4 MG/DL (8.5-10.1); Osmolality,Calculated 293.3 MOS/KG (273-304); Potassium 3.1 MMOL/L (3.5-5.1); Total Protein 6.5 G/DL (6.4-8.2)
[2022-02-21] MEDS: INSULIN REGULAR 100 UNIT/ML SUBCUT SCH ×4 (07:43→20:49)
[2022-02-21] MEDS ORDERED: POTASSIUM CHLORIDE 20 MEQ TABLET PO ONE (08:25)
[2022-02-21] MEDS: FUROSEMIDE 40 MG/4 ML VIAL IV SCH ×2 (08:25→18:47)
[2022-02-21] MEDS ORDERED: AZITHROMYCIN INJ 500 MG in SODIUM CHLORIDE 0.9% 250 ML IV ONE (08:34)
[2022-02-21] MEDS: PANTOPRAZOLE 40 MG TABLET PO SCH (08:47)
[2022-02-21] MEDS ORDERED: cefTRIAXone 1,000 MG in SODIUM CHLORIDE 0.9% 100 ML IV SCH (09:00)
[2022-02-21] MEDS: FERROUS SULFATE 325 MG TABLET PO SCH ×2 (09:06→20:50)
[2022-02-21] MEDS: ROSUVASTATIN 20 MG TABLET PO SCH (09:06)
[2022-02-21] MEDS: ESCITALOPRAM 10 MG TABLET PO SCH (09:06)
[2022-02-21] MEDS: calcitrioL 0.25 MCG CAPSULE PO SCH (09:06)
[2022-02-21] MEDS: MULTIVITAMIN (BEROCCA) TABLET PO SCH (09:06)
[2022-02-21] MEDS: CHOLECALCIFEROL 1,000 UNIT TABLET PO SCH (09:07)
[2022-02-21] MEDS: SODIUM BICARBONATE 650 MG TABLET PO SCH ×2 (09:07→20:50)
[2022-02-21] MEDS ORDERED: CEFEPIME 2,000 MG in SODIUM CHLORIDE 0.9% 100 ML IV SCH (09:30)
[2022-02-21] MEDS ORDERED: POLYETHYLENE GLYCOL POWDER 17 GM PACK PO PRN (11:51)
[2022-02-21] MEDS: SEVELAMER CARBONATE 800 MG TABLET PO SCH ×2 (13:00→18:47)
[2022-02-21] MEDS ORDERED: HEPARIN 10,000 UNIT/10 ML VIAL IV SCH (18:30)
[2022-02-21] MEDS: POTASSIUM CHLORIDE 20 MEQ TABLET PO SCH (20:50)
[2022-02-21] MEDS ORDERED: CEFEPIME 1,000 MG in SODIUM CHLORIDE 0.9% 100 ML IV SCH (21:00)
[2022-02-22] MEDS: diphenhydrAMINE CAP 25 MG CAPSULE PO PRN ×4 (02:17→16:46)
[2022-02-22 03:52] LABS: Basophils % 0.4 % (0.0-0.8); Eosinophils # 0.1 10*3/uL (0.0-0.87); Eosinophils % 0.7 % (0.00-10.9); Hematocrit 26.5 VOL% (35.7-47.0); Hemoglobin 8.7 GM/DL (12.0-16.0); Immature Granulocytes % 0.8 %; Immature Granulocytes Absolute 0.06 #; Lymphocytes % 26.9 % (21.3-54.2); Mean Corpuscular HGB Conc 32.8 GM/DL (32-36); Mean Corpuscular Volume 108.2 FL (87-102); Mean Platelet Volume 9.6 FL (9.6-12.0); Monocytes # 0.7 10*3/uL (0.11-0.8); Monocytes % 9.3 % (1.7-12.7); Neutrophils % 61.9 % (38.7-73.9); Platelet Count 187 T/CUMM (130-400); Red Blood Count 2.45 MC/CUMM (3.8-5.5); White Blood Count 7.4 T/CUMM (4-12)
[2022-02-22 03:59] LABS: Macrocytosis 1+
[2022-02-22 04:00] LABS: Platelet Estimate Adequate
[2022-02-22 04:02] LABS: Calcium 8.4 MG/DL (8.5-10.1); Osmolality,Calculated 291.7 MOS/KG (273-304); Potassium 3.9 MMOL/L (3.5-5.1)
[2022-02-22] MEDS: HEPARIN 5,000 UNIT/1 ML VIAL SUBCUT SCH ×2 (04:26→16:42)
[2022-02-22] MEDS: INSULIN REGULAR 100 UNIT/ML SUBCUT SCH ×4 (08:21→20:40)
[2022-02-22] MEDS: MULTIVITAMIN (BEROCCA) TABLET PO SCH (08:34)
[2022-02-22] MEDS: SODIUM BICARBONATE 650 MG TABLET PO SCH ×2 (08:34→20:39)
[2022-02-22] MEDS: FERROUS SULFATE 325 MG TABLET PO SCH ×2 (08:35→20:39)
[2022-02-22] MEDS: ESCITALOPRAM 10 MG TABLET PO SCH (08:35)
[2022-02-22] MEDS: SEVELAMER CARBONATE 800 MG TABLET PO SCH ×3 (08:35→16:41)
[2022-02-22] MEDS: calcitrioL 0.25 MCG CAPSULE PO SCH (08:35)
[2022-02-22] MEDS: ROSUVASTATIN 20 MG TABLET PO SCH (08:35)
[2022-02-22] MEDS: CHOLECALCIFEROL 1,000 UNIT TABLET PO SCH (08:35)
[2022-02-22] MEDS: POTASSIUM CHLORIDE 20 MEQ TABLET PO SCH ×2 (08:35→20:39)
[2022-02-22] MEDS: PANTOPRAZOLE 40 MG TABLET PO SCH (08:36)
[2022-02-22] MEDS: MONTELUKAST 10 MG TABLET PO SCH (08:36)
[2022-02-22] MEDS ORDERED: AZITHROMYCIN INJ 250 MG in SODIUM CHLORIDE 0.9% 250 ML IV SCH (09:00)
[2022-02-22] MEDS: FUROSEMIDE 40 MG/4 ML VIAL IV SCH ×2 (09:35→16:42)
[2022-02-22] MEDS: FAMOTIDINE 20 MG TABLET PO SCH (12:49)
[2022-02-22] MEDS: carvediloL 12.5 MG TABLET PO SCH (16:41)
[2022-02-23] MEDS: HEPARIN 5,000 UNIT/1 ML VIAL SUBCUT SCH (04:06)
[2022-02-23] MEDS: diphenhydrAMINE CAP 25 MG CAPSULE PO PRN ×2 (05:16→10:30)
[2022-02-23 05:34] LABS: Basophils % 0.3 % (0.0-0.8); Eosinophils # 0.2 10*3/uL (0.0-0.87); Eosinophils % 2.6 % (0.00-10.9); Hematocrit 27.6 VOL% (35.7-47.0); Hemoglobin 8.6 GM/DL (12.0-16.0); Immature Granulocytes % 0.5 %; Immature Granulocytes Absolute 0.03 #; Lymphocytes # 1.9 10*3/uL (1.4-4.0); Lymphocytes % 28.6 % (21.3-54.2); Mean Corpuscular HGB Conc 31.2 GM/DL (32-36); Mean Corpuscular Volume 112.7 FL (87-102); Mean Platelet Volume 9.2 FL (9.6-12.0); Monocytes # 0.6 10*3/uL (0.11-0.8); Monocytes % 9.4 % (1.7-12.7); Neutrophils % 58.6 % (38.7-73.9); Platelet Count 219 T/CUMM (130-400); Red Blood Count 2.45 MC/CUMM (3.8-5.5); Red Cell Distribution Width 18.8 % (9.3-17.3); White Blood Count 6.5 T/CUMM (4-12)
[2022-02-23 06:02] LABS: Calcium 8.8 MG/DL (8.5-10.1); Osmolality,Calculated 287.4 MOS/KG (273-304); Potassium 4.2 MMOL/L (3.5-5.1)
[2022-02-23] MEDS: INSULIN REGULAR 100 UNIT/ML SUBCUT SCH ×2 (08:00→12:31)
[2022-02-23] MEDS: CHOLECALCIFEROL 1,000 UNIT TABLET PO SCH (10:25)
[2022-02-23] MEDS: MONTELUKAST 10 MG TABLET PO SCH (10:25)
[2022-02-23] MEDS: FUROSEMIDE 40 MG/4 ML VIAL IV SCH (10:25)
[2022-02-23] MEDS: carvediloL 12.5 MG TABLET PO SCH (10:28)
[2022-02-23] MEDS: PANTOPRAZOLE 40 MG TABLET PO SCH (10:28)
[2022-02-23] MEDS: POTASSIUM CHLORIDE 20 MEQ TABLET PO SCH (10:29)
[2022-02-23] MEDS: MULTIVITAMIN (BEROCCA) TABLET PO SCH (10:29)
[2022-02-23] MEDS: FAMOTIDINE 20 MG TABLET PO SCH (10:29)
[2022-02-23] MEDS: SODIUM BICARBONATE 650 MG TABLET PO SCH (10:29)
[2022-02-23] MEDS: ESCITALOPRAM 10 MG TABLET PO SCH (10:29)
[2022-02-23] MEDS: ROSUVASTATIN 20 MG TABLET PO SCH (10:30)
[2022-02-23] MEDS: FERROUS SULFATE 325 MG TABLET PO SCH (10:30)
[2022-02-23] MEDS ORDERED: DORNASE ALFA 2.5 MG/2.5 ML VIAL RESP TX SCH (10:30)
[2022-02-23] MEDS: SEVELAMER CARBONATE 800 MG TABLET PO SCH ×2 (10:30→12:35)
[2022-02-23] MEDS: calcitrioL 0.25 MCG CAPSULE PO SCH (10:31)
[2022-02-23 12:03] VITALS: BP 148/54
== END 2022-02-23 13:55 | disposition home health service (06) | DRG 291 ==
LOC: N.ED 23:52 → N.EDINP 02-21 02:33 → N.TELEN 02-21 14:56
PROVIDERS: ADMIT Family Medicine; ATTEND Family Medicine

== ENCOUNTER 2022-03-26 13:41 | Inpatient (IN) ==
[2022-03-26] MEDS ORDERED: hydrALAZINE 20 MG/1 ML VIAL IV STA (15:04)
[2022-03-26 15:15] LABS: Basophils % 0.2 % (0.0-0.8); Eosinophils # 0.1 10*3/uL (0.0-0.87); Eosinophils % 0.6 % (0.00-10.9); Hematocrit 20.1 VOL% (35.7-47.0); Hemoglobin 6.6 GM/DL (12.0-16.0); Immature Granulocytes % 0.8 %; Immature Granulocytes Absolute 0.07 #; Lymphocytes % 11.4 % (21.3-54.2); Mean Corpuscular HGB Conc 32.8 GM/DL (32-36); Mean Corpuscular Volume 102.6 FL (87-102); Mean Platelet Volume 9.1 FL (9.6-12.0); Monocytes # 0.5 10*3/uL (0.11-0.8); Platelet Count 193 T/CUMM (130-400); Red Blood Count 1.96 MC/CUMM (3.8-5.5); Red Cell Distribution Width 14.6 % (9.3-17.3); White Blood Count 8.7 T/CUMM (4-12)
[2022-03-26 15:36] LABS: Albumin 3.5 G/DL (3.4-5.0); Bilirubin,Total 1.1 MG/DL (0.20-1.00); Calcium 8.6 MG/DL (8.5-10.1); Osmolality,Calculated 297.5 MOS/KG (273-304); Potassium 2.9 MMOL/L (3.5-5.1); Total Protein 6.4 G/DL (6.4-8.2)
[2022-03-26] MEDS ORDERED: DEXTROSE 10% 250 ML BAG IV PRN (16:14)
[2022-03-26] MEDS ORDERED: GLUCAGON 1 MG VIAL IM PRN (16:14)
[2022-03-26] MEDS ORDERED: SODIUM CHLORIDE 0.9% 1,000 ML IV PRN (16:18)
[2022-03-26] MEDS ORDERED: POTASSIUM CHLORIDE 20 MEQ TABLET PO STA (16:23)
[2022-03-26] MEDS ORDERED: MAGNESIUM SULF RIDER 2 GM/50 ML PREMIX IV PRN (16:24)
[2022-03-26] MEDS ORDERED: MAGNESIUM SULF RIDER 4 GM/100 ML PREMIX IV PRN (16:24)
[2022-03-26] MEDS: HEPARIN 5,000 UNIT/1 ML VIAL SUBCUT SCH (16:52)
[2022-03-26] MEDS: FUROSEMIDE 40 MG/4 ML VIAL IV SCH (16:52)
[2022-03-26] MEDS: carvediloL 12.5 MG TABLET PO SCH (16:54)
[2022-03-26] MEDS: SEVELAMER CARBONATE 800 MG TABLET PO SCH (17:39)
[2022-03-26] MEDS: ALBUTEROL 2.5 MG/3 ML NEB RESP TX SCH (19:49)
[2022-03-26] MEDS: SODIUM BICARBONATE 650 MG TABLET PO SCH (20:29)
[2022-03-26] MEDS: ACETAMINOPHEN 325 MG TABLET PO PRN (20:29)
[2022-03-26] MEDS: FERROUS SULFATE 325 MG TABLET PO SCH (20:30)
[2022-03-27] MEDS: ALBUTEROL 2.5 MG/3 ML NEB RESP TX SCH ×4 (00:39→19:40)
[2022-03-27] MEDS ORDERED: ASPIRIN 325 MG TABLET PO ONE (01:45)
[2022-03-27] MEDS ORDERED: MORPHINE 2 MG/1 ML SYRINGE IV ONE (01:45)
[2022-03-27 02:37] LABS: Basophils % 0.4 % (0.0-0.8); Eosinophils # 0.1 10*3/uL (0.0-0.87); Eosinophils % 0.7 % (0.00-10.9); Hematocrit 24.6 VOL% (35.7-47.0); Hemoglobin 8.1 GM/DL (12.0-16.0); Immature Granulocytes % 0.5 %; Immature Granulocytes Absolute 0.04 #; Lymphocytes # 1.5 10*3/uL (1.4-4.0); Lymphocytes % 20.6 % (21.3-54.2); Mean Corpuscular HGB Conc 32.9 GM/DL (32-36); Mean Corpuscular Volume 100.4 FL (87-102); Mean Platelet Volume 9.1 FL (9.6-12.0); Monocytes # 0.5 10*3/uL (0.11-0.8); Monocytes % 6.7 % (1.7-12.7); Neutrophils % 71.1 % (38.7-73.9); Platelet Count 184 T/CUMM (130-400); Red Blood Count 2.45 MC/CUMM (3.8-5.5); White Blood Count 7.5 T/CUMM (4-12)
[2022-03-27 02:57] LABS: Calcium 8.7 MG/DL (8.5-10.1); Osmolality,Calculated 301.4 MOS/KG (273-304); Potassium 3.6 MMOL/L (3.5-5.1)
[2022-03-27 02:59] LABS: Risk Ratio 2.06; VLDL Cholesterol 33.2 MG/DL
[2022-03-27] MEDS: HEPARIN 5,000 UNIT/1 ML VIAL SUBCUT SCH (05:28)
[2022-03-27] MEDS: MONTELUKAST 10 MG TABLET PO SCH (08:48)
[2022-03-27] MEDS: ROSUVASTATIN 20 MG TABLET PO SCH (08:48)
[2022-03-27] MEDS: SODIUM BICARBONATE 650 MG TABLET PO SCH ×2 (08:48→21:51)
[2022-03-27] MEDS: carvediloL 12.5 MG TABLET PO SCH ×2 (08:48→17:52)
[2022-03-27] MEDS: FERROUS SULFATE 325 MG TABLET PO SCH ×2 (08:48→21:51)
[2022-03-27] MEDS: SEVELAMER CARBONATE 800 MG TABLET PO SCH ×3 (08:48→17:52)
[2022-03-27] MEDS: PANTOPRAZOLE 40 MG TABLET PO SCH (08:48)
[2022-03-27] MEDS: FUROSEMIDE 40 MG/4 ML VIAL IV SCH (09:35)
[2022-03-27] MEDS: ACETAMINOPHEN 325 MG TABLET PO PRN (10:26)
[2022-03-27] MEDS ORDERED: HEPARIN 5,000 UNIT/1 ML VIAL IV PRN (12:54)
[2022-03-27] MEDS ORDERED: EPOETIN ALFA-EPBX 4,000 UNIT/ML VIAL IV PRN (14:52)
[2022-03-28] MEDS: ALBUTEROL 2.5 MG/3 ML NEB RESP TX SCH ×4 (00:48→19:20)
[2022-03-28] MEDS: ACETAMINOPHEN 325 MG TABLET PO PRN (02:48)
[2022-03-28] MEDS: ONDANSETRON 4 MG/2 ML VIAL IV PRN ×2 (03:50→15:20)
[2022-03-28 04:36] LABS: Basophils % 0.1 % (0.0-0.8); Eosinophils # 0.1 10*3/uL (0.0-0.87); Eosinophils % 1.9 % (0.00-10.9); Hematocrit 22.3 VOL% (35.7-47.0); Hemoglobin 7.3 GM/DL (12.0-16.0); Immature Granulocytes % 0.4 %; Immature Granulocytes Absolute 0.03 #; Lymphocytes # 1.2 10*3/uL (1.4-4.0); Lymphocytes % 17.7 % (21.3-54.2); Mean Corpuscular HGB Conc 32.7 GM/DL (32-36); Mean Corpuscular Volume 100.9 FL (87-102); Mean Platelet Volume 9.3 FL (9.6-12.0); Monocytes # 0.6 10*3/uL (0.11-0.8); Monocytes % 9.4 % (1.7-12.7); Neutrophils % 70.5 % (38.7-73.9); Platelet Count 159 T/CUMM (130-400); Red Blood Count 2.21 MC/CUMM (3.8-5.5); Red Cell Distribution Width 16.1 % (9.3-17.3); White Blood Count 6.8 T/CUMM (4-12)
[2022-03-28 05:03] LABS: Calcium 8.4 MG/DL (8.5-10.1); Osmolality,Calculated 289.4 MOS/KG (273-304); Potassium 3.1 MMOL/L (3.5-5.1)
[2022-03-28] MEDS ORDERED: POTASSIUM CHLORIDE 20 MEQ TABLET PO ONE (07:42)
[2022-03-28] MEDS: PANTOPRAZOLE 40 MG TABLET PO SCH (10:03)
[2022-03-28] MEDS: carvediloL 12.5 MG TABLET PO SCH ×2 (10:03→17:10)
[2022-03-28] MEDS: ROSUVASTATIN 20 MG TABLET PO SCH (10:03)
[2022-03-28] MEDS: SEVELAMER CARBONATE 800 MG TABLET PO SCH ×3 (10:03→17:10)
[2022-03-28] MEDS: FERROUS SULFATE 325 MG TABLET PO SCH ×2 (10:03→20:30)
[2022-03-28] MEDS: FUROSEMIDE 40 MG/4 ML VIAL IV SCH (10:03)
[2022-03-28] MEDS: MONTELUKAST 10 MG TABLET PO SCH (10:04)
[2022-03-28] MEDS: SODIUM BICARBONATE 650 MG TABLET PO SCH ×2 (10:04→20:30)
[2022-03-28] MEDS: POLYETHYLENE GLYCOL POWDER 17 GM PACK PO SCH (13:10)
[2022-03-28] MEDS: CLINDAMYCIN 300 MG CAPSULE PO SCH ×2 (13:10→21:37)
[2022-03-28] MEDS: RACEPINEPHRINE 0.5 ML NEB RESP TX SCH (14:10)
[2022-03-29] MEDS: ALBUTEROL 2.5 MG/3 ML NEB RESP TX SCH ×2 (00:32→07:00)
[2022-03-29] MEDS: diphenhydrAMINE CAP 25 MG CAPSULE PO PRN ×2 (03:36→13:00)
[2022-03-29 05:18] LABS: Basophils % 0.2 % (0.0-0.8); Eosinophils # 0.2 10*3/uL (0.0-0.87); Eosinophils % 3.6 % (0.00-10.9); Hematocrit 23.7 VOL% (35.7-47.0); Hemoglobin 7.5 GM/DL (12.0-16.0); Immature Granulocytes % 0.3 %; Immature Granulocytes Absolute 0.02 #; Lymphocytes # 1.3 10*3/uL (1.4-4.0); Lymphocytes % 20.8 % (21.3-54.2); Mean Corpuscular HGB Conc 31.6 GM/DL (32-36); Mean Corpuscular Volume 103.9 FL (87-102); Mean Platelet Volume 9.6 FL (9.6-12.0); Monocytes # 0.6 10*3/uL (0.11-0.8); Monocytes % 10.3 % (1.7-12.7); Neutrophils % 64.8 % (38.7-73.9); Platelet Count 153 T/CUMM (130-400); Red Blood Count 2.28 MC/CUMM (3.8-5.5); Red Cell Distribution Width 15.8 % (9.3-17.3); White Blood Count 6.2 T/CUMM (4-12)
[2022-03-29 05:43] LABS: Calcium 9.1 MG/DL (8.5-10.1); Osmolality,Calculated 287.8 MOS/KG (273-304); Potassium 4.2 MMOL/L (3.5-5.1)
[2022-03-29] MEDS: CLINDAMYCIN 300 MG CAPSULE PO SCH ×3 (07:14→22:35)
[2022-03-29] MEDS: RACEPINEPHRINE 0.5 ML NEB RESP TX SCH ×4 (07:41→18:54)
[2022-03-29] MEDS: ONDANSETRON 4 MG/2 ML VIAL IV PRN (08:43)
[2022-03-29] MEDS: SEVELAMER CARBONATE 800 MG TABLET PO SCH ×3 (12:29→17:09)
[2022-03-29] MEDS: POLYETHYLENE GLYCOL POWDER 17 GM PACK PO SCH (12:30)
[2022-03-29] MEDS: carvediloL 12.5 MG TABLET PO SCH ×2 (12:56→17:09)
[2022-03-29] MEDS: PANTOPRAZOLE 40 MG TABLET PO SCH (12:56)
[2022-03-29] MEDS: MONTELUKAST 10 MG TABLET PO SCH (12:56)
[2022-03-29] MEDS: ROSUVASTATIN 20 MG TABLET PO SCH (12:56)
[2022-03-29] MEDS: FERROUS SULFATE 325 MG TABLET PO SCH ×2 (12:56→19:59)
[2022-03-29] MEDS: FUROSEMIDE 40 MG/4 ML VIAL IV SCH (12:56)
[2022-03-29] MEDS: SODIUM BICARBONATE 650 MG TABLET PO SCH ×2 (12:57→19:59)
[2022-03-30 05:46] LABS: Basophils % 0.1 % (0.0-0.8); Eosinophils # 0.2 10*3/uL (0.0-0.87); Eosinophils % 3.4 % (0.00-10.9); Hematocrit 25.1 VOL% (35.7-47.0); Hemoglobin 7.9 GM/DL (12.0-16.0); Immature Granulocytes % 0.4 %; Immature Granulocytes Absolute 0.03 #; Lymphocytes # 1.2 10*3/uL (1.4-4.0); Lymphocytes % 18.1 % (21.3-54.2); Mean Corpuscular HGB Conc 31.5 GM/DL (32-36); Mean Corpuscular Volume 106.4 FL (87-102); Mean Platelet Volume 9.5 FL (9.6-12.0); Monocytes # 0.7 10*3/uL (0.11-0.8); Monocytes % 10.5 % (1.7-12.7); Neutrophils % 67.5 % (38.7-73.9); Platelet Count 177 T/CUMM (130-400); Red Blood Count 2.36 MC/CUMM (3.8-5.5); Red Cell Distribution Width 15.9 % (9.3-17.3); White Blood Count 6.7 T/CUMM (4-12)
[2022-03-30 06:13] LABS: Osmolality,Calculated 278.8 MOS/KG (273-304); Potassium 4.1 MMOL/L (3.5-5.1)
[2022-03-30] MEDS: RACEPINEPHRINE 0.5 ML NEB RESP TX SCH ×4 (07:36→19:27)
[2022-03-30] MEDS: carvediloL 12.5 MG TABLET PO SCH ×2 (09:50→16:01)
[2022-03-30] MEDS: SEVELAMER CARBONATE 800 MG TABLET PO SCH ×3 (09:50→16:01)
[2022-03-30] MEDS: FERROUS SULFATE 325 MG TABLET PO SCH ×2 (09:51→20:15)
[2022-03-30] MEDS: ROSUVASTATIN 20 MG TABLET PO SCH (11:06)
[2022-03-30] MEDS: SODIUM BICARBONATE 650 MG TABLET PO SCH ×2 (11:06→20:15)
[2022-03-30] MEDS: CLINDAMYCIN 300 MG CAPSULE PO SCH ×3 (11:06→21:21)
[2022-03-30] MEDS: POLYETHYLENE GLYCOL POWDER 17 GM PACK PO SCH (11:23)
[2022-03-30] MEDS: FUROSEMIDE 40 MG/4 ML VIAL IV SCH (11:23)
[2022-03-30] MEDS: PANTOPRAZOLE 40 MG TABLET PO SCH (11:23)
[2022-03-30] MEDS: MONTELUKAST 10 MG TABLET PO SCH (11:23)
[2022-03-30] MEDS: ACETAMINOPHEN 325 MG TABLET PO PRN ×2 (11:52→16:01)
[2022-03-31] MEDS: CLINDAMYCIN 300 MG CAPSULE PO SCH ×3 (05:37→21:06)
[2022-03-31 05:47] LABS: Basophils % 0.3 % (0.0-0.8); Eosinophils # 0.2 10*3/uL (0.0-0.87); Eosinophils % 3.4 % (0.00-10.9); Hematocrit 24.8 VOL% (35.7-47.0); Hemoglobin 7.9 GM/DL (12.0-16.0); Immature Granulocytes % 0.7 %; Immature Granulocytes Absolute 0.05 #; Lymphocytes # 1.4 10*3/uL (1.4-4.0); Lymphocytes % 19.6 % (21.3-54.2); Mean Corpuscular HGB Conc 31.9 GM/DL (32-36); Mean Corpuscular Volume 104.2 FL (87-102); Mean Platelet Volume 9.7 FL (9.6-12.0); Monocytes # 0.6 10*3/uL (0.11-0.8); Monocytes % 8.2 % (1.7-12.7); Neutrophils % 67.8 % (38.7-73.9); Platelet Count 190 T/CUMM (130-400); Red Blood Count 2.38 MC/CUMM (3.8-5.5); Red Cell Distribution Width 15.8 % (9.3-17.3)
[2022-03-31 06:01] LABS: Calcium 8.7 MG/DL (8.5-10.1); Osmolality,Calculated 286.5 MOS/KG (273-304); Potassium 4.2 MMOL/L (3.5-5.1)
[2022-03-31] MEDS: RACEPINEPHRINE 0.5 ML NEB RESP TX SCH ×4 (07:42→19:40)
[2022-03-31] MEDS: SEVELAMER CARBONATE 800 MG TABLET PO SCH ×3 (09:40→17:11)
[2022-03-31] MEDS: FERROUS SULFATE 325 MG TABLET PO SCH ×2 (09:41→21:05)
[2022-03-31] MEDS: carvediloL 12.5 MG TABLET PO SCH ×2 (09:41→17:11)
[2022-03-31] MEDS: FUROSEMIDE 40 MG/4 ML VIAL IV SCH (09:58)
[2022-03-31] MEDS: SODIUM CHLORIDE 0.9% 1,000 ML IV SCH (12:02)
[2022-03-31] MEDS ORDERED: LIDOCAINE 2% 5 ML VIAL ONE (12:26)
[2022-03-31] MEDS ORDERED: ETOMIDATE 20 MG/10 ML VIAL IV ONE (12:26)
[2022-03-31] MEDS ORDERED: HEPARIN 5,000 UNIT/1 ML VIAL IV ONE (13:30)
[2022-03-31] MEDS: SODIUM BICARBONATE 650 MG TABLET PO SCH ×2 (14:14→21:06)
[2022-03-31] MEDS: POLYETHYLENE GLYCOL POWDER 17 GM PACK PO SCH (14:14)
[2022-03-31] MEDS: MONTELUKAST 10 MG TABLET PO SCH (14:42)
[2022-03-31] MEDS: ROSUVASTATIN 20 MG TABLET PO SCH (14:42)
[2022-03-31] MEDS: PANTOPRAZOLE 40 MG TABLET PO SCH (14:42)
[2022-04-01] MEDS: CLINDAMYCIN 300 MG CAPSULE PO SCH ×3 (05:38→21:10)
[2022-04-01] MEDS: RACEPINEPHRINE 0.5 ML NEB RESP TX SCH ×4 (07:00→20:11)
[2022-04-01] MEDS: POLYETHYLENE GLYCOL POWDER 17 GM PACK PO SCH (09:18)
[2022-04-01] MEDS: SEVELAMER CARBONATE 800 MG TABLET PO SCH ×3 (09:19→16:28)
[2022-04-01] MEDS: PANTOPRAZOLE 40 MG TABLET PO SCH (09:19)
[2022-04-01] MEDS: FUROSEMIDE 40 MG/4 ML VIAL IV SCH (09:19)
[2022-04-01] MEDS: carvediloL 12.5 MG TABLET PO SCH ×2 (09:19→16:28)
[2022-04-01] MEDS: MONTELUKAST 10 MG TABLET PO SCH (09:19)
[2022-04-01] MEDS: SODIUM BICARBONATE 650 MG TABLET PO SCH ×2 (09:19→21:09)
[2022-04-01] MEDS: ROSUVASTATIN 20 MG TABLET PO SCH (09:19)
[2022-04-01] MEDS: FERROUS SULFATE 325 MG TABLET PO SCH ×2 (09:25→21:10)
[2022-04-01] MEDS: ONDANSETRON 4 MG/2 ML VIAL IV PRN ×2 (16:36→22:23)
[2022-04-02] MEDS: CLINDAMYCIN 300 MG CAPSULE PO SCH ×3 (07:12→22:12)
[2022-04-02] MEDS: FUROSEMIDE 40 MG/4 ML VIAL IV SCH (08:20)
[2022-04-02] MEDS: ONDANSETRON 4 MG/2 ML VIAL IV PRN ×4 (08:21→22:15)
[2022-04-02] MEDS: MONTELUKAST 10 MG TABLET PO SCH (08:22)
[2022-04-02] MEDS: FERROUS SULFATE 325 MG TABLET PO SCH ×2 (08:22→22:14)
[2022-04-02] MEDS: carvediloL 12.5 MG TABLET PO SCH ×2 (08:22→16:27)
[2022-04-02] MEDS: PANTOPRAZOLE 40 MG TABLET PO SCH (08:22)
[2022-04-02] MEDS: ROSUVASTATIN 20 MG TABLET PO SCH (08:22)
[2022-04-02] MEDS: SODIUM CHLORIDE 0.9% 1,000 ML IV SCH ×2 (08:23→08:59)
[2022-04-02] MEDS: POLYETHYLENE GLYCOL POWDER 17 GM PACK PO SCH (08:24)
[2022-04-02] MEDS: SEVELAMER CARBONATE 800 MG TABLET PO SCH ×3 (08:25→16:27)
[2022-04-02] MEDS: SODIUM BICARBONATE 650 MG TABLET PO SCH ×2 (08:59→22:15)
[2022-04-02] MEDS: HYOSCYAMINE 0.125 MG TABLET SL SCH ×3 (11:30→22:15)
[2022-04-02] MEDS: RACEPINEPHRINE 0.5 ML NEB RESP TX SCH ×4 (11:57→19:03)
[2022-04-03] MEDS: CLINDAMYCIN 300 MG CAPSULE PO SCH (06:25)
[2022-04-03] MEDS: HYOSCYAMINE 0.125 MG TABLET SL SCH ×3 (06:44→16:59)
[2022-04-03] MEDS: ONDANSETRON 4 MG/2 ML VIAL IV PRN ×2 (06:45→09:17)
[2022-04-03] MEDS: RACEPINEPHRINE 0.5 ML NEB RESP TX SCH ×4 (07:00→19:39)
[2022-04-03 08:40] LABS: Basophils % 0.3 % (0.0-0.8); Eosinophils # 0.3 10*3/uL (0.0-0.87); Eosinophils % 4.3 % (0.00-10.9); Hematocrit 28.6 VOL% (35.7-47.0); Hemoglobin 9.1 GM/DL (12.0-16.0); Immature Granulocytes % 0.6 %; Immature Granulocytes Absolute 0.04 #; Lymphocytes # 1.5 10*3/uL (1.4-4.0); Lymphocytes % 20.5 % (21.3-54.2); Mean Corpuscular HGB Conc 31.8 GM/DL (32-36); Mean Corpuscular Volume 105.5 FL (87-102); Mean Platelet Volume 9.4 FL (9.6-12.0); Monocytes # 0.5 10*3/uL (0.11-0.8); Monocytes % 7.1 % (1.7-12.7); Neutrophils % 67.2 % (38.7-73.9); Platelet Count 258 T/CUMM (130-400); Red Blood Count 2.71 MC/CUMM (3.8-5.5); Red Cell Distribution Width 15.7 % (9.3-17.3); White Blood Count 7.2 T/CUMM (4-12)
[2022-04-03 08:57] LABS: Calcium 8.8 MG/DL (8.5-10.1); Osmolality,Calculated 291.8 MOS/KG (273-304); Potassium 4.7 MMOL/L (3.5-5.1)
[2022-04-03] MEDS: SODIUM BICARBONATE 650 MG TABLET PO SCH ×2 (09:11→21:39)
[2022-04-03] MEDS: POLYETHYLENE GLYCOL POWDER 17 GM PACK PO SCH (09:11)
[2022-04-03] MEDS: FUROSEMIDE 40 MG TABLET PO SCH ×2 (09:12→16:55)
[2022-04-03] MEDS: ROSUVASTATIN 20 MG TABLET PO SCH (09:12)
[2022-04-03] MEDS: PANTOPRAZOLE 40 MG TABLET PO SCH (09:12)
[2022-04-03] MEDS: carvediloL 12.5 MG TABLET PO SCH ×2 (09:12→16:55)
[2022-04-03] MEDS: SEVELAMER CARBONATE 800 MG TABLET PO SCH ×3 (09:12→16:58)
[2022-04-03] MEDS: MONTELUKAST 10 MG TABLET PO SCH (09:12)
[2022-04-03] MEDS: FERROUS SULFATE 325 MG TABLET PO SCH ×2 (09:16→21:38)
[2022-04-03] MEDS: SODIUM CHLORIDE 0.9% 1,000 ML IV SCH (09:17)
[2022-04-03] MEDS ORDERED: HEPARIN 10,000 UNIT/10 ML VIAL IV SCH (10:30)
[2022-04-04] MEDS: HYOSCYAMINE 0.125 MG TABLET SL SCH ×3 (00:08→11:34)
[2022-04-04] MEDS: ONDANSETRON 4 MG/2 ML VIAL IV PRN (02:57)
[2022-04-04] MEDS: RACEPINEPHRINE 0.5 ML NEB RESP TX SCH ×2 (07:22→11:15)
[2022-04-04 07:29] LABS: Basophils % 0.2 % (0.0-0.8); Eosinophils # 0.2 10*3/uL (0.0-0.87); Eosinophils % 3.5 % (0.00-10.9); Hematocrit 24.2 VOL% (35.7-47.0); Hemoglobin 7.7 GM/DL (12.0-16.0); Immature Granulocytes % 0.4 %; Immature Granulocytes Absolute 0.02 #; Lymphocytes # 1.2 10*3/uL (1.4-4.0); Lymphocytes % 23.8 % (21.3-54.2); Mean Corpuscular HGB Conc 31.8 GM/DL (32-36); Mean Corpuscular Volume 104.3 FL (87-102); Mean Platelet Volume 9.5 FL (9.6-12.0); Monocytes # 0.5 10*3/uL (0.11-0.8); Monocytes % 10.1 % (1.7-12.7); Platelet Count 194 T/CUMM (130-400); Red Blood Count 2.32 MC/CUMM (3.8-5.5); Red Cell Distribution Width 15.7 % (9.3-17.3); White Blood Count 5.2 T/CUMM (4-12)
[2022-04-04 08:16] LABS: Calcium 8.8 MG/DL (8.5-10.1); Osmolality,Calculated 278.8 MOS/KG (273-304); Potassium 4.2 MMOL/L (3.5-5.1)
[2022-04-04 08:23] VITALS: BP 150/48
[2022-04-04] MEDS: SODIUM BICARBONATE 650 MG TABLET PO SCH (09:10)
[2022-04-04] MEDS: MONTELUKAST 10 MG TABLET PO SCH (09:10)
[2022-04-04] MEDS: SEVELAMER CARBONATE 800 MG TABLET PO SCH ×2 (09:10→11:34)
[2022-04-04] MEDS: FERROUS SULFATE 325 MG TABLET PO SCH ×2 (09:11→13:24)
[2022-04-04] MEDS: carvediloL 12.5 MG TABLET PO SCH (09:11)
[2022-04-04] MEDS: FUROSEMIDE 40 MG TABLET PO SCH (09:11)
[2022-04-04] MEDS: PANTOPRAZOLE 40 MG TABLET PO SCH (09:11)
[2022-04-04] MEDS: ROSUVASTATIN 20 MG TABLET PO SCH (09:11)
[2022-04-04] MEDS: POLYETHYLENE GLYCOL POWDER 17 GM PACK PO SCH (09:12)
[2022-04-04] MEDS: SODIUM CHLORIDE 0.9% 1,000 ML IV SCH (13:22)
== END 2022-04-04 13:33 | disposition home or self-care (01) | DRG 291 ==
LOC: N.EDINP 13:41 → N.ED 13:41 → SUATTDRO 16:40 → N.TELES 16:59 → SUATTDRO 03-28 14:26
PROVIDERS: ADMIT Emergency Medicine; ATTEND Family Medicine

== ENCOUNTER 2022-04-29 18:09 | Inpatient (IN) ==
[2022-04-29 18:40] LABS: Basophils % 0.4 % (0.0-0.8); Eosinophils # 0.1 10*3/uL (0.0-0.87); Eosinophils % 2.6 % (0.00-10.9); Hematocrit 27.1 VOL% (35.7-47.0); Hemoglobin 8.4 GM/DL (12.0-16.0); Immature Granulocytes % 0.6 %; Immature Granulocytes Absolute 0.03 #; Lymphocytes % 18.9 % (21.3-54.2); Mean Platelet Volume 8.5 FL (9.6-12.0); Monocytes # 0.4 10*3/uL (0.11-0.8); Monocytes % 7.5 % (1.7-12.7); Platelet Count 232 T/CUMM (130-400); Red Blood Count 2.63 MC/CUMM (3.8-5.5); Red Cell Distribution Width 15.6 % (9.3-17.3); White Blood Count 5.3 T/CUMM (4-12)
[2022-04-29 18:59] LABS: Bilirubin,Total 1.4 MG/DL (0.20-1.00); Calcium 8.9 MG/DL (8.5-10.1); Osmolality,Calculated 287.8 MOS/KG (273-304); Total Protein 6.6 G/DL (6.4-8.2)
[2022-04-29] MEDS ORDERED: NITROGLYCERIN 2% OINT 1 INCH/GM PACK TOP STA (19:19)
[2022-04-29] MEDS ORDERED: DEXTROSE 10% 250 ML BAG IV PRN (20:04)
[2022-04-29] MEDS ORDERED: GLUCAGON 1 MG VIAL IM PRN (20:04)
[2022-04-29] MEDS ORDERED: ALBUTEROL/IPRATROPIUM 3 ML NEB RESP TX PRN (20:04)
[2022-04-29] MEDS: INSULIN LISPRO 100 UNIT/ML SUBCUT SCH (21:21)
[2022-04-29] MEDS: FUROSEMIDE 40 MG/4 ML VIAL IV SCH (21:21)
[2022-04-29] MEDS: ENOXAPARIN 30 MG/0.3 ML SYRINGE SUBCUT SCH (21:21)
[2022-04-29] MEDS ORDERED: hydrALAZINE 20 MG/1 ML VIAL IV PRN (22:17)
[2022-04-29] MEDS: EPINEPHRINE INH SCH (23:38)
[2022-04-29] MEDS: [UNRECOGNIZED DRUG - OTHER] INH SCH (23:38)
[2022-04-29] MEDS: carvediloL 12.5 MG TABLET PO SCH (23:38)
[2022-04-29] MEDS: HYOSCYAMINE 0.125 MG TABLET SL SCH (23:39)
[2022-04-30] MEDS: EPINEPHRINE INH SCH ×4 (03:44→22:35)
[2022-04-30] MEDS: [UNRECOGNIZED DRUG - OTHER] INH SCH ×4 (03:44→22:35)
[2022-04-30 04:11] LABS: Basophils % 0.5 % (0.0-0.8); Eosinophils # 0.1 10*3/uL (0.0-0.87); Eosinophils % 1.4 % (0.00-10.9); Hematocrit 23.8 VOL% (35.7-47.0); Hemoglobin 7.3 GM/DL (12.0-16.0); Immature Granulocytes % 0.5 %; Immature Granulocytes Absolute 0.03 #; Lymphocytes # 1.4 10*3/uL (1.4-4.0); Lymphocytes % 24.3 % (21.3-54.2); Mean Corpuscular HGB Conc 30.7 GM/DL (32-36); Mean Platelet Volume 8.9 FL (9.6-12.0); Monocytes # 0.5 10*3/uL (0.11-0.8); Monocytes % 8.4 % (1.7-12.7); Neutrophils % 64.9 % (38.7-73.9); Platelet Count 212 T/CUMM (130-400); Red Blood Count 2.31 MC/CUMM (3.8-5.5); Red Cell Distribution Width 15.7 % (9.3-17.3); White Blood Count 5.6 T/CUMM (4-12)
[2022-04-30 04:31] LABS: Calcium 8.7 MG/DL (8.5-10.1); Osmolality,Calculated 294.4 MOS/KG (273-304)
[2022-04-30] MEDS: HYOSCYAMINE 0.125 MG TABLET SL SCH ×4 (04:56→22:35)
[2022-04-30] MEDS: diphenhydrAMINE CAP 25 MG CAPSULE PO PRN (04:57)
[2022-04-30] MEDS: MULTIVITAMIN (BEROCCA) TABLET PO SCH (08:21)
[2022-04-30] MEDS: CHOLECALCIFEROL 1,000 UNIT TABLET PO SCH (08:21)
[2022-04-30] MEDS: MONTELUKAST 10 MG TABLET PO SCH (08:21)
[2022-04-30] MEDS: calcitrioL 0.25 MCG CAPSULE PO SCH (08:22)
[2022-04-30] MEDS: carvediloL 12.5 MG TABLET PO SCH ×2 (08:22→17:20)
[2022-04-30] MEDS: PANTOPRAZOLE 40 MG TABLET PO SCH (08:22)
[2022-04-30] MEDS: FUROSEMIDE 40 MG/4 ML VIAL IV SCH ×2 (08:22→21:25)
[2022-04-30] MEDS: ROSUVASTATIN 20 MG TABLET PO SCH (08:22)
[2022-04-30] MEDS: ESCITALOPRAM 10 MG TABLET PO SCH (08:22)
[2022-04-30] MEDS: SODIUM BICARBONATE 650 MG TABLET PO SCH ×2 (08:28→21:25)
[2022-04-30] MEDS: SEVELAMER CARBONATE 800 MG TABLET PO SCH ×3 (08:28→17:20)
[2022-04-30] MEDS: LOSARTAN 50 MG TABLET PO SCH (08:28)
[2022-04-30] MEDS: INSULIN LISPRO 100 UNIT/ML SUBCUT SCH ×4 (08:48→22:34)
[2022-04-30] MEDS ORDERED: RACEPINEPHRINE 0.5 ML NEB RESP TX PRN (10:49)
[2022-04-30] MEDS: ENOXAPARIN 30 MG/0.3 ML SYRINGE SUBCUT SCH (21:24)
[2022-05-01 05:42] LABS: Calcium 8.3 MG/DL (8.5-10.1); Osmolality,Calculated 285.2 MOS/KG (273-304); Potassium 3.7 MMOL/L (3.5-5.1)
[2022-05-01 05:49] LABS: % Iron Saturation 24.7 % (18-50); Ferritin 668.1 ng/mL (8-252)
[2022-05-01 05:54] LABS: Folate 20.28 NG/ML (5.38-24.0); Vitamin B12 446 PG/ML (211-911)
[2022-05-01] MEDS: [UNRECOGNIZED DRUG - OTHER] INH SCH ×4 (06:04→21:57)
[2022-05-01] MEDS: EPINEPHRINE INH SCH ×4 (06:04→21:57)
[2022-05-01] MEDS: HYOSCYAMINE 0.125 MG TABLET SL SCH ×4 (06:15→22:20)
[2022-05-01 06:55] LABS: Basophils % 0.4 % (0.0-0.8); Eosinophils # 0.2 10*3/uL (0.0-0.87); Hematocrit 23.9 VOL% (35.7-47.0); Hemoglobin 7.3 GM/DL (12.0-16.0); Immature Granulocytes % 0.3 %; Immature Granulocytes Absolute 0.02 #; Lymphocytes # 1.4 10*3/uL (1.4-4.0); Lymphocytes % 20.9 % (21.3-54.2); Mean Corpuscular HGB Conc 30.5 GM/DL (32-36); Mean Corpuscular Volume 103.9 FL (87-102); Mean Platelet Volume 8.9 FL (9.6-12.0); Monocytes # 0.6 10*3/uL (0.11-0.8); Monocytes % 8.6 % (1.7-12.7); Neutrophils % 66.8 % (38.7-73.9); Platelet Count 195 T/CUMM (130-400); Red Cell Distribution Width 15.5 % (9.3-17.3); White Blood Count 6.8 T/CUMM (4-12)
[2022-05-01 08:04] LABS: Sedimentation Rate-Westergren 96 MM/HR (0-30)
[2022-05-01] MEDS: INSULIN LISPRO 100 UNIT/ML SUBCUT SCH ×4 (09:04→20:51)
[2022-05-01] MEDS: MULTIVITAMIN (BEROCCA) TABLET PO SCH (09:05)
[2022-05-01] MEDS: SEVELAMER CARBONATE 800 MG TABLET PO SCH ×3 (09:05→17:15)
[2022-05-01] MEDS: SODIUM BICARBONATE 650 MG TABLET PO SCH ×2 (09:05→21:48)
[2022-05-01] MEDS: MONTELUKAST 10 MG TABLET PO SCH (09:06)
[2022-05-01] MEDS: LOSARTAN 50 MG TABLET PO SCH (09:06)
[2022-05-01] MEDS: PANTOPRAZOLE 40 MG TABLET PO SCH (09:06)
[2022-05-01] MEDS: carvediloL 12.5 MG TABLET PO SCH ×2 (09:06→17:15)
[2022-05-01] MEDS: FUROSEMIDE 40 MG/4 ML VIAL IV SCH ×2 (09:06→21:56)
[2022-05-01] MEDS: ESCITALOPRAM 10 MG TABLET PO SCH (09:06)
[2022-05-01] MEDS: ROSUVASTATIN 20 MG TABLET PO SCH (09:07)
[2022-05-01] MEDS: calcitrioL 0.25 MCG CAPSULE PO SCH (09:07)
[2022-05-01] MEDS: CHOLECALCIFEROL 1,000 UNIT TABLET PO SCH (09:07)
[2022-05-01] MEDS: ACETAMINOPHEN 325 MG TABLET PO PRN ×2 (11:53→17:54)
[2022-05-01] MEDS ORDERED: EPOETIN ALFA-EPBX 10,000 UNIT/ML VIAL IV SCH (15:30)
[2022-05-01] MEDS: ONDANSETRON 4 MG/2 ML VIAL IV PRN (19:50)
[2022-05-01] MEDS: diphenhydrAMINE CAP 25 MG CAPSULE PO PRN (21:48)
[2022-05-01] MEDS: ENOXAPARIN 30 MG/0.3 ML SYRINGE SUBCUT SCH (21:49)
[2022-05-02] MEDS: EPINEPHRINE INH SCH ×4 (04:55→21:37)
[2022-05-02] MEDS: [UNRECOGNIZED DRUG - OTHER] INH SCH ×4 (04:55→21:37)
[2022-05-02] MEDS: HYOSCYAMINE 0.125 MG TABLET SL SCH ×4 (05:42→23:54)
[2022-05-02 06:03] LABS: Basophils % 0.5 % (0.0-0.8); Eosinophils # 0.2 10*3/uL (0.0-0.87); Eosinophils % 2.6 % (0.00-10.9); Hematocrit 24.1 VOL% (35.7-47.0); Hemoglobin 7.3 GM/DL (12.0-16.0); Immature Granulocytes % 0.3 %; Immature Granulocytes Absolute 0.02 #; Lymphocytes # 1.3 10*3/uL (1.4-4.0); Lymphocytes % 22.6 % (21.3-54.2); Mean Corpuscular HGB Conc 30.3 GM/DL (32-36); Mean Corpuscular Volume 106.6 FL (87-102); Monocytes # 0.5 10*3/uL (0.11-0.8); Monocytes % 9.3 % (1.7-12.7); Neutrophils % 64.7 % (38.7-73.9); Platelet Count 211 T/CUMM (130-400); Red Blood Count 2.26 MC/CUMM (3.8-5.5); Red Cell Distribution Width 15.5 % (9.3-17.3); White Blood Count 5.8 T/CUMM (4-12)
[2022-05-02 06:16] LABS: Calcium 8.4 MG/DL (8.5-10.1); Osmolality,Calculated 284.8 MOS/KG (273-304); Potassium 3.7 MMOL/L (3.5-5.1)
[2022-05-02 06:30] LABS: Calcium 8.5 MG/DL (8.5-10.1); Ferritin 579.8 ng/mL (8-252); Osmolality,Calculated 284.8 MOS/KG (273-304); Potassium 3.7 MMOL/L (3.5-5.1)
[2022-05-02] MEDS: INSULIN LISPRO 100 UNIT/ML SUBCUT SCH ×4 (09:45→21:36)
[2022-05-02] MEDS: carvediloL 12.5 MG TABLET PO SCH ×2 (10:06→17:14)
[2022-05-02] MEDS: ESCITALOPRAM 10 MG TABLET PO SCH (10:06)
[2022-05-02] MEDS: SEVELAMER CARBONATE 800 MG TABLET PO SCH ×3 (10:06→17:14)
[2022-05-02] MEDS: ROSUVASTATIN 20 MG TABLET PO SCH (10:06)
[2022-05-02] MEDS: LOSARTAN 50 MG TABLET PO SCH (10:06)
[2022-05-02] MEDS: MULTIVITAMIN (BEROCCA) TABLET PO SCH (10:06)
[2022-05-02] MEDS: FUROSEMIDE 40 MG/4 ML VIAL IV SCH ×2 (10:06→17:13)
[2022-05-02] MEDS: PANTOPRAZOLE 40 MG TABLET PO SCH (10:07)
[2022-05-02] MEDS: MONTELUKAST 10 MG TABLET PO SCH (10:07)
[2022-05-02] MEDS: CHOLECALCIFEROL 1,000 UNIT TABLET PO SCH (10:07)
[2022-05-02] MEDS: SODIUM BICARBONATE 650 MG TABLET PO SCH ×2 (10:07→21:37)
[2022-05-02] MEDS: calcitrioL 0.25 MCG CAPSULE PO SCH (10:07)
[2022-05-02 10:14] LABS: Hemoglobin A1 (Alkaline) 97.8 % (96.5-98.5); Hemoglobin A2 (Alkaline) 2.2 % (1.5-3.5)
[2022-05-02] MEDS: ENOXAPARIN 30 MG/0.3 ML SYRINGE SUBCUT SCH (21:37)
[2022-05-03] MEDS: EPINEPHRINE INH SCH ×4 (04:01→21:30)
[2022-05-03] MEDS: HYOSCYAMINE 0.125 MG TABLET SL SCH ×3 (04:01→17:51)
[2022-05-03] MEDS: ACETAMINOPHEN 325 MG TABLET PO PRN (04:01)
[2022-05-03] MEDS: [UNRECOGNIZED DRUG - OTHER] INH SCH ×4 (04:01→21:30)
[2022-05-03 05:00] LABS: Basophils % 0.5 % (0.0-0.8); Eosinophils # 0.2 10*3/uL (0.0-0.87); Hematocrit 25.7 VOL% (35.7-47.0); Hemoglobin 7.8 GM/DL (12.0-16.0); Immature Granulocytes % 0.5 %; Immature Granulocytes Absolute 0.03 #; Lymphocytes # 1.5 10*3/uL (1.4-4.0); Lymphocytes % 26.7 % (21.3-54.2); Mean Corpuscular HGB Conc 30.4 GM/DL (32-36); Mean Corpuscular Volume 107.1 FL (87-102); Mean Platelet Volume 9.1 FL (9.6-12.0); Monocytes # 0.5 10*3/uL (0.11-0.8); Monocytes % 8.4 % (1.7-12.7); Neutrophils % 60.9 % (38.7-73.9); Platelet Count 199 T/CUMM (130-400); Red Cell Distribution Width 15.5 % (9.3-17.3); White Blood Count 5.7 T/CUMM (4-12)
[2022-05-03 05:29] LABS: Calcium 8.2 MG/DL (8.5-10.1); Osmolality,Calculated 294.4 MOS/KG (273-304); Potassium 3.9 MMOL/L (3.5-5.1)
[2022-05-03] MEDS: INSULIN LISPRO 100 UNIT/ML SUBCUT SCH ×4 (11:05→21:30)
[2022-05-03] MEDS: ONDANSETRON 4 MG/2 ML VIAL IV PRN (11:36)
[2022-05-03] MEDS: SEVELAMER CARBONATE 800 MG TABLET PO SCH ×3 (15:33→17:51)
[2022-05-03] MEDS: FUROSEMIDE 40 MG/4 ML VIAL IV SCH ×2 (15:33→16:05)
[2022-05-03] MEDS: ESCITALOPRAM 10 MG TABLET PO SCH (16:02)
[2022-05-03] MEDS: calcitrioL 0.25 MCG CAPSULE PO SCH (16:03)
[2022-05-03] MEDS: MONTELUKAST 10 MG TABLET PO SCH (16:03)
[2022-05-03] MEDS: MULTIVITAMIN (BEROCCA) TABLET PO SCH (16:03)
[2022-05-03] MEDS: carvediloL 12.5 MG TABLET PO SCH ×2 (16:03→17:51)
[2022-05-03] MEDS: LOSARTAN 50 MG TABLET PO SCH (16:03)
[2022-05-03] MEDS: ROSUVASTATIN 20 MG TABLET PO SCH (16:03)
[2022-05-03] MEDS: SODIUM BICARBONATE 650 MG TABLET PO SCH ×2 (16:03→21:30)
[2022-05-03] MEDS: CHOLECALCIFEROL 1,000 UNIT TABLET PO SCH (16:03)
[2022-05-03] MEDS: PANTOPRAZOLE 40 MG TABLET PO SCH (16:04)
[2022-05-03 21:01] LABS: Soluble Transf Receptor (sTfR) 3.9 mg/L (1.8 - 4.6)
[2022-05-03] MEDS: ENOXAPARIN 30 MG/0.3 ML SYRINGE SUBCUT SCH (21:29)
[2022-05-04] MEDS: HYOSCYAMINE 0.125 MG TABLET SL SCH ×3 (00:44→12:24)
[2022-05-04 04:19] LABS: Basophils % 0.4 % (0.0-0.8); Eosinophils # 0.1 10*3/uL (0.0-0.87); Eosinophils % 1.9 % (0.00-10.9); Hematocrit 26.5 VOL% (35.7-47.0); Hemoglobin 7.8 GM/DL (12.0-16.0); Immature Granulocytes % 0.2 %; Immature Granulocytes Absolute 0.01 #; Lymphocytes % 21.4 % (21.3-54.2); Mean Corpuscular HGB Conc 29.4 GM/DL (32-36); Mean Corpuscular Volume 108.2 FL (87-102); Mean Platelet Volume 9.4 FL (9.6-12.0); Monocytes # 0.4 10*3/uL (0.11-0.8); Monocytes % 9.5 % (1.7-12.7); Neutrophils % 66.6 % (38.7-73.9); Platelet Count 180 T/CUMM (130-400); Red Blood Count 2.45 MC/CUMM (3.8-5.5); Red Cell Distribution Width 15.6 % (9.3-17.3); White Blood Count 4.6 T/CUMM (4-12)
[2022-05-04 04:42] LABS: Calcium 8.2 MG/DL (8.5-10.1); Osmolality,Calculated 285.5 MOS/KG (273-304); Potassium 4.6 MMOL/L (3.5-5.1)
[2022-05-04] MEDS: [UNRECOGNIZED DRUG - OTHER] INH SCH ×2 (05:22→12:25)
[2022-05-04] MEDS: EPINEPHRINE INH SCH ×2 (05:22→12:25)
[2022-05-04] MEDS: INSULIN LISPRO 100 UNIT/ML SUBCUT SCH ×2 (09:27→15:05)
[2022-05-04] MEDS: SEVELAMER CARBONATE 800 MG TABLET PO SCH ×2 (12:14→12:28)
[2022-05-04] MEDS: LOSARTAN 50 MG TABLET PO SCH (12:23)
[2022-05-04] MEDS: MONTELUKAST 10 MG TABLET PO SCH (12:23)
[2022-05-04] MEDS: CHOLECALCIFEROL 1,000 UNIT TABLET PO SCH (12:23)
[2022-05-04] MEDS: calcitrioL 0.25 MCG CAPSULE PO SCH (12:23)
[2022-05-04] MEDS: SODIUM BICARBONATE 650 MG TABLET PO SCH (12:23)
[2022-05-04] MEDS: PANTOPRAZOLE 40 MG TABLET PO SCH (12:23)
[2022-05-04] MEDS: ESCITALOPRAM 10 MG TABLET PO SCH (12:23)
[2022-05-04] MEDS: FUROSEMIDE 40 MG/4 ML VIAL IV SCH ×2 (12:24→15:17)
[2022-05-04] MEDS: ROSUVASTATIN 20 MG TABLET PO SCH (12:24)
[2022-05-04] MEDS: carvediloL 12.5 MG TABLET PO SCH (12:24)
[2022-05-04] MEDS: MULTIVITAMIN (BEROCCA) TABLET PO SCH (12:24)
[2022-05-04 13:02] VITALS: BP 107/56
== END 2022-05-04 16:00 | disposition home or self-care (01) | DRG 291 ==
LOC: N.ED 18:09 → SUATTDRO 20:04 → N.TELEN 20:04
PROVIDERS: ADMIT Internal Medicine Geriatric Medicine; ATTEND Hospitalist

== ENCOUNTER 2022-05-06 12:46 | Inpatient (IN) ==
[2022-05-06 13:19] LABS: Basophils % 0.3 % (0.0-0.8); Eosinophils # 0.1 10*3/uL (0.0-0.87); Eosinophils % 1.7 % (0.00-10.9); Hematocrit 28.3 VOL% (35.7-47.0); Hemoglobin 8.4 GM/DL (12.0-16.0); Immature Granulocytes % 0.4 %; Immature Granulocytes Absolute 0.03 #; Lymphocytes # 1.2 10*3/uL (1.4-4.0); Lymphocytes % 16.6 % (21.3-54.2); Mean Corpuscular HGB Conc 29.7 GM/DL (32-36); Mean Corpuscular Volume 110.5 FL (87-102); Mean Platelet Volume 9.7 FL (9.6-12.0); Monocytes # 0.4 10*3/uL (0.11-0.8); Monocytes % 5.6 % (1.7-12.7); Neutrophils % 75.4 % (38.7-73.9); Platelet Count 173 T/CUMM (130-400); Red Blood Count 2.56 MC/CUMM (3.8-5.5); Red Cell Distribution Width 15.7 % (9.3-17.3); White Blood Count 6.9 T/CUMM (4-12)
[2022-05-06 13:37] LABS: Albumin 3.2 G/DL (3.4-5.0); Calcium 9.1 MG/DL (8.5-10.1); Potassium 5.1 MMOL/L (3.5-5.1); Total Protein 6.6 G/DL (6.4-8.2)
[2022-05-06] MEDS ORDERED: FUROSEMIDE 100 MG/10 ML VIAL IV STA (14:39)
[2022-05-06] MEDS ORDERED: GLUCAGON 1 MG VIAL IM PRN (15:28)
[2022-05-06] MEDS ORDERED: hydrALAZINE 20 MG/1 ML VIAL IV PRN (15:28)
[2022-05-06] MEDS ORDERED: DEXTROSE 10% 250 ML BAG IV PRN (15:28)
[2022-05-06 15:50] LABS: PT Patient Result 10.8 SECS (10.1-12.1); Partial Thromboplastin Time 27.9 SECS (23.7-32.9)
[2022-05-06] MEDS ORDERED: ONDANSETRON 4 MG/2 ML VIAL IV PRN (15:50)
[2022-05-06] MEDS ORDERED: ONDANSETRON 4 MG/2 ML VIAL IV STA (15:50)
[2022-05-06] MEDS: HYOSCYAMINE 0.125 MG TABLET SL SCH ×2 (17:39→23:04)
[2022-05-06] MEDS: carvediloL 12.5 MG TABLET PO SCH (17:39)
[2022-05-06] MEDS: SEVELAMER CARBONATE 800 MG TABLET PO SCH (17:39)
[2022-05-06] MEDS: INSULIN LISPRO 100 UNIT/ML SUBCUT SCH ×2 (18:04→23:05)
[2022-05-06] MEDS: EPINEPHRINE INH SCH ×2 (18:05→23:06)
[2022-05-06 19:50] LABS: Hepatitis B Core IgM Quant 0.15 Index; Hepatitis B Surface Ag Quant < 0.10 Index; Hepatitis B Surface Ag Result Non-Reactive (NonReactive); Hepatitis C Virus Ab Quant < 0.02 Index; Hepatitis C Virus Ab Result Non-Reactive (NonReactive)
[2022-05-06] MEDS: SODIUM BICARBONATE 650 MG TABLET PO SCH (23:04)
[2022-05-07] MEDS: EPINEPHRINE INH SCH ×4 (04:14→21:12)
[2022-05-07] MEDS: HYOSCYAMINE 0.125 MG TABLET SL SCH ×4 (04:53→22:20)
[2022-05-07 05:23] LABS: Basophils % 0.5 % (0.0-0.8); Eosinophils # 0.1 10*3/uL (0.0-0.87); Eosinophils % 2.5 % (0.00-10.9); Hematocrit 25.4 VOL% (35.7-47.0); Hemoglobin 7.7 GM/DL (12.0-16.0); Immature Granulocytes % 0.2 %; Immature Granulocytes Absolute 0.01 #; Lymphocytes # 1.1 10*3/uL (1.4-4.0); Lymphocytes % 27.7 % (21.3-54.2); Mean Corpuscular HGB Conc 30.3 GM/DL (32-36); Mean Corpuscular Volume 106.3 FL (87-102); Mean Platelet Volume 9.1 FL (9.6-12.0); Monocytes # 0.4 10*3/uL (0.11-0.8); Monocytes % 10.5 % (1.7-12.7); Neutrophils % 58.6 % (38.7-73.9); Platelet Count 181 T/CUMM (130-400); Red Blood Count 2.39 MC/CUMM (3.8-5.5); Red Cell Distribution Width 15.5 % (9.3-17.3); White Blood Count 4.1 T/CUMM (4-12)
[2022-05-07 05:40] LABS: Calcium 8.9 MG/DL (8.5-10.1); Osmolality,Calculated 285.5 MOS/KG (273-304); Potassium 4.1 MMOL/L (3.5-5.1)
[2022-05-07] MEDS: SEVELAMER CARBONATE 800 MG TABLET PO SCH ×4 (07:45→16:03)
[2022-05-07] MEDS: INSULIN LISPRO 100 UNIT/ML SUBCUT SCH ×4 (08:03→21:07)
[2022-05-07] MEDS: PANTOPRAZOLE 40 MG TABLET PO SCH (08:54)
[2022-05-07] MEDS: SODIUM BICARBONATE 650 MG TABLET PO SCH ×2 (08:54→21:06)
[2022-05-07] MEDS: carvediloL 12.5 MG TABLET PO SCH ×3 (08:54→16:07)
[2022-05-07] MEDS: MONTELUKAST 10 MG TABLET PO SCH (08:54)
[2022-05-07] MEDS: ESCITALOPRAM 10 MG TABLET PO SCH (08:55)
[2022-05-07] MEDS: FUROSEMIDE 80 MG TABLET PO SCH ×2 (08:55→16:03)
[2022-05-07] MEDS: MULTIVITAMIN (BEROCCA) TABLET PO SCH (08:55)
[2022-05-07] MEDS: ROSUVASTATIN 20 MG TABLET PO SCH (08:55)
[2022-05-07] MEDS: calcitrioL 0.25 MCG CAPSULE PO SCH (08:55)
[2022-05-07] MEDS: LOSARTAN 50 MG TABLET PO SCH (08:55)
[2022-05-07] MEDS: Ergocalciferol (Vitamin D2) 50 mcg (2,000 unit) Tablet PO SCH (09:08)
[2022-05-08] MEDS ORDERED: ACETAMINOPHEN 325 MG TABLET PO PRN (02:30)
[2022-05-08] MEDS: EPINEPHRINE INH SCH ×3 (02:56→15:45)
[2022-05-08] MEDS: HYOSCYAMINE 0.125 MG TABLET SL SCH ×3 (06:05→17:14)
[2022-05-08] MEDS: INSULIN LISPRO 100 UNIT/ML SUBCUT SCH ×4 (08:07→21:37)
[2022-05-08] MEDS: calcitrioL 0.25 MCG CAPSULE PO SCH (08:48)
[2022-05-08 08:49] LABS: Basophils % 0.2 % (0.0-0.8); Eosinophils # 0.2 10*3/uL (0.0-0.87); Eosinophils % 2.8 % (0.00-10.9); Hematocrit 25.5 VOL% (35.7-47.0); Immature Granulocytes % 0.4 %; Immature Granulocytes Absolute 0.02 #; Lymphocytes # 1.6 10*3/uL (1.4-4.0); Mean Corpuscular HGB Conc 31.4 GM/DL (32-36); Mean Corpuscular Volume 106.7 FL (87-102); Monocytes # 0.5 10*3/uL (0.11-0.8); Monocytes % 9.1 % (1.7-12.7); Neutrophils % 57.5 % (38.7-73.9); Platelet Count 182 T/CUMM (130-400); Red Blood Count 2.39 MC/CUMM (3.8-5.5); Red Cell Distribution Width 15.6 % (9.3-17.3); White Blood Count 5.3 T/CUMM (4-12)
[2022-05-08] MEDS: SEVELAMER CARBONATE 800 MG TABLET PO SCH ×3 (08:49→17:21)
[2022-05-08] MEDS: ROSUVASTATIN 20 MG TABLET PO SCH (08:49)
[2022-05-08] MEDS: FUROSEMIDE 80 MG TABLET PO SCH ×2 (08:49→17:15)
[2022-05-08] MEDS: SODIUM BICARBONATE 650 MG TABLET PO SCH ×2 (08:49→21:32)
[2022-05-08] MEDS: ESCITALOPRAM 10 MG TABLET PO SCH (08:49)
[2022-05-08] MEDS: MULTIVITAMIN (BEROCCA) TABLET PO SCH (08:49)
[2022-05-08] MEDS: MONTELUKAST 10 MG TABLET PO SCH (08:50)
[2022-05-08] MEDS: PANTOPRAZOLE 40 MG TABLET PO SCH (08:50)
[2022-05-08 09:05] LABS: Calcium 8.8 MG/DL (8.5-10.1); Potassium 4.2 MMOL/L (3.5-5.1)
[2022-05-08] MEDS: carvediloL 12.5 MG TABLET PO SCH ×2 (09:39→17:15)
[2022-05-08] MEDS: LOSARTAN 50 MG TABLET PO SCH (09:40)
[2022-05-08] MEDS: Ergocalciferol (Vitamin D2) 50 mcg (2,000 unit) Tablet PO SCH (09:40)
[2022-05-08] MEDS ORDERED: HEPARIN 10,000 UNIT/10 ML VIAL IV PRN (13:41)
[2022-05-09] MEDS: EPINEPHRINE INH SCH ×3 (01:40→10:12)
[2022-05-09] MEDS: HYOSCYAMINE 0.125 MG TABLET SL SCH ×2 (01:54→05:19)
[2022-05-09 05:55] LABS: Basophils % 0.4 % (0.0-0.8); Eosinophils # 0.2 10*3/uL (0.0-0.87); Eosinophils % 3.2 % (0.00-10.9); Hematocrit 25.2 VOL% (35.7-47.0); Hemoglobin 7.6 GM/DL (12.0-16.0); Immature Granulocytes % 0.2 %; Immature Granulocytes Absolute 0.01 #; Lymphocytes # 1.2 10*3/uL (1.4-4.0); Lymphocytes % 26.3 % (21.3-54.2); Mean Corpuscular HGB Conc 30.2 GM/DL (32-36); Mean Corpuscular Volume 108.6 FL (87-102); Mean Platelet Volume 9.1 FL (9.6-12.0); Monocytes # 0.5 10*3/uL (0.11-0.8); Monocytes % 10.3 % (1.7-12.7); Neutrophils % 59.6 % (38.7-73.9); Platelet Count 171 T/CUMM (130-400); Red Blood Count 2.32 MC/CUMM (3.8-5.5); Red Cell Distribution Width 15.5 % (9.3-17.3); White Blood Count 4.6 T/CUMM (4-12)
[2022-05-09 06:13] LABS: Calcium 8.9 MG/DL (8.5-10.1); Osmolality,Calculated 283.4 MOS/KG (273-304); Potassium 4.8 MMOL/L (3.5-5.1)
[2022-05-09] MEDS: INSULIN LISPRO 100 UNIT/ML SUBCUT SCH (07:41)
[2022-05-09] MEDS: MULTIVITAMIN (BEROCCA) TABLET PO SCH (08:35)
[2022-05-09] MEDS: LOSARTAN 50 MG TABLET PO SCH (08:35)
[2022-05-09] MEDS: FUROSEMIDE 80 MG TABLET PO SCH (08:35)
[2022-05-09] MEDS: ESCITALOPRAM 10 MG TABLET PO SCH (08:35)
[2022-05-09] MEDS: MONTELUKAST 10 MG TABLET PO SCH (08:35)
[2022-05-09] MEDS: PANTOPRAZOLE 40 MG TABLET PO SCH (08:35)
[2022-05-09] MEDS: carvediloL 12.5 MG TABLET PO SCH (08:35)
[2022-05-09] MEDS: ROSUVASTATIN 20 MG TABLET PO SCH (08:35)
[2022-05-09] MEDS: SODIUM BICARBONATE 650 MG TABLET PO SCH (08:35)
[2022-05-09] MEDS: calcitrioL 0.25 MCG CAPSULE PO SCH (08:35)
[2022-05-09] MEDS: SEVELAMER CARBONATE 800 MG TABLET PO SCH (08:35)
[2022-05-09] MEDS: Ergocalciferol (Vitamin D2) 50 mcg (2,000 unit) Tablet PO SCH (08:42)
[2022-05-09 08:50] VITALS: BP 161/46
== END 2022-05-09 11:15 | disposition home or self-care (01) | DRG 640 ==
LOC: N.EDINP 12:46 → N.ED 12:46 → N.3E 16:24 → SUATTDRO 05-07 09:10
PROVIDERS: ADMIT Internal Medicine; ATTEND Internal Medicine

== ENCOUNTER 2022-07-02 00:24 | Inpatient (IN) ==
[2022-07-02] MEDS ORDERED: FUROSEMIDE 40 MG/4 ML VIAL IV STA (01:06)
[2022-07-02 01:20] LABS: Basophils % 0.2 % (0.0-0.8); Eosinophils # 0.1 10*3/uL (0.0-0.87); Hematocrit 21.7 VOL% (35.7-47.0); Hemoglobin 6.9 GM/DL (12.0-16.0); Immature Granulocytes % 0.5 %; Immature Granulocytes Absolute 0.06 #; Lymphocytes # 1.5 10*3/uL (1.4-4.0); Lymphocytes % 13.3 % (21.3-54.2); Mean Corpuscular HGB Conc 31.8 GM/DL (32-36); Mean Corpuscular Volume 108.5 FL (87-102); Mean Platelet Volume 8.9 FL (9.6-12.0); Monocytes # 0.6 10*3/uL (0.11-0.8); Monocytes % 5.4 % (1.7-12.7); Neutrophils % 79.6 % (38.7-73.9); Platelet Count 253 T/CUMM (130-400); Red Cell Distribution Width 16.4 % (9.3-17.3); White Blood Count 11.2 T/CUMM (4-12)
[2022-07-02] MEDS ORDERED: hydrALAZINE 20 MG/1 ML VIAL IV STA (01:28)
[2022-07-02 01:30] LABS: INR 0.9; PT Patient Result 10.3 SECS (10.1-12.1)
[2022-07-02] MEDS ORDERED: FUROSEMIDE 40 MG/4 ML VIAL ONE (01:34)
[2022-07-02 01:36] LABS: Arterial Base Excess iSTAT 2 MMOL/L (-2.5-2.5); Arterial Bicarbonate iSTAT 25.5 MMOL/L (20-26); Arterial O2 Saturation iSTAT 95 % (95-100); Arterial PCO2 iSTAT 34 MM HG (35-48); Arterial PO2 iSTAT 67 MM HG (80-95); Arterial Total CO2 iSTAT 27 MMO/L (23-27)
[2022-07-02] MEDS ORDERED: FUROSEMIDE 20 MG/2 ML VIAL IV STA ×2 (01:50→03:14)
[2022-07-02] MEDS ORDERED: LEVOFLOXACIN INJ 500 MG/100 ML PREMIX IV STA (01:53)
[2022-07-02 02:04] LABS: Albumin 3.9 G/DL (3.4-5.0); Bilirubin,Total 1.1 MG/DL (0.20-1.00); Calcium 9.3 MG/DL (8.5-10.1); Potassium 3.8 MMOL/L (3.5-5.1); Total Protein 7.1 G/DL (6.4-8.2)
[2022-07-02] MEDS ORDERED: hydrALAZINE 20 MG/1 ML VIAL IV PRN (03:01)
[2022-07-02] MEDS ORDERED: SIMETHICONE CHEW 125 MG TABLET PO PRN (03:01)
[2022-07-02] MEDS ORDERED: GLUCAGON 1 MG VIAL IM PRN (03:15)
[2022-07-02] MEDS ORDERED: MORPHINE 2 MG/1 ML SYRINGE IV PRN (03:18)
[2022-07-02] MEDS ORDERED: SODIUM CHLORIDE 0.9% 1,000 ML IV PRN (03:19)
[2022-07-02] MEDS ORDERED: DEXTROSE 10% 250 ML BAG IV PRN (03:26)
[2022-07-02] MEDS ORDERED: EPINEPHRINE INH PRN (04:45)
[2022-07-02] MEDS: ALBUTEROL/IPRATROPIUM 3 ML NEB RESP TX SCH ×3 (07:23→19:20)
[2022-07-02] MEDS: HYOSCYAMINE 0.125 MG TABLET SL SCH ×4 (07:37→23:24)
[2022-07-02] MEDS: INSULIN REGULAR 100 UNIT/ML SUBCUT SCH ×4 (08:15→21:46)
[2022-07-02] MEDS ORDERED: HEPARIN 5,000 UNIT/1 ML VIAL SUBCUT SCH (09:00)
[2022-07-02] MEDS ORDERED: FUROSEMIDE 80 MG TABLET PO SCH (09:00)
[2022-07-02] MEDS: PANTOPRAZOLE 40 MG TABLET PO SCH (10:28)
[2022-07-02] MEDS: DOCUSATE SODIUM 100 MG CAPSULE PO SCH ×2 (10:28→20:18)
[2022-07-02] MEDS: SEVELAMER CARBONATE 800 MG TABLET PO SCH ×3 (10:29→17:19)
[2022-07-02] MEDS: MULTIVITAMIN (BEROCCA) TABLET PO SCH (10:29)
[2022-07-02] MEDS: LOSARTAN 50 MG TABLET PO SCH (10:30)
[2022-07-02] MEDS: carvediloL 12.5 MG TABLET PO SCH ×2 (10:30→17:19)
[2022-07-02] MEDS: SODIUM BICARBONATE 650 MG TABLET PO SCH ×2 (10:30→17:19)
[2022-07-02] MEDS: MONTELUKAST 10 MG TABLET PO SCH (10:31)
[2022-07-02] MEDS: ROSUVASTATIN 20 MG TABLET PO SCH (10:31)
[2022-07-02] MEDS: calcitrioL 0.25 MCG CAPSULE PO SCH (10:36)
[2022-07-02] MEDS: ESCITALOPRAM 10 MG TABLET PO SCH (10:40)
[2022-07-02] MEDS: FUROSEMIDE 40 MG/4 ML VIAL IV SCH (15:08)
[2022-07-02] MEDS: Ergocalciferol (Vitamin D2) 50 mcg (2,000 unit) Tablet PO SCH (15:30)
[2022-07-03] MEDS: ACETAMINOPHEN 325 MG TABLET PO PRN (00:28)
[2022-07-03] MEDS: ALBUTEROL/IPRATROPIUM 3 ML NEB RESP TX SCH ×4 (01:40→19:28)
[2022-07-03] MEDS ORDERED: LEVOFLOXACIN INJ 750 MG/150 ML PREMIX IV SCH (04:00)
[2022-07-03] MEDS: HYOSCYAMINE 0.125 MG TABLET SL SCH ×4 (04:08→23:17)
[2022-07-03 04:55] LABS: Basophils % 0.2 % (0.0-0.8); Eosinophils # 0.2 10*3/uL (0.0-0.87); Eosinophils % 1.9 % (0.00-10.9); Hematocrit 18.2 VOL% (35.7-47.0); Immature Granulocytes % 0.6 %; Immature Granulocytes Absolute 0.05 #; Lymphocytes # 1.5 10*3/uL (1.4-4.0); Lymphocytes % 17.8 % (21.3-54.2); Mean Corpuscular HGB Conc 31.9 GM/DL (32-36); Mean Platelet Volume 9.4 FL (9.6-12.0); Monocytes # 0.7 10*3/uL (0.11-0.8); Monocytes % 8.1 % (1.7-12.7); Neutrophils % 71.4 % (38.7-73.9); Platelet Count 226 T/CUMM (130-400); Red Blood Count 1.67 MC/CUMM (3.8-5.5); Red Cell Distribution Width 16.6 % (9.3-17.3); White Blood Count 8.6 T/CUMM (4-12)
[2022-07-03 05:00] LABS: Hemoglobin 5.8 GM/DL (12.0-16.0)
[2022-07-03 05:16] LABS: Calcium 9.1 MG/DL (8.5-10.1); Potassium 3.7 MMOL/L (3.5-5.1)
[2022-07-03] MEDS ORDERED: SODIUM CHLORIDE 0.9% 1,000 ML IV PRN (06:37)
[2022-07-03] MEDS: INSULIN REGULAR 100 UNIT/ML SUBCUT SCH ×4 (08:01→21:14)
[2022-07-03] MEDS: SEVELAMER CARBONATE 800 MG TABLET PO SCH ×3 (09:49→16:47)
[2022-07-03] MEDS: Ergocalciferol (Vitamin D2) 50 mcg (2,000 unit) Tablet PO SCH (09:50)
[2022-07-03] MEDS: carvediloL 12.5 MG TABLET PO SCH ×2 (09:52→16:48)
[2022-07-03] MEDS: SODIUM BICARBONATE 650 MG TABLET PO SCH ×2 (09:52→16:47)
[2022-07-03] MEDS: FUROSEMIDE 40 MG/4 ML VIAL IV SCH ×2 (09:52→16:50)
[2022-07-03] MEDS: ROSUVASTATIN 20 MG TABLET PO SCH (13:12)
[2022-07-03] MEDS: DOCUSATE SODIUM 100 MG CAPSULE PO SCH ×2 (13:13→21:15)
[2022-07-03] MEDS: MULTIVITAMIN (BEROCCA) TABLET PO SCH (13:13)
[2022-07-03] MEDS: calcitrioL 0.25 MCG CAPSULE PO SCH (13:13)
[2022-07-03] MEDS: PANTOPRAZOLE 40 MG TABLET PO SCH (13:13)
[2022-07-03] MEDS: MONTELUKAST 10 MG TABLET PO SCH (13:13)
[2022-07-03] MEDS: ESCITALOPRAM 10 MG TABLET PO SCH (13:14)
[2022-07-03] MEDS: LOSARTAN 50 MG TABLET PO SCH (13:14)
[2022-07-03] MEDS ORDERED: BENZOCAINE/MENTHOL LOZENGE 18/BOX PO PRN (18:23)
[2022-07-04] MEDS: ALBUTEROL/IPRATROPIUM 3 ML NEB RESP TX SCH ×4 (00:31→19:59)
[2022-07-04 05:04] LABS: Basophils % 0.2 % (0.0-0.8); Eosinophils # 0.1 10*3/uL (0.0-0.87); Eosinophils % 1.5 % (0.00-10.9); Hematocrit 27.3 VOL% (35.7-47.0); Hemoglobin 8.9 GM/DL (12.0-16.0); Immature Granulocytes % 0.5 %; Immature Granulocytes Absolute 0.04 #; Lymphocytes # 0.9 10*3/uL (1.4-4.0); Lymphocytes % 11.1 % (21.3-54.2); Mean Corpuscular HGB Conc 32.6 GM/DL (32-36); Mean Corpuscular Volume 99.6 FL (87-102); Mean Platelet Volume 9.1 FL (9.6-12.0); Monocytes # 0.7 10*3/uL (0.11-0.8); Monocytes % 8.4 % (1.7-12.7); Neutrophils % 78.3 % (38.7-73.9); Platelet Count 201 T/CUMM (130-400); Red Blood Count 2.74 MC/CUMM (3.8-5.5); Red Cell Distribution Width 21.1 % (9.3-17.3)
[2022-07-04 05:44] LABS: Calcium 8.8 MG/DL (8.5-10.1); Osmolality,Calculated 285.7 MOS/KG (273-304); Potassium 3.7 MMOL/L (3.5-5.1)
[2022-07-04] MEDS: HYOSCYAMINE 0.125 MG TABLET SL SCH ×4 (05:51→22:01)
[2022-07-04] MEDS: INSULIN REGULAR 100 UNIT/ML SUBCUT SCH ×4 (08:11→22:02)
[2022-07-04] MEDS: calcitrioL 0.25 MCG CAPSULE PO SCH (08:46)
[2022-07-04] MEDS: ESCITALOPRAM 10 MG TABLET PO SCH (08:46)
[2022-07-04] MEDS: LEVOFLOXACIN INJ 250 MG/50 ML PREMIX IV SCH (08:46)
[2022-07-04] MEDS: FUROSEMIDE 40 MG/4 ML VIAL IV SCH ×2 (08:47→15:37)
[2022-07-04] MEDS: SEVELAMER CARBONATE 800 MG TABLET PO SCH ×3 (08:48→16:48)
[2022-07-04] MEDS: SODIUM BICARBONATE 650 MG TABLET PO SCH ×2 (08:48→16:48)
[2022-07-04] MEDS: MULTIVITAMIN (BEROCCA) TABLET PO SCH (08:49)
[2022-07-04] MEDS: MONTELUKAST 10 MG TABLET PO SCH (08:49)
[2022-07-04] MEDS: PANTOPRAZOLE 40 MG TABLET PO SCH (08:49)
[2022-07-04] MEDS: ROSUVASTATIN 20 MG TABLET PO SCH (08:50)
[2022-07-04] MEDS: Ergocalciferol (Vitamin D2) 50 mcg (2,000 unit) Tablet PO SCH (08:51)
[2022-07-04] MEDS: carvediloL 12.5 MG TABLET PO SCH (08:52)
[2022-07-04] MEDS: DOCUSATE SODIUM 100 MG CAPSULE PO SCH ×2 (08:52→22:02)
[2022-07-04] MEDS: LOSARTAN 50 MG TABLET PO SCH (08:52)
[2022-07-04] MEDS ORDERED: VANCOMYCIN INJ 500 MG in SODIUM CHLORIDE 0.9% 100 ML IV PRN (13:23)
[2022-07-04] MEDS ORDERED: VANCOMYCIN INJ 1,250 MG in SODIUM CHLORIDE 0.9% 250 ML IV ONE (15:00)
[2022-07-04] MEDS: carvediloL 25 MG TABLET PO SCH (16:49)
[2022-07-04] MEDS ORDERED: diphenhydrAMINE CAP 25 MG CAPSULE PO PRN (23:31)
[2022-07-05 04:46] LABS: Basophils % 0.2 % (0.0-0.8); Eosinophils # 0.1 10*3/uL (0.0-0.87); Eosinophils % 1.1 % (0.00-10.9); Hematocrit 26.5 VOL% (35.7-47.0); Hemoglobin 8.6 GM/DL (12.0-16.0); Immature Granulocytes % 0.5 %; Immature Granulocytes Absolute 0.04 #; Lymphocytes # 0.9 10*3/uL (1.4-4.0); Lymphocytes % 10.4 % (21.3-54.2); Mean Corpuscular HGB Conc 32.5 GM/DL (32-36); Monocytes # 0.8 10*3/uL (0.11-0.8); Monocytes % 9.1 % (1.7-12.7); Neutrophils % 78.7 % (38.7-73.9); Platelet Count 198 T/CUMM (130-400); Red Blood Count 2.65 MC/CUMM (3.8-5.5); Red Cell Distribution Width 20.2 % (9.3-17.3); White Blood Count 8.3 T/CUMM (4-12)
[2022-07-05] MEDS: HYOSCYAMINE 0.125 MG TABLET SL SCH ×4 (04:54→23:20)
[2022-07-05 05:06] LABS: Calcium 8.7 MG/DL (8.5-10.1)
[2022-07-05] MEDS: ALBUTEROL/IPRATROPIUM 3 ML NEB RESP TX SCH ×4 (06:56→19:00)
[2022-07-05] MEDS: ACETAMINOPHEN 325 MG TABLET PO PRN ×3 (07:43→21:40)
[2022-07-05] MEDS ORDERED: hydrOXYzine HCL 25 MG TABLET PO ONE (09:30)
[2022-07-05] MEDS: INSULIN REGULAR 100 UNIT/ML SUBCUT SCH ×4 (09:51→21:41)
[2022-07-05] MEDS: FUROSEMIDE 40 MG/4 ML VIAL IV SCH ×2 (14:04→17:06)
[2022-07-05] MEDS: DOCUSATE SODIUM 100 MG CAPSULE PO SCH ×2 (14:05→21:42)
[2022-07-05] MEDS: SEVELAMER CARBONATE 800 MG TABLET PO SCH ×3 (14:05→16:28)
[2022-07-05] MEDS: ROSUVASTATIN 20 MG TABLET PO SCH (14:10)
[2022-07-05] MEDS: LOSARTAN 50 MG TABLET PO SCH (14:10)
[2022-07-05] MEDS: MULTIVITAMIN (BEROCCA) TABLET PO SCH (14:10)
[2022-07-05] MEDS: PANTOPRAZOLE 40 MG TABLET PO SCH (14:10)
[2022-07-05] MEDS: SODIUM BICARBONATE 650 MG TABLET PO SCH ×2 (14:11→17:27)
[2022-07-05] MEDS: ESCITALOPRAM 10 MG TABLET PO SCH (14:11)
[2022-07-05] MEDS: MONTELUKAST 10 MG TABLET PO SCH (14:11)
[2022-07-05] MEDS: carvediloL 25 MG TABLET PO SCH ×2 (14:13→16:28)
[2022-07-05] MEDS: calcitrioL 0.25 MCG CAPSULE PO SCH (14:14)
[2022-07-05] MEDS: Ergocalciferol (Vitamin D2) 50 mcg (2,000 unit) Tablet PO SCH (14:43)
[2022-07-05] MEDS: METHOCARBAMOL 500 MG TABLET PO PRN (16:28)
[2022-07-05] MEDS ORDERED: VANCOMYCIN INJ 500 MG in SODIUM CHLORIDE 0.9% 100 ML IV ONE (17:00)
[2022-07-05] MEDS: LIDOCAINE 5% PATCH TRANSDERM SCH (17:28)
[2022-07-05] MEDS: diphenhydrAMINE CAP 25 MG CAPSULE PO PRN (21:39)
[2022-07-06] MEDS: ALBUTEROL/IPRATROPIUM 3 ML NEB RESP TX SCH ×4 (00:56→19:14)
[2022-07-06] MEDS: METHOCARBAMOL 500 MG TABLET PO PRN ×2 (01:02→16:31)
[2022-07-06] MEDS: HYOSCYAMINE 0.125 MG TABLET SL SCH ×4 (05:32→22:51)
[2022-07-06 06:58] LABS: Calcium 8.7 MG/DL (8.5-10.1); Osmolality,Calculated 284.8 MOS/KG (273-304); Potassium 3.7 MMOL/L (3.5-5.1)
[2022-07-06 07:00] LABS: Basophils % 0.5 % (0.0-0.8); Eosinophils # 0.2 10*3/uL (0.0-0.87); Eosinophils % 3.2 % (0.00-10.9); Hematocrit 26.4 VOL% (35.7-47.0); Hemoglobin 8.5 GM/DL (12.0-16.0); Immature Granulocytes % 0.5 %; Immature Granulocytes Absolute 0.03 #; Lymphocytes % 16.6 % (21.3-54.2); Mean Corpuscular HGB Conc 32.2 GM/DL (32-36); Mean Corpuscular Volume 100.8 FL (87-102); Mean Platelet Volume 8.9 FL (9.6-12.0); Monocytes # 0.6 10*3/uL (0.11-0.8); Monocytes % 9.8 % (1.7-12.7); Neutrophils % 69.4 % (38.7-73.9); Platelet Count 197 T/CUMM (130-400); Red Blood Count 2.62 MC/CUMM (3.8-5.5); Red Cell Distribution Width 19.6 % (9.3-17.3); White Blood Count 6.2 T/CUMM (4-12)
[2022-07-06] MEDS: SODIUM CHLORIDE 0.9% 1,000 ML IV SCH (07:27)
[2022-07-06] MEDS ORDERED: LIDOCAINE 2% 5 ML VIAL ONE ×2 (09:34)
[2022-07-06] MEDS ORDERED: ETOMIDATE 20 MG/10 ML VIAL IV ONE (09:34)
[2022-07-06] MEDS ORDERED: propofoL 200 MG/20 ML VIAL IV ONE (09:48)
[2022-07-06] MEDS: LEVOFLOXACIN INJ 250 MG/50 ML PREMIX IV SCH (12:00)
[2022-07-06] MEDS: FUROSEMIDE 40 MG/4 ML VIAL IV SCH ×2 (12:09→17:53)
[2022-07-06] MEDS: ESCITALOPRAM 10 MG TABLET PO SCH (12:10)
[2022-07-06] MEDS: DOCUSATE SODIUM 100 MG CAPSULE PO SCH ×2 (12:10→22:51)
[2022-07-06] MEDS: carvediloL 25 MG TABLET PO SCH ×2 (12:11→16:32)
[2022-07-06] MEDS: SEVELAMER CARBONATE 800 MG TABLET PO SCH ×3 (12:11→16:29)
[2022-07-06] MEDS: MONTELUKAST 10 MG TABLET PO SCH (12:12)
[2022-07-06] MEDS: MULTIVITAMIN (BEROCCA) TABLET PO SCH (12:12)
[2022-07-06] MEDS: PANTOPRAZOLE 40 MG TABLET PO SCH (12:13)
[2022-07-06] MEDS: ROSUVASTATIN 20 MG TABLET PO SCH (12:13)
[2022-07-06] MEDS: LOSARTAN 50 MG TABLET PO SCH (12:13)
[2022-07-06] MEDS: LIDOCAINE 5% PATCH TRANSDERM SCH (12:14)
[2022-07-06] MEDS: calcitrioL 0.25 MCG CAPSULE PO SCH (12:14)
[2022-07-06] MEDS: INSULIN REGULAR 100 UNIT/ML SUBCUT SCH ×4 (12:15→22:52)
[2022-07-06] MEDS: Ergocalciferol (Vitamin D2) 50 mcg (2,000 unit) Tablet PO SCH (12:15)
[2022-07-06] MEDS: SODIUM BICARBONATE 650 MG TABLET PO SCH ×2 (12:15→16:30)
[2022-07-06] MEDS: diphenhydrAMINE CAP 25 MG CAPSULE PO PRN (22:52)
[2022-07-07] MEDS: ALBUTEROL/IPRATROPIUM 3 ML NEB RESP TX SCH ×4 (00:28→19:08)
[2022-07-07 05:08] LABS: Basophils % 0.3 % (0.0-0.8); Eosinophils # 0.2 10*3/uL (0.0-0.87); Eosinophils % 3.4 % (0.00-10.9); Hematocrit 26.8 VOL% (35.7-47.0); Hemoglobin 8.7 GM/DL (12.0-16.0); Immature Granulocytes % 0.6 %; Immature Granulocytes Absolute 0.04 #; Lymphocytes % 15.5 % (21.3-54.2); Mean Corpuscular HGB Conc 32.5 GM/DL (32-36); Mean Corpuscular Volume 99.6 FL (87-102); Monocytes # 0.6 10*3/uL (0.11-0.8); Monocytes % 9.7 % (1.7-12.7); Neutrophils % 70.5 % (38.7-73.9); Platelet Count 195 T/CUMM (130-400); Red Blood Count 2.69 MC/CUMM (3.8-5.5); Red Cell Distribution Width 19.1 % (9.3-17.3); White Blood Count 6.4 T/CUMM (4-12)
[2022-07-07 05:23] LABS: Calcium 8.6 MG/DL (8.5-10.1); Osmolality,Calculated 291.5 MOS/KG (273-304); Potassium 3.9 MMOL/L (3.5-5.1)
[2022-07-07] MEDS: HYOSCYAMINE 0.125 MG TABLET SL SCH ×3 (05:52→17:46)
[2022-07-07] MEDS ORDERED: EPOETIN ALFA-EPBX 4,000 UNIT/ML VIAL IV PRN (09:03)
[2022-07-07] MEDS: INSULIN REGULAR 100 UNIT/ML SUBCUT SCH ×4 (09:25→20:55)
[2022-07-07] MEDS: SODIUM CHLORIDE 0.9% 1,000 ML IV SCH (09:26)
[2022-07-07] MEDS ORDERED: HEPARIN 10,000 UNIT/10 ML VIAL IV PRN (10:55)
[2022-07-07] MEDS: carvediloL 25 MG TABLET PO SCH ×2 (11:19→17:50)
[2022-07-07] MEDS: FUROSEMIDE 40 MG/4 ML VIAL IV SCH ×2 (11:19→15:50)
[2022-07-07] MEDS: SEVELAMER CARBONATE 800 MG TABLET PO SCH ×3 (11:20→17:46)
[2022-07-07] MEDS: SODIUM BICARBONATE 650 MG TABLET PO SCH ×2 (11:20→17:46)
[2022-07-07] MEDS: Ergocalciferol (Vitamin D2) 50 mcg (2,000 unit) Tablet PO SCH (11:21)
[2022-07-07] MEDS: MULTIVITAMIN (BEROCCA) TABLET PO SCH (12:43)
[2022-07-07] MEDS: calcitrioL 0.25 MCG CAPSULE PO SCH (12:43)
[2022-07-07] MEDS: MONTELUKAST 10 MG TABLET PO SCH (12:43)
[2022-07-07] MEDS: ESCITALOPRAM 10 MG TABLET PO SCH (12:43)
[2022-07-07] MEDS: ROSUVASTATIN 20 MG TABLET PO SCH (12:44)
[2022-07-07] MEDS: LOSARTAN 50 MG TABLET PO SCH (12:44)
[2022-07-07] MEDS: DOCUSATE SODIUM 100 MG CAPSULE PO SCH (12:44)
[2022-07-07] MEDS: PANTOPRAZOLE 40 MG TABLET PO SCH (12:44)
[2022-07-07] MEDS: LIDOCAINE 5% PATCH TRANSDERM SCH (12:45)
[2022-07-07] MEDS ORDERED: PHENOL 1.4% THROAT SPRAY 177 ML BOTTLE PO PRN (13:09)
[2022-07-07] MEDS: NYSTATIN 500,000 UNIT/5 ML UDCUP SWISH/SWAL SCH ×2 (15:50→17:47)
[2022-07-07] MEDS ORDERED: VANCOMYCIN INJ 500 MG in SODIUM CHLORIDE 0.9% 100 ML IV ONE (17:00)
[2022-07-08] MEDS: ALBUTEROL/IPRATROPIUM 3 ML NEB RESP TX SCH ×4 (00:16→20:15)
[2022-07-08] MEDS: DOCUSATE SODIUM 100 MG CAPSULE PO SCH ×3 (00:31→23:18)
[2022-07-08] MEDS: NYSTATIN 500,000 UNIT/5 ML UDCUP SWISH/SWAL SCH ×5 (00:31→23:18)
[2022-07-08] MEDS: HYOSCYAMINE 0.125 MG TABLET SL SCH ×5 (00:31→23:18)
[2022-07-08] MEDS: ONDANSETRON 4 MG/2 ML VIAL IV PRN (02:29)
[2022-07-08 05:58] LABS: Basophils % 0.4 % (0.0-0.8); Eosinophils # 0.2 10*3/uL (0.0-0.87); Eosinophils % 2.9 % (0.00-10.9); Hematocrit 28.3 VOL% (35.7-47.0); Immature Granulocytes % 0.5 %; Immature Granulocytes Absolute 0.03 #; Lymphocytes # 1.1 10*3/uL (1.4-4.0); Lymphocytes % 19.5 % (21.3-54.2); Mean Corpuscular HGB Conc 31.8 GM/DL (32-36); Mean Corpuscular Volume 102.2 FL (87-102); Mean Platelet Volume 8.6 FL (9.6-12.0); Monocytes # 0.6 10*3/uL (0.11-0.8); Neutrophils % 65.7 % (38.7-73.9); Platelet Count 208 T/CUMM (130-400); Red Blood Count 2.77 MC/CUMM (3.8-5.5); Red Cell Distribution Width 18.6 % (9.3-17.3); White Blood Count 5.6 T/CUMM (4-12)
[2022-07-08] MEDS: diphenhydrAMINE CAP 25 MG CAPSULE PO PRN ×2 (06:05→23:18)
[2022-07-08 06:29] LABS: Calcium 8.8 MG/DL (8.5-10.1); Osmolality,Calculated 288.3 MOS/KG (273-304)
[2022-07-08] MEDS: INSULIN REGULAR 100 UNIT/ML SUBCUT SCH ×4 (07:52→23:18)
[2022-07-08] MEDS: SODIUM CHLORIDE 0.9% 1,000 ML IV SCH (09:10)
[2022-07-08] MEDS: MULTIVITAMIN (BEROCCA) TABLET PO SCH (09:19)
[2022-07-08] MEDS: SODIUM BICARBONATE 650 MG TABLET PO SCH ×2 (09:19→17:08)
[2022-07-08] MEDS: ROSUVASTATIN 20 MG TABLET PO SCH (09:19)
[2022-07-08] MEDS: SEVELAMER CARBONATE 800 MG TABLET PO SCH ×3 (09:19→17:07)
[2022-07-08] MEDS: calcitrioL 0.25 MCG CAPSULE PO SCH (09:19)
[2022-07-08] MEDS: LOSARTAN 50 MG TABLET PO SCH (09:20)
[2022-07-08] MEDS: MONTELUKAST 10 MG TABLET PO SCH (09:20)
[2022-07-08] MEDS: carvediloL 25 MG TABLET PO SCH ×2 (09:20→17:07)
[2022-07-08] MEDS: ESCITALOPRAM 10 MG TABLET PO SCH (09:20)
[2022-07-08] MEDS: PANTOPRAZOLE 40 MG TABLET PO SCH (09:20)
[2022-07-08] MEDS: FUROSEMIDE 40 MG/4 ML VIAL IV SCH ×2 (09:22→17:12)
[2022-07-08] MEDS: LIDOCAINE 5% PATCH TRANSDERM SCH (09:23)
[2022-07-08] MEDS: Ergocalciferol (Vitamin D2) 50 mcg (2,000 unit) Tablet PO SCH (09:23)
[2022-07-09] MEDS: ALBUTEROL/IPRATROPIUM 3 ML NEB RESP TX SCH ×4 (00:25→19:28)
[2022-07-09 05:18] LABS: Basophils % 0.5 % (0.0-0.8); Eosinophils # 0.2 10*3/uL (0.0-0.87); Eosinophils % 3.7 % (0.00-10.9); Hematocrit 24.5 VOL% (35.7-47.0); Immature Granulocytes % 0.5 %; Immature Granulocytes Absolute 0.03 #; Lymphocytes # 1.3 10*3/uL (1.4-4.0); Lymphocytes % 23.4 % (21.3-54.2); Mean Corpuscular HGB Conc 32.2 GM/DL (32-36); Mean Corpuscular Volume 101.2 FL (87-102); Mean Platelet Volume 9.2 FL (9.6-12.0); Monocytes # 0.6 10*3/uL (0.11-0.8); Monocytes % 9.7 % (1.7-12.7); Neutrophils % 62.2 % (38.7-73.9); Platelet Count 207 T/CUMM (130-400); Red Blood Count 2.42 MC/CUMM (3.8-5.5); Red Cell Distribution Width 18.1 % (9.3-17.3); White Blood Count 5.7 T/CUMM (4-12)
[2022-07-09 05:19] LABS: Hemoglobin 7.9 GM/DL (12.0-16.0)
[2022-07-09 05:30] LABS: Calcium 8.1 MG/DL (8.5-10.1); Osmolality,Calculated 284.8 MOS/KG (273-304); Potassium 4.1 MMOL/L (3.5-5.1)
[2022-07-09] MEDS: HYOSCYAMINE 0.125 MG TABLET SL SCH ×3 (05:40→16:27)
[2022-07-09] MEDS: INSULIN REGULAR 100 UNIT/ML SUBCUT SCH ×3 (08:29→16:22)
[2022-07-09] MEDS: carvediloL 25 MG TABLET PO SCH ×2 (08:51→16:18)
[2022-07-09] MEDS: SODIUM BICARBONATE 650 MG TABLET PO SCH ×2 (08:51→16:18)
[2022-07-09] MEDS: SEVELAMER CARBONATE 800 MG TABLET PO SCH ×3 (08:51→16:18)
[2022-07-09] MEDS: DOCUSATE SODIUM 100 MG CAPSULE PO SCH (08:51)
[2022-07-09] MEDS: MONTELUKAST 10 MG TABLET PO SCH (08:51)
[2022-07-09] MEDS: ROSUVASTATIN 20 MG TABLET PO SCH (08:52)
[2022-07-09] MEDS: ESCITALOPRAM 10 MG TABLET PO SCH (08:52)
[2022-07-09] MEDS: MULTIVITAMIN (BEROCCA) TABLET PO SCH (08:52)
[2022-07-09] MEDS: calcitrioL 0.25 MCG CAPSULE PO SCH (08:52)
[2022-07-09] MEDS: NYSTATIN 500,000 UNIT/5 ML UDCUP SWISH/SWAL SCH ×3 (08:52→16:22)
[2022-07-09] MEDS: PANTOPRAZOLE 40 MG TABLET PO SCH (08:52)
[2022-07-09] MEDS: FUROSEMIDE 40 MG/4 ML VIAL IV SCH ×2 (08:54→16:20)
[2022-07-09] MEDS: Ergocalciferol (Vitamin D2) 50 mcg (2,000 unit) Tablet PO SCH (08:56)
[2022-07-09] MEDS: LIDOCAINE 5% PATCH TRANSDERM SCH (09:01)
[2022-07-09] MEDS: LOSARTAN 50 MG TABLET PO SCH (09:01)
[2022-07-09] MEDS ORDERED: MORPHINE 2 MG/1 ML SYRINGE IV PRN (23:38)
[2022-07-10] MEDS: ONDANSETRON 4 MG/2 ML VIAL IV PRN (00:01)
[2022-07-10] MEDS: DOCUSATE SODIUM 100 MG CAPSULE PO SCH ×3 (00:08→23:35)
[2022-07-10] MEDS: NYSTATIN 500,000 UNIT/5 ML UDCUP SWISH/SWAL SCH ×5 (00:08→23:35)
[2022-07-10] MEDS: INSULIN REGULAR 100 UNIT/ML SUBCUT SCH ×5 (00:09→23:34)
[2022-07-10] MEDS: HYOSCYAMINE 0.125 MG TABLET SL SCH ×5 (00:11→23:37)
[2022-07-10] MEDS: ALBUTEROL/IPRATROPIUM 3 ML NEB RESP TX SCH ×4 (00:12→18:55)
[2022-07-10 05:19] LABS: Basophils % 0.3 % (0.0-0.8); Eosinophils # 0.2 10*3/uL (0.0-0.87); Eosinophils % 3.3 % (0.00-10.9); Hematocrit 26.9 VOL% (35.7-47.0); Hemoglobin 8.7 GM/DL (12.0-16.0); Immature Granulocytes % 0.5 %; Immature Granulocytes Absolute 0.03 #; Lymphocytes # 1.3 10*3/uL (1.4-4.0); Lymphocytes % 21.1 % (21.3-54.2); Mean Corpuscular HGB Conc 32.3 GM/DL (32-36); Mean Corpuscular Volume 101.9 FL (87-102); Mean Platelet Volume 9.5 FL (9.6-12.0); Monocytes # 0.6 10*3/uL (0.11-0.8); Monocytes % 9.1 % (1.7-12.7); Neutrophils % 65.7 % (38.7-73.9); Platelet Count 214 T/CUMM (130-400); Red Blood Count 2.64 MC/CUMM (3.8-5.5); Red Cell Distribution Width 18.1 % (9.3-17.3); White Blood Count 6.4 T/CUMM (4-12)
[2022-07-10 06:05] LABS: Calcium 8.7 MG/DL (8.5-10.1); Osmolality,Calculated 295.5 MOS/KG (273-304); Potassium 4.4 MMOL/L (3.5-5.1)
[2022-07-10] MEDS ORDERED: FUROSEMIDE 40 MG/4 ML VIAL IV SCH (09:00)
[2022-07-10] MEDS ORDERED: BISACODYL 10 MG SUPP RECTAL ONE (10:28)
[2022-07-10] MEDS: PANTOPRAZOLE 40 MG TABLET PO SCH (12:24)
[2022-07-10] MEDS: MONTELUKAST 10 MG TABLET PO SCH (12:25)
[2022-07-10] MEDS: SEVELAMER CARBONATE 800 MG TABLET PO SCH ×3 (12:25→17:11)
[2022-07-10] MEDS: SODIUM BICARBONATE 650 MG TABLET PO SCH ×2 (12:25→17:11)
[2022-07-10] MEDS: MULTIVITAMIN (BEROCCA) TABLET PO SCH (12:26)
[2022-07-10] MEDS: ROSUVASTATIN 20 MG TABLET PO SCH (12:26)
[2022-07-10] MEDS: LOSARTAN 50 MG TABLET PO SCH (12:26)
[2022-07-10] MEDS: carvediloL 25 MG TABLET PO SCH ×2 (12:27→17:12)
[2022-07-10] MEDS: ESCITALOPRAM 10 MG TABLET PO SCH (12:32)
[2022-07-10] MEDS: diphenhydrAMINE CAP 25 MG CAPSULE PO PRN (12:32)
[2022-07-10] MEDS: LIDOCAINE 5% PATCH TRANSDERM SCH (12:41)
[2022-07-10] MEDS: calcitrioL 0.25 MCG CAPSULE PO SCH (12:42)
[2022-07-10] MEDS: Ergocalciferol (Vitamin D2) 50 mcg (2,000 unit) Tablet PO SCH (12:42)
[2022-07-10] MEDS ORDERED: VANCOMYCIN INJ 500 MG in SODIUM CHLORIDE 0.9% 100 ML IV ONE (17:00)
[2022-07-10] MEDS: METHOCARBAMOL 500 MG TABLET PO PRN (17:11)
[2022-07-11 06:03] LABS: Basophils % 0.4 % (0.0-0.8); Eosinophils # 0.2 10*3/uL (0.0-0.87); Eosinophils % 2.4 % (0.00-10.9); Hematocrit 28.7 VOL% (35.7-47.0); Hemoglobin 9.2 GM/DL (12.0-16.0); Immature Granulocytes % 0.4 %; Immature Granulocytes Absolute 0.03 #; Lymphocytes # 0.8 10*3/uL (1.4-4.0); Lymphocytes % 12.1 % (21.3-54.2); Mean Corpuscular HGB Conc 32.1 GM/DL (32-36); Mean Corpuscular Volume 102.9 FL (87-102); Mean Platelet Volume 9.2 FL (9.6-12.0); Monocytes # 0.5 10*3/uL (0.11-0.8); Neutrophils % 76.7 % (38.7-73.9); Platelet Count 248 T/CUMM (130-400); Red Blood Count 2.79 MC/CUMM (3.8-5.5); Red Cell Distribution Width 17.5 % (9.3-17.3); White Blood Count 6.8 T/CUMM (4-12)
[2022-07-11] MEDS: HYOSCYAMINE 0.125 MG TABLET SL SCH ×4 (06:15→23:56)
[2022-07-11 06:25] LABS: Calcium 8.7 MG/DL (8.5-10.1); Osmolality,Calculated 284.8 MOS/KG (273-304); Potassium 4.4 MMOL/L (3.5-5.1)
[2022-07-11] MEDS: ALBUTEROL/IPRATROPIUM 3 ML NEB RESP TX SCH ×5 (07:00→23:47)
[2022-07-11] MEDS: MONTELUKAST 10 MG TABLET PO SCH (09:29)
[2022-07-11] MEDS: SODIUM BICARBONATE 650 MG TABLET PO SCH ×2 (09:29→16:39)
[2022-07-11] MEDS: DOCUSATE SODIUM 100 MG CAPSULE PO SCH ×2 (09:29→21:46)
[2022-07-11] MEDS: ROSUVASTATIN 20 MG TABLET PO SCH (09:30)
[2022-07-11] MEDS: PANTOPRAZOLE 40 MG TABLET PO SCH (09:31)
[2022-07-11] MEDS: carvediloL 12.5 MG TABLET PO SCH ×2 (09:31→16:38)
[2022-07-11] MEDS: SEVELAMER CARBONATE 800 MG TABLET PO SCH ×3 (09:31→16:38)
[2022-07-11] MEDS: LOSARTAN 50 MG TABLET PO SCH (09:31)
[2022-07-11] MEDS: FUROSEMIDE 80 MG TABLET PO SCH ×2 (09:32→16:39)
[2022-07-11] MEDS: NYSTATIN 500,000 UNIT/5 ML UDCUP SWISH/SWAL SCH ×4 (09:32→21:46)
[2022-07-11] MEDS: calcitrioL 0.25 MCG CAPSULE PO SCH (09:34)
[2022-07-11] MEDS: ESCITALOPRAM 10 MG TABLET PO SCH (09:34)
[2022-07-11] MEDS: LIDOCAINE 5% PATCH TRANSDERM SCH (09:34)
[2022-07-11] MEDS: INSULIN REGULAR 100 UNIT/ML SUBCUT SCH ×4 (09:35→21:46)
[2022-07-11] MEDS: MULTIVITAMIN (BEROCCA) TABLET PO SCH (09:35)
[2022-07-11] MEDS: Ergocalciferol (Vitamin D2) 50 mcg (2,000 unit) Tablet PO SCH (09:36)
[2022-07-11] MEDS ORDERED: LACTULOSE 20 GM/30 ML UDCUP PO ONE (10:31)
[2022-07-11] MEDS: ACETAMINOPHEN 325 MG TABLET PO PRN (13:27)
[2022-07-11] MEDS: METOCLOPRAMIDE 10 MG/2 ML VIAL IV SCH ×3 (14:18→23:56)
[2022-07-12 04:57] LABS: Basophils % 0.7 % (0.0-0.8); Eosinophils # 0.2 10*3/uL (0.0-0.87); Eosinophils % 4.1 % (0.00-10.9); Hematocrit 27.1 VOL% (35.7-47.0); Hemoglobin 8.7 GM/DL (12.0-16.0); Immature Granulocytes % 0.2 %; Immature Granulocytes Absolute 0.01 #; Lymphocytes # 1.3 10*3/uL (1.4-4.0); Mean Corpuscular HGB Conc 32.1 GM/DL (32-36); Mean Corpuscular Volume 102.3 FL (87-102); Mean Platelet Volume 9.2 FL (9.6-12.0); Monocytes # 0.6 10*3/uL (0.11-0.8); Monocytes % 10.1 % (1.7-12.7); Neutrophils % 62.9 % (38.7-73.9); Platelet Count 237 T/CUMM (130-400); Red Blood Count 2.65 MC/CUMM (3.8-5.5); Red Cell Distribution Width 17.3 % (9.3-17.3); White Blood Count 5.7 T/CUMM (4-12)
[2022-07-12 05:10] LABS: PT Patient Result 11.2 SECS (10.1-12.1); Partial Thromboplastin Time 29.3 SECS (23.7-32.9)
[2022-07-12 05:17] LABS: Calcium 8.4 MG/DL (8.5-10.1); Osmolality,Calculated 286.7 MOS/KG (273-304); Potassium 4.4 MMOL/L (3.5-5.1)
[2022-07-12] MEDS: HYOSCYAMINE 0.125 MG TABLET SL SCH ×4 (05:52→23:57)
[2022-07-12] MEDS: METOCLOPRAMIDE 10 MG/2 ML VIAL IV SCH ×4 (05:54→23:58)
[2022-07-12] MEDS: ALBUTEROL/IPRATROPIUM 3 ML NEB RESP TX SCH ×3 (07:26→19:44)
[2022-07-12] MEDS ORDERED: MEPERIDINE 50 MG/1 ML VIAL IM ONE (07:30)
[2022-07-12] MEDS ORDERED: diphenhydrAMINE 50 MG/1 ML VIAL IM ONE (07:30)
[2022-07-12] MEDS ORDERED: BENZONATATE 100 MG CAPSULE PO ONE (07:30)
[2022-07-12] MEDS ORDERED: LIDOCAINE 2% VISCOUS 100 ML BOTTLE SWISH/SPIT ONE (08:00)
[2022-07-12] MEDS ORDERED: LIDOCAINE 2% 20 ML VIAL RESP TX ONE (08:00)
[2022-07-12] MEDS ORDERED: LIDOCAINE 1% 20 ML VIAL MISC INJ ONE (08:00)
[2022-07-12] MEDS: LIDOCAINE 5% PATCH TRANSDERM SCH (08:27)
[2022-07-12] MEDS ORDERED: MIDAZOLAM 2 MG/2 ML VIAL ONE (08:32)
[2022-07-12] MEDS ORDERED: LACTULOSE 20 GM/30 ML UDCUP PO PRN (09:20)
[2022-07-12] MEDS ORDERED: DEXTROSE 10% 250 ML BAG IV PRN (10:45)
[2022-07-12] MEDS ORDERED: GLUCAGON 1 MG VIAL IM PRN (10:45)
[2022-07-12] MEDS: INSULIN REGULAR 100 UNIT/ML SUBCUT SCH ×4 (12:33→20:17)
[2022-07-12] MEDS: FUROSEMIDE 80 MG TABLET PO SCH ×2 (12:35→17:28)
[2022-07-12] MEDS: SEVELAMER CARBONATE 800 MG TABLET PO SCH ×3 (12:35→17:28)
[2022-07-12] MEDS: carvediloL 12.5 MG TABLET PO SCH ×2 (12:35→17:28)
[2022-07-12] MEDS: SODIUM BICARBONATE 650 MG TABLET PO SCH ×2 (12:35→17:28)
[2022-07-12] MEDS: DOCUSATE SODIUM 100 MG CAPSULE PO SCH ×2 (12:36→21:28)
[2022-07-12] MEDS: MULTIVITAMIN (BEROCCA) TABLET PO SCH (12:36)
[2022-07-12] MEDS: ROSUVASTATIN 20 MG TABLET PO SCH (12:36)
[2022-07-12] MEDS: LOSARTAN 50 MG TABLET PO SCH (12:36)
[2022-07-12] MEDS: ESCITALOPRAM 10 MG TABLET PO SCH (12:37)
[2022-07-12] MEDS: PANTOPRAZOLE 40 MG TABLET PO SCH (12:37)
[2022-07-12] MEDS: NYSTATIN 500,000 UNIT/5 ML UDCUP SWISH/SWAL SCH ×4 (12:38→21:28)
[2022-07-12] MEDS: calcitrioL 0.25 MCG CAPSULE PO SCH (12:38)
[2022-07-12] MEDS: MONTELUKAST 10 MG TABLET PO SCH (12:39)
[2022-07-12] MEDS: Ergocalciferol (Vitamin D2) 50 mcg (2,000 unit) Tablet PO SCH (12:53)
[2022-07-12] MEDS ORDERED: VANCOMYCIN INJ 500 MG in SODIUM CHLORIDE 0.9% 100 ML IV ONE (17:00)
[2022-07-12] MEDS: POLYETHYLENE GLYCOL POWDER 17 GM PACK PO SCH (17:27)
[2022-07-13] MEDS: ALBUTEROL/IPRATROPIUM 3 ML NEB RESP TX SCH ×4 (02:04→19:32)
[2022-07-13] MEDS: ACETAMINOPHEN 325 MG TABLET PO PRN (04:33)
[2022-07-13] MEDS: HYOSCYAMINE 0.125 MG TABLET SL SCH ×4 (04:54→22:02)
[2022-07-13] MEDS: METOCLOPRAMIDE 10 MG/2 ML VIAL IV SCH ×3 (05:36→17:43)
[2022-07-13 05:40] LABS: Basophils % 0.5 % (0.0-0.8); Eosinophils # 0.2 10*3/uL (0.0-0.87); Eosinophils % 3.2 % (0.00-10.9); Hematocrit 27.4 VOL% (35.7-47.0); Hemoglobin 8.6 GM/DL (12.0-16.0); Immature Granulocytes % 0.3 %; Immature Granulocytes Absolute 0.02 #; Lymphocytes # 1.2 10*3/uL (1.4-4.0); Lymphocytes % 19.4 % (21.3-54.2); Mean Corpuscular HGB Conc 31.4 GM/DL (32-36); Mean Corpuscular Volume 102.6 FL (87-102); Mean Platelet Volume 9.1 FL (9.6-12.0); Monocytes # 0.7 10*3/uL (0.11-0.8); Monocytes % 10.6 % (1.7-12.7); Platelet Count 229 T/CUMM (130-400); Red Blood Count 2.67 MC/CUMM (3.8-5.5); Red Cell Distribution Width 17.7 % (9.3-17.3); White Blood Count 6.2 T/CUMM (4-12)
[2022-07-13 06:08] LABS: Calcium 8.5 MG/DL (8.5-10.1); Osmolality,Calculated 276.8 MOS/KG (273-304); Potassium 4.2 MMOL/L (3.5-5.1)
[2022-07-13] MEDS: INSULIN REGULAR 100 UNIT/ML SUBCUT SCH ×4 (07:47→20:23)
[2022-07-13] MEDS: SEVELAMER CARBONATE 800 MG TABLET PO SCH ×3 (08:14→17:42)
[2022-07-13] MEDS: DOCUSATE SODIUM 100 MG CAPSULE PO SCH ×2 (08:14→20:22)
[2022-07-13] MEDS: SODIUM BICARBONATE 650 MG TABLET PO SCH ×2 (08:14→17:42)
[2022-07-13] MEDS: calcitrioL 0.25 MCG CAPSULE PO SCH (08:14)
[2022-07-13] MEDS: MULTIVITAMIN (BEROCCA) TABLET PO SCH (08:14)
[2022-07-13] MEDS: ROSUVASTATIN 20 MG TABLET PO SCH (08:14)
[2022-07-13] MEDS: LOSARTAN 50 MG TABLET PO SCH (08:14)
[2022-07-13] MEDS: FUROSEMIDE 80 MG TABLET PO SCH ×2 (08:15→15:16)
[2022-07-13] MEDS: ESCITALOPRAM 10 MG TABLET PO SCH (08:15)
[2022-07-13] MEDS: MONTELUKAST 10 MG TABLET PO SCH (08:15)
[2022-07-13] MEDS: NYSTATIN 500,000 UNIT/5 ML UDCUP SWISH/SWAL SCH ×4 (08:15→20:23)
[2022-07-13] MEDS: carvediloL 12.5 MG TABLET PO SCH ×2 (08:15→17:42)
[2022-07-13] MEDS: PANTOPRAZOLE 40 MG TABLET PO SCH (08:15)
[2022-07-13] MEDS: LIDOCAINE 5% PATCH TRANSDERM SCH (08:16)
[2022-07-13] MEDS: POLYETHYLENE GLYCOL POWDER 17 GM PACK PO SCH (08:16)
[2022-07-13] MEDS: Ergocalciferol (Vitamin D2) 50 mcg (2,000 unit) Tablet PO SCH (09:19)
[2022-07-13] MEDS ORDERED: BISACODYL 10 MG SUPP RECTAL ONE (13:00)
[2022-07-14] MEDS: ALBUTEROL/IPRATROPIUM 3 ML NEB RESP TX SCH ×2 (00:45→07:40)
[2022-07-14] MEDS: METOCLOPRAMIDE 10 MG/2 ML VIAL IV SCH ×3 (00:52→14:08)
[2022-07-14 05:01] LABS: Basophils % 0.5 % (0.0-0.8); Eosinophils # 0.2 10*3/uL (0.0-0.87); Eosinophils % 4.2 % (0.00-10.9); Hematocrit 26.2 VOL% (35.7-47.0); Hemoglobin 8.4 GM/DL (12.0-16.0); Immature Granulocytes % 0.4 %; Immature Granulocytes Absolute 0.02 #; Lymphocytes # 1.3 10*3/uL (1.4-4.0); Lymphocytes % 23.6 % (21.3-54.2); Mean Corpuscular HGB Conc 32.1 GM/DL (32-36); Mean Corpuscular Volume 102.3 FL (87-102); Mean Platelet Volume 9.3 FL (9.6-12.0); Monocytes # 0.6 10*3/uL (0.11-0.8); Monocytes % 10.4 % (1.7-12.7); Neutrophils % 60.9 % (38.7-73.9); Platelet Count 212 T/CUMM (130-400); Red Blood Count 2.56 MC/CUMM (3.8-5.5); Red Cell Distribution Width 17.2 % (9.3-17.3); White Blood Count 5.7 T/CUMM (4-12)
[2022-07-14 05:17] LABS: Calcium 8.8 MG/DL (8.5-10.1); Osmolality,Calculated 282.7 MOS/KG (273-304); Potassium 4.3 MMOL/L (3.5-5.1)
[2022-07-14] MEDS: HYOSCYAMINE 0.125 MG TABLET SL SCH ×2 (05:26→14:08)
[2022-07-14] MEDS ORDERED: LACTULOSE 20 GM/30 ML UDCUP PO ONE (07:24)
[2022-07-14] MEDS: MULTIVITAMIN (BEROCCA) TABLET PO SCH (12:43)
[2022-07-14] MEDS: LOSARTAN 50 MG TABLET PO SCH (12:43)
[2022-07-14] MEDS: SEVELAMER CARBONATE 800 MG TABLET PO SCH ×2 (12:43→14:14)
[2022-07-14] MEDS: SODIUM BICARBONATE 650 MG TABLET PO SCH (12:43)
[2022-07-14] MEDS: FUROSEMIDE 80 MG TABLET PO SCH (12:44)
[2022-07-14] MEDS: NYSTATIN 500,000 UNIT/5 ML UDCUP SWISH/SWAL SCH ×2 (12:44→14:12)
[2022-07-14] MEDS: carvediloL 12.5 MG TABLET PO SCH (12:44)
[2022-07-14] MEDS: ROSUVASTATIN 20 MG TABLET PO SCH (12:44)
[2022-07-14] MEDS: POLYETHYLENE GLYCOL POWDER 17 GM PACK PO SCH (12:44)
[2022-07-14] MEDS: PANTOPRAZOLE 40 MG TABLET PO SCH (12:44)
[2022-07-14] MEDS: MONTELUKAST 10 MG TABLET PO SCH (12:44)
[2022-07-14] MEDS: DOCUSATE SODIUM 100 MG CAPSULE PO SCH (12:45)
[2022-07-14] MEDS: LIDOCAINE 5% PATCH TRANSDERM SCH (12:45)
[2022-07-14] MEDS: calcitrioL 0.25 MCG CAPSULE PO SCH (14:08)
[2022-07-14] MEDS: ESCITALOPRAM 10 MG TABLET PO SCH (14:08)
[2022-07-14] MEDS: INSULIN REGULAR 100 UNIT/ML SUBCUT SCH (14:12)
[2022-07-14] MEDS ORDERED: VANCOMYCIN INJ 500 MG in SODIUM CHLORIDE 0.9% 100 ML IV ONE (17:00)
[2022-07-14 21:03] VITALS: BP 166/51
[2022-07-16 14:11] LABS: M. Tuberculosis PCR Result Negative (Negative); M. Tuberculosis PCR Source BRONCH WASH
== END 2022-07-14 15:52 | disposition home health service (06) | DRG 291 ==
LOC: N.ED 00:24 → N.TELES 03:01 → SUATTDRO 03:01 → N.TELES 04:41
PROVIDERS: ADMIT Hospitalist; ATTEND Internal Medicine

== ENCOUNTER 2022-07-22 21:01 | Inpatient (IN) ==
[2022-07-22] MEDS ORDERED: FUROSEMIDE 40 MG/4 ML VIAL IV STA (21:25)
[2022-07-22 21:46] LABS: Basophils % 0.4 % (0.0-0.8); Eosinophils # 0.5 10*3/uL (0.0-0.87); Eosinophils % 4.7 % (0.00-10.9); Hematocrit 24.1 VOL% (35.7-47.0); Hemoglobin 7.4 GM/DL (12.0-16.0); Immature Granulocytes % 0.8 %; Immature Granulocytes Absolute 0.09 #; Lymphocytes # 3.4 10*3/uL (1.4-4.0); Mean Corpuscular HGB Conc 30.7 GM/DL (32-36); Mean Corpuscular Volume 109.5 FL (87-102); Monocytes # 0.9 10*3/uL (0.11-0.8); Monocytes % 7.6 % (1.7-12.7); Neutrophils % 56.5 % (38.7-73.9); Platelet Count 281 T/CUMM (130-400); Red Cell Distribution Width 17.4 % (9.3-17.3); White Blood Count 11.4 T/CUMM (4-12)
[2022-07-22 22:00] LABS: INR 0.9; PT Patient Result 10.3 SECS (10.1-12.1); Partial Thromboplastin Time 24.8 SECS (23.7-32.9)
[2022-07-22 22:03] LABS: Albumin 3.1 G/DL (3.4-5.0); Bilirubin,Total 0.7 MG/DL (0.20-1.00); Calcium 8.2 MG/DL (8.5-10.1); Osmolality,Calculated 302.7 MOS/KG (273-304); Potassium 3.9 MMOL/L (3.5-5.1); Total Protein 6.1 G/DL (6.4-8.2)
[2022-07-22 22:07] LABS: Arterial Base Excess iSTAT -2 MMOL/L (-2.5-2.5); Arterial Bicarbonate iSTAT 23.2 MMOL/L (20-26); Arterial O2 Saturation iSTAT 100 % (95-100); Arterial PCO2 iSTAT 40 MM HG (35-48); Arterial PO2 iSTAT 195 MM HG (80-95); Arterial Total CO2 iSTAT 24 MMO/L (23-27); Arterial pH iSTAT 7.373 (7.35-7.45)
[2022-07-23 00:12] LABS: Arterial Base Excess iSTAT 5 MMOL/L (-2.5-2.5); Arterial Bicarbonate iSTAT 29.7 MMOL/L (20-26); Arterial O2 Saturation iSTAT 100 % (95-100); Arterial PCO2 iSTAT 43 MM HG (35-48); Arterial PO2 iSTAT 432 MM HG (80-95); Arterial Total CO2 iSTAT 31 MMO/L (23-27); Arterial pH iSTAT 7.445 (7.35-7.45)
[2022-07-23] MEDS ORDERED: GLUCAGON 1 MG VIAL IM PRN (01:17)
[2022-07-23] MEDS ORDERED: ACETAMINOPHEN 325 MG TABLET PO PRN (01:17)
[2022-07-23] MEDS ORDERED: ONDANSETRON 4 MG/2 ML VIAL IV PRN (01:17)
[2022-07-23] MEDS ORDERED: DEXTROSE 10% 250 ML BAG IV PRN (01:32)
[2022-07-23] MEDS ORDERED: VANCOMYCIN INJ 500 MG in SODIUM CHLORIDE 0.9% 100 ML IV PRN (02:30)
[2022-07-23 02:38] LABS: Bilirubin,Urine Negative (Negative); Blood, Urine Moderate mg/dL (Negative); Glucose,Urine (UA) Negative (Negative); Ketones,Urine Negative (Negative); Nitrite,Urine Negative (Negative); Protein,Urine 100 mg/dL (Negative); Urine Appearance Clear (Clear); Urine Color Yellow (Yellow); Urine Urobilinogen 0.2 eU/dL (<2.0)
[2022-07-23 02:41] LABS: RBC,Urine 67 /HPF (0-4); Squamous Epithelial Cell,Urine Occasional /HPF (0-10)
[2022-07-23] MEDS: [UNRECOGNIZED DRUG - OTHER] INH SCH ×4 (04:35→21:31)
[2022-07-23] MEDS: ALBUTEROL/IPRATROPIUM 3 ML NEB RESP TX SCH ×4 (04:35→19:28)
[2022-07-23] MEDS: EPINEPHRINE INH SCH ×4 (04:35→21:31)
[2022-07-23 05:48] LABS: Calcium 8.5 MG/DL (8.5-10.1); Osmolality,Calculated 292.5 MOS/KG (273-304); Potassium 4.3 MMOL/L (3.5-5.1)
[2022-07-23 06:04] LABS: Basophils % 0.2 % (0.0-0.8); Eosinophils % 0.3 % (0.00-10.9); Hematocrit 19.1 VOL% (35.7-47.0); Immature Granulocytes % 0.6 %; Immature Granulocytes Absolute 0.05 #; Lymphocytes # 1.2 10*3/uL (1.4-4.0); Mean Corpuscular HGB Conc 32.5 GM/DL (32-36); Mean Corpuscular Volume 102.7 FL (87-102); Mean Platelet Volume 9.2 FL (9.6-12.0); Monocytes # 0.8 10*3/uL (0.11-0.8); Monocytes % 8.7 % (1.7-12.7); Neutrophils % 76.2 % (38.7-73.9); Red Blood Count 1.86 MC/CUMM (3.8-5.5); Red Cell Distribution Width 17.3 % (9.3-17.3); White Blood Count 8.7 T/CUMM (4-12)
[2022-07-23 06:06] LABS: Hemoglobin 6.2 GM/DL (12.0-16.0)
[2022-07-23 06:07] LABS: Platelet Count 171 T/CUMM (130-400)
[2022-07-23] MEDS: INSULIN LISPRO 100 UNIT/ML SUBCUT SCH ×4 (07:40→21:30)
[2022-07-23] MEDS: SEVELAMER CARBONATE 800 MG TABLET PO SCH ×3 (08:30→18:00)
[2022-07-23] MEDS: carvediloL 12.5 MG TABLET PO SCH ×2 (08:30→18:00)
[2022-07-23] MEDS: FUROSEMIDE 40 MG/4 ML VIAL IV SCH ×2 (08:35→18:01)
[2022-07-23] MEDS ORDERED: SODIUM CHLORIDE 0.9% 1,000 ML IV PRN (09:17)
[2022-07-23] MEDS: CHOLECALCIFEROL 1,000 UNIT TABLET PO SCH (10:00)
[2022-07-23] MEDS: MULTIVITAMIN (BEROCCA) TABLET PO SCH (10:00)
[2022-07-23] MEDS: SODIUM BICARBONATE 650 MG TABLET PO SCH ×2 (10:00→21:27)
[2022-07-23] MEDS: MONTELUKAST 10 MG TABLET PO SCH (10:01)
[2022-07-23] MEDS: FERROUS SULFATE 325 MG TABLET PO SCH ×2 (10:01→21:28)
[2022-07-23] MEDS: ROSUVASTATIN 20 MG TABLET PO SCH (10:01)
[2022-07-23] MEDS: PANTOPRAZOLE 40 MG TABLET PO SCH (10:01)
[2022-07-23] MEDS: LOSARTAN 50 MG TABLET PO SCH (10:01)
[2022-07-23] MEDS: SODIUM ZIRCONIUM CYCLOSILICATE 10 GM PACK PO SCH (10:01)
[2022-07-23] MEDS: ESCITALOPRAM 10 MG TABLET PO SCH (10:01)
[2022-07-23] MEDS: calcitrioL 0.25 MCG CAPSULE PO SCH (10:01)
[2022-07-23] MEDS: POLYETHYLENE GLYCOL POWDER 17 GM PACK PO SCH (10:03)
[2022-07-23] MEDS ORDERED: VANCOMYCIN INJ 500 MG in SODIUM CHLORIDE 0.9% 100 ML IV ONE (14:00)
[2022-07-23] MEDS ORDERED: HEPARIN 10,000 UNIT/10 ML VIAL IV PRN (15:54)
[2022-07-23] MEDS: HEPARIN 5,000 UNIT/1 ML VIAL SUBCUT SCH (21:28)
[2022-07-23 22:52] LABS: Hematocrit 24.3 VOL% (35.7-47.0)
[2022-07-23 22:53] LABS: Hemoglobin 8.2 GM/DL (12.0-16.0)
[2022-07-24] MEDS: [UNRECOGNIZED DRUG - OTHER] INH SCH ×4 (01:54→22:23)
[2022-07-24] MEDS: EPINEPHRINE INH SCH ×4 (01:54→22:23)
[2022-07-24 06:15] LABS: Basophils % 0.2 % (0.0-0.8); Eosinophils # 0.3 10*3/uL (0.0-0.87); Eosinophils % 3.3 % (0.00-10.9); Hematocrit 26.2 VOL% (35.7-47.0); Hemoglobin 8.8 GM/DL (12.0-16.0); Immature Granulocytes % 0.6 %; Immature Granulocytes Absolute 0.05 #; Lymphocytes # 1.1 10*3/uL (1.4-4.0); Lymphocytes % 13.2 % (21.3-54.2); Mean Corpuscular HGB Conc 33.6 GM/DL (32-36); Mean Corpuscular Volume 94.9 FL (87-102); Mean Platelet Volume 9.1 FL (9.6-12.0); Monocytes # 0.8 10*3/uL (0.11-0.8); Monocytes % 9.5 % (1.7-12.7); Neutrophils % 73.2 % (38.7-73.9); Platelet Count 157 T/CUMM (130-400); Red Blood Count 2.76 MC/CUMM (3.8-5.5); Red Cell Distribution Width 20.7 % (9.3-17.3); White Blood Count 8.3 T/CUMM (4-12)
[2022-07-24 06:56] LABS: Osmolality,Calculated 288.5 MOS/KG (273-304); Potassium 3.8 MMOL/L (3.5-5.1)
[2022-07-24] MEDS: ALBUTEROL/IPRATROPIUM 3 ML NEB RESP TX SCH ×4 (07:08→19:56)
[2022-07-24] MEDS ORDERED: FUROSEMIDE 20 MG/2 ML VIAL IV ONE (07:37)
[2022-07-24] MEDS: INSULIN LISPRO 100 UNIT/ML SUBCUT SCH ×4 (08:07→22:25)
[2022-07-24] MEDS: calcitrioL 0.25 MCG CAPSULE PO SCH (09:06)
[2022-07-24] MEDS: PANTOPRAZOLE 40 MG TABLET PO SCH (09:06)
[2022-07-24] MEDS: POLYETHYLENE GLYCOL POWDER 17 GM PACK PO SCH (09:06)
[2022-07-24] MEDS: MULTIVITAMIN (BEROCCA) TABLET PO SCH (09:08)
[2022-07-24] MEDS: FERROUS SULFATE 325 MG TABLET PO SCH ×2 (09:09→22:25)
[2022-07-24] MEDS: ESCITALOPRAM 10 MG TABLET PO SCH (09:09)
[2022-07-24] MEDS: carvediloL 12.5 MG TABLET PO SCH ×2 (09:09→17:37)
[2022-07-24] MEDS: LOSARTAN 50 MG TABLET PO SCH (09:10)
[2022-07-24] MEDS: CHOLECALCIFEROL 1,000 UNIT TABLET PO SCH (09:11)
[2022-07-24] MEDS: SODIUM BICARBONATE 650 MG TABLET PO SCH ×2 (09:11→22:24)
[2022-07-24] MEDS: MONTELUKAST 10 MG TABLET PO SCH (09:11)
[2022-07-24] MEDS: SEVELAMER CARBONATE 800 MG TABLET PO SCH ×3 (09:12→17:37)
[2022-07-24] MEDS: ROSUVASTATIN 20 MG TABLET PO SCH (09:13)
[2022-07-24] MEDS: HEPARIN 5,000 UNIT/1 ML VIAL SUBCUT SCH ×2 (09:16→22:26)
[2022-07-24] MEDS: SODIUM ZIRCONIUM CYCLOSILICATE 10 GM PACK PO SCH (12:38)
[2022-07-24] MEDS: FUROSEMIDE 40 MG/4 ML VIAL IV SCH ×2 (12:45→17:40)
[2022-07-25] MEDS: ALBUTEROL/IPRATROPIUM 3 ML NEB RESP TX SCH ×4 (01:03→19:16)
[2022-07-25] MEDS: EPINEPHRINE INH SCH ×4 (03:47→19:16)
[2022-07-25] MEDS: [UNRECOGNIZED DRUG - OTHER] INH SCH ×4 (03:47→19:16)
[2022-07-25 04:35] LABS: Basophils % 0.2 % (0.0-0.8); Eosinophils # 0.2 10*3/uL (0.0-0.87); Eosinophils % 1.8 % (0.00-10.9); Hemoglobin 8.8 GM/DL (12.0-16.0); Immature Granulocytes % 0.7 %; Immature Granulocytes Absolute 0.06 #; Lymphocytes # 1.1 10*3/uL (1.4-4.0); Lymphocytes % 12.2 % (21.3-54.2); Mean Corpuscular HGB Conc 33.8 GM/DL (32-36); Mean Corpuscular Volume 93.5 FL (87-102); Mean Platelet Volume 9.2 FL (9.6-12.0); Monocytes # 0.8 10*3/uL (0.11-0.8); Monocytes % 9.1 % (1.7-12.7); Platelet Count 163 T/CUMM (130-400); Red Blood Count 2.78 MC/CUMM (3.8-5.5); Red Cell Distribution Width 20.5 % (9.3-17.3); White Blood Count 8.9 T/CUMM (4-12)
[2022-07-25 04:54] LABS: Calcium 9.1 MG/DL (8.5-10.1); Osmolality,Calculated 284.1 MOS/KG (273-304)
[2022-07-25] MEDS: INSULIN LISPRO 100 UNIT/ML SUBCUT SCH ×4 (07:10→21:30)
[2022-07-25] MEDS ORDERED: FUROSEMIDE 40 MG/4 ML VIAL IV ONE (07:34)
[2022-07-25] MEDS ORDERED: MORPHINE 2 MG/1 ML SYRINGE IV ONE (07:36)
[2022-07-25 07:53] LABS: Arterial Base Excess iSTAT 3 MMOL/L (-2.5-2.5); Arterial Bicarbonate iSTAT 25.8 MMOL/L (20-26); Arterial O2 Saturation iSTAT 97 % (95-100); Arterial PCO2 iSTAT 34 MM HG (35-48); Arterial PO2 iSTAT 87 MM HG (80-95); Arterial Total CO2 iSTAT 27 MMO/L (23-27); Arterial pH iSTAT 7.492 (7.35-7.45)
[2022-07-25] MEDS: SODIUM BICARBONATE 650 MG TABLET PO SCH ×2 (09:45→22:24)
[2022-07-25] MEDS: PANTOPRAZOLE 40 MG TABLET PO SCH (09:48)
[2022-07-25] MEDS: FERROUS SULFATE 325 MG TABLET PO SCH ×2 (09:48→22:25)
[2022-07-25] MEDS: ROSUVASTATIN 20 MG TABLET PO SCH (09:51)
[2022-07-25] MEDS: calcitrioL 0.25 MCG CAPSULE PO SCH (09:51)
[2022-07-25] MEDS: ESCITALOPRAM 10 MG TABLET PO SCH (09:53)
[2022-07-25] MEDS: MONTELUKAST 10 MG TABLET PO SCH (09:53)
[2022-07-25] MEDS: LOSARTAN 50 MG TABLET PO SCH (09:54)
[2022-07-25] MEDS: CHOLECALCIFEROL 1,000 UNIT TABLET PO SCH (09:55)
[2022-07-25] MEDS: carvediloL 12.5 MG TABLET PO SCH ×2 (09:58→18:14)
[2022-07-25] MEDS: MULTIVITAMIN (BEROCCA) TABLET PO SCH (09:59)
[2022-07-25] MEDS: SEVELAMER CARBONATE 800 MG TABLET PO SCH ×3 (10:02→18:14)
[2022-07-25] MEDS: POLYETHYLENE GLYCOL POWDER 17 GM PACK PO SCH (10:03)
[2022-07-25] MEDS: SODIUM ZIRCONIUM CYCLOSILICATE 10 GM PACK PO SCH (10:03)
[2022-07-25] MEDS: HEPARIN 5,000 UNIT/1 ML VIAL SUBCUT SCH (10:55)
[2022-07-25] MEDS ORDERED: MORPHINE 2 MG/1 ML SYRINGE IV PRN (12:32)
[2022-07-25] MEDS ORDERED: VANCOMYCIN INJ 500 MG in SODIUM CHLORIDE 0.9% 100 ML IV ONE (17:00)
[2022-07-25] MEDS ORDERED: FUROSEMIDE 40 MG/4 ML VIAL IV SCH (18:00)
[2022-07-26] MEDS: ALBUTEROL/IPRATROPIUM 3 ML NEB RESP TX SCH ×4 (00:14→19:05)
[2022-07-26] MEDS: [UNRECOGNIZED DRUG - OTHER] INH SCH ×4 (03:12→20:58)
[2022-07-26] MEDS: EPINEPHRINE INH SCH ×4 (03:12→20:58)
[2022-07-26 05:41] LABS: Basophils % 0.3 % (0.0-0.8); Eosinophils # 0.2 10*3/uL (0.0-0.87); Eosinophils % 2.4 % (0.00-10.9); Hematocrit 26.5 VOL% (35.7-47.0); Hemoglobin 8.7 GM/DL (12.0-16.0); Immature Granulocytes % 0.4 %; Immature Granulocytes Absolute 0.03 #; Lymphocytes % 13.7 % (21.3-54.2); Mean Corpuscular HGB Conc 32.8 GM/DL (32-36); Mean Corpuscular Volume 97.1 FL (87-102); Mean Platelet Volume 9.2 FL (9.6-12.0); Monocytes # 0.7 10*3/uL (0.11-0.8); Monocytes % 9.2 % (1.7-12.7); Platelet Count 159 T/CUMM (130-400); Red Blood Count 2.73 MC/CUMM (3.8-5.5); White Blood Count 7.4 T/CUMM (4-12)
[2022-07-26 06:12] LABS: Calcium 8.7 MG/DL (8.5-10.1)
[2022-07-26] MEDS: INSULIN LISPRO 100 UNIT/ML SUBCUT SCH ×4 (07:46→20:53)
[2022-07-26] MEDS: ESCITALOPRAM 10 MG TABLET PO SCH (08:45)
[2022-07-26] MEDS: MULTIVITAMIN (BEROCCA) TABLET PO SCH (08:45)
[2022-07-26] MEDS: SODIUM BICARBONATE 650 MG TABLET PO SCH ×2 (08:45→20:53)
[2022-07-26] MEDS: MONTELUKAST 10 MG TABLET PO SCH (08:45)
[2022-07-26] MEDS: calcitrioL 0.25 MCG CAPSULE PO SCH (08:45)
[2022-07-26] MEDS: CHOLECALCIFEROL 1,000 UNIT TABLET PO SCH (08:45)
[2022-07-26] MEDS: FERROUS SULFATE 325 MG TABLET PO SCH ×2 (08:46→20:53)
[2022-07-26] MEDS: PANTOPRAZOLE 40 MG TABLET PO SCH (08:46)
[2022-07-26] MEDS: LOSARTAN 50 MG TABLET PO SCH (08:46)
[2022-07-26] MEDS: ROSUVASTATIN 20 MG TABLET PO SCH (08:46)
[2022-07-26] MEDS: carvediloL 12.5 MG TABLET PO SCH ×2 (08:46→17:20)
[2022-07-26] MEDS: POLYETHYLENE GLYCOL POWDER 17 GM PACK PO SCH ×2 (08:48→08:50)
[2022-07-26] MEDS: SODIUM ZIRCONIUM CYCLOSILICATE 10 GM PACK PO SCH ×2 (08:48→08:51)
[2022-07-26] MEDS: SEVELAMER CARBONATE 800 MG TABLET PO SCH ×3 (08:54→17:20)
[2022-07-26] MEDS ORDERED: FUROSEMIDE 40 MG/4 ML VIAL IV SCH (16:00)
[2022-07-26] MEDS ORDERED: ZALEPLON 5 MG CAPSULE PO PRN (22:01)
[2022-07-27] MEDS: ALBUTEROL/IPRATROPIUM 3 ML NEB RESP TX SCH ×2 (00:45→07:33)
[2022-07-27] MEDS: EPINEPHRINE INH SCH ×2 (03:36→07:47)
[2022-07-27] MEDS: [UNRECOGNIZED DRUG - OTHER] INH SCH ×2 (03:36→07:47)
[2022-07-27 04:06] LABS: Basophils % 0.3 % (0.0-0.8); Eosinophils # 0.4 10*3/uL (0.0-0.87); Eosinophils % 5.6 % (0.00-10.9); Hematocrit 27.9 VOL% (35.7-47.0); Immature Granulocytes % 0.3 %; Immature Granulocytes Absolute 0.02 #; Lymphocytes # 1.4 10*3/uL (1.4-4.0); Lymphocytes % 20.3 % (21.3-54.2); Mean Corpuscular HGB Conc 32.3 GM/DL (32-36); Mean Corpuscular Volume 96.5 FL (87-102); Monocytes # 0.7 10*3/uL (0.11-0.8); Monocytes % 9.1 % (1.7-12.7); Neutrophils % 64.4 % (38.7-73.9); Platelet Count 172 T/CUMM (130-400); Red Blood Count 2.89 MC/CUMM (3.8-5.5); Red Cell Distribution Width 19.9 % (9.3-17.3); White Blood Count 7.1 T/CUMM (4-12)
[2022-07-27 04:24] LABS: Osmolality,Calculated 289.8 MOS/KG (273-304); Potassium 4.2 MMOL/L (3.5-5.1)
[2022-07-27] MEDS: INSULIN LISPRO 100 UNIT/ML SUBCUT SCH ×2 (07:47→11:58)
[2022-07-27] MEDS: SEVELAMER CARBONATE 800 MG TABLET PO SCH ×2 (11:01→11:23)
[2022-07-27] MEDS: LOSARTAN 50 MG TABLET PO SCH (11:22)
[2022-07-27] MEDS: ESCITALOPRAM 10 MG TABLET PO SCH (11:22)
[2022-07-27] MEDS: SODIUM BICARBONATE 650 MG TABLET PO SCH (11:23)
[2022-07-27] MEDS: ROSUVASTATIN 20 MG TABLET PO SCH (11:23)
[2022-07-27] MEDS: carvediloL 12.5 MG TABLET PO SCH (11:23)
[2022-07-27] MEDS: CHOLECALCIFEROL 1,000 UNIT TABLET PO SCH (11:23)
[2022-07-27] MEDS: MONTELUKAST 10 MG TABLET PO SCH (11:24)
[2022-07-27] MEDS: FERROUS SULFATE 325 MG TABLET PO SCH (11:24)
[2022-07-27] MEDS: MULTIVITAMIN (BEROCCA) TABLET PO SCH (11:24)
[2022-07-27] MEDS: calcitrioL 0.25 MCG CAPSULE PO SCH (11:24)
[2022-07-27] MEDS: PANTOPRAZOLE 40 MG TABLET PO SCH (11:29)
[2022-07-27] MEDS: POLYETHYLENE GLYCOL POWDER 17 GM PACK PO SCH (11:32)
[2022-07-27] MEDS: SODIUM ZIRCONIUM CYCLOSILICATE 10 GM PACK PO SCH (11:32)
[2022-07-27] MEDS ORDERED: VANCOMYCIN INJ 500 MG in SODIUM CHLORIDE 0.9% 100 ML IV ONE (12:00)
[2022-07-27 12:37] VITALS: BP 143/54
[2022-08-06] MEDS ORDERED: EPOETIN BETA METHOXY PEG SUBCUT SCH (09:00)
== END 2022-07-27 13:55 | disposition home health service (06) | DRG 291 ==
LOC: N.ED 21:01 → SUATTDRO 07-23 01:17 → N.EDINP 07-23 01:17 → N.TELEN 07-23 09:36
PROVIDERS: ADMIT Internal Medicine; ATTEND Family Medicine

== ENCOUNTER 2022-08-12 08:25 | Inpatient (IN) ==
[2022-08-12 09:07] LABS: Basophils % 0.4 % (0.0-0.8); Eosinophils # 0.2 10*3/uL (0.0-0.87); Eosinophils % 2.9 % (0.00-10.9); Hematocrit 24.8 VOL% (35.7-47.0); Immature Granulocytes % 0.7 %; Immature Granulocytes Absolute 0.05 #; Lymphocytes # 1.1 10*3/uL (1.4-4.0); Lymphocytes % 15.9 % (21.3-54.2); Mean Corpuscular HGB Conc 32.3 GM/DL (32-36); Mean Corpuscular Volume 101.2 FL (87-102); Mean Platelet Volume 9.1 FL (9.6-12.0); Monocytes # 0.5 10*3/uL (0.11-0.8); Monocytes % 7.8 % (1.7-12.7); Neutrophils % 72.3 % (38.7-73.9); Platelet Count 190 T/CUMM (130-400); Red Blood Count 2.45 MC/CUMM (3.8-5.5); Red Cell Distribution Width 18.6 % (9.3-17.3); White Blood Count 6.8 T/CUMM (4-12)
[2022-08-12 09:16] LABS: INR 0.9; PT Patient Result 10.5 SECS (10.1-12.1); Partial Thromboplastin Time 67.9 SECS (23.7-32.9)
[2022-08-12 09:26] LABS: Calcium 8.6 MG/DL (8.5-10.1); Osmolality,Calculated 298.5 MOS/KG (273-304); Potassium 3.2 MMOL/L (3.5-5.1); Total Protein 6.4 G/DL (6.4-8.2)
[2022-08-12] MEDS ORDERED: ONDANSETRON 4 MG/2 ML VIAL IV PRN (10:42)
[2022-08-12] MEDS ORDERED: hydrALAZINE 20 MG/1 ML VIAL IV PRN (10:42)
[2022-08-12] MEDS ORDERED: DEXTROSE 10% 250 ML BAG IV PRN (10:52)
[2022-08-12] MEDS ORDERED: GLUCAGON 1 MG VIAL IM PRN (10:52)
[2022-08-12] MEDS: HEPARIN 5,000 UNIT/1 ML VIAL SUBCUT SCH ×2 (11:24→22:54)
[2022-08-12] MEDS: INSULIN LISPRO 100 UNIT/ML SUBCUT SCH ×3 (13:22→20:52)
[2022-08-12] MEDS ORDERED: HEPARIN 10,000 UNIT/10 ML VIAL IV SCH (14:00)
[2022-08-12] MEDS: SEVELAMER CARBONATE 800 MG TABLET PO SCH (17:24)
[2022-08-12] MEDS: carvediloL 12.5 MG TABLET PO SCH (17:25)
[2022-08-12] MEDS: FUROSEMIDE 80 MG TABLET PO SCH (17:25)
[2022-08-12] MEDS: ACETAMINOPHEN 325 MG TABLET PO PRN (21:22)
[2022-08-12] MEDS ORDERED: traMADol 50 MG TABLET PO PRN (22:59)
[2022-08-13 05:42] LABS: Calcium 8.6 MG/DL (8.5-10.1); Osmolality,Calculated 281.8 MOS/KG (273-304); Potassium 3.6 MMOL/L (3.5-5.1)
[2022-08-13 07:22] LABS: Basophils % 0.8 % (0.0-0.8); Eosinophils # 0.2 10*3/uL (0.0-0.87); Eosinophils % 4.9 % (0.00-10.9); Hematocrit 24.8 VOL% (35.7-47.0); Hemoglobin 7.8 GM/DL (12.0-16.0); Immature Granulocytes % 0.6 %; Immature Granulocytes Absolute 0.03 #; Lymphocytes # 1.2 10*3/uL (1.4-4.0); Lymphocytes % 23.8 % (21.3-54.2); Mean Corpuscular HGB Conc 31.5 GM/DL (32-36); Mean Corpuscular Volume 102.9 FL (87-102); Mean Platelet Volume 9.2 FL (9.6-12.0); Monocytes # 0.6 10*3/uL (0.11-0.8); Monocytes % 11.6 % (1.7-12.7); Neutrophils % 58.3 % (38.7-73.9); Platelet Count 190 T/CUMM (130-400); Red Blood Count 2.41 MC/CUMM (3.8-5.5); Red Cell Distribution Width 18.7 % (9.3-17.3); White Blood Count 4.9 T/CUMM (4-12)
[2022-08-13] MEDS: INSULIN LISPRO 100 UNIT/ML SUBCUT SCH ×4 (08:16→22:52)
[2022-08-13] MEDS: carvediloL 12.5 MG TABLET PO SCH ×2 (09:31→18:25)
[2022-08-13] MEDS: FUROSEMIDE 80 MG TABLET PO SCH ×2 (09:31→18:25)
[2022-08-13] MEDS: LOSARTAN 50 MG TABLET PO SCH (09:31)
[2022-08-13] MEDS: MONTELUKAST 10 MG TABLET PO SCH (09:31)
[2022-08-13] MEDS: SEVELAMER CARBONATE 800 MG TABLET PO SCH ×3 (09:31→18:25)
[2022-08-13] MEDS: PANTOPRAZOLE 40 MG TABLET PO SCH (09:31)
[2022-08-13] MEDS: calcitrioL 0.25 MCG CAPSULE PO SCH (09:31)
[2022-08-13] MEDS: ESCITALOPRAM 10 MG TABLET PO SCH (09:31)
[2022-08-13] MEDS: ROSUVASTATIN 20 MG TABLET PO SCH (09:32)
[2022-08-13] MEDS: POLYETHYLENE GLYCOL POWDER 17 GM PACK PO SCH (09:32)
[2022-08-13] MEDS: HEPARIN 5,000 UNIT/1 ML VIAL SUBCUT SCH ×2 (12:55→22:48)
[2022-08-13] MEDS: ACETAMINOPHEN 325 MG TABLET PO PRN (20:51)
[2022-08-13] MEDS ORDERED: ALBUTEROL/IPRATROPIUM 3 ML NEB RESP TX ONE (23:30)
[2022-08-14 06:18] LABS: Basophils % 0.5 % (0.0-0.8); Eosinophils # 0.4 10*3/uL (0.0-0.87); Eosinophils % 5.7 % (0.00-10.9); Hematocrit 25.2 VOL% (35.7-47.0); Hemoglobin 8.1 GM/DL (12.0-16.0); Immature Granulocytes % 0.5 %; Immature Granulocytes Absolute 0.03 #; Lymphocytes # 1.2 10*3/uL (1.4-4.0); Lymphocytes % 18.1 % (21.3-54.2); Mean Corpuscular HGB Conc 32.1 GM/DL (32-36); Mean Corpuscular Volume 104.6 FL (87-102); Monocytes # 0.6 10*3/uL (0.11-0.8); Monocytes % 9.4 % (1.7-12.7); Neutrophils % 65.8 % (38.7-73.9); Platelet Count 198 T/CUMM (130-400); Red Blood Count 2.41 MC/CUMM (3.8-5.5); Red Cell Distribution Width 18.6 % (9.3-17.3); White Blood Count 6.5 T/CUMM (4-12)
[2022-08-14 06:38] LABS: Calcium 8.8 MG/DL (8.5-10.1); Osmolality,Calculated 286.1 MOS/KG (273-304); Potassium 3.9 MMOL/L (3.5-5.1)
[2022-08-14] MEDS: INSULIN LISPRO 100 UNIT/ML SUBCUT SCH ×4 (07:47→20:25)
[2022-08-14] MEDS: FUROSEMIDE 80 MG TABLET PO SCH ×2 (08:58→16:55)
[2022-08-14] MEDS: ROSUVASTATIN 20 MG TABLET PO SCH (08:58)
[2022-08-14] MEDS: SEVELAMER CARBONATE 800 MG TABLET PO SCH ×3 (08:58→16:55)
[2022-08-14] MEDS: carvediloL 12.5 MG TABLET PO SCH ×2 (08:59→16:55)
[2022-08-14] MEDS: ESCITALOPRAM 10 MG TABLET PO SCH (08:59)
[2022-08-14] MEDS: calcitrioL 0.25 MCG CAPSULE PO SCH (08:59)
[2022-08-14] MEDS: PANTOPRAZOLE 40 MG TABLET PO SCH (08:59)
[2022-08-14] MEDS: MONTELUKAST 10 MG TABLET PO SCH (09:00)
[2022-08-14] MEDS: LOSARTAN 50 MG TABLET PO SCH (09:00)
[2022-08-14] MEDS: HEPARIN 5,000 UNIT/1 ML VIAL SUBCUT SCH ×2 (09:01→20:25)
[2022-08-14] MEDS: POLYETHYLENE GLYCOL POWDER 17 GM PACK PO SCH (09:01)
[2022-08-15 05:42] LABS: Basophils % 0.1 % (0.0-0.8); Eosinophils # 0.3 10*3/uL (0.0-0.87); Eosinophils % 3.7 % (0.00-10.9); Hematocrit 22.6 VOL% (35.7-47.0); Hemoglobin 7.3 GM/DL (12.0-16.0); Immature Granulocytes % 0.7 %; Immature Granulocytes Absolute 0.05 #; Lymphocytes # 1.1 10*3/uL (1.4-4.0); Lymphocytes % 15.6 % (21.3-54.2); Mean Corpuscular HGB Conc 32.3 GM/DL (32-36); Mean Corpuscular Volume 104.6 FL (87-102); Mean Platelet Volume 9.3 FL (9.6-12.0); Monocytes # 0.5 10*3/uL (0.11-0.8); Monocytes % 7.7 % (1.7-12.7); Neutrophils % 72.2 % (38.7-73.9); Platelet Count 182 T/CUMM (130-400); Red Blood Count 2.16 MC/CUMM (3.8-5.5); Red Cell Distribution Width 18.4 % (9.3-17.3); White Blood Count 6.8 T/CUMM (4-12)
[2022-08-15 06:15] LABS: Calcium 8.5 MG/DL (8.5-10.1); Osmolality,Calculated 289.4 MOS/KG (273-304); Potassium 4.3 MMOL/L (3.5-5.1)
[2022-08-15] MEDS: INSULIN LISPRO 100 UNIT/ML SUBCUT SCH ×4 (08:31→20:20)
[2022-08-15] MEDS: calcitrioL 0.25 MCG CAPSULE PO SCH (08:32)
[2022-08-15] MEDS: SEVELAMER CARBONATE 800 MG TABLET PO SCH ×3 (08:32→16:37)
[2022-08-15] MEDS: POLYETHYLENE GLYCOL POWDER 17 GM PACK PO SCH (08:32)
[2022-08-15] MEDS: FUROSEMIDE 80 MG TABLET PO SCH ×2 (08:32→16:37)
[2022-08-15] MEDS: MONTELUKAST 10 MG TABLET PO SCH (08:32)
[2022-08-15] MEDS: ESCITALOPRAM 10 MG TABLET PO SCH (08:32)
[2022-08-15] MEDS: PANTOPRAZOLE 40 MG TABLET PO SCH (08:32)
[2022-08-15] MEDS: ROSUVASTATIN 20 MG TABLET PO SCH (08:32)
[2022-08-15] MEDS: HEPARIN 5,000 UNIT/1 ML VIAL SUBCUT SCH ×2 (08:32→20:20)
[2022-08-15] MEDS: LOSARTAN 50 MG TABLET PO SCH (08:33)
[2022-08-15] MEDS: carvediloL 12.5 MG TABLET PO SCH ×2 (08:33→16:37)
[2022-08-15] MEDS: SODIUM CHLORIDE 0.9% IV SCH (20:00)
[2022-08-15] MEDS: GENTAMICIN IV SCH (20:00)
[2022-08-16] MEDS: ACETAMINOPHEN 325 MG TABLET PO PRN (02:40)
[2022-08-16 06:16] LABS: Basophils % 0.4 % (0.0-0.8); Eosinophils # 0.1 10*3/uL (0.0-0.87); Eosinophils % 2.1 % (0.00-10.9); Hematocrit 22.6 VOL% (35.7-47.0); Hemoglobin 7.4 GM/DL (12.0-16.0); Immature Granulocytes % 0.6 %; Immature Granulocytes Absolute 0.04 #; Lymphocytes # 1.2 10*3/uL (1.4-4.0); Mean Corpuscular HGB Conc 32.7 GM/DL (32-36); Mean Corpuscular Volume 104.6 FL (87-102); Mean Platelet Volume 9.3 FL (9.6-12.0); Monocytes # 0.6 10*3/uL (0.11-0.8); Monocytes % 9.4 % (1.7-12.7); Neutrophils % 70.5 % (38.7-73.9); Platelet Count 185 T/CUMM (130-400); Red Blood Count 2.16 MC/CUMM (3.8-5.5); Red Cell Distribution Width 18.6 % (9.3-17.3); White Blood Count 6.8 T/CUMM (4-12)
[2022-08-16 06:19] LABS: Calcium 9.1 MG/DL (8.5-10.1); Potassium 4.4 MMOL/L (3.5-5.1)
[2022-08-16] MEDS: INSULIN LISPRO 100 UNIT/ML SUBCUT SCH ×4 (08:07→20:50)
[2022-08-16] MEDS: POLYETHYLENE GLYCOL POWDER 17 GM PACK PO SCH (08:08)
[2022-08-16] MEDS: calcitrioL 0.25 MCG CAPSULE PO SCH (08:09)
[2022-08-16] MEDS: ESCITALOPRAM 10 MG TABLET PO SCH (08:09)
[2022-08-16] MEDS: PANTOPRAZOLE 40 MG TABLET PO SCH (08:09)
[2022-08-16] MEDS: SEVELAMER CARBONATE 800 MG TABLET PO SCH ×3 (08:09→16:18)
[2022-08-16] MEDS: carvediloL 12.5 MG TABLET PO SCH ×2 (08:09→16:18)
[2022-08-16] MEDS: HEPARIN 5,000 UNIT/1 ML VIAL SUBCUT SCH ×2 (08:09→20:43)
[2022-08-16] MEDS: LOSARTAN 50 MG TABLET PO SCH (08:10)
[2022-08-16] MEDS: FUROSEMIDE 80 MG TABLET PO SCH ×2 (08:10→15:42)
[2022-08-16] MEDS: MONTELUKAST 10 MG TABLET PO SCH (08:10)
[2022-08-16] MEDS: ALBUTEROL/IPRATROPIUM 3 ML NEB RESP TX SCH ×3 (12:20→22:58)
[2022-08-16] MEDS: methylPREDNISolone SOD SUC 40 MG/1 ML VIAL IV SCH (12:26)
[2022-08-17] MEDS: methylPREDNISolone SOD SUC 40 MG/1 ML VIAL IV SCH ×2 (00:07→20:54)
[2022-08-17] MEDS: ALBUTEROL/IPRATROPIUM 3 ML NEB RESP TX SCH ×6 (03:59→23:30)
[2022-08-17 06:05] LABS: Calcium 8.9 MG/DL (8.5-10.1); Osmolality,Calculated 282.5 MOS/KG (273-304); Potassium 5.7 MMOL/L (3.5-5.1)
[2022-08-17 06:15] LABS: Basophils % 0.1 % (0.0-0.8); Hematocrit 24.4 VOL% (35.7-47.0); Hemoglobin 7.8 GM/DL (12.0-16.0); Immature Granulocytes % 0.9 %; Immature Granulocytes Absolute 0.07 #; Lymphocytes # 0.7 10*3/uL (1.4-4.0); Mean Corpuscular Volume 105.6 FL (87-102); Mean Platelet Volume 9.3 FL (9.6-12.0); Monocytes # 0.1 10*3/uL (0.11-0.8); Monocytes % 1.4 % (1.7-12.7); Neutrophils % 88.6 % (38.7-73.9); Platelet Count 202 T/CUMM (130-400); Red Blood Count 2.31 MC/CUMM (3.8-5.5); Red Cell Distribution Width 18.3 % (9.3-17.3); White Blood Count 7.9 T/CUMM (4-12)
[2022-08-17] MEDS: MONTELUKAST 10 MG TABLET PO SCH (08:32)
[2022-08-17] MEDS: SEVELAMER CARBONATE 800 MG TABLET PO SCH ×3 (08:32→17:15)
[2022-08-17] MEDS: calcitrioL 0.25 MCG CAPSULE PO SCH (08:33)
[2022-08-17] MEDS: PANTOPRAZOLE 40 MG TABLET PO SCH (08:33)
[2022-08-17] MEDS: ESCITALOPRAM 10 MG TABLET PO SCH (08:33)
[2022-08-17] MEDS: POLYETHYLENE GLYCOL POWDER 17 GM PACK PO SCH (08:33)
[2022-08-17] MEDS: INSULIN LISPRO 100 UNIT/ML SUBCUT SCH ×5 (08:40→20:53)
[2022-08-17] MEDS: carvediloL 12.5 MG TABLET PO SCH ×2 (13:52→17:15)
[2022-08-17] MEDS: LOSARTAN 50 MG TABLET PO SCH (13:52)
[2022-08-17] MEDS: FUROSEMIDE 80 MG TABLET PO SCH ×2 (13:52→17:15)
[2022-08-17] MEDS: HEPARIN 5,000 UNIT/1 ML VIAL SUBCUT SCH ×2 (13:52→20:19)
[2022-08-18] MEDS: ALBUTEROL/IPRATROPIUM 3 ML NEB RESP TX SCH ×6 (02:49→23:45)
[2022-08-18 05:59] LABS: Basophils % 0.1 % (0.0-0.8); Hematocrit 23.2 VOL% (35.7-47.0); Hemoglobin 7.2 GM/DL (12.0-16.0); Immature Granulocytes Absolute 0.08 #; Lymphocytes # 0.7 10*3/uL (1.4-4.0); Lymphocytes % 8.2 % (21.3-54.2); Mean Corpuscular Volume 108.4 FL (87-102); Mean Platelet Volume 9.4 FL (9.6-12.0); Monocytes # 0.2 10*3/uL (0.11-0.8); Monocytes % 2.1 % (1.7-12.7); Neutrophils % 88.6 % (38.7-73.9); Platelet Count 213 T/CUMM (130-400); Red Blood Count 2.14 MC/CUMM (3.8-5.5); Red Cell Distribution Width 18.9 % (9.3-17.3)
[2022-08-18] MEDS ORDERED: FAMOTIDINE 20 MG/2 ML VIAL IV ONE ×2 (06:00→10:49)
[2022-08-18 06:09] LABS: Calcium 8.9 MG/DL (8.5-10.1); Osmolality,Calculated 281.2 MOS/KG (273-304); Potassium 5.4 MMOL/L (3.5-5.1)
[2022-08-18] MEDS: INSULIN LISPRO 100 UNIT/ML SUBCUT SCH ×4 (07:49→20:18)
[2022-08-18] MEDS ORDERED: propofoL 200 MG/20 ML VIAL IV ONE (08:07)
[2022-08-18] MEDS ORDERED: LIDOCAINE 2% 5 ML VIAL ONE (08:07)
[2022-08-18] MEDS ORDERED: LIDOCAINE 1%/EPI INJ 20 ML VIAL ONE (10:15)
[2022-08-18] MEDS ORDERED: BUPIVACAINE MPF 0.25% 10 ML VIAL ONE (10:15)
[2022-08-18] MEDS: ESCITALOPRAM 10 MG TABLET PO SCH (10:20)
[2022-08-18] MEDS: calcitrioL 0.25 MCG CAPSULE PO SCH (10:20)
[2022-08-18] MEDS: carvediloL 12.5 MG TABLET PO SCH ×2 (10:20→16:44)
[2022-08-18] MEDS: methylPREDNISolone SOD SUC 40 MG/1 ML VIAL IV SCH ×2 (10:20→20:17)
[2022-08-18] MEDS: LOSARTAN 50 MG TABLET PO SCH (10:20)
[2022-08-18] MEDS: POLYETHYLENE GLYCOL POWDER 17 GM PACK PO SCH (10:20)
[2022-08-18] MEDS: SEVELAMER CARBONATE 800 MG TABLET PO SCH ×3 (10:20→16:44)
[2022-08-18] MEDS: FUROSEMIDE 80 MG TABLET PO SCH ×2 (10:20→16:44)
[2022-08-18] MEDS: PANTOPRAZOLE 40 MG TABLET PO SCH (10:20)
[2022-08-18] MEDS: MONTELUKAST 10 MG TABLET PO SCH (10:20)
[2022-08-18] MEDS ORDERED: SODIUM CHLORIDE 0.9% 250 ML IV SCH (10:30)
[2022-08-18] MEDS: HEPARIN 5,000 UNIT/1 ML VIAL SUBCUT SCH ×2 (11:05→20:17)
[2022-08-18] MEDS: ACETAMINOPHEN 325 MG TABLET PO PRN (22:16)
[2022-08-19] MEDS: ALBUTEROL/IPRATROPIUM 3 ML NEB RESP TX SCH ×6 (03:00→23:20)
[2022-08-19 05:25] LABS: Basophils % 0.1 % (0.0-0.8); Hematocrit 23.3 VOL% (35.7-47.0); Hemoglobin 7.4 GM/DL (12.0-16.0); Immature Granulocytes % 0.8 %; Immature Granulocytes Absolute 0.06 #; Lymphocytes # 0.5 10*3/uL (1.4-4.0); Lymphocytes % 7.2 % (21.3-54.2); Mean Corpuscular HGB Conc 31.8 GM/DL (32-36); Mean Corpuscular Volume 106.9 FL (87-102); Mean Platelet Volume 9.3 FL (9.6-12.0); Monocytes # 0.1 10*3/uL (0.11-0.8); Monocytes % 1.8 % (1.7-12.7); Neutrophils % 90.1 % (38.7-73.9); Platelet Count 236 T/CUMM (130-400); Red Blood Count 2.18 MC/CUMM (3.8-5.5); White Blood Count 7.2 T/CUMM (4-12)
[2022-08-19 05:44] LABS: Calcium 8.7 MG/DL (8.5-10.1); Osmolality,Calculated 279.9 MOS/KG (273-304); Potassium 5.5 MMOL/L (3.5-5.1)
[2022-08-19] MEDS: FUROSEMIDE 80 MG TABLET PO SCH ×2 (08:18→18:29)
[2022-08-19] MEDS: INSULIN LISPRO 100 UNIT/ML SUBCUT SCH ×4 (08:18→20:49)
[2022-08-19] MEDS: SEVELAMER CARBONATE 800 MG TABLET PO SCH ×3 (08:18→18:27)
[2022-08-19] MEDS: carvediloL 12.5 MG TABLET PO SCH ×2 (08:19→18:27)
[2022-08-19] MEDS ORDERED: LIDOCAINE/PRILOCAINE CREAM 5 GM TUBE TOP ONE (08:42)
[2022-08-19] MEDS: LOSARTAN 50 MG TABLET PO SCH (10:20)
[2022-08-19] MEDS: POLYETHYLENE GLYCOL POWDER 17 GM PACK PO SCH (10:20)
[2022-08-19] MEDS: HEPARIN 5,000 UNIT/1 ML VIAL SUBCUT SCH ×2 (10:20→20:50)
[2022-08-19] MEDS: methylPREDNISolone SOD SUC 40 MG/1 ML VIAL IV SCH ×2 (10:21→20:51)
[2022-08-19] MEDS: ESCITALOPRAM 10 MG TABLET PO SCH (14:35)
[2022-08-19] MEDS: PANTOPRAZOLE 40 MG TABLET PO SCH (14:55)
[2022-08-19] MEDS: calcitrioL 0.25 MCG CAPSULE PO SCH (14:55)
[2022-08-19] MEDS: MONTELUKAST 10 MG TABLET PO SCH (14:56)
[2022-08-20] MEDS: ALBUTEROL/IPRATROPIUM 3 ML NEB RESP TX SCH ×6 (03:12→23:41)
[2022-08-20 05:00] LABS: Basophils % 0.3 % (0.0-0.8); Eosinophils # 0.1 10*3/uL (0.0-0.87); Eosinophils % 1.7 % (0.00-10.9); Hematocrit 24.8 VOL% (35.7-47.0); Hemoglobin 7.9 GM/DL (12.0-16.0); Immature Granulocytes % 0.5 %; Immature Granulocytes Absolute 0.03 #; Lymphocytes # 1.4 10*3/uL (1.4-4.0); Lymphocytes % 23.7 % (21.3-54.2); Mean Corpuscular HGB Conc 31.9 GM/DL (32-36); Mean Corpuscular Volume 107.4 FL (87-102); Monocytes # 0.6 10*3/uL (0.11-0.8); Monocytes % 9.6 % (1.7-12.7); Neutrophils % 64.2 % (38.7-73.9); Platelet Count 225 T/CUMM (130-400); Red Blood Count 2.31 MC/CUMM (3.8-5.5); White Blood Count 5.8 T/CUMM (4-12)
[2022-08-20 05:10] LABS: Calcium 8.5 MG/DL (8.5-10.1); Osmolality,Calculated 283.4 MOS/KG (273-304); Potassium 3.9 MMOL/L (3.5-5.1)
[2022-08-20] MEDS: INSULIN LISPRO 100 UNIT/ML SUBCUT SCH ×4 (08:41→22:30)
[2022-08-20] MEDS: POLYETHYLENE GLYCOL POWDER 17 GM PACK PO SCH (09:45)
[2022-08-20] MEDS: calcitrioL 0.25 MCG CAPSULE PO SCH (09:46)
[2022-08-20] MEDS: HEPARIN 5,000 UNIT/1 ML VIAL SUBCUT SCH ×2 (09:46→21:55)
[2022-08-20] MEDS: SEVELAMER CARBONATE 800 MG TABLET PO SCH ×3 (09:46→19:14)
[2022-08-20] MEDS: MONTELUKAST 10 MG TABLET PO SCH (09:47)
[2022-08-20] MEDS: carvediloL 12.5 MG TABLET PO SCH ×2 (09:47→18:31)
[2022-08-20] MEDS: methylPREDNISolone SOD SUC 40 MG/1 ML VIAL IV SCH ×2 (09:47→21:52)
[2022-08-20] MEDS: FUROSEMIDE 80 MG TABLET PO SCH ×2 (09:47→18:32)
[2022-08-20] MEDS: ESCITALOPRAM 10 MG TABLET PO SCH (09:47)
[2022-08-20] MEDS: PANTOPRAZOLE 40 MG TABLET PO SCH (09:47)
[2022-08-20] MEDS: LOSARTAN 50 MG TABLET PO SCH (09:47)
[2022-08-21] MEDS: ALBUTEROL/IPRATROPIUM 3 ML NEB RESP TX SCH ×5 (03:11→19:40)
[2022-08-21] MEDS: INSULIN LISPRO 100 UNIT/ML SUBCUT SCH ×4 (08:03→21:27)
[2022-08-21] MEDS: calcitrioL 0.25 MCG CAPSULE PO SCH (08:41)
[2022-08-21] MEDS: HEPARIN 5,000 UNIT/1 ML VIAL SUBCUT SCH ×2 (08:41→21:27)
[2022-08-21] MEDS: SEVELAMER CARBONATE 800 MG TABLET PO SCH ×3 (08:41→16:59)
[2022-08-21] MEDS: FUROSEMIDE 80 MG TABLET PO SCH ×2 (08:42→16:59)
[2022-08-21] MEDS: LOSARTAN 50 MG TABLET PO SCH (08:42)
[2022-08-21] MEDS: MONTELUKAST 10 MG TABLET PO SCH (08:42)
[2022-08-21] MEDS: ESCITALOPRAM 10 MG TABLET PO SCH (08:42)
[2022-08-21] MEDS: carvediloL 12.5 MG TABLET PO SCH ×2 (08:42→16:59)
[2022-08-21] MEDS: PANTOPRAZOLE 40 MG TABLET PO SCH (08:42)
[2022-08-21] MEDS: methylPREDNISolone SOD SUC 40 MG/1 ML VIAL IV SCH ×2 (08:44→21:27)
[2022-08-21] MEDS: POLYETHYLENE GLYCOL POWDER 17 GM PACK PO SCH (08:45)
[2022-08-21] MEDS: ACETAMINOPHEN 325 MG TABLET PO PRN (18:03)
[2022-08-21] MEDS: MELATONIN 3 MG TABLET PO PRN (21:27)
[2022-08-22] MEDS: ALBUTEROL/IPRATROPIUM 3 ML NEB RESP TX SCH ×6 (00:30→18:01)
[2022-08-22] MEDS ORDERED: propofoL 200 MG/20 ML VIAL IV ONE ×2 (06:37→06:53)
[2022-08-22] MEDS ORDERED: LIDOCAINE 2% 5 ML VIAL ONE ×2 (06:37→06:53)
[2022-08-22] MEDS ORDERED: LIDOCAINE 1%/EPI INJ 20 ML VIAL ONE (06:41)
[2022-08-22] MEDS ORDERED: BUPIVACAINE MPF 0.25% 10 ML VIAL ONE ×2 (06:41→07:33)
[2022-08-22] MEDS ORDERED: SODIUM CHLORIDE 0.9% 250 ML IV SCH (07:00)
[2022-08-22] MEDS ORDERED: ONDANSETRON 4 MG/2 ML VIAL ONE (07:09)
[2022-08-22] MEDS ORDERED: fentaNYL 100 MCG/2 ML VIAL ONE (07:10)
[2022-08-22] MEDS: INSULIN LISPRO 100 UNIT/ML SUBCUT SCH ×3 (07:23→16:38)
[2022-08-22] MEDS ORDERED: CLINDAMYCIN INJ 900 MG/50 ML PREMIX IV ONE (07:29)
[2022-08-22] MEDS: LOSARTAN 50 MG TABLET PO SCH (08:58)
[2022-08-22] MEDS: POLYETHYLENE GLYCOL POWDER 17 GM PACK PO SCH (08:58)
[2022-08-22] MEDS: calcitrioL 0.25 MCG CAPSULE PO SCH (08:58)
[2022-08-22] MEDS: FUROSEMIDE 80 MG TABLET PO SCH ×2 (08:58→16:31)
[2022-08-22] MEDS: PANTOPRAZOLE 40 MG TABLET PO SCH (08:58)
[2022-08-22] MEDS: MONTELUKAST 10 MG TABLET PO SCH (08:58)
[2022-08-22] MEDS: SEVELAMER CARBONATE 800 MG TABLET PO SCH ×3 (08:58→16:31)
[2022-08-22] MEDS: ESCITALOPRAM 10 MG TABLET PO SCH (08:58)
[2022-08-22] MEDS: carvediloL 12.5 MG TABLET PO SCH ×2 (08:58→16:31)
[2022-08-22] MEDS: HEPARIN 5,000 UNIT/1 ML VIAL SUBCUT SCH ×2 (08:59→20:44)
[2022-08-22] MEDS: methylPREDNISolone SOD SUC 40 MG/1 ML VIAL IV SCH ×2 (08:59→20:46)
[2022-08-22] MEDS: ACETAMINOPHEN 325 MG TABLET PO PRN (09:43)
[2022-08-22] MEDS: LIDOCAINE/PRILOCAINE CREAM 5 GM TUBE TOP SCH (10:04)
[2022-08-22] MEDS: SODIUM CHLORIDE 0.9% IV SCH (16:31)
[2022-08-22] MEDS: GENTAMICIN IV SCH (16:31)
[2022-08-23] MEDS: ALBUTEROL/IPRATROPIUM 3 ML NEB RESP TX SCH ×4 (00:57→18:04)
[2022-08-23] MEDS: INSULIN LISPRO 100 UNIT/ML SUBCUT SCH ×5 (02:37→20:55)
[2022-08-23] MEDS ORDERED: diphenhydrAMINE 25 MG/10 ML UDCUP PO ONE (07:44)
[2022-08-23] MEDS: SEVELAMER CARBONATE 800 MG TABLET PO SCH ×3 (08:14→16:10)
[2022-08-23] MEDS: HEPARIN 5,000 UNIT/1 ML VIAL SUBCUT SCH ×2 (08:15→20:50)
[2022-08-23] MEDS: MONTELUKAST 10 MG TABLET PO SCH (08:15)
[2022-08-23] MEDS: FUROSEMIDE 80 MG TABLET PO SCH ×2 (08:15→16:10)
[2022-08-23] MEDS: PANTOPRAZOLE 40 MG TABLET PO SCH (08:15)
[2022-08-23] MEDS: LOSARTAN 50 MG TABLET PO SCH (08:15)
[2022-08-23] MEDS: ESCITALOPRAM 10 MG TABLET PO SCH (08:15)
[2022-08-23] MEDS: calcitrioL 0.25 MCG CAPSULE PO SCH (08:15)
[2022-08-23] MEDS: methylPREDNISolone SOD SUC 40 MG/1 ML VIAL IV SCH ×2 (08:16→20:50)
[2022-08-23] MEDS: carvediloL 12.5 MG TABLET PO SCH ×2 (08:24→16:10)
[2022-08-23] MEDS: POLYETHYLENE GLYCOL POWDER 17 GM PACK PO SCH (08:30)
[2022-08-23] MEDS ORDERED: ALBUTEROL/IPRATROPIUM 3 ML NEB RESP TX PRN (15:55)
[2022-08-23] MEDS: ACETAMINOPHEN 325 MG TABLET PO PRN (22:22)
[2022-08-24] MEDS: INSULIN LISPRO 100 UNIT/ML SUBCUT SCH ×4 (08:14→20:11)
[2022-08-24] MEDS: carvediloL 12.5 MG TABLET PO SCH ×2 (08:15→16:14)
[2022-08-24] MEDS: calcitrioL 0.25 MCG CAPSULE PO SCH (08:15)
[2022-08-24] MEDS: SEVELAMER CARBONATE 800 MG TABLET PO SCH ×3 (08:15→16:14)
[2022-08-24] MEDS: MONTELUKAST 10 MG TABLET PO SCH (08:16)
[2022-08-24] MEDS: FUROSEMIDE 80 MG TABLET PO SCH ×2 (08:16→16:15)
[2022-08-24] MEDS: ESCITALOPRAM 10 MG TABLET PO SCH (08:16)
[2022-08-24] MEDS: PANTOPRAZOLE 40 MG TABLET PO SCH (08:16)
[2022-08-24] MEDS: methylPREDNISolone SOD SUC 40 MG/1 ML VIAL IV SCH ×2 (08:17→20:11)
[2022-08-24] MEDS: LOSARTAN 50 MG TABLET PO SCH (08:17)
[2022-08-24] MEDS: HEPARIN 5,000 UNIT/1 ML VIAL SUBCUT SCH ×2 (08:17→20:10)
[2022-08-24] MEDS: POLYETHYLENE GLYCOL POWDER 17 GM PACK PO SCH (08:18)
[2022-08-24] MEDS: LIDOCAINE/PRILOCAINE CREAM 5 GM TUBE TOP SCH (09:35)
[2022-08-25] MEDS: INSULIN LISPRO 100 UNIT/ML SUBCUT SCH ×4 (07:46→20:16)
[2022-08-25] MEDS: PANTOPRAZOLE 40 MG TABLET PO SCH (09:07)
[2022-08-25] MEDS: FUROSEMIDE 80 MG TABLET PO SCH ×2 (09:07→16:33)
[2022-08-25] MEDS: calcitrioL 0.25 MCG CAPSULE PO SCH (09:07)
[2022-08-25] MEDS: carvediloL 12.5 MG TABLET PO SCH ×2 (09:07→16:33)
[2022-08-25] MEDS: LOSARTAN 50 MG TABLET PO SCH (09:07)
[2022-08-25] MEDS: SEVELAMER CARBONATE 800 MG TABLET PO SCH ×3 (09:07→16:33)
[2022-08-25] MEDS: ESCITALOPRAM 10 MG TABLET PO SCH (09:07)
[2022-08-25] MEDS: MONTELUKAST 10 MG TABLET PO SCH (09:08)
[2022-08-25] MEDS: POLYETHYLENE GLYCOL POWDER 17 GM PACK PO SCH (09:08)
[2022-08-25] MEDS: HEPARIN 5,000 UNIT/1 ML VIAL SUBCUT SCH ×2 (09:08→20:11)
[2022-08-25] MEDS: methylPREDNISolone SOD SUC 40 MG/1 ML VIAL IV SCH ×2 (09:08→20:11)
[2022-08-26] MEDS: INSULIN LISPRO 100 UNIT/ML SUBCUT SCH ×4 (07:51→21:18)
[2022-08-26] MEDS: POLYETHYLENE GLYCOL POWDER 17 GM PACK PO SCH (08:37)
[2022-08-26] MEDS: MONTELUKAST 10 MG TABLET PO SCH (08:38)
[2022-08-26] MEDS: SEVELAMER CARBONATE 800 MG TABLET PO SCH ×3 (08:38→16:02)
[2022-08-26] MEDS: HEPARIN 5,000 UNIT/1 ML VIAL SUBCUT SCH ×2 (08:38→21:18)
[2022-08-26] MEDS: methylPREDNISolone SOD SUC 40 MG/1 ML VIAL IV SCH ×2 (08:38→21:19)
[2022-08-26] MEDS: FUROSEMIDE 80 MG TABLET PO SCH ×2 (08:39→16:02)
[2022-08-26] MEDS: LOSARTAN 50 MG TABLET PO SCH (08:39)
[2022-08-26] MEDS: ESCITALOPRAM 10 MG TABLET PO SCH (08:39)
[2022-08-26] MEDS: PANTOPRAZOLE 40 MG TABLET PO SCH (08:39)
[2022-08-26] MEDS: calcitrioL 0.25 MCG CAPSULE PO SCH (08:39)
[2022-08-26] MEDS: carvediloL 12.5 MG TABLET PO SCH ×2 (08:39→16:02)
[2022-08-26] MEDS: LIDOCAINE/PRILOCAINE CREAM 5 GM TUBE TOP SCH (08:40)
[2022-08-27] MEDS: INSULIN LISPRO 100 UNIT/ML SUBCUT SCH ×4 (08:34→22:39)
[2022-08-27] MEDS: HEPARIN 5,000 UNIT/1 ML VIAL SUBCUT SCH ×2 (09:04→22:40)
[2022-08-27] MEDS: POLYETHYLENE GLYCOL POWDER 17 GM PACK PO SCH (09:04)
[2022-08-27] MEDS: methylPREDNISolone SOD SUC 40 MG/1 ML VIAL IV SCH ×2 (09:04→22:39)
[2022-08-27] MEDS: LOSARTAN 50 MG TABLET PO SCH (09:05)
[2022-08-27] MEDS: carvediloL 12.5 MG TABLET PO SCH ×2 (09:05→17:24)
[2022-08-27] MEDS: FUROSEMIDE 80 MG TABLET PO SCH ×2 (09:05→17:24)
[2022-08-27] MEDS: calcitrioL 0.25 MCG CAPSULE PO SCH (09:05)
[2022-08-27] MEDS: ESCITALOPRAM 10 MG TABLET PO SCH (09:05)
[2022-08-27] MEDS: PANTOPRAZOLE 40 MG TABLET PO SCH (09:05)
[2022-08-27] MEDS: SEVELAMER CARBONATE 800 MG TABLET PO SCH ×3 (09:05→17:24)
[2022-08-27] MEDS: MONTELUKAST 10 MG TABLET PO SCH (09:05)
[2022-08-28 05:08] LABS: Basophils % 0.1 % (0.0-0.8); Eosinophils % 0.3 % (0.00-10.9); Hematocrit 29.4 VOL% (35.7-47.0); Hemoglobin 9.1 GM/DL (12.0-16.0); Immature Granulocytes % 1.1 %; Immature Granulocytes Absolute 0.11 #; Lymphocytes # 0.6 10*3/uL (1.4-4.0); Lymphocytes % 5.5 % (21.3-54.2); Mean Corpuscular Volume 108.1 FL (87-102); Mean Platelet Volume 9.1 FL (9.6-12.0); Monocytes # 0.3 10*3/uL (0.11-0.8); Platelet Count 192 T/CUMM (130-400); Red Blood Count 2.72 MC/CUMM (3.8-5.5); Red Cell Distribution Width 16.1 % (9.3-17.3); White Blood Count 10.1 T/CUMM (4-12)
[2022-08-28] MEDS: INSULIN LISPRO 100 UNIT/ML SUBCUT SCH ×4 (07:22→22:05)
[2022-08-28] MEDS: carvediloL 12.5 MG TABLET PO SCH ×3 (08:10→16:10)
[2022-08-28] MEDS: FUROSEMIDE 80 MG TABLET PO SCH ×2 (08:10→16:10)
[2022-08-28] MEDS: SEVELAMER CARBONATE 800 MG TABLET PO SCH ×3 (08:10→17:31)
[2022-08-28] MEDS: methylPREDNISolone SOD SUC 40 MG/1 ML VIAL IV SCH ×2 (08:11→22:01)
[2022-08-28] MEDS: MONTELUKAST 10 MG TABLET PO SCH (08:12)
[2022-08-28] MEDS: PANTOPRAZOLE 40 MG TABLET PO SCH (08:12)
[2022-08-28] MEDS: POLYETHYLENE GLYCOL POWDER 17 GM PACK PO SCH (08:12)
[2022-08-28] MEDS: LOSARTAN 50 MG TABLET PO SCH (08:12)
[2022-08-28] MEDS: calcitrioL 0.25 MCG CAPSULE PO SCH (08:12)
[2022-08-28] MEDS: ESCITALOPRAM 10 MG TABLET PO SCH (08:12)
[2022-08-28] MEDS: HEPARIN 5,000 UNIT/1 ML VIAL SUBCUT SCH ×2 (08:13→22:01)
[2022-08-29 06:10] LABS: Basophils % 0.1 % (0.0-0.8); Hematocrit 27.7 VOL% (35.7-47.0); Immature Granulocytes % 1.1 %; Immature Granulocytes Absolute 0.12 #; Lymphocytes # 0.6 10*3/uL (1.4-4.0); Lymphocytes % 5.3 % (21.3-54.2); Mean Corpuscular HGB Conc 32.5 GM/DL (32-36); Mean Corpuscular Volume 105.7 FL (87-102); Mean Platelet Volume 9.4 FL (9.6-12.0); Monocytes # 0.2 10*3/uL (0.11-0.8); Monocytes % 2.3 % (1.7-12.7); Neutrophils % 91.2 % (38.7-73.9); Platelet Count 209 T/CUMM (130-400); Red Blood Count 2.62 MC/CUMM (3.8-5.5); Red Cell Distribution Width 15.9 % (9.3-17.3); White Blood Count 10.5 T/CUMM (4-12)
[2022-08-29 06:37] LABS: Albumin 3.3 G/DL (3.4-5.0); Bilirubin,Total 0.5 MG/DL (0.20-1.00); Calcium 8.8 MG/DL (8.5-10.1); Osmolality,Calculated 287.6 MOS/KG (273-304); Total Protein 6.1 G/DL (6.4-8.2)
[2022-08-29 06:40] LABS: Lymphocytes 5 % (20-55); Total Cells Counted 100
[2022-08-29 06:41] LABS: Anisocytosis 1+; Ovalocytes Slight; Tear Drop Cells Slight
[2022-08-29 06:42] LABS: Platelet Estimate Normal; Potassium 6.2 MMOL/L (3.5-5.1)
[2022-08-29] MEDS: FUROSEMIDE 80 MG TABLET PO SCH ×2 (08:32→17:10)
[2022-08-29] MEDS: PANTOPRAZOLE 40 MG TABLET PO SCH (08:32)
[2022-08-29] MEDS: MONTELUKAST 10 MG TABLET PO SCH (08:32)
[2022-08-29] MEDS: SEVELAMER CARBONATE 800 MG TABLET PO SCH ×3 (08:32→18:09)
[2022-08-29] MEDS: ESCITALOPRAM 10 MG TABLET PO SCH (08:32)
[2022-08-29] MEDS: LOSARTAN 50 MG TABLET PO SCH (08:32)
[2022-08-29] MEDS: calcitrioL 0.25 MCG CAPSULE PO SCH (08:33)
[2022-08-29] MEDS: HEPARIN 5,000 UNIT/1 ML VIAL SUBCUT SCH ×2 (08:33→21:10)
[2022-08-29] MEDS: INSULIN LISPRO 100 UNIT/ML SUBCUT SCH ×4 (08:33→21:08)
[2022-08-29] MEDS: methylPREDNISolone SOD SUC 40 MG/1 ML VIAL IV SCH ×2 (08:33→21:10)
[2022-08-29] MEDS ORDERED: SODIUM POLYSTYRENE SULFATE 15 GM/60 ML BOTTLE PO ONE (09:00)
[2022-08-29] MEDS: LIDOCAINE/PRILOCAINE CREAM 5 GM TUBE TOP SCH (11:29)
[2022-08-29] MEDS: carvediloL 12.5 MG TABLET PO SCH ×2 (13:18→17:10)
[2022-08-29] MEDS: POLYETHYLENE GLYCOL POWDER 17 GM PACK PO SCH (13:18)
[2022-08-29] MEDS: GENTAMICIN IV SCH ×2 (13:39→18:09)
[2022-08-29] MEDS: SODIUM CHLORIDE 0.9% IV SCH ×2 (13:39→18:09)
[2022-08-29] MEDS: ACETAMINOPHEN 325 MG TABLET PO PRN (21:12)
[2022-08-30] MEDS: MELATONIN 3 MG TABLET PO PRN (02:53)
[2022-08-30 05:54] LABS: Eosinophils % 0.1 % (0.00-10.9); Hematocrit 28.8 VOL% (35.7-47.0); Hemoglobin 9.2 GM/DL (12.0-16.0); Immature Granulocytes % 0.7 %; Immature Granulocytes Absolute 0.06 #; Lymphocytes # 0.5 10*3/uL (1.4-4.0); Lymphocytes % 5.6 % (21.3-54.2); Mean Corpuscular HGB Conc 31.9 GM/DL (32-36); Mean Corpuscular Volume 107.5 FL (87-102); Mean Platelet Volume 8.9 FL (9.6-12.0); Monocytes # 0.5 10*3/uL (0.11-0.8); Monocytes % 5.2 % (1.7-12.7); Neutrophils % 88.4 % (38.7-73.9); Platelet Count 183 T/CUMM (130-400); Red Blood Count 2.68 MC/CUMM (3.8-5.5); Red Cell Distribution Width 15.9 % (9.3-17.3); White Blood Count 9.2 T/CUMM (4-12)
[2022-08-30 06:22] LABS: Albumin 3.1 G/DL (3.4-5.0); Bilirubin,Total 0.5 MG/DL (0.20-1.00); Calcium 8.5 MG/DL (8.5-10.1); Osmolality,Calculated 286.5 MOS/KG (273-304); Potassium 4.7 MMOL/L (3.5-5.1); Total Protein 5.8 G/DL (6.4-8.2)
[2022-08-30] MEDS: POLYETHYLENE GLYCOL POWDER 17 GM PACK PO SCH (09:00)
[2022-08-30] MEDS: INSULIN LISPRO 100 UNIT/ML SUBCUT SCH ×4 (09:35→21:23)
[2022-08-30] MEDS: PANTOPRAZOLE 40 MG TABLET PO SCH (09:44)
[2022-08-30] MEDS: SEVELAMER CARBONATE 800 MG TABLET PO SCH ×3 (09:44→18:05)
[2022-08-30] MEDS: methylPREDNISolone SOD SUC 40 MG/1 ML VIAL IV SCH ×2 (09:44→20:10)
[2022-08-30] MEDS: MONTELUKAST 10 MG TABLET PO SCH (09:44)
[2022-08-30] MEDS: LOSARTAN 50 MG TABLET PO SCH (14:10)
[2022-08-30] MEDS: ESCITALOPRAM 10 MG TABLET PO SCH (14:10)
[2022-08-30] MEDS: FUROSEMIDE 80 MG TABLET PO SCH ×2 (14:10→15:29)
[2022-08-30] MEDS: calcitrioL 0.25 MCG CAPSULE PO SCH (14:10)
[2022-08-30] MEDS: carvediloL 12.5 MG TABLET PO SCH ×2 (14:37→18:05)
[2022-08-30] MEDS: HEPARIN 5,000 UNIT/1 ML VIAL SUBCUT SCH ×2 (14:37→20:10)
[2022-08-31 05:22] LABS: Basophils % 0.1 % (0.0-0.8); Eosinophils % 0.1 % (0.00-10.9); Hematocrit 29.8 VOL% (35.7-47.0); Hemoglobin 9.6 GM/DL (12.0-16.0); Immature Granulocytes % 0.6 %; Immature Granulocytes Absolute 0.05 #; Lymphocytes # 0.8 10*3/uL (1.4-4.0); Mean Corpuscular HGB Conc 32.2 GM/DL (32-36); Mean Platelet Volume 9.4 FL (9.6-12.0); Monocytes # 0.6 10*3/uL (0.11-0.8); Monocytes % 7.4 % (1.7-12.7); Neutrophils % 82.8 % (38.7-73.9); Platelet Count 184 T/CUMM (130-400); Red Blood Count 2.76 MC/CUMM (3.8-5.5); Red Cell Distribution Width 15.6 % (9.3-17.3); White Blood Count 8.3 T/CUMM (4-12)
[2022-08-31 05:50] LABS: Albumin 3.3 G/DL (3.4-5.0); Bilirubin,Total 0.6 MG/DL (0.20-1.00); Calcium 8.5 MG/DL (8.5-10.1); Osmolality,Calculated 283.4 MOS/KG (273-304); Potassium 4.8 MMOL/L (3.5-5.1); Total Protein 6.1 G/DL (6.4-8.2)
[2022-08-31] MEDS: INSULIN LISPRO 100 UNIT/ML SUBCUT SCH (08:03)
[2022-08-31 08:05] VITALS: BP 165/37
[2022-08-31] MEDS: calcitrioL 0.25 MCG CAPSULE PO SCH (09:13)
[2022-08-31] MEDS: MONTELUKAST 10 MG TABLET PO SCH (09:14)
[2022-08-31] MEDS: SEVELAMER CARBONATE 800 MG TABLET PO SCH (09:14)
[2022-08-31] MEDS: PANTOPRAZOLE 40 MG TABLET PO SCH (09:14)
[2022-08-31] MEDS: LOSARTAN 50 MG TABLET PO SCH (09:14)
[2022-08-31] MEDS: ESCITALOPRAM 10 MG TABLET PO SCH (09:14)
[2022-08-31] MEDS: carvediloL 12.5 MG TABLET PO SCH (09:14)
[2022-08-31] MEDS: FUROSEMIDE 80 MG TABLET PO SCH (09:14)
[2022-08-31] MEDS: methylPREDNISolone SOD SUC 40 MG/1 ML VIAL IV SCH (09:15)
[2022-08-31] MEDS: HEPARIN 5,000 UNIT/1 ML VIAL SUBCUT SCH (09:15)
[2022-08-31] MEDS: POLYETHYLENE GLYCOL POWDER 17 GM PACK PO SCH (09:23)
[2022-08-31] MEDS: LIDOCAINE/PRILOCAINE CREAM 5 GM TUBE TOP SCH (09:23)
== END 2022-08-31 11:31 | disposition home or self-care (01) | DRG 291 ==
LOC: N.ED 08:25 → SUATTDRO 10:42 → N.EDINP 10:42 → N.5E 11:07 → N.2E 08-15 10:06
PROVIDERS: ADMIT Internal Medicine; ATTEND Family Medicine

== ENCOUNTER 2022-09-12 21:54 | Observation (INO) ==
[2022-09-12 22:41] LABS: Basophils % 0.4 % (0.0-0.8); Eosinophils # 0.4 10*3/uL (0.0-0.87); Eosinophils % 4.8 % (0.00-10.9); Hematocrit 31.9 VOL% (35.7-47.0); Hemoglobin 9.9 GM/DL (12.0-16.0); Immature Granulocytes % 0.7 %; Immature Granulocytes Absolute 0.05 #; Lymphocytes # 1.3 10*3/uL (1.4-4.0); Lymphocytes % 16.8 % (21.3-54.2); Mean Corpuscular Volume 108.1 FL (87-102); Mean Platelet Volume 8.4 FL (9.6-12.0); Monocytes # 0.3 10*3/uL (0.11-0.8); Monocytes % 4.5 % (1.7-12.7); Neutrophils % 72.8 % (38.7-73.9); Platelet Count 245 T/CUMM (130-400); Red Blood Count 2.95 MC/CUMM (3.8-5.5); Red Cell Distribution Width 13.8 % (9.3-17.3); White Blood Count 7.6 T/CUMM (4-12)
[2022-09-12 23:11] LABS: INR 0.9; PT Patient Result 9.7 SECS (10.1-12.1); Partial Thromboplastin Time 24.4 SECS (23.7-32.9)
[2022-09-12 23:36] LABS: Albumin 3.7 G/DL (3.4-5.0); Bilirubin,Total 0.8 MG/DL (0.20-1.00); Calcium 8.9 MG/DL (8.5-10.1); Osmolality,Calculated 288.7 MOS/KG (273-304); Potassium 3.8 MMOL/L (3.5-5.1); Total Protein 6.7 G/DL (6.4-8.2)
[2022-09-13] MEDS ORDERED: ACETAMINOPHEN 325 MG TABLET PO PRN (02:20)
[2022-09-13] MEDS ORDERED: hydrALAZINE 20 MG/1 ML VIAL IV PRN (02:20)
[2022-09-13] MEDS ORDERED: MORPHINE 2 MG/1 ML SYRINGE IV PRN (02:20)
[2022-09-13] MEDS ORDERED: ONDANSETRON 4 MG/2 ML VIAL IV PRN (02:20)
[2022-09-13] MEDS ORDERED: FUROSEMIDE 40 MG/4 ML VIAL IV STA (02:27)
[2022-09-13] MEDS ORDERED: GLUCAGON 1 MG VIAL IM PRN (02:27)
[2022-09-13] MEDS ORDERED: DEXTROSE 10% 250 ML BAG IV PRN (02:28)
[2022-09-13 06:44] LABS: Calcium 8.2 MG/DL (8.5-10.1); Osmolality,Calculated 286.7 MOS/KG (273-304); Potassium 4.4 MMOL/L (3.5-5.1)
[2022-09-13 06:46] LABS: Basophils % 0.3 % (0.0-0.8); Eosinophils # 0.2 10*3/uL (0.0-0.87); Eosinophils % 3.1 % (0.00-10.9); Hematocrit 24.8 VOL% (35.7-47.0); Immature Granulocytes % 0.2 %; Immature Granulocytes Absolute 0.01 #; Lymphocytes % 16.3 % (21.3-54.2); Mean Corpuscular HGB Conc 32.3 GM/DL (32-36); Mean Corpuscular Volume 105.5 FL (87-102); Mean Platelet Volume 8.4 FL (9.6-12.0); Monocytes # 0.4 10*3/uL (0.11-0.8); Neutrophils % 73.1 % (38.7-73.9); Platelet Count 206 T/CUMM (130-400); Red Blood Count 2.35 MC/CUMM (3.8-5.5); Red Cell Distribution Width 13.9 % (9.3-17.3); White Blood Count 5.8 T/CUMM (4-12)
[2022-09-13] MEDS: INSULIN LISPRO 100 UNIT/ML SUBCUT SCH ×4 (07:40→21:21)
[2022-09-13] MEDS: carvediloL 12.5 MG TABLET PO SCH ×2 (08:45→17:12)
[2022-09-13] MEDS: MULTIVITAMIN (BEROCCA) TABLET PO SCH (08:57)
[2022-09-13] MEDS: ROSUVASTATIN 20 MG TABLET PO SCH (08:57)
[2022-09-13] MEDS: LOSARTAN 50 MG TABLET PO SCH (08:57)
[2022-09-13] MEDS: ESCITALOPRAM 10 MG TABLET PO SCH (08:57)
[2022-09-13] MEDS: FERROUS SULFATE 325 MG TABLET PO SCH ×2 (08:57→20:27)
[2022-09-13] MEDS: MONTELUKAST 10 MG TABLET PO SCH (08:58)
[2022-09-13] MEDS: SODIUM BICARBONATE 650 MG TABLET PO SCH ×2 (08:58→20:27)
[2022-09-13] MEDS: POLYETHYLENE GLYCOL POWDER 17 GM PACK PO SCH (08:58)
[2022-09-13] MEDS: PANTOPRAZOLE 40 MG TABLET PO SCH (08:58)
[2022-09-13] MEDS: FUROSEMIDE 40 MG TABLET PO SCH ×2 (09:02→17:12)
[2022-09-13] MEDS: calcitrioL 0.25 MCG CAPSULE PO SCH (11:33)
[2022-09-13] MEDS: SEVELAMER CARBONATE 800 MG TABLET PO SCH ×4 (11:33→17:12)
[2022-09-13] MEDS ORDERED: HEPARIN 10,000 UNIT/10 ML VIAL IV SCH (13:30)
[2022-09-14] MEDS: SEVELAMER CARBONATE 800 MG TABLET PO SCH (10:27)
[2022-09-14] MEDS: FERROUS SULFATE 325 MG TABLET PO SCH (10:28)
[2022-09-14] MEDS: FUROSEMIDE 40 MG TABLET PO SCH (10:28)
[2022-09-14] MEDS: SODIUM BICARBONATE 650 MG TABLET PO SCH (10:28)
[2022-09-14] MEDS: INSULIN LISPRO 100 UNIT/ML SUBCUT SCH (10:28)
[2022-09-14] MEDS: ESCITALOPRAM 10 MG TABLET PO SCH (10:29)
[2022-09-14] MEDS: MONTELUKAST 10 MG TABLET PO SCH (10:29)
[2022-09-14] MEDS: carvediloL 12.5 MG TABLET PO SCH (10:29)
[2022-09-14] MEDS: calcitrioL 0.25 MCG CAPSULE PO SCH (10:29)
[2022-09-14] MEDS: ROSUVASTATIN 20 MG TABLET PO SCH (10:29)
[2022-09-14] MEDS: MULTIVITAMIN (BEROCCA) TABLET PO SCH (10:29)
[2022-09-14] MEDS: LOSARTAN 50 MG TABLET PO SCH (10:29)
[2022-09-14] MEDS: PANTOPRAZOLE 40 MG TABLET PO SCH (10:33)
[2022-09-14] MEDS: POLYETHYLENE GLYCOL POWDER 17 GM PACK PO SCH (10:33)
[2022-09-14 12:11] VITALS: BP 158/68
== END 2022-09-14 13:46 | disposition home or self-care (01) ==
LOC: N.ED 21:54 → N.EDINP 21:54 → N.TELEN 09-13 15:50
PROVIDERS: ADMIT Internal Medicine Geriatric Medicine; ATTEND Internal Medicine Geriatric Medicine

== ENCOUNTER 2022-09-17 15:09 | Inpatient (IN) ==
[2022-09-17 16:59] LABS: Basophils % 0.6 % (0.0-0.8); Eosinophils # 0.1 10*3/uL (0.0-0.87); Eosinophils % 2.9 % (0.00-10.9); Hematocrit 38.4 VOL% (35.7-47.0); Hemoglobin 12.6 GM/DL (12.0-16.0); Immature Granulocytes % 0.3 %; Immature Granulocytes Absolute 0.01 #; Lymphocytes # 0.7 10*3/uL (1.4-4.0); Lymphocytes % 20.7 % (21.3-54.2); Mean Corpuscular HGB Conc 32.8 GM/DL (32-36); Mean Corpuscular Volume 102.4 FL (87-102); Mean Platelet Volume 8.7 FL (9.6-12.0); Monocytes # 0.3 10*3/uL (0.11-0.8); Monocytes % 9.2 % (1.7-12.7); Neutrophils % 66.3 % (38.7-73.9); Platelet Count 218 T/CUMM (130-400); Red Blood Count 3.75 MC/CUMM (3.8-5.5); Red Cell Distribution Width 13.6 % (9.3-17.3); White Blood Count 3.5 T/CUMM (4-12)
[2022-09-17 17:22] LABS: Albumin 3.2 G/DL (3.4-5.0); Bilirubin,Total 1.5 MG/DL (0.20-1.00); Calcium 8.4 MG/DL (8.5-10.1); Osmolality,Calculated 295.5 MOS/KG (273-304); Potassium 4.4 MMOL/L (3.5-5.1); Total Protein 6.1 G/DL (6.4-8.2)
[2022-09-17] MEDS ORDERED: hydrALAZINE 20 MG/1 ML VIAL IV PRN (19:27)
[2022-09-17] MEDS ORDERED: ONDANSETRON 4 MG/2 ML VIAL IV PRN (19:27)
[2022-09-17] MEDS ORDERED: FUROSEMIDE 100 MG/10 ML VIAL IV STA (19:33)
[2022-09-18] MEDS: ALBUTEROL/IPRATROPIUM 3 ML NEB RESP TX SCH ×4 (00:57→19:20)
[2022-09-18 06:54] LABS: Calcium 8.7 MG/DL (8.5-10.1)
[2022-09-18 07:53] LABS: Basophils % 0.4 % (0.0-0.8); Eosinophils # 0.2 10*3/uL (0.0-0.87); Hematocrit 25.6 VOL% (35.7-47.0); Immature Granulocytes % 0.4 %; Immature Granulocytes Absolute 0.02 #; Lymphocytes # 1.2 10*3/uL (1.4-4.0); Lymphocytes % 22.1 % (21.3-54.2); Mean Corpuscular HGB Conc 32.4 GM/DL (32-36); Mean Corpuscular Volume 105.8 FL (87-102); Monocytes # 0.5 10*3/uL (0.11-0.8); Monocytes % 10.1 % (1.7-12.7); Platelet Count 240 T/CUMM (130-400); Red Cell Distribution Width 13.4 % (9.3-17.3)
[2022-09-18 07:54] LABS: Hemoglobin 8.3 GM/DL (12.0-16.0); Red Blood Count 2.42 MC/CUMM (3.8-5.5); White Blood Count 5.3 T/CUMM (4-12)
[2022-09-18] MEDS: MONTELUKAST 10 MG TABLET PO SCH (08:09)
[2022-09-18] MEDS: carvediloL 12.5 MG TABLET PO SCH ×2 (08:09→16:33)
[2022-09-18] MEDS: PANTOPRAZOLE 40 MG TABLET PO SCH (08:09)
[2022-09-18] MEDS: ESCITALOPRAM 10 MG TABLET PO SCH (08:09)
[2022-09-18] MEDS: SEVELAMER CARBONATE 800 MG TABLET PO SCH ×3 (08:09→16:32)
[2022-09-18] MEDS: POLYETHYLENE GLYCOL POWDER 17 GM PACK PO SCH (08:11)
[2022-09-18] MEDS: FUROSEMIDE 40 MG/4 ML VIAL IV SCH ×2 (08:56→16:04)
[2022-09-18] MEDS ORDERED: ERTAPENEM IV ONE ×2 (12:00→14:00)
[2022-09-18 12:09] LABS: Hepatitis B Core IgM Quant 0.07 Index; Hepatitis B Surface Ag Result Non-Reactive (NonReactive); Hepatitis C Virus Ab Quant < 0.02 Index; Hepatitis C Virus Ab Result Non-Reactive (NonReactive)
[2022-09-18] MEDS ORDERED: HEPARIN 10,000 UNIT/10 ML VIAL IV SCH (14:00)
[2022-09-18] MEDS: ERTAPENEM 500 MG in SODIUM CHLORIDE 0.9% 100 ML IV SCH (17:36)
[2022-09-19] MEDS: ALBUTEROL/IPRATROPIUM 3 ML NEB RESP TX SCH ×4 (00:05→19:52)
[2022-09-19 05:35] LABS: Basophils % 0.3 % (0.0-0.8); Eosinophils # 0.2 10*3/uL (0.0-0.87); Eosinophils % 3.9 % (0.00-10.9); Hematocrit 26.6 VOL% (35.7-47.0); Hemoglobin 8.4 GM/DL (12.0-16.0); Immature Granulocytes % 0.5 %; Immature Granulocytes Absolute 0.03 #; Lymphocytes # 1.1 10*3/uL (1.4-4.0); Lymphocytes % 17.8 % (21.3-54.2); Mean Corpuscular HGB Conc 31.6 GM/DL (32-36); Mean Corpuscular Volume 106.8 FL (87-102); Mean Platelet Volume 8.7 FL (9.6-12.0); Monocytes # 0.6 10*3/uL (0.11-0.8); Monocytes % 10.4 % (1.7-12.7); Neutrophils % 67.1 % (38.7-73.9); Platelet Count 268 T/CUMM (130-400); Red Blood Count 2.49 MC/CUMM (3.8-5.5); Red Cell Distribution Width 13.6 % (9.3-17.3)
[2022-09-19 06:03] LABS: Calcium 8.6 MG/DL (8.5-10.1); Osmolality,Calculated 279.8 MOS/KG (273-304); Potassium 4.5 MMOL/L (3.5-5.1)
[2022-09-19] MEDS: FERROUS SULFATE 325 MG TABLET PO SCH ×2 (08:52→20:27)
[2022-09-19] MEDS: CHOLECALCIFEROL 1,000 UNIT TABLET PO SCH (08:52)
[2022-09-19] MEDS: SEVELAMER CARBONATE 800 MG TABLET PO SCH ×3 (08:52→18:02)
[2022-09-19] MEDS: PANTOPRAZOLE 40 MG TABLET PO SCH (08:52)
[2022-09-19] MEDS: ROSUVASTATIN 20 MG TABLET PO SCH (08:52)
[2022-09-19] MEDS: SODIUM BICARBONATE 650 MG TABLET PO SCH ×2 (08:52→20:27)
[2022-09-19] MEDS: ESCITALOPRAM 10 MG TABLET PO SCH (08:53)
[2022-09-19] MEDS: MONTELUKAST 10 MG TABLET PO SCH (08:53)
[2022-09-19] MEDS: carvediloL 12.5 MG TABLET PO SCH ×2 (08:53→17:59)
[2022-09-19] MEDS: calcitrioL 0.25 MCG CAPSULE PO SCH (08:53)
[2022-09-19] MEDS: FUROSEMIDE 40 MG/4 ML VIAL IV SCH ×2 (09:07→18:19)
[2022-09-19] MEDS: ACETAMINOPHEN 325 MG TABLET PO PRN ×2 (09:11→21:00)
[2022-09-19] MEDS: POLYETHYLENE GLYCOL POWDER 17 GM PACK PO SCH (11:30)
[2022-09-19] MEDS: ERTAPENEM 500 MG in SODIUM CHLORIDE 0.9% 100 ML IV SCH (17:27)
[2022-09-20] MEDS: ALBUTEROL/IPRATROPIUM 3 ML NEB RESP TX SCH ×4 (02:30→18:52)
[2022-09-20 05:37] LABS: Basophils % 0.7 % (0.0-0.8); Eosinophils # 0.3 10*3/uL (0.0-0.87); Hematocrit 29.8 VOL% (35.7-47.0); Hemoglobin 9.5 GM/DL (12.0-16.0); Immature Granulocytes % 0.6 %; Immature Granulocytes Absolute 0.03 #; Lymphocytes # 1.5 10*3/uL (1.4-4.0); Lymphocytes % 28.5 % (21.3-54.2); Mean Corpuscular HGB Conc 31.9 GM/DL (32-36); Mean Corpuscular Volume 107.6 FL (87-102); Mean Platelet Volume 8.9 FL (9.6-12.0); Monocytes # 0.6 10*3/uL (0.11-0.8); Monocytes % 10.6 % (1.7-12.7); Neutrophils % 54.6 % (38.7-73.9); Platelet Count 312 T/CUMM (130-400); Red Blood Count 2.77 MC/CUMM (3.8-5.5); Red Cell Distribution Width 13.2 % (9.3-17.3); White Blood Count 5.4 T/CUMM (4-12)
[2022-09-20 06:00] LABS: Calcium 8.7 MG/DL (8.5-10.1); Osmolality,Calculated 289.7 MOS/KG (273-304); Potassium 4.6 MMOL/L (3.5-5.1)
[2022-09-20] MEDS: CHOLECALCIFEROL 1,000 UNIT TABLET PO SCH (08:31)
[2022-09-20] MEDS: calcitrioL 0.25 MCG CAPSULE PO SCH (08:31)
[2022-09-20] MEDS: ESCITALOPRAM 10 MG TABLET PO SCH (08:31)
[2022-09-20] MEDS: SEVELAMER CARBONATE 800 MG TABLET PO SCH ×3 (08:32→17:03)
[2022-09-20] MEDS: SODIUM BICARBONATE 650 MG TABLET PO SCH ×2 (08:32→20:16)
[2022-09-20] MEDS: MONTELUKAST 10 MG TABLET PO SCH (08:32)
[2022-09-20] MEDS: FERROUS SULFATE 325 MG TABLET PO SCH ×2 (08:32→20:17)
[2022-09-20] MEDS: carvediloL 12.5 MG TABLET PO SCH ×2 (09:29→17:03)
[2022-09-20] MEDS: FUROSEMIDE 40 MG/4 ML VIAL IV SCH ×2 (09:29→17:15)
[2022-09-20] MEDS: ROSUVASTATIN 20 MG TABLET PO SCH (12:58)
[2022-09-20] MEDS: PANTOPRAZOLE 40 MG TABLET PO SCH (12:58)
[2022-09-20] MEDS: POLYETHYLENE GLYCOL POWDER 17 GM PACK PO SCH (13:01)
[2022-09-20] MEDS: ERTAPENEM 500 MG in SODIUM CHLORIDE 0.9% 100 ML IV SCH (15:38)
[2022-09-20] MEDS: ACETAMINOPHEN 325 MG TABLET PO PRN (20:17)
[2022-09-20] MEDS ORDERED: MELATONIN 3 MG TABLET PO PRN (23:29)
[2022-09-21] MEDS: ALBUTEROL/IPRATROPIUM 3 ML NEB RESP TX SCH ×2 (01:30→07:15)
[2022-09-21 05:05] LABS: Calcium 8.4 MG/DL (8.5-10.1); Osmolality,Calculated 283.7 MOS/KG (273-304); Potassium 4.9 MMOL/L (3.5-5.1)
[2022-09-21 08:20] LABS: Basophils % 0.6 % (0.0-0.8); Eosinophils # 0.2 10*3/uL (0.0-0.87); Eosinophils % 4.6 % (0.00-10.9); Hematocrit 29.4 VOL% (35.7-47.0); Hemoglobin 8.8 GM/DL (12.0-16.0); Immature Granulocytes % 0.2 %; Immature Granulocytes Absolute 0.01 #; Lymphocytes # 1.2 10*3/uL (1.4-4.0); Lymphocytes % 24.5 % (21.3-54.2); Mean Corpuscular HGB Conc 29.9 GM/DL (32-36); Mean Corpuscular Volume 110.1 FL (87-102); Mean Platelet Volume 8.9 FL (9.6-12.0); Monocytes # 0.6 10*3/uL (0.11-0.8); Monocytes % 12.9 % (1.7-12.7); Neutrophils % 57.2 % (38.7-73.9); Platelet Count 280 T/CUMM (130-400); Red Blood Count 2.67 MC/CUMM (3.8-5.5); Red Cell Distribution Width 13.3 % (9.3-17.3); White Blood Count 4.7 T/CUMM (4-12)
[2022-09-21] MEDS: FUROSEMIDE 40 MG/4 ML VIAL IV SCH (08:56)
[2022-09-21 09:10] VITALS: BP 134/60
[2022-09-21] MEDS: MONTELUKAST 10 MG TABLET PO SCH (09:12)
[2022-09-21] MEDS: ROSUVASTATIN 20 MG TABLET PO SCH (09:12)
[2022-09-21] MEDS: SEVELAMER CARBONATE 800 MG TABLET PO SCH ×2 (09:12→12:23)
[2022-09-21] MEDS: CHOLECALCIFEROL 1,000 UNIT TABLET PO SCH (09:12)
[2022-09-21] MEDS: SODIUM BICARBONATE 650 MG TABLET PO SCH (09:12)
[2022-09-21] MEDS: PANTOPRAZOLE 40 MG TABLET PO SCH (09:13)
[2022-09-21] MEDS: FERROUS SULFATE 325 MG TABLET PO SCH (09:13)
[2022-09-21] MEDS: POLYETHYLENE GLYCOL POWDER 17 GM PACK PO SCH (09:13)
[2022-09-21] MEDS: carvediloL 12.5 MG TABLET PO SCH (09:14)
[2022-09-21] MEDS: ESCITALOPRAM 10 MG TABLET PO SCH (09:14)
[2022-09-21] MEDS: calcitrioL 0.25 MCG CAPSULE PO SCH (09:15)
[2022-09-21 09:16] LABS: Macrocytosis Slight; Platelet Estimate Normal
== END 2022-09-21 12:04 | disposition home health service (06) | DRG 291 ==
LOC: N.ED 15:09 → N.EDINP 18:47 → N.TELES 19:56
PROVIDERS: ADMIT Internal Medicine; ATTEND Internal Medicine

== ENCOUNTER 2022-10-12 18:04 | Inpatient (IN) ==
[2022-10-12] MEDS ORDERED: ALBUTEROL/IPRATROPIUM 3 ML NEB RESP TX STA (18:45)
[2022-10-12] MEDS ORDERED: MORPHINE 2 MG/1 ML SYRINGE IV STA (18:45)
[2022-10-12] MEDS ORDERED: NITROGLYCERIN 2% OINT 1 INCH/GM PACK TOP STA (18:45)
[2022-10-12] MEDS ORDERED: methylPREDNISolone SOD SUC 125 MG/2 ML VIAL IV STA (18:45)
[2022-10-12] MEDS ORDERED: ONDANSETRON 4 MG/2 ML VIAL IV STA (18:45)
[2022-10-12 19:06] LABS: Basophils % 0.5 % (0.0-0.8); Eosinophils # 0.3 10*3/uL (0.0-0.87); Eosinophils % 3.3 % (0.00-10.9); Hematocrit 28.2 VOL% (35.7-47.0); Immature Granulocytes % 0.6 %; Immature Granulocytes Absolute 0.05 #; Lymphocytes # 0.9 10*3/uL (1.4-4.0); Mean Corpuscular HGB Conc 31.9 GM/DL (32-36); Mean Corpuscular Volume 107.6 FL (87-102); Mean Platelet Volume 8.9 FL (9.6-12.0); Monocytes # 0.5 10*3/uL (0.11-0.8); Monocytes % 5.7 % (1.7-12.7); Neutrophils % 79.9 % (38.7-73.9); Platelet Count 250 T/CUMM (130-400); Red Blood Count 2.62 MC/CUMM (3.8-5.5); Red Cell Distribution Width 14.7 % (9.3-17.3); White Blood Count 8.76 T/CUMM (4-12)
[2022-10-12 19:17] LABS: INR 0.9; PT Patient Result 10.3 SECS (10.1-12.1)
[2022-10-12 19:32] LABS: Albumin 3.5 G/DL (3.4-5.0); Bilirubin,Total 0.9 MG/DL (0.20-1.00); Calcium 8.6 MG/DL (8.5-10.1); Osmolality,Calculated 295.4 MOS/KG (273-304); Potassium 3.6 MMOL/L (3.5-5.1)
[2022-10-12] MEDS ORDERED: ONDANSETRON 4 MG/2 ML VIAL IV PRN (20:35)
[2022-10-12] MEDS ORDERED: MORPHINE 2 MG/1 ML SYRINGE IV PRN (20:35)
[2022-10-12] MEDS ORDERED: ZALEPLON 5 MG CAPSULE PO PRN (20:35)
[2022-10-12] MEDS ORDERED: NICOTINE 21 MG/24 HR PATCH TRANSDERM PRN (20:35)
[2022-10-12] MEDS ORDERED: ACETAMINOPHEN 325 MG TABLET PO PRN (20:35)
[2022-10-12] MEDS ORDERED: guaiFENesin/DM ER 600-30 MG TABLET PO PRN (20:35)
[2022-10-12] MEDS ORDERED: hydrALAZINE 20 MG/1 ML VIAL IV PRN (20:35)
[2022-10-13 05:21] LABS: Basophils % 0.2 % (0.0-0.8); Hematocrit 26.7 VOL% (35.7-47.0); Hemoglobin 8.6 GM/DL (12.0-16.0); Immature Granulocytes % 0.4 %; Immature Granulocytes Absolute 0.02 #; Lymphocytes # 0.5 10*3/uL (1.4-4.0); Lymphocytes % 10.9 % (21.3-54.2); Mean Corpuscular HGB Conc 32.2 GM/DL (32-36); Mean Corpuscular Volume 107.7 FL (87-102); Mean Platelet Volume 9.1 FL (9.6-12.0); Monocytes # 0.1 10*3/uL (0.11-0.8); Monocytes % 2.2 % (1.7-12.7); Neutrophils % 86.3 % (38.7-73.9); Platelet Count 236 T/CUMM (130-400); Red Blood Count 2.48 MC/CUMM (3.8-5.5); Red Cell Distribution Width 14.4 % (9.3-17.3); White Blood Count 4.97 T/CUMM (4-12)
[2022-10-13 05:46] LABS: Calcium 8.9 MG/DL (8.5-10.1); Osmolality,Calculated 294.8 MOS/KG (273-304); Potassium 4.6 MMOL/L (3.5-5.1)
[2022-10-13] MEDS: ALBUTEROL/IPRATROPIUM 3 ML NEB RESP TX SCH ×4 (06:50→20:38)
[2022-10-13] MEDS: SEVELAMER CARBONATE 800 MG TABLET PO SCH ×3 (11:30→18:38)
[2022-10-13] MEDS: ROSUVASTATIN 20 MG TABLET PO SCH (11:31)
[2022-10-13] MEDS: LOSARTAN 50 MG TABLET PO SCH (11:32)
[2022-10-13] MEDS: carvediloL 12.5 MG TABLET PO SCH ×2 (11:33→18:38)
[2022-10-13] MEDS: INSULIN LISPRO 100 UNIT/ML SUBCUT SCH ×4 (11:34→21:10)
[2022-10-13] MEDS: PANTOPRAZOLE 40 MG TABLET PO SCH (11:34)
[2022-10-13] MEDS: FUROSEMIDE 40 MG/4 ML VIAL IV SCH ×2 (12:16→19:36)
[2022-10-13 13:49] LABS: 25 Hydroxy Vitamin D Total 26.6 NG/ML (30-100); Folate 17.23 NG/ML (5.38-24.0)
[2022-10-13 14:01] LABS: % Iron Saturation 10.1 % (18-50)
[2022-10-13] MEDS: diphenhydrAMINE CAP 25 MG CAPSULE PO PRN (22:58)
[2022-10-14] MEDS: ALBUTEROL/IPRATROPIUM 3 ML NEB RESP TX SCH ×5 (01:55→19:30)
[2022-10-14 04:39] LABS: Basophils % 0.2 % (0.0-0.8); Eosinophils # 0.2 10*3/uL (0.0-0.87); Eosinophils % 2.9 % (0.00-10.9); Hematocrit 26.8 VOL% (35.7-47.0); Hemoglobin 8.3 GM/DL (12.0-16.0); Immature Granulocytes % 0.6 %; Immature Granulocytes Absolute 0.05 #; Lymphocytes # 1.9 10*3/uL (1.4-4.0); Lymphocytes % 23.2 % (21.3-54.2); Mean Corpuscular Volume 108.1 FL (87-102); Monocytes # 0.4 10*3/uL (0.11-0.8); Monocytes % 5.2 % (1.7-12.7); Neutrophils % 67.9 % (38.7-73.9); Platelet Count 267 T/CUMM (130-400); Red Blood Count 2.48 MC/CUMM (3.8-5.5); Red Cell Distribution Width 14.2 % (9.3-17.3); White Blood Count 8.06 T/CUMM (4-12)
[2022-10-14 04:54] LABS: Calcium 8.7 MG/DL (8.5-10.1); Osmolality,Calculated 295.1 MOS/KG (273-304); Potassium 4.6 MMOL/L (3.5-5.1)
[2022-10-14] MEDS: INSULIN LISPRO 100 UNIT/ML SUBCUT SCH ×4 (08:00→21:34)
[2022-10-14] MEDS: PANTOPRAZOLE 40 MG TABLET PO SCH (11:11)
[2022-10-14] MEDS: carvediloL 12.5 MG TABLET PO SCH ×2 (11:12→17:07)
[2022-10-14] MEDS: SEVELAMER CARBONATE 800 MG TABLET PO SCH ×3 (11:12→17:03)
[2022-10-14 12:00] LABS: Hepatitis B Core IgM Quant 0.08 Index; Hepatitis B Surface Ag Quant < 0.10 Index; Hepatitis B Surface Ag Result Non-Reactive (NonReactive); Hepatitis C Virus Ab Quant < 0.02 Index; Hepatitis C Virus Ab Result Non-Reactive (NonReactive)
[2022-10-14] MEDS ORDERED: HEPARIN 10,000 UNIT/10 ML VIAL IV PRN (12:02)
[2022-10-14] MEDS: ROSUVASTATIN 20 MG TABLET PO SCH (15:31)
[2022-10-14] MEDS: FUROSEMIDE 40 MG/4 ML VIAL IV SCH ×2 (15:31→15:33)
[2022-10-14] MEDS: LOSARTAN 50 MG TABLET PO SCH (15:31)
[2022-10-15] MEDS: ALBUTEROL/IPRATROPIUM 3 ML NEB RESP TX SCH ×4 (02:05→19:31)
[2022-10-15 06:55] LABS: Basophils % 0.5 % (0.0-0.8); Eosinophils # 0.3 10*3/uL (0.0-0.87); Eosinophils % 5.4 % (0.00-10.9); Hematocrit 26.5 VOL% (35.7-47.0); Hemoglobin 8.1 GM/DL (12.0-16.0); Immature Granulocytes % 0.4 %; Immature Granulocytes Absolute 0.02 #; Lymphocytes # 0.8 10*3/uL (1.4-4.0); Lymphocytes % 15.1 % (21.3-54.2); Mean Corpuscular HGB Conc 30.6 GM/DL (32-36); Mean Corpuscular Volume 113.7 FL (87-102); Mean Platelet Volume 9.1 FL (9.6-12.0); Monocytes # 0.4 10*3/uL (0.11-0.8); Monocytes % 6.7 % (1.7-12.7); Neutrophils % 71.9 % (38.7-73.9); Platelet Count 200 T/CUMM (130-400); Red Blood Count 2.33 MC/CUMM (3.8-5.5); Red Cell Distribution Width 14.4 % (9.3-17.3); White Blood Count 5.56 T/CUMM (4-12)
[2022-10-15 07:16] LABS: Calcium 8.2 MG/DL (8.5-10.1); Osmolality,Calculated 291.5 MOS/KG (273-304); Potassium 4.5 MMOL/L (3.5-5.1)
[2022-10-15] MEDS: carvediloL 12.5 MG TABLET PO SCH ×2 (10:07→16:33)
[2022-10-15] MEDS: INSULIN LISPRO 100 UNIT/ML SUBCUT SCH ×4 (10:07→20:56)
[2022-10-15] MEDS: FUROSEMIDE 40 MG/4 ML VIAL IV SCH ×2 (10:07→16:32)
[2022-10-15] MEDS: SEVELAMER CARBONATE 800 MG TABLET PO SCH ×3 (10:08→16:33)
[2022-10-15] MEDS: ROSUVASTATIN 20 MG TABLET PO SCH (10:08)
[2022-10-15] MEDS: PANTOPRAZOLE 40 MG TABLET PO SCH (10:08)
[2022-10-15] MEDS: LOSARTAN 50 MG TABLET PO SCH (10:08)
[2022-10-16] MEDS: ALBUTEROL/IPRATROPIUM 3 ML NEB RESP TX SCH ×3 (00:34→13:28)
[2022-10-16] MEDS: diphenhydrAMINE CAP 25 MG CAPSULE PO PRN (05:54)
[2022-10-16] MEDS: carvediloL 12.5 MG TABLET PO SCH ×2 (09:47→17:14)
[2022-10-16] MEDS: FERROUS SULFATE 325 MG TABLET PO SCH ×2 (09:47→17:14)
[2022-10-16] MEDS: SEVELAMER CARBONATE 800 MG TABLET PO SCH ×3 (09:47→17:14)
[2022-10-16] MEDS: PANTOPRAZOLE 40 MG TABLET PO SCH (09:47)
[2022-10-16] MEDS: INSULIN LISPRO 100 UNIT/ML SUBCUT SCH ×2 (09:47→12:30)
[2022-10-16] MEDS: ROSUVASTATIN 20 MG TABLET PO SCH (09:47)
[2022-10-16] MEDS: LOSARTAN 50 MG TABLET PO SCH (09:47)
[2022-10-16] MEDS: FUROSEMIDE 40 MG/4 ML VIAL IV SCH (09:48)
[2022-10-16 12:51] VITALS: BP 142/54
== END 2022-10-16 17:57 | disposition home health service (06) | DRG 291 ==
LOC: N.EDINP 18:04 → N.ED 18:04 → N.TELES 21:47
PROVIDERS: ADMIT Internal Medicine; ATTEND Internal Medicine